=== PATIENT | female | born 2000 | race Caucasian/White ===

== ENCOUNTER 2020-05-16 17:33 | Emergency (ER) | payer SELFPAY ==
[2020-05-16 18:22] LABS: Urine Blood NEGATIVE (NEG); Urine Glucose NEGATIVE (NEG); Urine Protein NEGATIVE (NEG); Urine Specific Gravity 1.015 (1.005-1.030)
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
--- NOTE | 2020-05-16 18:44 | RAD REPORT ---
EXAM DESCRIPTION: CT - Thorax Wo Con - 05/16/2020 6:16 pm CLINICAL HISTORY: Chest pain COMPARISON: None TECHNIQUE: Computed axial tomography of the chest was obtained. Contrast was not requested. All CT scans are performed using dose optimization technique as appropriate and may include automated exposure control or mA/KV adjustment according to patient size. FINDINGS: The evaluation of mediastinum, leanne and vessels is limited secondary to lack of IV contras t administration. A gross mediastinal hematoma is not seen. A pulmonary contusion is not noted A pleural effusion is not present. A pericardial effusion is not seen IMPRESSION: No acute traumatic injury involving the chest seen
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
[2020-05-16 20:02] VITALS: TEMP 98
[2020-05-16 20:03] VITALS: O2SAT 100
[2020-05-16 20:05] VITALS: BP 132/81
== END 2020-05-16 19:49 | disposition home or self-care (01) ==
LOC: ER 17:33
DX: S20.219A Contusion of unspecified front wall of thorax, initial encounter (principal); S80.11XA Contusion of right lower leg, initial encounter; V49.50XA Passenger injured in collision with unspecified motor vehicles in traffic accident, initial encounter
CPT/HCPCS: 70450; 71250; 72125; 81003; 81025; 96374; 99284

== ENCOUNTER 2020-06-16 14:03 | Emergency (ER) | payer SELFPAY ==
--- NOTE | 2020-06-16 14:44 | ER ---
Nurse's Notes [facility] Name: Rupa Smith Age: 20 yrs Sex: Female : 2000 Arrival Date: 06/16/2020 Time: 14:12 Bed 20 Private MD: Diagnosis: Other otitis externa, left ear Presentation: 06/16 14:26 Chief complaint: Patient states: Left ear pain x approx 2 weeks, recently began ph radiating to left jaw and throat, also reports headache, denies cough, fever, or SOB. Coronavirus screen: Patient denies shortness of breath or difficulty breathing. Patient denies measured and/or subjective temperature greater than 100.4F prior to today's visit. Patient denies travel on a cruise ship or to a country the [facility] currently lists as an affected area. Patient denies contact with known and/or suspected case of COVID-19. Proceed with normal triage. Ebola Screen: No symptoms or risks identified at this time. Initial Sepsis Screen: Does the patient meet any 2 criteria? No. Patient's initial sepsis screen is negative. Does the patient have a suspected source of infection? No. Patient's initial sepsis screen is negative. Risk Assessment: Do you want to hurt yourself or someone else? Patient reports no desire to harm self or others. Onset of symptoms was June 16, 2020. 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 - Social history:: Smoking status: Patient reports the use of cigarette tobacco products, "tobacco". Screenin:34 Abuse screen: Denies threats or abuse. Denies injuries from another. Nutritional ph screening: No deficits noted. Tuberculosis screening: No symptoms or risk factors identified. Fall Risk None identified. Assessment: 14:33 General: Appears in no apparent distress. comfortable, slender, well groomed, Behavior ph is calm, cooperative, appropriate for age, Denies fever. Pain: Complains of pain in left ear Pain radiates to left jaw. Neuro: Level of Consciousness is awake, alert, obeys commands, Oriented to person, place, time, situation. Cardiovascular: Capillary refill < 3 seconds in bilateral fingers Patient's skin is warm and dry. Respiratory: Airway is patent Respiratory effort is even, unlabored, Respiratory pattern is regular, symmetrical. EENT: Reports pain in left ear and left jaw when swallowing. Derm: Skin is intact, is healthy with good turgor, Skin is pink, warm \\T\\ dry. 14:55 Reassessment: Patient appears in no apparent distress at this time. Patient and/or vc family updated on plan of care and expected duration. Pain level reassessed. Patient is alert, oriented x 3, equal unlabored respirations, skin warm/dry/pink. Vital Signs: 14:26 BP 126 / 81; Pulse 98; Resp 18; Temp 98.5; Pulse Ox 100% on R/A; Weight 45.36 kg; ph Height 5 ft. 2 in. (157.48 cm); 14:26 Body Mass Index 18.29 (45.36 kg, 157.48 cm) ph ED Course: 14:12 Patient arrived in ED. fj1 14:20 Den[facility] Mar[facility]C [facility]. kb 14:20 Ramu Mclaughlin MD is Attending Physician. kb 14:30 Triage completed. ph 14:33 Arm band placed on Patient placed in an exam room. ph 14:35 Patient has correct armband on for positive identification. Bed in low position. Call ph light in reach. Side rails up X 1. Pulse ox on. NIBP on. Door closed. Noise minimized. 14:55 Daja Ricci RN is Primary Nurse. vc 15:00 No provider procedures requiring assistance completed. Patient did not have IV access vc during this emergency room visit. Administered Medications: No medications were administered Outcome: 14:44 Discharge ordered by . kb 15:00 Discharged to home ambulatory. vc 15:00 Condition: good 15:00 Discharge instructions given to patient, Instructed on discharge instructions, follow up and referral plans. medication usage, Demonstrated understanding of instructions, follow-up care, medications, Prescriptions given X 1. 15:00 Patient left the ED. vc Signatures: Denae Marquez FNP-C FNP-Ckb Hall, Patricia, RN RN Daja Ricci RN RN Rigo, Damian fj1
--- NOTE | 2020-06-16 14:44 | EDPHYS ---
Physician Documentation [facility] Name: Rupa Smith Age: 20 yrs Sex: Female : 2000 Arrival Date: 06/16/2020 Time: 14:12 Bed 20 Private MD: ED Physician Ramu Mclaughlin HPI: 06/16 14:41 This 20 yrs old Female presents to ER via Ambulatory with complaints of Ear kb Pain. 14:41 The patient presents with pain, tenderness. The complaints affect the left ear. Onset: kb The symptoms/episode began/occurred 1.5 week(s) ago. Modifying factors: The symptoms are alleviated by nothing, the symptoms are aggravated by nothing. Associated signs and symptoms: The patient has no apparent associated signs or symptoms. Severity of symptoms: At their worst the symptoms were moderate in the emergency department the symptoms are unchanged. The patient has not experienced similar symptoms in the past. The patient has not recently seen a physician. pt reports left ear pain for a week and a half. States the pain is now radiating to jaw and throat so she came to get it checked out. . 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 - Social history:: Smoking status: Patient reports the use of cigarette tobacco products, "tobacco". ROS: 14:40 Constitutional: Negative for fever, chills, and weight loss, Cardiovascular: Negative kb for chest pain, palpitations, and edema, Respiratory: Negative for shortness of breath, cough, wheezing, and pleuritic chest pain, Abdomen/GI: Negative for abdominal pain, nausea, vomiting, diarrhea, and constipation, MS/Extremity: Negative for injury and deformity, Skin: Negative for injury, rash, and discoloration, Neuro: Negative for headache, weakness, numbness, tingling, and seizure. 14:40 ENT: Positive for ear pain. Exam: 14:40 Constitutional: This is a well developed, well nourished patient who is awake, alert, kb and in no acute distress. Head/Face: Normocephalic, atraumatic. Chest/axilla: Normal chest wall appearance and motion. Nontender with no deformity. No lesions are appreciated. Cardiovascular: Regular rate and rhythm with a normal S1 and S2. No gallops, murmurs, or rubs. Normal PMI, no JVD. No pulse deficits. Respiratory: Lungs have equal breath sounds bilaterally, clear to auscultation and percussion. No rales, rhonchi or wheezes noted. No increased work of breathing, no retractions or nasal flaring. Abdomen/GI: Soft, non-tender, with normal bowel sounds. No distension or tympany. No guarding or rebound. No evidence of tenderness throughout. Skin: Warm, dry with normal turgor. Normal color with no rashes, no lesions, and no evidence of cellulitis. MS/ Extremity: Pulses equal, no cyanosis. Neurovascular intact. Full, normal range of motion. Neuro: Awake and alert, GCS 15, oriented to person, place, time, and situation. Cranial nerves II-XII grossly intact. Motor strength 5/5 in all extremities. Sensory grossly intact. Cerebellar exam normal. Normal gait. 14:40 ENT: External ear(s): are unremarkable, Ear canal(s): purulent discharge, that is moderate, in the left canal, swelling, that is moderate, of the left canal, TM's: are normal, Nose: is normal, Mouth: is normal, Posterior pharynx: is normal. Vital Signs: 14:26 BP 126 / 81; Pulse 98; Resp 18; Temp 98.5; Pulse Ox 100% on R/A; Weight 45.36 kg; ph Height 5 ft. 2 in. (157.48 cm); 14:26 Body Mass Index 18.29 (45.36 kg, 157.48 cm) ph MDM: 14:27 Patient medically screened. kb 14:40 Data reviewed: vital signs, nurses notes. Data interpreted: Pulse oximetry: on room air kb is 100 %. Interpretation: normal. 14:41 Counseling: I had a detailed discussion with the patient and/or guardian regarding: the kb historical points, exam findings, and any diagnostic results supporting the discharge/admit diagnosis, the need for outpatient follow up, a family practitioner, to return to the emergency department if symptoms worsen or persist or if there are any questions or concerns that arise at home. Administered Medications: No medications were administered Disposition: 18:06 Co-signature as Attending Physician, Ramu Mclaughlin MD I agree with the assessment and chad plan of care. Disposition: 06/16/20 14:44 Discharged to Home. Impression: Other otitis externa, left ear. - Condition is Stable. - Discharge Instructions: Otitis Externa, [id number], Ear Drops, Adult, [id number]. - Prescriptions for Cortisporin 3.5- 10,000-1 mg/mL-unit/mL-% Otic solution - instill 4 drop by OTIC route 4 times per day for 7 days; 1 bottle. - Medication Reconciliation Form, Thank You Letter, Antibiotic Education, Prescription Opioid Use form. - Follow up: Emergency Department; When: As needed; Reason: Worsening of condition. Follow up: Private Physician; When: 2 - 3 days; Reason: Recheck today's complaints, Continuance of care, Re-evaluation by your physician. Signatures: Denae Marquez, FENCE ERECTOR-C FENCE ERECTOR-Ramu Joya MD MD cha Hall, Patricia, RN RN ph CalcDjaa valencia RN RN vc Corrections: (The following items were deleted from the chart) 15:00 14:44 06/16/2020 14:44 Discharged to Home. Impression: Other otitis externa, left ear. vc Condition is Stable. Forms are Medication Reconciliation Form, Thank You Letter, Antibiotic Education, Prescription Opioid Use. Follow up: Emergency Department; When: As needed; Reason: Worsening of condition. Follow up: Private Physician; When: 2 - 3 days; Reason: Recheck today's complaints, Continuance of care, Re-evaluation by your physician. kb
== END 2020-06-16 15:00 | disposition home or self-care (01) ==
LOC: ER 14:03
DX: H60.8X2 Other otitis externa, left ear (principal); Z72.0 Tobacco use
CPT/HCPCS: 99283

== ENCOUNTER 2022-07-31 13:29 | Emergency (ER) | payer SELFPAY ==
--- OUTSIDE RECORDS SUMMARY | 2022-07-31 13:38 | XMS REPORT | Continuity of Care Document ---
:2000 Author Organization [facility] t Address [address] [place] [address] Care Team Providers Name Role Phone PCP, PATIENT DOES NOT HAVE A Primary Care Physician Unavaila ble Saul Chapman Attending Clinician Unavailable PATRICIA SCHAEFER Attending Clinician Unavailable Patricia Schaefer MD Attending Clinician Sean Hancock MD Attending Clinician JESÚS VELARDE Attending Clinician Unavailable Jesús Velarde MD Attending Clinician Cindy Hammond DO Attending Clinician SEAN HANCOCK Attending Clinician Unavailable Doctor Unassigned, Tobias Attending Clinician Unavailable Lois Mealra Attending Clinician Oswald Tee Attending Clinician Physician, No Primary or Family Admitting Clinician Unavailrohan fierro Payers Payer Name Policy Type Policy Number Effective Date Expiration Date S vipul [facility] [id number] 2020 00:00:00 [employer] [facility] [id number] 2016 00:00:00 Problems Condition Condition Condition Status Onset Resolution Last Treating Co mments Source Name Details Category Date Date Treatment Clinician Date Hepatitis Hepatitis Disease Active Overview: Univers C antibody C antibody 8-13 Formattin ity of test test 00:00: g of this [place] positive positive 00 note Medica l might be Branch different from the original. Patient does not have Hep C, false positive Ab test with neg RNAPer UTD, "The absence of detectabl e HCV RNA essential ly confirms the absence of chronic HCV infection . False-neg ative tests for RNA are unusual when sensitive quantitat jazmyne or qualitati ve tests with a low level of detection (eg, <50 internati onal units/mL) are used.In this situation , the reactive anti-HCV antibody most likely represent s prior infection that subsequen tly cleared spontaneo usly (or following successfu l therapy) or a false-pos itive antibody test due to technical reasons. The estimated rate of spontaneo us clearance of virus after infection is 20 to 45 percent depending upon the age and immune status of the individua l at the time of infection " Hepatitis Hepatitis Disease Active Overview: Univers C virus C virus 07-11 The route ity o f carrier carrier 00:00: [facility] delivery Medical has not Branch been shown to influence the risk of vertical HCV transmiss ion (35, 50). delivery should be performed in HCV-infec so women only for obstetric indicatio ns. breastfee ding has not been associate d with an increased risk of HCV infection (56 59) and, therefore , is not contraind icated in HCV-infec so mothers (58, 59). 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-cutti 12-11 it y of ng ng 00:00: [place] 00 Medical Branch Adopted Adopted Disease Active Univers from [place]: [place] no history no history 00 Me dical known known Branch Allergies, Adverse Reactions, Alerts Allergy Allergy Status Severity Reaction(s) Onset Inactive Treating Comm ents Source Name Type Date Date Clinician No Known DA Active U 2005-11 [facility] Contrast 12-09 Clear Allergie 00:00: [place]ang s 00 [facility] No Known DA Active U 2005-11 [facility] Drug - Clear Allergie 00:00: [place] s [facility] No Known DA Active U 2005-11 [facility] Food - Clear Allergie 00:00: [place] 00 [facility] No Known DA Active U 2005-11 [facility] Other - Clear Allergie 00:00: [place] [facility] NO KNOWN Drug Active Univers ALLERGIE Class ity of S [place] Medical [facility] Social History Social Habit Start Date Stop Date Quantity Comments Source Exposure to Not sure [facility] 2022-02-28 2022-02-28 0 [facility]d [facility] 00:[facility]:00 00:00:00 Medical Branch Tobacco use and 2012-06-16 2012-06-16 Never used [facility] exposure 00:00:00 00:00:00 Medical Branch Sex Assigned At [birth year] [facility] 00:00:00 00:00:00 Medical Branch Smoking Status Start Date Stop Date Source Never smoker [facility] Medications Ordered Filled Start Stop Current Ordering Indication Dosage Frequency Signature Comments Components Source Medication Medication Date Date Medication? Clinician (SIG) Name Name phenazopyri Yes [id number] 200mg Take 1 Univers dine 200 mg 4-02 tablet by ity of tablet 00:00: mouth 3 [place] 00 (three) Medical times Branch daily. ibuprofen Yes [id number] 400mg Take 2 Univers (MOTRIN IB) 4-02 tablets by it y of 200 mg 00:00: mouth [place] tablet 00 every 8 Medical (eight) Branch hours as needed for Pain (scale 1-3) for up to 30 doses. cephALEXin 2021- No [id number] 500mg Take 1 Univers (KEFLEX) 4-02 04-13 capsule by ity of 500 mg 00:00: 04:59 mouth 4 [place] capsule 00 :00 (four) Medical times Branch daily for 10 days. ketorolac 2020-11- No 30mg 30 mg, Unive rs (TORADOL) 2-30 12-30 Intramuscu ity of injection 16:15: 15:13 [place], ONCE, [place] 30 mg 00 :00 1 dose, On Medical Eli Branch 11/27/21 at 1015, Routine
ensemble member approving Restricted medication : JESÚS VELARDE erythromyci Yes [id number] .5[in_u Place 0.5 Univers n 5 mg/gram 08-10 247414 s] Inches in i ty of (0.5 %) 00:00: right eye [place] ophthalmic 00 at Medical ointment bedtime. Branch Continue until you follow up with eye doctor. erythromyci Yes [id number] .5[in_u Place 0.5 Univers n 5 mg/gram 08-10 498510 s] Inches in i ty of (0.5 %) 00:00: right eye [place] ophthalmic 00 at Medical ointment bedtime. Branch Continue until you follow up with eye doctor. erythromyci Yes [id number] .5[in_u Place 0.5 Univers n 5 mg/gram 08-10 028634 s] Inches in i ty of (0.5 %) 00:00: right eye [place] ophthalmic 00 at Medical ointment bedtime. Branch Continue until you follow up with eye doctor. erythromyci Yes [id number] .5[in_u Place 0.5 Univers n 5 mg/gram 08-10 303072 s] Inches in i ty of (0.5 %) 00:00: right eye [place] ophthalmic 00 at Medical ointment bedtime. Branch Continue until you follow up with eye doctor. erythromyci Yes [id number] .5[in_u Place 0.5 Univers n 5 mg/gram 08-10 [id number] s] Inches in i ty of (0.5 %) 00:00: right eye [place] ophthalmic 00 at Medical ointment bedtime. Branch Continue until you follow up with eye doctor. cefTRIAXone 2019-11 2020- No 1000mg 1,000 mg, Univers (ROCEPHIN) 12-28-30 IV ity of 1,000 mg in [facility]:00: [facility] [place] NaCl 0.9% 00 :00 ONCE, 1 Medical (NS) 50 mL dose, Sun Bran ch MINI-BAG 10/27/20 at 1900, 50 mL
Reas on for Anti-Infec tive: Documented Infection< br>Documen so Infection Site: Urine
D uration of Therapy: 7 days ciprofloxac 2019-11- No [id number] 500mg Take 1 Univers in HCl 500 12-27 12-10 tablet by ity of mg tablet 00:00: 05:59 mouth 2 [place] 00 :00 (two) Medical times [facility] daily for 10 days. cefTRIAXone 2018- No 1000mg 1,000 mg, Univers (ROCEPHIN) 08-04 IV ity of 1,000 mg in 23:15: 23:27 [facility], [place] NaCl 0.9% 00 :00 ONCE, 1 Medical (NS) 50 mL dose, Fri Bran ch MINI-BAG 08/04/19 at 1815, 50 mL
Reas on for Anti-Infec tive: Documented Infection< br>Documen so Infection Site: Urine
D uration of Therapy: 7 days iohexol 2018- No 100mL 100 mL, Unive rs (OMNIPAQUE 08-04 Intravenou it y of 350 22:00: 22:00 s, ONCE, 1 [place] BULK-100 00 :00 dose, Fri Medica l mL) 08/04/19 at Branch injection 1700, 100 mL Routine ondansetron 2018- No 4mg 4 mg, Slow Univers (ZOFRAN 08-04 IV Push, ity of (PF)) 22:00: 21:05 ONCE, 1 [place] injection 4 00 :00 dose, Fri Med ical mg 08/04/19 at Branch 1700, JASMIN ketorolac 2018- No 15mg 15 mg, Unive rs (TORADOL) 08-04 Slow IV ity of injection 22:00: 21:05 Push, [place] 15 mg 00 :00 ONCE, 1 Medical dose, Fri Branch 08/04/19 at 1700, Routine
ensemble member approving Restricted medication : OSWALD JOE acetaminoph 2019- No 650mg 650 mg, U nivers en 08-04 Oral, ity of (TYLENOL) 22:00: 21:02 ONCE, 1 [place] tablet 650 00 :00 dose, Fri Medi andrew mg 08/04/19 at Branch 1700, JASMIN NaCl 0.9% 2019- No 1000mL at 999 Uni vers (NS) bolus 08-04 09-07 mL/hr, ity of infusion 21:15: 00:01 1,000 mL, Dilan as 1,000 mL 00 :00 IV Medical Infusion, Branch ONCE, 1 dose, 08/04/19 at 1615, STAT NaCl 0.9% 2019- No 1000mL at 999 Uni vers (NS) bolus 9-06 09-07 mL/hr, ity of infusion 21:15: 00:01 1,000 mL, Dilan as 1,000 mL 00 :00 IV Medical Infusion, Branch ONCE, 1 dose, 08/04/19 at 1615, STAT ondansetron 0 Yes [id number] 4mg Take 1 Univers (ZOFRAN 9-06 tablet by ity of ODT) 4 mg 00:00: mouth [place] disintegrat 00 every 8 Medic al ing tablet (eight) Branch hours as needed for Nausea and Vomiting (N/V). ibuprofen 0 Yes [id number] 600mg Take 1 U nivers 600 mg 9-06 tablet by ity of tablet 00:00: mouth [place] 00 every 6 Medical (six) Branch hours as needed for Pain (scale 1-3). ondansetron 2019-0 Yes [id number] 4mg Take 1 Univers (ZOFRAN 9-06 tablet by ity of ODT) 4 mg 00:00: mouth [place] disintegrat 00 every 8 Medic al ing tablet (eight) Branch hours as needed for Nausea and Vomiting (N/V). ibuprofen 2019-0 Yes [id number] 600mg Take 1 U nivers 600 mg 9-06 tablet by ity of tablet 00:00: mouth [place] 00 every 6 Medical (six) Branch hours as needed for Pain (scale 1-3). ondansetron 2019-0 Yes [id number] 4mg Take 1 Univers (ZOFRAN 9-06 tablet by ity of ODT) 4 mg 00:00: mouth [place] disintegrat 00 every 8 Medic al ing tablet (eight) Branch hours as needed for Nausea and Vomiting (N/V). ibuprofen 2019-0 Yes [id number] 600mg Take 1 U nivers 600 mg 9-06 tablet by ity of tablet 00:00: mouth [place] 00 every 6 Medical (six) Branch hours as needed for Pain (scale 1-3). ondansetron Yes [id number] 4mg Take 1 Univers (ZOFRAN 9-06 tablet by ity of ODT) 4 mg 00:00: mouth [place] disintegrat 00 every 8 Medic al ing tablet (eight) Branch hours as needed for Nausea and Vomiting (N/V). ibuprofen Yes [id number] 600mg Take 1 U nivers 600 mg 9-06 tablet by ity of tablet 00:00: mouth [place] 00 every 6 Medical (six) Branch hours as needed for Pain (scale 1-3). ondansetron Yes [id number] 4mg Take 1 Univers (ZOFRAN 9-06 tablet by ity of ODT) 4 mg 00:00: mouth [place] disintegrat 00 every 8 Medic al ing tablet (eight) Branch hours as needed for Nausea and Vomiting (N/V). ibuprofen Yes [id number] 600mg Take 1 U nivers 600 mg 9- tablet by ity of tablet 00:00: mouth [place] 00 every 6 Medical (six) Branch hours as needed for Pain (scale 1-3). ondansetron 2020- No [id number] 4mg Take 1 Univers (ZOFRAN -05 09- tablet by ity of ODT) 4 mg 00:00: 00:00 mouth [place] disintegrat 00 :00 every 8 Medic al ing tablet (eight) Branch hours as needed for Nausea and Vomiting (N/V). ibuprofen 2020- No [id number] 600mg Take 1 Univers 600 mg 08-04-29 tablet by ity of tablet 00:00: 00:00 mouth [place] 00 :00 every 6 Medical (six) Branch hours as needed for Pain (scale 1-3). cefpodoxime 2019- No [id number] 100mg Take 1 Univers 100 mg 08-0414 tablet by ity of tablet 00:00: 04:59 mouth 2 [place] 00 :00 (two) Medical times Branch daily for 7 days. levonorgest 2018- 2019- No 1{devic Un kristopher rel 8-16 08-16 e} ity of (MIRENA) 20:30: 19:27 [place] IUD 1 00 :00 [employer] Associate Branch ibuprofen 2019- No 600mg Univer s (IBU) 07-14 ity of tablet 600 20:30: 19:26 [place] mg 00 :00 Medical Branch ibuprofen 2019- No 600mg 600 mg, Uni vers (IBU) 07-14 Oral, ity of tablet 600 20:30: 19:26 ONCE, 1 [place] mg 00 :00 dose, [facility] 07/14/19 at Branch 1530, Routine levonorgest 2019- No 1{devic 1 Device, Univers rel 07-14 e} Intrauteri ity of (MIRENA) 20:30: 19:27 ne, ONCE, Dilan as IUD 1 00 :00 1 dose, Quality Control Associate [facility] 07/14/19 at 1530, Routine levonorgest 2019- No 1{devic Un kristopher rel 07-14 e} ity of (MIRENA) 20:30: 19:27 [place] IUD 1 00 :00 [employer] Associate Branch ibuprofen 2018- No 600mg Univer s (IBU) 07-14 ity of tablet 600 20:30: 19:26 [place] mg 00 :00 Medical Branch ibuprofen 2019- No 600mg 600 mg, Uni vers (IBU) 07-14 Oral, ity of tablet 600 20:30: 19:26 ONCE, 1 [place] mg 00 :00 dose, [facility] 07/14/19 at Branch 1530, Routine levonorgest 2019- No 1{devic 1 Device, Univers rel 07-14 e} Intrauteri ity of (MIRENA) 20:30: 19:27 ne, ONCE, [place] IUD 1 00 :00 1 dose, Quality Control Associate [facility] 07/14/19 at 1530, Routine levonorgest 2018- 2019- No 1{devic Un kristopher rel 07-14 e} ity of (MIRENA) 20:30: 19:27 [place] IUD 1 00 :00 [employer] Associate Branch ibuprofen 2018- 2019- No 600mg Univer s (IBU) 07-14 ity of tablet 600 20:30: 19:26 [place] mg 00 :00 Medical Branch ibuprofen 2019- No 600mg 600 mg, Uni vers (IBU) 07-14 Oral, ity of tablet 600 20:30: 19:26 ONCE, 1 [place] mg 00 :00 dose, Fri Medical 07/14/19 at Branch 1530, Routine levonorgest 2019- No 1{devic 1 Device, Univers rel 07-14 e} Intrauteri ity of (MIRENA) 20:30: 19:27 ne, ONCE, Dilan as IUD 1 00 :00 1 dose, Quality Control Associate Fri [facility] 07/14/19 at 1530, Routine levonorgest 2019- No 1{devic Un kristopher rel 07-14 e} ity of (MIRENA) 20:30: 19:27 [place] IUD 1 00 :00 [employer] Control Associate Branch ibuprofen 2019- No 600mg Univer s (IBU) 07-14 ity of tablet 600 20:30: 19:26 [place] mg 00 :00 Medical Branch ibuprofen 2018- No 600mg 600 mg, Uni vers (IBU) 07-14 Oral, ity of tablet 600 20:30: 19:26 ONCE, 1 [place] mg 00 :00 dose, Fri [facility] 07/14/19 at Branch 1530, Routine levonorgest 2019- No 1{devic 1 Device, Univers rel 07-14 e} Intrauteri ity of (MIRENA) 20:30: 19:27 ne, ONCE, Dilan as IUD 1 00 :00 1 dose, Quality Control Associate Fri [facility] 07/14/19 at 1530, Routine metroNIDAZO 2019- No [id number] 500mg Take 1 Univers LE (FLAGYL) 07-1424 tablet by it y of 500 mg 00:00: 04:59 mouth 2 [place] tablet 00 :00 (two) Medical times Branch daily for 7 days. metroNIDAZO 2019- No [id number] 500mg Take 1 Univers LE (FLAGYL) 07-14-24 tablet by it y of 500 mg 00:00: 04:59 mouth 2 [place] tablet 00 :00 (two) Medical times Branch daily for 7 days. metroNIDAZO 2019- No [id number] 500mg Take 1 Univers LE (FLAGYL) 07-1424 tablet by it y of 500 mg 00:00: 04:59 mouth 2 [place] tablet 00 :00 (two) Medical times [facility] daily for 7 days. metroNIDAZO 2019- No [id number] 500mg Take 1 Univers LE (FLAGYL) 8-16 24 tablet by it y of 500 mg 00:00: 04:59 mouth 2 [place] tablet 00 :00 (two) Medical [facility] daily for 7 days. No known No Univers medications ity of [facility] No known No Univers medications ity [facility] [place] [facility] No known No Univers medications ity [facility] [place] [facility] No known No Univers medications ity [facility] [place] [facility] No known No Univers medications ity [facility] [place] [facility] No [facility] No Univers medications ity [facility] [place] [facility] No known No Univers medications ity [facility] [place] [facility] No known No Univers medications [facility] Immunizations Ordered Immunization Filled Immunization Date Status Commen ts Source Name Name [facility] 2018-06-27 Completed University of 00:00:00 [place] [id number] 2018-06-27 Completed University of 00:00:00 [facility] 2018-06-27 Completed University of 00:00:00 [facility] 2018-06-27 Completed University of 00:00:00 [facility] 2018-06-27 Completed University of 00:00:00 [facility] 2018-06-27 Completed University of 00:00:00 [facility] 2018-06-27 Completed University of 00:00:00 [facility] 2018-06-27 Completed University of 00:00:00 [facility] 2018-06-27 Completed University of 00:00:00 [facility] 2018-06-27 Completed University of 00:00:00 [facility] 2018-06-27 Completed University of 00:00:00 [facility] 2018-06-27 Completed University of 00:00:00 [facility] 2018-06-27 Completed University of 00:00:00 [facility] 2018-06-27 Completed University of 00:00:00 [facility] 2018-06-27 Completed University of 00:00:00 [facility] 2018-06-27 Completed University of 00:00:00 [facility] 2018-06-27 Completed University of 00:00:00 [facility] 2018-06-27 Completed University of 00:00:00 [place] [facility] HPV9 2018-06-27 Completed University of 00:00:00 [place] [facility] HPV9 2018-06-27 Completed University of 00:00:00 [place] [facility] HPV9 2018-06-27 Completed University of 00:00:00 [place] [facility] HPV9 2018-06-27 Completed University of 00:00:00 [place] [facility] HPV9 2018-06-27 Completed University of 00:00:00 [place] [facility] HPV9 2018-02-11 Completed University of 00:00:00 [place] [facility] Meningococcal B, OMV 2018-02-11 Completed Univ ersity of 00:00:00 [place] [facility] HPV9 2018-02-11 Completed University of 00:00:00 [place] [facility] Meningococcal B, OMV 2018-02-11 Completed Univ ersity of 00:00:00 [place] [facility] HPV9 2018-02-11 Completed University of 00:00:00 [place] [facility] Meningococcal B, OMV 2018-02-11 Completed Univ ersity of 00:00:00 [place] [facility] HPV9 2018-02-11 Completed University of 00:00:00 [place] [facility] Meningococcal B, OMV 2018-02-11 Completed Univ ersity of 00:00:00 [place] [facility] HPV9 2018-02-11 Completed University of 00:00:00 [place] [facility] Meningococcal B, OMV 2018-02-11 Completed Univ ersity of 00:00:00 [place] [facility] HPV9 2018-02-11 Completed University of 00:00:00 [place] [facility] Meningococcal B, OMV 2018-02-11 Completed Univ ersity of 00:00:00 [place] [facility] HPV9 2018-02-11 Completed University of 00:00:00 [place] [facility] Meningococcal B, OMV 2018-02-11 Completed Univ ersity of 00:00:00 [place] [facility] HPV9 2018-02-11 Completed University of 00:00:00 [place] [facility] Meningococcal B, OMV 2018-02-11 Completed Univ ersity of 00:00:00 [place] [facility] HPV9 2018-02-11 Completed University of 00:00:00 [place] [facility] Meningococcal B, OMV 2018-02-11 Completed Univ ersity of 00:00:00 [place] [facility] HPV9 2018-02-11 Completed University of 00:00:00 [place] [facility] Meningococcal B, OMV 2018-02-11 Completed Univ ersity of 00:00:00 [place] [facility] HPV9 2018-02-11 Completed University of 00:00:00 [place] [facility] Meningococcal B, OMV 2018-02-11 Completed Univ ersity of 00:00:00 [place] [facility] HPV9 2018-02-11 Completed University of 00:00:00 [place] [facility] Meningococcal B, OMV 2018-02-11 Completed Univ ersity of 00:00:00 [place] [facility] HPV9 2018-02-11 Completed University of 00:00:00 [place] [facility] Meningococcal B, OMV 2018-02-11 Completed Univ ersity of 00:00:00 [place] [facility] HPV9 2018-02-11 Completed University of 00:00:00 [place] [facility] Meningococcal B, OMV 2018-02-11 Completed Univ ersity of 00:00:00 [place] [facility] HPV9 2018-02-11 Completed University of 00:00:00 [place] [facility] Meningococcal B, OMV 2018-02-11 Completed Univ ersity of 00:00:00 [place] [facility] HPV9 2018-02-11 Completed University of 00:00:00 [place] [facility] Meningococcal B, OMV 2018-02-11 Completed Univ ersity of 00:00:00 [place] [facility] HPV9 2018-02-11 Completed University of 00:00:00 [place] [facility] Meningococcal B, OMV 2018-02-11 Completed Univ ersity of 00:00:00 [place] [facility] HPV9 2018-02-11 Completed University of 00:00:00 [place] [facility] Meningococcal B, OMV 2018-02-11 Completed Univ ersity of 00:00:00 [place] [facility] HPV9 2018-02-11 Completed University of 00:00:00 [place] [facility] Meningococcal B, OMV 2018-02-11 Completed Univ ersity of 00:00:00 [place] [facility] HPV9 2018-02-11 Completed University of 00:00:00 [place] [facility] Meningococcal B, OMV 2018-02-11 Completed Univ ersity of 00:00:00 [place] [facility] HPV9 2018-02-11 Completed University of 00:00:00 [place] [facility] Meningococcal B, OMV 2018-02-11 Completed Univ ersity of 00:00:00 [place] [facility] HPV9 2018-02-11 Completed University of 00:00:00 [place] [facility] Meningococcal B, OMV 2018-02-11 Completed Univ ersity of 00:00:00 [facility] Branch HPV9 2018-02-11 Completed University of 00:00:00 [facility] Branch Meningococcal B, OMV 2018-02-11 Completed Univ ersity of 00:00:00 [facility] Meningococcal 2017-06-10 Completed University of Polysaccharide 00:00:00 [place] Medi andrew (groups A, C, Y and Branc h W-135) conjugate vaccine (MCV4P) Meningococcal B, OMV 2017-06-10 Completed Univ ersity of 00:00:00 [facility] Branch HPV9 2017-06-10 Completed University of 00:00:00 [facility] Meningococcal 2017-06-10 Completed University of Polysaccharide 00:00:00 [place] Medi andrew (groups A, C, Y and Branc h W-135) conjugate vaccine (MCV4P) Meningococcal B, OMV 2017-06-10 Completed Univ ersity of 00:00:00 [facility] Branch HPV9 2017-06-10 Completed University of 00:00:00 [facility] Meningococcal 2017-06-10 Completed University of Polysaccharide 00:00:00 [place] Medi andrew (groups A, C, Y and Branc h W-135) conjugate vaccine (MCV4P) Meningococcal B, OMV 2017-06-10 Completed Univ ersity of 00:00:00 [facility] Branch HPV9 2017-06-10 Completed University of 00:00:00 [facility] Meningococcal 2017-06-10 Completed University of Polysaccharide 00:00:00 [place] Medi andrew (groups A, C, Y and Branc h W-135) conjugate vaccine (MCV4P) Meningococcal B, OMV 2017-06-10 Completed Univ ersity of 00:00:00 [facility] Branch HPV9 2017-06-10 Completed University of 00:00:00 [facility] Meningococcal 2017-06-10 Completed University of Polysaccharide 00:00:00 [place] Medi andrew (groups A, C, Y and Branc h W-135) conjugate vaccine (MCV4P) Meningococcal B, OMV 2017-06-10 Completed Univ ersity of 00:00:00 [facility] Branch HPV9 2017-06-10 Completed University of 00:00:00 [facility] Meningococcal 2017-06-10 Completed University of Polysaccharide 00:00:00 [place] Medi andrew (groups A, C, Y and Branc h W-135) conjugate vaccine (MCV4P) Meningococcal B, OMV 2017-06-10 Completed Univ ersity of 00:00:00 [facility] HPV9 2017-06-10 Completed University of 00:00:00 [facility] Meningococcal 2017-06-10 Completed University of Polysaccharide 00:00:00 [place] Medi andrew (groups A, C, Y and Branc h W-135) conjugate vaccine (MCV4P) Meningococcal B, OMV 2017-06-10 Completed Univ ersity of 00:00:00 [facility] Branch HPV9 2017-06-10 Completed University of 00:00:00 [facility] Meningococcal 2017-06-10 Completed University of Polysaccharide 00:00:00 [place] Medi andrew (groups A, C, Y and Branc h W-135) conjugate vaccine (MCV4P) Meningococcal B, OMV 2017-06-10 Completed Univ ersity of 00:00:00 [facility] HPV9 2017-06-10 Completed University of 00:00:00 [facility] Meningococcal 2017-06-10 Completed University of Polysaccharide 00:00:00 [place] Medi andrew (groups A, C, Y and Branc h W-135) conjugate vaccine (MCV4P) Meningococcal B, OMV 2017-06-10 Completed Univ ersity of 00:00:00 [facility] HPV9 2017-06-10 Completed University of 00:00:00 [facility] Meningococcal 2017-06-10 Completed University of Polysaccharide 00:00:00 [place] Medi andrew (groups A, C, Y and Branc h W-135) conjugate vaccine (MCV4P) Meningococcal B, OMV 2017-06-10 Completed Univ ersity of 00:00:00 [facility] HPV9 2017-06-10 Completed University of 00:00:00 [facility] Meningococcal 2017-06-10 Completed University of Polysaccharide 00:00:00 [place] [facility] (groups A, C, Y and Branc h W-135) conjugate vaccine (MCV4P) Meningococcal B, OMV 2017-06-10 Completed [facility] 00:00:00 [facility] HPV9 2017-06-10 Completed [facility] 00:00:00 [facility] Meningococcal 2017-06-10 Completed [facility] Polysaccharide 00:00:00 [place] [facility] (groups A, C, Y and Branc h W-135) conjugate vaccine (MCV4P) Meningococcal B, OMV 2017-06-10 Completed [facility] 00:00:00 [facility] HPV9 2017-06-10 Completed [facility] 00:00:00 [facility] Meningococcal 2017-06-10 Completed [facility] Polysaccharide 00:00:00 [place] [facility] (groups A, C, Y and Branc h W-135) conjugate vaccine (MCV4P) Meningococcal B, OMV 2017-06-10 Completed [facility] 00:00:00 [facility] HPV9 2017-06-10 Completed [facility] 00:00:00 [facility] Meningococcal 2017-06-10 Completed [facility] Polysaccharide 00:00:00 [place] [facility] (groups A, C, Y and Branc h W-135) conjugate vaccine (MCV4P) Meningococcal B, OMV 2017-06-10 Completed [facility] 00:00:00 [facility] HPV9 2017-06-10 Completed [facility] 00:00:00 [facility] Meningococcal 2017-06-10 Completed [facility] Polysaccharide 00:00:00 [place] [facility] (groups A, C, Y and Branc h W-135) conjugate vaccine (MCV4P) Meningococcal B, OMV 2017-06-10 Completed [facility] 00:00:00 [facility] HPV9 2017-06-10 Completed [facility] 00:00:00 [facility] Meningococcal 2017-06-10 Completed [facility] Polysaccharide 00:00:00 [place] [facility] (groups A, C, Y and Branc h W-135) conjugate vaccine (MCV4P) Meningococcal B, OMV 2017-06-10 Completed [facility] 00:00:00 [facility] HPV9 2017-06-10 Completed [facility] 00:00:00 [facility] Meningococcal 2017-06-10 Completed [facility] Polysaccharide 00:00:00 [place] [facility] (groups A, C, Y and Branc h W-135) conjugate vaccine (MCV4P) Meningococcal B, OMV 2017-06-10 Completed [facility] 00:00:00 [facility] HPV9 2017-06-10 Completed [facility] 00:00:00 [facility] Meningococcal 2017-06-10 Completed [facility] Polysaccharide 00:00:00 [place] [facility] (groups A, C, Y and Branc h W-135) conjugate vaccine (MCV4P) Meningococcal B, OMV 2017-06-10 Completed [facility] 00:00:00 [facility] HPV9 2017-06-10 Completed [facility] 00:00:00 [facility] Meningococcal 2017-06-10 Completed [facility] Polysaccharide 00:00:00 [place] [facility] (groups A, C, Y and Branc h W-135) conjugate vaccine (MCV4P) Meningococcal B, OMV 2017-06-10 Completed [facility] 00:00:00 [facility] HPV9 2017-06-10 Completed [facility] 00:00:00 [facility] Meningococcal 2017-06-10 Completed [facility] Polysaccharide 00:00:00 [place] [facility] (groups A, C, Y and Branc h W-135) conjugate vaccine (MCV4P) Meningococcal B, OMV 2017-06-10 Completed [facility] 00:00:00 [facility] HPV9 2017-06-10 Completed [facility] 00:00:00 [facility] Meningococcal 2017-06-10 Completed [facility] Polysaccharide 00:00:00 [place] [facility] (groups A, C, Y and Branc h W-135) conjugate vaccine (MCV4P) Meningococcal B, OMV 2017-06-10 Completed [facility] 00:00:00 [facility] HPV9 2017-06-10 Completed [facility] 00:00:00 [facility] Meningococcal 2017-06-10 Completed [facility] Polysaccharide 00:00:00 [place] [facility] (groups A, C, Y and Branc h W-135) conjugate vaccine (MCV4P) Meningococcal B, OMV 2017-06-10 Completed [facility] 00:00:00 [facility] HPV9 2017-06-10 Completed [facility] 00:00:00 [facility] Meningococcal 2017-06-10 Completed [facility] Polysaccharide 00:00:00 [place] [facility] (groups A, C, Y and Branc h W-135) conjugate vaccine (MCV4P) Meningococcal B, OMV 2017-06-10 Completed [facility] 00:00:00 [facility] HPV9 2017-06-10 Completed [facility] 00:00:00 [facility] HEPATITIS A 2013-03-29 Completed [facility] 00:00:00 [facility] HEPATITIS A 2013-03-29 Completed [facility] of 00:00:00 [facility] HEPATITIS A 2013-03-29 Completed [facility] 00:00:00 [facility] HEPATITIS A 2013-03-29 Completed [facility] 00:00:00 [facility] HEPATITIS A 2013-03-29 Completed [facility] 00:00:00 [facility] HEPATITIS A 2013-03-29 Completed [facility] 00:00:00 [facility] HEPATITIS A 2013-03-29 Completed [facility] 00:00:00 [facility] HEPATITIS A 2013-03-29 Completed [facility] 00:00:00 [facility] HEPATITIS A 2013-03-29 Completed [facility] 00:00:00 [facility] HEPATITIS A 2013-03-29 Completed [facility] 00:00:00 [facility] HEPATITIS A 2013-03-29 Completed [facility] 00:00:00 [facility] HEPATITIS A 2013-03-29 Completed [facility] 00:00:00 [facility] HEPATITIS A 2013-03-29 Completed [facility] 00:00:00 [facility] HEPATITIS A 2013-03-29 Completed [facility] 00:00:00 [facility] HEPATITIS A 2013-03-29 Completed [facility] of 00:00:00 [facility] HEPATITIS A 2013-03-29 Completed [facility] 00:00:00 [facility] HEPATITIS A 2013-03-29 Completed [facility] 00:00:00 [facility] HEPATITIS A 2013-03-29 Completed [facility] 00:00:00 [facility] HEPATITIS A 2013-03-29 Completed [facility] 00:00:00 [facility] HEPATITIS A 2013-03-29 Completed [facility] 00:00:00 [facility] HEPATITIS A 2013-03-29 Completed [facility] 00:00:00 [facility] HEPATITIS A 2013-03-29 Completed [facility] of 00:00:00 [facility] HEPATITIS A 2013-03-29 Completed [facility] of 00:00:00 [facility] Tdap 2012-06-16 Completed [facility] 00:00:00 [facility] Meningococcal 2012-06-16 Completed [facility] Polysaccharide 00:00:00 [place] [facility] (groups A, C, Y and Branc h W-135) conjugate vaccine (MCV4P) Varicella 2012-06-16 Completed [facility] of (varivax)(chicken 00:00:00 [place] [facility]ox[facility] HEPATITIS A 2012-06-16 Completed [facility] 00:00:00 [facility] Tdap 2012-06-16 Completed [facility] of 00:00:00 [facility] Meningococcal 2012-06-16 Completed [facility] Polysaccharide 00:00:00 [place] [facility] (groups A, C, Y and Branc h W-135) conjugate vaccine (MCV4P) Varicella 2012-06-16 Completed [facility] (varivax)(chicken 00:00:00 [place] [facility] pox) [facility] HEPATITIS A 2012-06-16 Completed [facility] 00:00:00 [facility] Tdap 2012-06-16 Completed [facility] of 00:00:00 [facility] Meningococcal 2012-06-16 Completed [facility] Polysaccharide 00:00:00 [place] [facility] (groups A, C, Y and Branc h W-135) conjugate vaccine (MCV4P) Varicella 2012-06-16 Completed [facility] (varivax)(chicken 00:00:00 [place] [facility] pox) [facility] HEPATITIS A 2012-06-16 Completed [facility] 00:00:00 [facility] Tdap 2012-06-16 Completed [facility] of 00:00:00 [facility] Meningococcal 2012-06-16 Completed [facility] of Polysaccharide 00:00:00 [facility]rew (groups A, C, Y and Branc h W-135) conjugate vaccine (MCV4P) Varicella 2012-06-16 Completed [facility] (varivax)(chicken 00:00:00 [place] [facility] pox) [facility] HEPATITIS A 2012-06-16 Completed [facility] 00:00:00 [facility] Tdap 2012-06-16 Completed [facility] of 00:00:00 [facility] Meningococcal 2012-06-16 Completed [facility] of Polysaccharide 00:00:00 [facility]rew (groups A, C, Y and Branc h W-135) conjugate vaccine (MCV4P) Varicella 2012-06-16 Completed [facility] (varivax)(chicken 00:00:00 [place] [facility] pox) [facility] HEPATITIS A 2012-06-16 Completed [facility] 00:00:00 [facility] Tdap 2012-06-16 Completed [facility] 00:00:00 [facility] Meningococcal 2012-06-16 Completed [facility] Polysaccharide 00:00:00 [place] [facility] (groups A, C, Y and Branc h W-135) conjugate vaccine (MCV4P) Varicella 2012-06-16 Completed [facility] (varivax)(chicken 00:00:00 [place] [facility] pox) [facility] HEPATITIS A 2012-06-16 Completed [facility] 00:00:00 [facility] Tdap 2012-06-16 Completed [facility] 00:00:00 [facility] Meningococcal 2012-06-16 Completed [facility] Polysaccharide 00:00:00 [place] [facility] (groups A, C, Y and Branc h W-135) conjugate vaccine (MCV4P) Varicella 2012-06-16 Completed [facility] (varivax)(chicken 00:00:00 [place] [facility] pox) [facility] HEPATITIS A 2012-06-16 Completed [facility] 00:00:00 [facility] Tdap 2012-06-16 Completed [facility] 00:00:00 [facility] Meningococcal 2012-06-16 Completed [facility] Polysaccharide 00:00:00 [place] [facility] (groups A, C, Y and Branc h W-135) conjugate vaccine (MCV4P) Varicella 2012-06-16 Completed [facility] (varivax)(chicken 00:00:00 [place] [facility] pox) [facility] HEPATITIS A 2012-06-16 Completed [facility] 00:00:00 [facility] TDAP 2012-06-16 Completed [facility] 00:00:00 [facility] Meningococcal 2012-06-16 Completed [facility] Polysaccharide 00:00:00 [place] [facility] (groups A, C, Y and Branc h W-135) conjugate vaccine (MCV4P) Varicella 2012-06-16 Completed [facility] (varivax)(chicken 00:00:00 [place] [facility] pox) [facility] HEPATITIS A 2012-06-16 Completed [facility] 00:00:00 [facility] TDAP 2012-06-16 Completed [facility] 00:00:00 [facility] Meningococcal 2012-06-16 Completed [facility] of Polysaccharide 00:00:00 [facility] (groups A, C, Y and Branc h W-135) conjugate vaccine (MCV4P) Varicella 2012-06-16 Completed [facility] (varivax)(chicken 00:00:00 [place] [facility] pox) [facility] HEPATITIS A 2012-06-16 Completed [facility] 00:00:00 [facility] TDAP 2012-06-16 Completed [facility] 00:00:00 [facility] Meningococcal 2012-06-16 Completed [facility] Polysaccharide 00:00:00 [place] [facility] (groups A, C, Y and Branc h W-135) conjugate vaccine (MCV4P) Varicella 2012-06-16 Completed [facility] (varivax)(chicken 00:00:00 [place] [facility] pox) [facility] HEPATITIS A 2012-06-16 Completed [facility] 00:00:00 [facility] TDAP 2012-06-16 Completed [facility] 00:00:00 [facility] Meningococcal 2012-06-16 Completed [facility] Polysaccharide 00:00:00 [place] [facility] (groups A, C, Y and Branc h W-135) conjugate vaccine (MCV4P) Varicella 2012-06-16 Completed [facility] (varivax)(chicken 00:00:00 [place] [facility] pox) [facility] HEPATITIS A 2012-06-16 Completed [facility] 00:00:00 [facility] TDAP 2012-06-16 Completed [facility] of 00:00:00 [facility] Meningococcal 2012-06-16 Completed [facility] Polysaccharide 00:00:00 [place] [facility] (groups A, C, Y and Branc h W-135) conjugate vaccine (MCV4P) Varicella 2012-06-16 Completed [facility] (varivax)(chicken 00:00:00 [place] [facility] pox) [facility] HEPATITIS A 2012-06-16 Completed [facility] 00:00:00 [facility] TDAP 2012-06-16 Completed [facility] of 00:00:00 [facility] Meningococcal 2012-06-16 Completed [facility] Polysaccharide 00:00:00 [place] [facility] (groups A, C, Y and Branc h W-135) conjugate vaccine (MCV4P) Varicella 2012-06-16 Completed [facility] (varivax)(chicken 00:00:00 [place] [facility] pox) [facility] HEPATITIS A 2012-06-16 Completed [facility] 00:00:00 [facility] TDAP 2012-06-16 Completed [facility] of 00:00:00 [facility] Meningococcal 2012-06-16 Completed [facility] Polysaccharide 00:00:00 [place] [facility] (groups A, C, Y and Branc h W-135) conjugate vaccine (MCV4P) Varicella 2012-06-16 Completed [facility] (varivax)(chicken 00:00:00 [place] [facility] pox) [facility] HEPATITIS A 2012-06-16 Completed [facility] 00:00:00 [facility] TDAP 2012-06-16 Completed [facility] of 00:00:00 [facility] Meningococcal 2012-06-16 Completed [facility] Polysaccharide 00:00:00 [place] [facility] (groups A, C, Y and Branc h W-135) conjugate vaccine (MCV4P) Varicella 2012-06-16 Completed [facility] (varivax)(chicken 00:00:00 [place] [facility] pox) [facility] HEPATITIS A 2012-06-16 Completed [facility] 00:00:00 [facility] TDAP 2012-06-16 Completed [facility] of 00:00:00 [facility] Meningococcal 2012-06-16 Completed [facility] Polysaccharide 00:00:00 [place] [facility] (groups A, C, Y and Branc h W-135) conjugate vaccine (MCV4P) Varicella 2012-06-16 Completed [facility] (varivax)(chicken 00:00:00 [place] [facility] pox) [facility] HEPATITIS A 2012-06-16 Completed [facility] 00:00:00 [facility] TDAP 2012-06-16 Completed [facility] 00:00:00 [facility] Meningococcal 2012-06-16 Completed [facility] Polysaccharide 00:00:00 [place] [facility] (groups A, C, Y and Branc h W-135) conjugate vaccine (MCV4P) Varicella 2012-06-16 Completed [facility] (varivax)(chicken 00:00:00 [place] [facility] pox) [facility] HEPATITIS A 2012-06-16 Completed [facility] 00:00:00 [facility] TDAP 2012-06-16 Completed [facility] 00:00:00 [facility] Meningococcal 2012-06-16 Completed [facility] Polysaccharide 00:00:00 [place] [facility] (groups A, C, Y and Branc h W-135) conjugate vaccine (MCV4P) Varicella 2012-06-16 Completed [facility] (varivax)(chicken 00:00:00 [place] [facility] pox) [facility] HEPATITIS A 2012-06-16 Completed [facility] 00:00:00 [facility] TDAP 2012-06-16 Completed [facility] of 00:00:00 [facility] Meningococcal 2012-06-16 Completed [facility] Polysaccharide 00:00:00 [place] [facility] (groups A, C, Y and Branc h W-135) conjugate vaccine (MCV4P) Varicella 2012-06-16 Completed [facility] (varivax)(chicken 00:00:00 [place] [facility] pox) [facility] HEPATITIS A 2012-06-16 Completed [facility] 00:00:00 [facility] TDAP 2012-06-16 Completed [facility] 00:00:00 [facility] Meningococcal 2012-06-16 Completed [facility] Polysaccharide 00:00:00 [place] [facility] (groups A, C, Y and Branc h W-135) conjugate vaccine (MCV4P) Varicella 2012-06-16 Completed [facility] (varivax)(chicken 00:00:00 [place] [facility] pox) [facility] HEPATITIS A 2012-06-16 Completed [facility] 00:00:00 [facility] TDAP 2012-06-16 Completed [facility] of 00:00:00 [facility] Meningococcal 2012-06-16 Completed [facility] Polysaccharide 00:00:00 [place] [facility] (groups A, C, Y and Branc h W-135) conjugate vaccine (MCV4P) Varicella 2012-06-16 Completed [facility] (varivax)(chicken 00:00:00 [place] [facility] pox) [facility] HEPATITIS A 2012-06-16 Completed [facility] 00:00:00 [facility] Tdap 2012-06-16 Completed [facility] of 00:00:00 [facility] Meningococcal 2012-06-16 Completed [facility] Polysaccharide 00:00:00 [place] [facility] (groups A, C, Y and Branc h W-135) conjugate vaccine (MCV4P) Varicella 2012-06-16 Completed [facility] of (varivax)(chicken 00:00:00 [facility] edical pox) Branch HEPATITIS A 2012-06-16 Completed [facility] of 00:00:00 [facility] DTAP 2005-09-28 Completed [facility] 00:00:00 [facility] DTAP 2005-09-28 Completed [facility] 00:00:00 [facility] DTAP 2005-09-28 Completed [facility] of 00:00:00 [facility] DTAP 2005-09-28 Completed [facility] of 00:00:00 [facility] DTAP 2005-09-28 Completed [facility] 00:00:00 [facility] DTAP 2005-09-28 Completed [facility] of 00:00:00 [facility] DTAP 2005-09-28 Completed [facility] of 00:00:00 [facility] DTAP 2005-09-28 Completed [facility] 00:00:00 [facility] DTAP 2005-09-28 Completed [facility] 00:00:00 [facility] DTAP 2005-09-28 Completed [facility] of 00:00:00 [facility] DTAP 2005-09-28 Completed [facility] 00:00:00 [facility] DTAP 2005-09-28 Completed [facility] 00:00:00 [facility] DTAP 2005-09-28 Completed [facility] 00:00:00 [facility] DTAP 2005-09-28 Completed [facility] 00:00:00 [facility] DTAP 2005-09-28 Completed [facility] 00:00: [facility] DTAP 2005-09-28 Completed [facility] 00:00: [facility] DTAP 2005-09-28 Completed [facility] 00:00:00 [facility] DTAP 2005-09-28 Completed [facility] 00:00: [facility] DTAP 2005-09-28 Completed [facility] of 00:00:00 [facility] DTAP 2005-09-28 Completed [facility] 00:00:00 [facility] DTAP 2005-09-28 Completed [facility] 00:00:00 [facility] DTAP 2005-09-28 Completed [facility] 00:00:00 [facility] DTAP 2005-09-28 Completed [facility] 00:00:00 [facility] Hep B, Adol or Pedi 2005-01-29 Completed Unive rsity of Dosage 00:00:00 [facility] Hep B, Adol or Pedi 2005-01-29 Completed Unive rs[facility] of Dosage 00:00:00 [facility] Hep B, Adol or Pedi 2005-01-29 Completed Unive rsity of Dosage 00:00:00 [facility] Hep B, Adol or Pedi 2005-01-29 Completed [facility]ive rs[facility] of Dosage 00:00:00 [facility] Hep B, Adol or Pedi 2005-01-29 Completed [facility]ive rsity of Dosage 00:00:00 [facility] Hep B, Adol or Pedi 2005-01-29 Completed Unive rsity of Dosage 00:00:00 [facility] Hep B, Adol or Pedi 2005-01-29 Completed Unive rsity of Dosage 00:00:00 [facility] Hep B, Adol or Pedi 2005-01-29 Completed Unive rsity of Dosage 00:00:00 [facility] Hep B, Adol or Pedi 2005-01-29 Completed [facility]ive rsity of Dosage 00:00:00 [facility] Hep B, Adol or Pedi 2005-01-29 Completed Unive rsity of Dosage 00:00:00 [facility] Hep B, Adol or Pedi 2005-01-29 Completed Unive rsity of Dosage 00:00:00 [facility] Hep B, Adol or Pedi 2005-01-29 Completed Unive rsity of Dosage 00:00:00 [facility] Hep B, Adol or Pedi 2005-01-29 Completed Unive rsity of Dosage 00:00:00 [facility] Hep B, Adol or Pedi 2005-01-29 Completed Unive rsity of Dosage 00:00:00 [facility] Hep B, Adol or Pedi 2005-01-29 Completed Unive rsity of Dosage 00:00:00 [facility] Hep B, Adol or Pedi 2005-01-29 Completed Unive rsity of Dosage 00:00:00 [facility] Hep B, Adol or Pedi 2005-01-29 Completed [facility]ive rsity of Dosage 00:00:00 [facility] Hep B, Adol or Pedi 2005-01-29 Completed Unive rsity of Dosage 00:00:00 [facility] Hep B, Adol or Pedi 2005-01-29 Completed Unive rsity of Dosage 00:00:00 [facility] Hep B, Adol or Pedi 2005-01-29 Completed Unive rsity of Dosage 00:00:00 [facility] Hep B, Adol or Pedi 2005-01-29 Completed Unive rsity of Dosage 00:00:00 [facility] Hep B, Adol or Pedi 2005-01-29 Completed Unive rsity of Dosage 00:00:00 [facility] Hep B, Adol or Pedi 2005-01-29 Completed Unive rsity of Dosage 00:00:00 [facility] Hep B, Adol or Pedi 2004-08-26 Completed Unive rsity of Dosage 00:00:00 [facility] Hep B, Adol or Pedi 2004-08-26 Completed Unive rsity of Dosage 00:00:00 [facility] Hep B, Adol or Pedi 2004-08-26 Completed Unive rsity of Dosage 00:00:00 [facility] Hep B, Adol or Pedi 2004-08-26 Completed Unive rsity of Dosage 00:00:00 [facility] Hep B, Adol or Pedi 2004-08-26 Completed [facility] rs[facility] of Dosage 00:00:00 [facility] Hep B, Adol or Pedi 2004-08-26 Completed [facility]ive [facility] of Dosage 00:00:00 [facility] Hep B, Adol or Pedi 2004-08-26 Completed [facility]ive rs[facility] of Dosage 00:00:00 [facility] Hep B, Adol or Pedi 2004-08-26 Completed [facility]ive rsity of Dosage 00:00:00 [facility] Hep B, Adol or Pedi 2004-08-26 Completed [facility] of Dosage 00:00:00 [facility] Hep B, Adol or Pedi 2004-08-26 Completed [facility]ive [facility] of Dosage 00:00:00 [facility] Hep B, Adol or Pedi 2004-08-26 Completed [facility] of Dosage 00:00:00 [facility] Hep B, Adol or Pedi 2004-08-26 Completed [facility] of Dosage 00:00:00 [facility] Hep B, Adol or Pedi 2004-08-26 Completed [facility] of Dosage 00:00:00 [facility] Hep B, Adol or Pedi 2004-08-26 Completed [facility] of Dosage 00:00:00 [facility] Hep B, Adol or Pedi 2004-08-26 Completed Unive [facility]ity of Dosage 00:00:00 [facility] Hep B, Adol or Pedi 2004-08-26 Completed [facility] of Dosage 00:00:00 [facility] Hep B, Adol or Pedi 2004-08-26 Completed [facility] of Dosage 00:00:00 [facility] Hep B, Adol or Pedi 2004-08-26 Completed [facility] of Dosage 00:00:00 [facility] Hep B, Adol or Pedi 2004-08-26 Completed [facility] of Dosage 00:00:00 [facility] Hep B, Adol or Pedi 2004-08-26 Completed [facility] of Dosage 00:00:00 [facility] Hep B, Adol or Pedi 2004-08-26 Completed [facility] of Dosage 00:00:00 [facility] Hep B, Adol or Pedi 2004-08-26 Completed [facility] of Dosage 00:00:00 [facility] Hep B, Adol or Pedi 2004-08-26 Completed [facility] of Dosage 00:00:00 [facility] Hep B, Adol or Pedi 2004-07-08 Completed [facility] of Dosage 00:00:00 [facility] Hep B, Adol or Pedi 2004-07-08 Completed [facility] of Dosage 00:00:00 [facility] Hep B, Adol or Pedi 2004-07-08 Completed [facility] of Dosage 00:00:00 [facility] Hep B, Adol or Pedi 2004-07-08 Completed [facility] of Dosage 00:00:00 [facility] Hep B, Adol or Pedi 2004-07-08 Completed [facility] of Dosage 00:00:00 [facility] Hep B, Adol or Pedi 2004-07-08 Completed [facility] of Dosage 00:00:00 [facility] Hep B, Adol or Pedi 2004-07-08 Completed [facility] of Dosage 00:00:00 [facility] Hep B, Adol or Pedi 2004-07-08 Completed [facility] of Dosage 00:00:00 [facility] Hep B, Adol or Pedi 2004-07-08 Completed [facility] of Dosage 00:00:00 [facility] Hep B, Adol or Pedi 2004-07-08 Completed [facility] of Dosage 00:00:00 [facility] Hep B, Adol or Pedi 2004-07-08 Completed [facility] of Dosage 00:00:00 [facility] Hep B, Adol or Pedi 2004-07-08 Completed [facility] of Dosage 00:00:00 [facility] Hep B, Adol or Pedi 2004-07-08 Completed [facility] of Dosage 00:00:00 [facility] Hep B, Adol or Pedi 2004-07-08 Completed [facility] of Dosage 00:00:00 [facility] Hep B, Adol or Pedi 2004-07-08 Completed [facility] of Dosage 00:00:00 [facility] Hep B, Adol or Pedi 2004-07-08 Completed [facility] of Dosage 00:00:00 [facility] Hep B, Adol or Pedi 2004-07-08 Completed [facility] of Dosage 00:00:00 [facility] Hep B, Adol or Pedi 2004-07-08 Completed [facility] of Dosage 00:00:00 [facility] Hep B, Adol or Pedi 2004-07-08 Completed [facility] of Dosage 00:00:00 [facility] Hep B, Adol or Pedi 2004-07-08 Completed [facility] of Dosage 00:00:00 [facility] Hep B, Adol or Pedi 2004-07-08 Completed [facility] of Dosage 00:00:00 [facility] Hep B, Adol or Pedi 2004-07-08 Completed [facility] of Dosage 00:00:00 [facility] Hep B, Adol or Pedi 2004-07-08 Completed [facility] of Dosage 00:00:00 [facility] DTAP 2004-05-28 Completed [facility] 00:00:00 [facility] Polio (IPV/OPV) 2004-05-28 Completed [facility] 00:00:00 [facility] DTAP 2004-05-28 Completed [facility] 00:00:00 [facility] Polio (IPV/OPV) 2004-05-28 [facility]:00 [facility] Polio (IPV/OPV) 2004-05-28 Completed [facility] 00:00:00 [facility] DTAP 2004-05-28 Completed [facility] 00:00:00 [facility] Polio (IPV/OPV) 2004-05-28 Completed [facility] 00:00:00 [facility] Polio (IPV/OPV) 2004-05-28 Completed [facility] 00:00:00 [facility] Polio (IPV/OPV) 2004-05-28 Completed [facility] 00:00:00 [facility] DTAP 2004-05-28 Completed [facility] 00:00:00 [facility] Polio (IPV/OPV) 2004-05-28 Completed [facility] 00:00:00 [facility] DTAP 2004-05-28 Completed [facility] 00:00:00 [facility] Polio (IPV/OPV) 2004-05-28 Completed [facility] 00:00:00 [facility] DTAP 2004-05-28 Completed [facility] 00:00:00 [facility] Polio (IPV/OPV) 2004-05-28 Completed Universit [facility] of 00:00:00 [facility] DTAP 2004-05-28 Completed University of 00:00:00 [facility] Polio (IPV/OPV) 2004-05-28 Completed Universit y of 00:00:00 [facility] Polio (IPV/OPV) 2004-05-28 Completed Universit y of 00:00:00 [facility] DTAP 2004-05-28 Completed University of 00:00:00 [facility] Polio (IPV/OPV) 2004-05-28 Completed Universit y of 00:00:00 [facility] DTAP 2004-05-28 Completed University of 00:00:00 [facility] Polio (IPV/OPV) 2004-05-28 Completed Universit y of 00:00:00 [facility] DTAP 2004-05-28 Completed University of 00:00:00 [facility] Polio (IPV/OPV) 2004-05-28 Completed Universit y of 00:00:00 [facility] DTAP 2004-05-28 Completed University of 00:00:00 [facility] Polio (IPV/OPV) 2004-05-28 Completed Universit y of 00:00:00 [facility] DTAP 2004-05-28 Completed [facility] of 00:00:00 [facility] Polio (IPV/OPV) 2004-05-28 Completed [facility] 00:00:00 [facility] Polio (IPV/OPV) 2004-05-28 Completed Universit y of 00:00:00 [facility] DTAP 2004-05-28 Completed University of 00:00:00 [facility] Polio (IPV/OPV) 2004-05-28 Completed Universit y of 00:00:00 [facility] DTAP 2004-05-28 Completed University of 00:00:00 [facility] Polio (IPV/OPV) 2004-05-28 Completed Universit y of 00:00:00 [facility] DTAP 2004-05-28 Completed University of 00:00:00 [facility] Polio (IPV/OPV) 2004-05-28 Completed Universit y of 00:00:00 [facility] DTAP 2004-05-28 Completed University of 00:00:00 [facility] DTAP 2004-05-28 Completed University of 00:00:00 [facility] Polio (IPV/OPV) 2004-05-28 Completed Universit y of 00:00:00 [facility] Polio (IPV/OPV) 2004-05-28 Completed Universit y of 00:00:00 [facility] DTAP 2004-05-28 Completed University of 00:00:00 [facility] Polio (IPV/OPV) 2004-05-28 Completed Universit y of 00:00:00 [facility] DTAP 2004-01-21 Completed University of 00:00:00 [facility] HIB 4 Dose Schedule 2004-01-21 Completed Unive rsity of 00:00:00 [facility] MMR 2004-01-21 Completed University of 00:00:00 [facility] Polio (IPV/OPV) 2004-01-21 Completed Universit y of 00:00:00 [facility] DTAP 2004-01-21 Completed University of 00:00:00 [facility] HIB 4 Dose Schedule 2004-01-21 Completed Unive rsity of 00:00:00 [facility] MMR 2004-01-21 Completed University of 00:00:00 [facility] Polio (IPV/OPV) 2004-01-21 Completed Universit y of 00:00:00 [facility] DTAP 2004-01-21 Completed University of 00:00:00 [facility] HIB 4 Dose Schedule 2004-01-21 Completed Unive rsity of 00:00:00 [facility] MMR 2004-01-21 Completed University of 00:00:00 [facility] Polio (IPV/OPV) 2004-01-21 Completed Universit y of 00:00:00 [facility] DTAP 2004-01-21 Completed University of 00:00:00 [facility] HIB 4 Dose Schedule 2004-01-21 Completed Unive rsity of 00:00:00 [facility] MMR 2004-01-21 Completed University of 00:00:00 [facility] Polio (IPV/OPV) 2004-01-21 Completed Universit y of 00:00:00 [facility] DTAP 2004-01-21 Completed University of 00:00:00 [facility] HIB 4 Dose Schedule 2004-01-21 Completed Unive rsity of 00:00:00 [facility] MMR 2004-01-21 Completed University of 00:00:00 [facility] Polio (IPV/OPV) 2004-01-21 Completed Universit y of 00:00:00 [facility] DTAP 2004-01-21 Completed University of 00:00:00 [facility] HIB 4 Dose Schedule 2004-01-21 Completed Unive rsity of 00:00:00 [facility] MMR 2004-01-21 Completed University of 00:00:00 [facility] Polio (IPV/OPV) 2004-01-21 Completed Universit y of 00:00:00 [facility] DTAP 2004-01-21 Completed University of 00:00:00 [facility] HIB 4 Dose Schedule 2004-01-21 Completed Unive rsity of 00:00:00 [facility] MMR 2004-01-21 Completed University of 00:00:00 [facility] Polio (IPV/OPV) 2004-01-21 Completed Universit y of 00:00:00 [facility] DTAP 2004-01-21 Completed University of 00:00:00 [facility] HIB 4 Dose Schedule 2004-01-21 Completed Unive rsity of 00:00:00 [facility] MMR 2004-01-21 Completed University of 00:00:00 [facility] Polio (IPV/OPV) 2004-01-21 Completed Universit y of 00:00:00 [facility] DTAP 2004-01-21 Completed University of 00:00:00 [facility] DTAP 2004-01-21 Completed University of 00:00:00 [facility] HIB 4 Dose Schedule 2004-01-21 Completed Unive rsity of 00:00:00 [facility] MMR 2004-01-21 Completed University of 00:00:00 [facility] Polio (IPV/OPV) 2004-01-21 Completed Universit y of 00:00:00 [facility] HIB 4 Dose Schedule 2004-01-21 Completed Unive rsity of 00:00:00 [facility] MMR 2004-01-21 Completed University of 00:00:00 [facility] DTAP 2004-01-21 Completed University of 00:00:00 [facility] HIB 4 Dose Schedule 2004-01-21 Completed Unive rsity of 00:00:00 [facility] MMR 2004-01-21 Completed University of 00:00:00 [facility] Polio (IPV/OPV) 2004-01-21 Completed Universit y of 00:00:00 [facility] Polio (IPV/OPV) 2004-01-21 Completed Universit y of 00:00:00 [facility] DTAP 2004-01-21 Completed University of 00:00:00 [facility] HIB 4 Dose Schedule 2004-01-21 Completed Unive rsity of 00:00:00 [facility] MMR 2004-01-21 Completed University of 00:00:00 [facility] Polio (IPV/OPV) 2004-01-21 Completed Universit y of 00:00:00 [facility] DTAP 2004-01-21 Completed University of 00:00:00 [facility] HIB 4 Dose Schedule 2004-01-21 Completed Unive rsity of 00:00:00 [facility] MMR 2004-01-21 Completed University of 00:00:00 [facility] Polio (IPV/OPV) 2004-01-21 Completed Universit y of 00:00:00 [facility] DTAP 2004-01-21 Completed University of 00:00:00 [facility] HIB 4 Dose Schedule 2004-01-21 Completed Unive rsity of 00:00:00 [facility] MMR 2004-01-21 Completed University of 00:00:00 [facility] Polio (IPV/OPV) 2004-01-21 Completed Universit y of 00:00:00 [facility] DTAP 2004-01-21 Completed University of 00:00:00 [facility] HIB 4 Dose Schedule 2004-01-21 Completed Unive rsity of 00:00:00 [facility] MMR 2004-01-21 Completed University of 00:00:00 [facility] Polio (IPV/OPV) 2004-01-21 Completed Universit y of 00:00:00 [facility] DTAP 2004-01-21 Completed University of 00:00:00 [facility] HIB 4 Dose Schedule 2004-01-21 Completed Unive rsity of 00:00:00 [facility] MMR 2004-01-21 Completed University of 00:00:00 [facility] Polio (IPV/OPV) 2004-01-21 Completed Universit y of 00:00:00 [facility] DTAP 2004-01-21 Completed University of 00:00:00 [facility] HIB 4 Dose Schedule 2004-01-21 Completed Unive rsity of 00:00:00 [facility] MMR 2004-01-21 Completed University of 00:00:00 [facility] Polio (IPV/OPV) 2004-01-21 Completed Universit y of 00:00:00 [facility] DTAP 2004-01-21 Completed University of 00:00:00 [facility] HIB 4 Dose Schedule 2004-01-21 Completed Unive rsity of 00:00:00 [facility] MMR 2004-01-21 Completed University of 00:00:00 [facility] Polio (IPV/OPV) 2004-01-21 Completed Universit y of 00:00:00 [facility] DTAP 2004-01-21 Completed University of 00:00:00 [facility] HIB 4 Dose Schedule 2004-01-21 Completed Unive rsity of 00:00:00 [facility] MMR 2004-01-21 Completed University of 00:00:00 [facility] Polio (IPV/OPV) 2004-01-21 Completed Universit y of 00:00:00 [facility] DTAP 2004-01-21 Completed University of 00:00:00 [facility] HIB 4 Dose Schedule 2004-01-21 Completed Unive rsity of 00:00:00 [facility] MMR 2004-01-21 Completed University of 00:00:00 [facility] Polio (IPV/OPV) 2004-01-21 Completed Universit y of 00:00:00 [facility] DTAP 2004-01-21 Completed University of 00:00:00 [facility] HIB 4 Dose Schedule 2004-01-21 Completed Unive rsity of 00:00:00 [facility] DTAP 2004-01-21 Completed University of 00:00:00 [facility] HIB 4 Dose Schedule 2004-01-21 Completed Unive rsity of 00:00:00 [facility] MMR 2004-01-21 Completed University of 00:00:00 [facility] Polio (IPV/OPV) 2004-01-21 Completed Universit y of 00:00:00 [facility] MMR 2004-01-21 Completed University of 00:00:00 [facility] Polio (IPV/OPV) 2004-01-21 Completed Universit y of 00:00:00 [facility] DTAP 2004-01-21 Completed University of 00:00:00 [facility] HIB 4 Dose Schedule 2004-01-21 Completed Unive rsity of 00:00:00 [facility] MMR 2004-01-21 Completed University of 00:00:00 [facility] Polio (IPV/OPV) 2004-01-21 Completed Universit y of 00:00:00 [facility] DTAP 2003-11-08 Completed University of 00:00:00 [facility] Polio (IPV/OPV) 2003-11-08 Completed Universit y of 00:00:00 [facility] MMR 2003-11-08 Completed [facility] of 00:00:00 [facility] Varicella 2003-11-08 Completed University of (varivax)(chicken 00:00:00 [place] [facility] DTAP 2003-11-08 Completed [facility] of 00:00:00 [facility] Polio (IPV/OPV) 2003-11-08 Completed Universit y of 00:00:00 [facility] MMR 2003-11-08 Completed [facility] of 00:00:00 [facility] Varicella 2003-11-08 Completed [facility] of (varivax)(chicken 00:00:00 [place] [facility] DTAP 2003-11-08 Completed [facility] of 00:00:00 [facility] Polio (IPV/OPV) 2003-11-08 Completed Universit y of 00:00:00 [facility] MMR 2003-11-08 Completed [facility] of 00:00:00 [facility] Varicella 2003-11-08 Completed [facility] of (varivax)(chicken 00:00:00 [place] [facility]ox[facility] DTAP 2003-11-08 Completed [facility] of 00:00:00 [facility] Polio (IPV/OPV) 2003-11-08 Completed Universit y of 00:00:00 [facility] MMR 2003-11-08 Completed [facility] of 00:00:00 [facility] Varicella 2003-11-08 Completed [facility] of (varivax)(chicken 00:00:00 [place] [facility] pox[facility] DTAP 2003-11-08 Completed [facility] of 00:00:00 [facility] Polio (IPV/OPV) 2003-11-08 Completed Universit y of 00:00:00 [facility] MMR 2003-11-08 Completed [facility] of 00:00:00 [facility] Varicella 2003-11-08 Completed [facility] of (varivax)(chicken 00:00:00 [place] [facility] pox) [facility] DTAP 2003-11-08 Completed University of 00:00:00 [facility] Polio (IPV/OPV) 2003-11-08 Completed Universit y of 00:00:00 [facility] MMR 2003-11-08 Completed [facility] of 00:00:00 [facility] Varicella 2003-11-08 Completed [facility] of (varivax)(chicken 00:00:00 [place] [facility] pox) [facility] DTAP 2003-11-08 Completed University of 00:00:00 [facility] Polio (IPV/OPV) 2003-11-08 Completed Universit y of 00:00:00 [facility] MMR 2003-11-08 Completed [facility] of 00:00:00 [facility] Varicella 2003-11-08 Completed University of (varivax)(chicken 00:00:00 [place] [facility] pox) [facility] DTAP 2003-11-08 Completed University of 00:00:00 [facility] Polio (IPV/OPV) 2003-11-08 Completed Universit y of 00:00:00 [facility] MMR 2003-11-08 Completed [facility] of 00:00:00 [facility] Varicella 2003-11-08 Completed [facility] of (varivax)(chicken 00:00:00 [place] [facility] pox) [facility] DTAP 2003-11-08 Completed University of 00:00:00 [facility] Polio (IPV/OPV) 2003-11-08 Completed Universit y of 00:00:00 [facility] MMR 2003-11-08 Completed [facility] of 00:00:00 [facility] Varicella 2003-11-08 Completed [facility] of (varivax)(chicken 00:00:00 [place] [facility] pox) [facility] DTAP 2003-11-08 Completed University of 00:00:00 [facility] Polio (IPV/OPV) 2003-11-08 Completed Universit y of 00:00:00 [facility] MMR 2003-11-08 Completed [facility] of 00:00:00 [facility] Varicella 2003-11-08 Completed [facility] of (varivax)(chicken 00:00:00 [place] [facility] pox) [facility] DTAP 2003-11-08 Completed University of 00:00:00 [facility] Polio (IPV/OPV) 2003-11-08 Completed Universit y of 00:00:00 [facility] MMR 2003-11-08 Completed [facility] of 00:00:00 [facility] Varicella 2003-11-08 Completed [facility] of (varivax)(chicken 00:00:00 [place] [facility] pox) [facility] DTAP 2003-11-08 Completed University of 00:00:00 [facility] Polio (IPV/OPV) 2003-11-08 Completed Universit y of 00:00:00 [facility] MMR 2003-11-08 Completed University of 00:00:00 [facility] DTAP 2003-11-08 Completed University of 00:00:00 [facility] Polio (IPV/OPV) 2003-11-08 Completed Universit y of 00:00:00 [facility] MMR 2003-11-08 Completed University of 00:00:00 [facility] Varicella 2003-11-08 Completed University of (varivax)(chicken 00:00:00 [place] [facility] pox) [facility] Varicella 2003-11-08 Completed [facility] of (varivax)(chicken 00:00:00 [place] [facility] pox) [facility] DTAP 2003-11-08 Completed University of 00:00:00 [facility] Polio (IPV/OPV) 2003-11-08 Completed Universit y of 00:00:00 [facility] MMR 2003-11-08 Completed [facility] of 00:00:00 [facility] Varicella 2003-11-08 Completed [facility] of (varivax)(chicken 00:00:00 [place] [facility] pox) [facility] DTAP 2003-11-08 Completed University of 00:00:00 [facility] Polio (IPV/OPV) 2003-11-08 Completed Universit y of 00:00:00 [facility] MMR 2003-11-08 Completed [facility] of 00:00:00 [facility] Varicella 2003-11-08 Completed [facility] of (varivax)(chicken 00:00:00 [place] [facility] pox) [facility] DTAP 2003-11-08 Completed [facility] of 00:00:00 [facility] Polio (IPV/OPV) 2003-11-08 Completed Universit y of 00:00:00 [facility] MMR 2003-11-08 Completed [facility] of 00:00:00 [facility] Varicella 2003-11-08 Completed [facility] of (varivax)(chicken 00:00:00 [place] [facility] pox) [facility] DTAP 2003-11-08 Completed [facility] of 00:00:00 [facility] Polio (IPV/OPV) 2003-11-08 Completed Universit y of 00:00:00 [facility] MMR 2003-11-08 Completed [facility] of 00:00:00 [facility] Varicella 2003-11-08 Completed [facility] of (varivax)(chicken 00:00:00 [place] [facility] pox) [facility] DTAP 2003-11-08 Completed [facility] of 00:00:00 [facility] Polio (IPV/OPV) 2003-11-08 Completed Universit y of 00:00:00 [facility] MMR 2003-11-08 Completed [facility] of 00:00:00 [facility] Varicella 2003-11-08 Completed [facility] of (varivax)(chicken 00:00:00 [place] [facility] pox) [facility] DTAP 2003-11-08 Completed [facility] of 00:00:00 [facility] Polio (IPV/OPV) 2003-11-08 Completed Universit y of 00:00:00 [facility] MMR 2003-11-08 Completed [facility] of 00:00:00 [facility] Varicella 2003-11-08 Completed [facility] of (varivax)(chicken 00:00:00 [place] [facility] pox) [facility] DTAP 2003-11-08 Completed University of 00:00:00 [facility] Polio (IPV/OPV) 2003-11-08 Completed Universit y of 00:00:00 [facility] MMR 2003-11-08 Completed [facility] of 00:00:00 [facility] Varicella 2003-11-08 Completed [facility] of (varivax)(chicken 00:00:00 [place] [facility] pox) [facility] DTAP 2003-11-08 Completed [facility] of 00:00:00 [facility] Polio (IPV/OPV) 2003-11-08 Completed Universit y of 00:00:00 [facility] MMR 2003-11-08 Completed [facility] of 00:00:00 [facility] Varicella 2003-11-08 Completed [facility] of (varivax)(chicken 00:00:00 [place] [facility] pox) [facility] DTAP 2003-11-08 Completed [facility] of 00:00:00 [facility] Polio (IPV/OPV) 2003-11-08 Completed Universit y of 00:00:00 [facility] MMR 2003-11-08 Completed [facility] of 00:00:00 [facility] Varicella 2003-11-08 Completed [facility] of (varivax)(chicken 00:00:00 [place] [facility] pox) [facility] DTAP 2003-11-08 Completed [facility] of 00:00:00 [facility] Polio (IPV/OPV) 2003-11-08 Completed Universit y of 00:00:00 [facility] MMR 2003-11-08 Completed University of 00:00:00 [facility] Varicella 2003-11-08 Completed University of (varivax)(chicken 00:00:00 [facility] edical pox) Branch Vital Signs Vital Name Observation Time Observation Value Comments Source Systolic blood 2022-02-28 20:14:00 118 mm[Hg] Univer sity of pressure [facility] Diastolic blood 2022-02-28 20:14:00 70 mm[Hg] Unive rsity of [facility] Heart rate 2022-02-28 20:14:00 88 /min Universi ty [facility] Body temperature 2022-02-28 20:14:00 36.78 Theodora [facility] 2022-02-28 20:14:00 17 /min [facility] Oxygen saturation in 2022-02-28 20:14:00 99 /min [place] Arterial blood by [facility] Pulse oximetry Branch Body height 2022-02-28 18:39:00 157.5 cm Universi ty [facility] Body weight 2022-02-28 18:39:00 51.211 kg Universi ty [facility] BMI 2022-02-28 18:39:00 20.65 kg/m2 Universi ty [facility] Systolic blood 2021-11-27 14:07:00 126 mm[Hg] Univer sity of [facility] Diastolic blood 2021-11-27 14:07:00 83 mm[Hg] Unive rsity of [facility] Heart rate 2021-11-27 14:07:00 112 /min Universi ty of [facility] Body temperature 2021-11-27 14:07:00 36.78 Theodora Univ ersity of [facility] Respiratory rate 2021-11-27 14:07:00 18 /min Univ ersity [facility] Body height 2021-11-27 14:07:00 157.5 cm Universi ty of [facility] Body weight 2021-11-27 14:07:00 49.896 kg Universi ty [facility] BMI 2021-11-27 14:07:00 20.12 kg/m2 Universi ty of [place] [facility] Oxygen saturation in 2021-11-27 14:07:00 100 /min University of Arterial blood by [facility] Pulse oximetry Branch Systolic blood 2021-08-10 13:57:00 122 mm[Hg] Univer sity of pressure [place] [facility] Diastolic blood 2021-08-10 13:57:00 91 mm[Hg] Unive rsity of pressure [facility] [place] [facility] Heart rate 2021-08-10 13:57:00 78 /min Universi ty [facility] [place] [facility] Body temperature 2021-08-10 13:57:00 36.44 Theodora Univ ersity of [place] [facility] Respiratory rate 2021-08-10 13:57:00 14 /min Univ ersity of [place] [facility] Body weight 2021-08-10 13:57:00 49.896 kg Universi ty [facility] [place] [facility] BMI 2021-08-10 13:57:00 20.12 kg/m2 [facility] [place] [facility] Oxygen saturation in 2021-08-10 13:57:00 100 /min University of Arterial blood by [facility] Pulse oximetry Branch Systolic blood 2021-03-07 18:19:00 107 mm[Hg] Univer sity of pressure [place] [facility] Diastolic blood 2021-03-07 18:19:00 59 mm[Hg] Unive rsity of pressure [place] [facility] Heart rate 2021-03-07 18:19:00 80 /min [facility]i ty of [place] [facility] Body height 2021-03-07 18:19:00 157.5 cm Universi ty [facility] [place] [facility] Body weight 2021-03-07 18:19:00 46.131 kg [facility]i ty [facility] [place] [facility] BMI 2021-03-07 18:19:00 18.60 kg/m2 [facility] [place] [facility] Systolic blood 2020-10-28 00:37:23 107 mm[Hg] Univer sity of pressure [place] [facility] Diastolic blood 2020-10-28 00:37:23 51 mm[Hg] Unive rsity of pressure [place] [facility] Heart rate 2020-10-28 00:37:23 98 /min Universi ty [facility] [place] [facility] Body temperature 2020-10-28 00:37:23 36.67 Theodora Univ ers[facility] of [place] [facility] Respiratory rate 2020-10-28 00:37:23 18 /min Univ ersity of [place] [facility] Oxygen saturation in 2020-10-28 00:37:23 100 /min University of Arterial blood by [facility] Pulse oximetry Branch Body height 2020-10-27 22:58:00 157.5 cm Universi ty of [place] [facility] Body weight 2020-10-27 22:58:00 45.36 kg Universi ty of [place] [facility] BMI 2020-10-27 22:58:00 18.29 kg/m2 [facility] [place] [facility] Systolic blood 2020-06-18 19:51:00 127 mm[Hg] Univer sity of pressure [place] [facility] Diastolic blood 2020-06-18 19:51:00 74 mm[Hg] Unive rsity of pressure [place] [facility] Heart rate 2020-06-18 19:51:00 77 /min Universi ty of [place] [facility] Respiratory rate 2020-06-18 19:51:00 20 /min Univ ersity of [place] [facility] Body weight 2020-06-18 19:51:00 46.993 kg Universi ty of [place] [facility] Systolic blood 2019-08-05 00:00:25 96 mm[Hg] Univer sity of pressure [place] [facility] Diastolic blood 2019-08-05 00:00:25 43 mm[Hg] Unive rsity of pressure [place] [facility] Heart rate 2019-08-05 00:00:25 90 /min Universi ty [facility] [place] [facility] Body temperature 2019-08-05 00:00:25 36.78 Theodora Univ ers[facility] [place] [facility] Respiratory rate 2019-08-05 00:00:25 16 /min Univ ersity of [place] [facility] Oxygen saturation in 2019-08-05 00:00:25 99 /min University of Arterial blood by [facility] Pulse oximetry Branch Body weight 2019-08-04 19:28:00 48.988 kg Universi ty [facility] [place] [facility] Systolic blood 2019-07-14 18:50:00 106 mm[Hg] Univer sity of pressure [place] [facility] Diastolic blood 2019-07-14 18:50:00 72 mm[Hg] Unive rsity of pressure [place] [facility] Heart rate 2019-07-14 18:50:00 68 /min [facility]i ty [facility] [place] [facility] Body height 2019-07-14 18:50:00 157.5 cm Universi ty [facility] Body weight 2019-07-14 18:50:00 48.988 kg Universi ty [facility] BMI 2019-07-14 18:50:00 19.75 kg/m2 Universi ty [facility] Systolic blood 2019-07-11 18:08:00 116 mm[Hg] Univer sity of pressure [facility] Diastolic blood 2019-07-11 18:08:00 74 [facility]Hg[facility] 2019-07-11 18:08:00 74 /min Universi ty [facility] Body height 2019-07-11 18:08:00 157.5 cm Universi ty [facility] Body weight 2019-07-11 18:08:00 48.988 kg Universi ty [facility] BMI 2019-07-11 18:08:00 19.75 kg/m2 Universi [facility] Procedures Procedure Date / Time Performing Clinician Source Performed POCT TEST 2022-02-28 19:26:00 [facility] 2022-02-28 19:02[facility]00 [facility] 2022-02-28 19:02:00 Patricia Schaefer [facility] COVID-19 (ID NOW RAPID 2021-11-27 15:13:00 Jesús Velarde [facility] TESTING) Medical Branch ASSIGNMENT OF BENEFITS 2021-11-27 14:04:45 Doctor Unassigned, No [facility] CONSENT/REFUSAL FOR 2021-11-27 14:03:55 Doctor Unassigned, No [facility] [place] [facility]REATMENT Name Medical Branch CONSENT/REFUSAL FOR 2021-08-10 13:53:36 Doctor Unassigned, No Un iversity [facility] DIAGNOSIS AND TREATMENT Name Medical Branch ASSIGNMENT OF BENEFITS 2021-03-07 18:13:31 Doctor Unassigned, No [facility] XR CHEST 1 VW 2020-10-27 23:57:22 Lois Trujillo [facility] POCT TEST 2020-10-27 23:34:00 Lois Trujillo [facility] GALV/CLC ONLY - URINE 2020-10-27 23:33:00 [facility] [place] [facility] (IMMUNOASSAY) - [facility] ER PANEL URINALYSIS 2020-10-27 23:33:00 Lois Trujillo [facility] TROPONIN I 2020-10-27 23:04:00 Lois Trujillo [facility] HEPATIC FUNCTION PANEL 2020-10-27 23:04:00 [facility] [place] ([id number]) (ALB,T.PRO,BILI [facility] T,BU/BC,ALT,AST,ALK PHOS) BASIC METABOLIC PANEL 2020-10-27 23:04:00 [facility] (NA, K, CL, CO2, Medical Branch GLUCOSE, BUN, CREATININE, CA) ETHANOL 2020-10-27 23:04:00 Lois Trujillo [facility] CBC WITH DIFF 2020-10-27 23:04:00 Lois Trujillo [facility] CT ABDOMEN PELVIS W 2019-08-04 22:10:00 [facility] LIPASE 2019-08-04 20:59:00 Aura Enriquez [facility] COMP. METABOLIC PANEL 2019-08-04 20:59:00 Aura Enriquez [facility] ([id number]) [facility] CBC WITH DIFFERENTIAL 2019-08-04 20:59:00 Aura Enirquez [facility] URINALYSIS 2019-08-04 20:59:00 Aura Enriquez [facility] LACTIC ACID WHOLE BLOOD 2019-08-04 20:59:00 [facility] 2019-08-04 20:52:00 Aura Enriquez [facility] CONSENT/REFUSAL FOR 2019-08-04 19:13:03 Doctor Unassigned, No Un [facility] DIAGNOSIS AND TREATMENT Name [facility] POCT TEST 2019-07-14 00:00:00 Sean Hancock [facility] ASSIGNMENT OF BENEFITS 2019-07-11 17:41:02 Doctor Unassigned, No [facility] Encounters Start End Encounter Admission Attending Care Care Encounter Source Date/Time Date/Time Type Type Clinicians Facility Department ID 2021-09-29 Emergency [facility] [id number] [facility]:04[facility] 2021-09-27 Emergency [facility] [id number] Univers 08:03:12 [facility] 2022-07-06 2022-07-06 Emergency EM KAREN Chapman TERS [id number] [facility] 06:02:00 11:14:00 Saul 36 [facility] 2022-02-28 2022-02-28 Emergency X OLIVE [facility] ERT [id number] Univers 13:41:00 15:16:00 PATRICIA [facility] 2022-02-28 2022-02-28 [facility] [id number] Univers 13:41:00 15:16:00 [facility] 350.1.13.10 it y of [place] [phone] [address] ([facility]) 2022-02-26 2022-02-26 Telephone JIE Hancock 1.2.840.11 [id number] Univers 00:00:00 00:00:00 [facility] 350.1.13.10 i ty of [facility] 4.[place] [phone] [place] [id number] Branch 2021-11-27 2021-11-27 Emergency X ANNIE [facility] ERT [id number] Univers 08:10:00 09:55:00 JESÚS [facility] 2021-11-27 2021-11-27 Emergency Annie [facility] 1.2.840.114 [id number] Univers 08:10:00 09:55:00 [facility] 350.1.13.10 it [place] [phone] [address] ([facility]) 2021-08-10 2021-08-10 Emergency Manish [facility] 1.2.840.114 [id number] Univers 08:58:00 09:51:00 Cindy Swartz 350.1.13.10 ity [place] [phone] [facility] 084 Branch 2021-03-19 2021-03-19 Telephone Hancock, [facility] 1.2.840.11 [id number] Univers 00:00:00 00:00:00 Sean Duarte [facility] 350.1.13.10 i ty of [place] [phone] [place] [address]005 Branch 2021-03-07 2021-03-07 Office [facility] 1.2.840.114 [id number] Univers 13:13:43 13:41:30 Visit Sean Duarte [facility] 350.1.13.10 i [place] [id number] [address] 2021-03-07 2021-03-07 Outpatient R HANCOCKCHI [facility] [id number] Univers 13:00:00 13:00:00 [place] [id number] [facility] 2021-03-07 2021-03-07 Outpatient [facility] [id number] Univers 13:00:00 13:00:00 SEAN [facility] 2021-03-07 2021-03-07 Orders Doctor JELENA 1.2.840.114 [id number] Univers 00:00:00 00:00:00 Only Unassigned, ZANE 350.1.13.10 ity of Tobias [facility] 4.2.7.2.686 [place] [id number] [facility] 009 Branch 2020-10-27 2020-10-27 Emergency [facility] 1.2.840.114 [id number] Univers 16:57:00 18:51:00 [facility] 350.1.13.10 i ty [place] [phone] [facility] 014 Branch (CLC) 2020-06-18 2020-06-18 Office [facility] 1.2.840.114 [id number] Univers 14:39:30 14:54:30 Visit Sean Duarte HEALTH 350.1.13.10 i ty [phone] [address] 2020-06-18 2020-06-18 Outpatient R [facility] [id number] Univers 14:30:00 14:30:00 SEAN [id number] ity [facility] 2020-06-18 2020-06-18 Outpatient R [facility] [id number] Univers 14:30:00 14:30:00 [facility] 2020-06-18 2020-06-18 Patient Karissa, JGIT 1.2.840.114 [id number] Univers 00:00:00 00:00:00 Secure Msg Sean Duarte HEALTH 350.1.13.10 it[place] [id number] [address] 2020-05-07 2020-05-07 Outpatient R [facility] [id number] Univers 13:00:00 13:00:00 SEAN [id number] [facility] 2019-12-19 2019-12-19 Patient Karissa, JGIT 1.2.840.114 [id number] Univers 00:00:00 00:00:00 Secure Ms Sean Duarte HEALTH 350.1.13.10 ity [place] [id number] [address] 2019-08-04 2019-08-04 [facility] [id number] Univers 14:29:39 19:31:[address] [facility] 350.1.13.10 it y [place]2.[place] [facility] [phone] [address] ([facility]) 2019-07-14 2019-07-24 Office JG HancockIT 1.2.840.114 [id number] Univers 13:28:27 11:58:56 Visit Sean Duarte HEALTH 350.1.13.10 i ty of [place] [phone] [facility] [address] [place] 2019-07-12 2019-07-12 Patient Doctor JELENA 1.2.840.114 [id number] Univers 00:00:00 00:00:00 Secure Msg Unassigned, ZANE 350.1.13.10 ity of [place] HOSPITAL 4.2.7.2.686 [place] [phone] [facility] [address] [place] 2019-07-11 2019-07-11 Office [facility] 1.2.840.114 [id number] [facility] 12:43:28 13:56:39 Visit Sean [facility] 350.1.13.10 i ty of [place] 4[place] [phone] [place] [address] [place] 2019-07-11 2019-07-11 Orders Doctor JELENA 1.2.840.114 [id number] Univers 00:00:00 00:00:00 Only Unassigned, ZANE 350.1.13.10 ity of [place] HOSPITAL 4.2.7.2.686 [place] [phone] [facility] [address] [place] Results Test Description Test Time Test Comments Results Result Comments Source UA RFLX MICR CULT IF INDICATED 2022-07-06 11:27:00 Test Item Value Reference Range Interpretation Comme nts UA COLOR (test code = COLU) YELLOW YEL/STRAW UA APPEARANCE (test code = APPU) CLOUDY CLEAR A UA GLUCOSE DIPSTICK (test code = DGLUU) NEGATIVE NEGATIVE UA BILIRUBIN DIPSTICK (test code = BILU) NEGATIVE NEGATIVE UA KETONE DIPSTICK (test code = KETU) TRACE NEGATIVE A UA SPECIFIC GRAVITY (test code = SGU) 1.026 1.005-1.030 N UA BLOOD DIPSTICK (test code = MATIAS) 2+ NEGATIVE A UA PH DIPSTICK (test code = NICOL) 5.0 5.0-7.0 N UA PROTEIN DIPSTICK (test code = PROU) 2+ NEGATIVE A UA UROBILINIOGEN DIPSTICK (test code = URO) 2.0 mg/dL 0.2-1.0 A UA NITRITE DIPSTICK (test code = LIZABETH) NEGATIVE NEGATIVE UA LEUKOCYTE ESTERASE DIPSTICK (test code = LEUU) TRACE NEGA TIVE A UA WBC (test code = WBCU) 10-20 WBC/HPF 0-3 A UA RBC (test code = RBCU) 21-50 RBC/HPF 0-3 UA WBC NO REFLEX (test code = WBCUCL) 10-20 WBC/HPF 0-3 A UA BACTERIA (test code = BACU) TRACE /HPF NONE SEEN UA SQUAMOUS CELLS (test code = SQU) 6-10 /HPF NONE SEEN A UA MUCUS (test code = MUCU) 3+ /LPF NONE SEEN A UA YEAST (BUDDING) (test code = YEASTUBD) TRACE /HPF NONE DRUGS OF ABUSE [id number] 06:53:00 Test Item Value Reference Range Interpretation Comments UR COCAINE (test code = Negative NEGATIVE COCAU) UR CANNABINOIDS (test code Positive NEGATIVE = CANU) UR AMPHETAMINE (test code Negative NEGATIVE = AMPHU) UR BARBITURATE QUAL (test Negative NEGATUVE code = BARBQLU) UR BENZODIAZEPINE (test Negative NEGATIVE code = BENZU) UR OPIATES (test code = Negative NEGATIVE OPIU) URN TRICYCLICS (test code Negative NEGATIVE = TRICYCURN) URN METHADONE (test code = Negative NEGATIVE P erformed by METHAUCELINE) certified opera tor at [facility] URN METHAMPHETAMINE (test Negative NEGATIVE code = METHAMPURN) URINE HCG TRIAGE (ER ONLY)2022-07-06 06:47:00 Test Item Value Reference Range Interpretation Comments URINE HCG TRIAGE (ER ONLY) (test NEGATIVE Negative code = HCGTRIAGE) Urine Test Result: NEGATIVEAre internal controls (presence of a control line & clear background) OK? 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 at [facility] UA PH DIPSTIC POC (test 5 5.0-7.0 N code = PHUP) UA PROTEIN DIPSTICK POC 3+ NEGATIVE A (test code = DPROUP) UA UROBILINIOGEN QUAL 1+ 0.2-1.0 A (test code = UROQL) UA NITRITE DIPSTICK POC NEGATIVE Negative (test code = NITUP) UA LEUKOCYTE ESTERASE W TRACE NEGATIVE A REFLEX (test code = LEUUR) - XR ANKLE 3 + V [id number] 00:00:00 [facility] : 2000 Sex: F FAX:Terrence Rodriguez DO [phone] [place]: St: REG FAX: Saul Chapman [phone] Name: LIZA TOLLIVER [place] : 2000 Age/S: 22/F Unit #: [id number] Loc: [place] Phys: Bernabe Chapman MD Acct: [id number] Dis Date: Status: REG ER PHONE #: Exam Date: 07/06/2022 0729 FAX #: Reason:left ankle pain/swelling EXAMS: CPT CODE: [id number] XR ANKLE 3 + V LT 77230 PROCEDURE INFORMATION: Exam: XR Left Ankle Exam date and time: 07/06/2022 7:15 AM Age: 22 years old Clinical indication: Pain;Ankle; Left; Additional info: Left ankle pain/swelling TECHNIQUE: Imaging protocol: Radiologic exam of the Left ankle. Views: 3 or more views. AP Oblique Lateral COMPARISON: No relevant prior studies available. FINDINGS: Bones/joints: There is normal alignment without fractures or dislocations. The tibiotalar joint and talar dome are unremarkable. The subtalar joint is unremarkable. The mortise is normal. The distal tibia-fibular alignment is unremarkable. There is no ankle joint effusion. Soft tissues: There is no soft tissue swelling. There are no radiopaque foreign bodies. Notes: If there is further concern, recommend follow- up radiographs or MRI for complete assessment. IMPRESSION: No acute fracture or dislocation at 0733 Reported and signed by: Davey Lira M.D. CC: Terrence Rodriguez DO; Saul Chapman MD Technologist: RT Adolph(R)(CT) Trnscrd Date/Time/By: 07/06/2022 (732) : By: [email or web address] Orig Print D/T: S: 07/06/2022 (732) PAGE 1 Signed Report- CT C-SPINE W/O [id number] 00:00:00 [facility] : 2000 Sex: F Name: LIZA TOLLIVER [place] : 2000 Age/S: 22 / F Unit #: [id number] Loc: [place], [place]: Terrence Rodriguez DO Acct: [id number] Dis Date: Status: REG ER PHONE #: Exam Date: 07/06/2022 0653 FAX #: Reason: Head trauma EXAMS: CPT CODE: [id number] CT C-SPINE W/O CONT 25534 PROCEDURE INFORMATION: Exam: CT Cervical Spine Without Contrast Exam date and time: 07/06/2022 6:44 AM Age: 22 years old Clinical indication: Injury or trauma; Fall; Blunt trauma; Additional info: Head trauma TECHNIQUE: Imaging protocol: Computed tomography of the cervical spine without contrast. Radiation optimization: All CT scans at this facility use at least one of these dose optimization techniques: automated exp osure control; mA and/or kV adjustment per patient size (includes targeted exams where dose is matched to clinical indication); or iterative reconstruction. COMPARISON: CT HEAD/BRAIN W/O CONT 07/06/2022 6:41 AM FINDINGS: Bones/joints: No acute fracture. Normal alignment. Discs/Spinal canal/Neural foramina: Disc spaces are well maintained. No facet widening. Predental space is normal. Lungs: Lung apicesare normal. Soft tissues: No gross abnormalities identified. IMPRESSION: No acute findings. at 0658 Reported and signed by: Pasha Kebede M.D. CC: Terrence Rodriguez DO Technologist:Carisa Leggett, RT(R)(CT) CTDI: DLP: Trnscb Date/Time: 07/06/2022 (657) [email or web address] Orig Print D/T: S: 07/06/2022 (657) PAGE 1 Signed Report- CT HEAD/BRAIN W/O [id number] 00:00:00 [facility] UNRULY LIZA : 2000 Sex: F Name: LIZA TOLLIVER [place] : 2000 Age/S: 22 / F Unit #: [id number] Loc: [place], [place]: MichaelBoomranjeet Duarte DO Acct: [id number] Dis Date: Status: REG ER PHONE #: Exam Date: 07/06/2022 0653 FAX #: Reason: Head trauma EXAMS: CPT CODE: [id number] CT HEAD/BRAIN W/O CONT 73411 PROCEDURE INFORMATION: Exam: CT Head Without Contrast Exam date and time: 07/06/2022 6:41 AM Age: 22 years old Clinical indication: Injury or trauma; Fall; Blunt trauma (contusions or hematomas); Additional info: Head trauma TECHNIQUE: Imaging protocol: Computed tomography of the head without contrast. Radiation optimization: All CT scans at this facility use at least one of these dose optimization techniques: automated exposure control; mA and/or kV adjustment per patient size (includes targeted exams where dose is matched to clinical indication); or iterative reconstruction. COMPARISON: No relevant prior studies available. FINDINGS: Brain: Normal. No hemorrhage. Unremarkable white matter. No mass effect. Cerebr al ventricles: No ventriculomegaly. Paranasal sinuses: Visualized sinuses are unremarkable. No fluidlevels. Mastoid air cells: Visualized mastoid air cells are well aerated. Bones/joints: Unremarkable. No acute fracture. Soft tissues: Left occipital scalp hematoma is identified. IMPRESSION: Left occipital scalp hematoma without underlying acute intracranial abnormalities at 0700 Reported and signed by: Pasha Kebede M.D. CC: Terrence Rodriguez DO Technologist:Carisa Leggett, RT(R)(CT) CTDI: DLP: Trnscb Date/Time: 07/06/2022 (07) [email or web address] Orig Print D/T: S: 07/06/2022 (07) PAGE 1 Signed ReportTOTAL BHCG (QUANTITATIVE) 2022-02-28 19:46:11 Test Item Value Reference Range Interpretation Comments BETA HCG (test <2.39 See_Comment [Automated m essage] code = The system [email or web address] [id number]) generated this result transmit so reference range : Non- fe male and male patien ts: <5 mIU/mL. The reference range was not used to interpret this result as normal/abnormal . NELL (test code Gestational Age ? ? = NELL) ?Range (mIU/mL) 1-10 ?Weeks ?66-53230419-23 Weeks ?22549-81413261-82 Weeks ?9533-13490412-83 Weeks ?8791-223245 Biotin has been reported to cause a negative bias, interpret results relative to patient's use of biotin. [facility] [id number] 19:26:00 Test Item Value Reference Range Interpretation Comments POCT PREG (test code = 1605) NEGATIVE On board controls acceptable with C PRESENT Line (test code = 3574) Lab Interpretation (test code = Normal 93792-2) [facility] 1 [id number] 00:15:10CHEST X-RAY AP PORTABLE 10/27/2020 6:14 PM Ordering physician: LOIS TRUJILLO CLINICAL INFORMATION: ?Chest pain COMPARISON: None TECHNIQUE: ?single AP view of the chest was submitted. FINDINGS: ? The lung mathias are clear. ?No pleural effusions. ?No pneumothorax. ?Thecardiomediastinal silhouette iswithin normal limits. ?No acuteradiographic bony abnormalities. CONCLUSION: ? 1. ?No radiographic evidence to acute cardiopulmonary disease. RL: 7423 AFC: 32202 [facility], Radiant Results Inft User - 10/27/2020 6:16 PM CSTCHEST X-RAY AP GNUOBVOT66/29/2020 6:14 PMOrdering physician: LOIS TRUJILLO CLINICAL INFORMATION: Chest painCOMPARISON: NoneTECHNIQUE: single AP view of the chest was submitted.FINDINGS: The lung mathias are clear. No pleural effusions. No pneumothorax. Thecardiomediastinal silhouette is within normal limits. No acuteradiographic bony abnormalities.CONCLUSION: 1. No radiographic evidence to acute cardiopulmonary disease.: 7423AF: 36563Mkjpxsuunhbncz signed by Julio C Smith MD at 10/27/2020 6:15 PMUnHCA [facility] CenterDrug Screen ER 2020-10-28 00:02:00 Test Item Value Reference Range Interpretation Comments AMPHET (test code = Negative Negative 9402729646) Cocaine Metabolite (test Negative Negative code = 4274834455) OPIATES (test code = Negative Negative 9449466255) THC (test code = Presumptive Positive Negative A 7096008482) NELL (test code = NELL) Urine Drug Cutoff Ranges Amphetamine: ? 1,000 ng/mLCocaine: ? 150 ng/mLOpiates: ? 300 ng/mLCannabinoids: ?50 ng/mL The results are to be used only for medical (i.e., treatment) purposes. Unconfirmed screening results must not be used for non-medical purposes (e.g., employment testing, legal testing). Lab Interpretation (test Abnormal code = 99227-6) [facility] HospitalUrinalysis2020-11-29 23:45:00 Test Item Value Reference Range Interpretation Comments APPEARANCE (test code = Clear Clear 8176071978) COLOR (test code = Yellow Yellow 6709595096) PH (test code = 4.8-8.0 3690851759) SP GRAVITY (test code = 1.003-1.030 7097003709) GLU U QUAL (test code = Normal Normal 0777441703) BLOOD (test code = Negative Negative 5477765303) KETONES (test code = 5 mg/dL Negative A 3124221067) PROTEIN (test code = 30 mg/dL Negative A 2887-8) UROBILIN (test code = 4.0 mg/dL Normal A 7104931762) BILIRUBIN (test code = Negative Negative 7999677925) NITRITE (test code = Negative Negative 0881537840) LEUK DARCY (test code = 25/uL Negative A 4240302120) RBC/HPF (test code = See_Comment [Autom ated message] 9148247397) The system [email or web address] generated this result transmit so reference range : 0 - 3 HPF. The refe rence range was not u sed to interpret th is result as normal/abnormal . WBC/HPF (test code = See_Comment H [Autom ated message] 4856161845) The system [email or web address] generated this result transmit so reference range : 0 - 5 HPF. The refe rence range was not u sed to interpret th is result as normal/abnormal . BACTERIA (test code = Few Negative A 4418289034) MUCOUS (test code = Slight Negative LPF A 1969237065) SQ EPITH (test code = See_Comment H [Auto mated message] 9712818808) The system [email or web address] generated this result transmit so reference range : <=2 HPF. The refere nce range was not u sed to interpret th is result as normal/abnormal . HYAL CAST (test code = See_Comment [Aut omated message] 7199864506) The system [email or web address] generated this result transmit so reference range : <=2 LPF. The refere nce range was not u sed to interpret th is result as normal/abnormal . Lab Interpretation (test Abnormal code = 13962-4) [facility] [id number] 23:34:00 Test Item Value Reference Range Interpretation Comments On board controls acceptable with negative C Line (test code = 3574) POCT PREG LOT # (test code = 3575) [id number] POCT PREG TEST DATE (test 04/28/2021 code = 3576) Lab Interpretation (test code = Normal 56235-4) [facility] HospitalTroponin [id number] 23:31:00 Test Item Value Reference Range Interpretation Comments TROPONIN I (test 0.002 ng/mL See_Comment [Automated code = 5483762557) message] The system which generated this result transmitted reference range : <=0.034. The reference range was not used to interpret this result as normal/abnormal . NELL (test code = Equal or Less than NELL) 0.034 ng/ml---Normal ?Note: Cardiac troponin begins to rise 3-4 hours after the onset of ischemia. Repeat in 4-6 hours if the sample was drawn within 3-4 hours of the onset of the symptom and found normal. Between 0.035 and 0.120 ng/mL--- Borderline. Questionable myocardial injury or necrosis ? ?Note: Serial measurement may be necessary to confirm or exclude the diagnosis of myocardial injury or necrosis; Clinical correlation (symptoms, EKGs, imaging studies, and others) required; Repeat in 4-6 hours if clinically indicated. ? Equal or Higher than 0.121 ng/mL---Abnormal. Myocardial Injury or Necrosis Likely ? Biotin has been reported to cause a negative bias, interpret results relative to patient's use of biotin. ? Lab Interpretation Normal (test code = 19620-7) [facility] HospitalEth[facility] [id number] 23:21:00 Test Item Value Reference Range Interpretation Comments ALCOHOL (test code = <10 mg/dL 7526023342) NELL (test code = Toxic Greater than or NELL) equal to 80 mg/dL. NOTE: Whole blood values are approximately 10% to 15% lower than serum and plasma. [facility] HospitalB[facility] Metabolic Panel (NA, K, CL, CO2, GLUCOSE, BUN, CREATININE, CA)2020-10-27 23:20:00 Test Item Value Reference Range Interpretation Comments NA (test code = 139 mmol/L 135-145 9015065656) K (test code = 4.2 mmol/L 3.5-5 5345522525) CL (test code = 104 mmol/L 98-108 7384359574) CO2 TOTAL (test code = 26 mmol/L 23-31 2952726706) AGAP (test code = 2-16 4417718556) BUN (test code = 10 mg/dL 7-23 4843303640) GLUCOSE (test code = 93 mg/dL 70-110 3928052774) CREATININE (test code 0.66 mg/dL 0.5-1.04 = 6686665884) CALCIUM (test code = 9.7 mg/dL 8.6-10.6 8094306098) eGFR Calculation mL/min/1.73m2 (Non-) (test code = 0554202350) eGFR Calculation mL/min/1.73m2 () (test code = 3936884488) NELL (test code = NELL) Association of Glomerular Filtration Rate (GFR) and Staging of Kidney Disease* + -+ + ---+| GFR (mL/min/1.73 m2) ?| With Kidney Damage ?| ?Without Kidney Damage+ -------+ ------+ ---------+| ?>90 ?| ?Stage one ?| ? Normal ?+ --+ -+ ----+| ?60-89 ?| ?Stage two ?| ? Decreased GFR ? + -+ + ---+| ?30-59 ?| ?Stage three ?| ? Stage three ? + -+ + ---+| ?15-29 ?| ?Stage four ? | ? Stage four ?+ --+ -+ ----+| ?<15 (or dialysis) ? ?| ?Stage five ? | ? Stage five ?+ --+ -+ ----+ *Each stage assumes the associated GFR level has been in effect for at least three months. ?Stages 1 to 5, with or without kidney disease, indicate chronic kidney disease. Notes: Determination of stages one and two (with eGFR >59mL/min/1.73 m2) requires estimation of kidney damage for at least three months as defined by structural or functional abnormalities of the kidney, manifested by either:Pathological abnormalities or Markers of kidney damage (including abnormalities in the composition of the blood or urine or abnormalities in imaging tests). [facility] Hospital[facility] Function Panel (ALB, T.PRO, BILI T, BU/BC, ALT, AST, ALK PHOS)2020-10-27 23:20:00 Test Item Value Reference Range Interpretation Comments TOTAL BILI (test code = 3531872606) 1.0 mg/dL 0.1-1.1 BILI UNCON (test code = 8206626090) 0.7 mg/dL 0.1-1.1 BILI CONJ (test code = 9820445935) 0.0 mg/dL 0-0.3 T PROTEIN (test code = 2802129162) 7.4 g/dL 6.3-8.2 ALBUMIN (test code = 1970781794) 4.5 g/dL 3.5-5 ALK PHOS (test code = 9308526512) 75 U/L 34-122 ALTv (test code = 1742-6) 13 U/L 5-35 AST(SGOT) (test code = 5414863076) 26 U/L 13-40 Lab Interpretation (test code = Normal 53097-1) [facility] with [id number] 23:09:00 Test Item Value Reference Range Interpretation Comments WBC (test code = See_Comment [Automated 6690-2) message] The sy stem which generated this result transmitted reference range : 4.30 - 11.10 10*3/?L. The reference range was not used to interpret this result as normal/abnormal . RBC (test code = See_Comment [Automated 789-8) message] The sy stem which generated this result transmitted reference range : 3.93 - 5.25 10*6/?L. The reference range was not used to interpret this result as normal/abnormal . HGB (test code = 12.9 g/dL 11.6-15 718-7) HCT (test code = 39.5 % 35.7-45.2 4544-3) MCV (test code = 91.6 fL 80.6-95.5 787-2) MCH (test code = 29.9 pg 25.9-32.8 785-6) MCHC (test code = 32.7 g/dL 31.6-35.1 786-4) RDW-SD (test code = 40.7 fL 39-49.9 15910-0) RDW-CV (test code = 12.1 % 12-15.5 788-0) PLT (test code = See_Comment [Automated 777-3) message] The sy stem which generated this result transmitted reference range : 166 - 358 10*3/ ?L. The reference r matthew was not used to interpret this result as normal/abnormal . MPV (test code = 9.3 fL 9.5-12.9 L 30763-1) NRBC/100 WBC (test See_Comment [Automat ed code = 0570228584) message] The system which generated this result transmitted reference range : 0.0 - 10.0 /100 WBCs. The refer ence range was not u sed to interpret th is result as normal/abnormal . NRBC x10^3 (test code <0.01 See_Comment [Auto mated = 2888593168) message] The s ystem which generated this result transmitted reference range : 10*3/?L. The reference range was not used to interpret this result as normal/abnormal . GRAN MAT (NEUT) % 61.6 % (test code = 770-8) IMM GRAN % (test code 0.20 % = 4018177877) LYMPH % (test code = 30.9 % 736-9) MONO % (test code = 6.5 % 5905-5) EOS % (test code = 0.2 % 713-8) BASO % (test code = 0.6 % 706-2) GRAN MAT x10^3(ANC) 3.33 10*3/uL 1.88-7.09 (test code = 2419538332) IMM GRAN x10^3 (test <0.03 0-0.06 code = 4578815665) LYMPH x10^3 (test code 1.67 10*3/uL 1.32-3.29 = 731-0) MONO x10^3 (test code 0.35 10*3/uL 0.33-0.92 = 742-7) EOS x10^3 (test code = <0.03 0.03-0.39 L 711-2) BASO x10^3 (test code 0.03 10*3/uL 0.01-0.07 = 704-7) Lab Interpretation Abnormal (test code = 55075-9) [facility] WITH [id number] 21:35:00 Test Item Value Reference Range Interpretation Comments WBC (test code = See_Comment H [Automated 1090-2) message] The system which generated this result transmit so reference range : 4.30 - 11.10 10*3/?L. The reference range was not used to interpret this result as normal/abnormal . RBC (test code = See_Comment [Automated 824-8) message] The system which generated this result transmit so reference range : 3.93 - 5.25 10*6/?L. The reference range was not used to interpret this result as normal/abnormal . HGB (test code = 13.1 g/dL 11.6-15 718-7) HCT (test code = 39.9 % 35.7-45.2 4544-3) MCV (test code = 90.5 fL 80.6-95.5 787-2) MCH (test code = 29.7 pg 25.9-32.8 785-6) MCHC (test code = 32.8 g/dL 31.6-35.1 786-4) RDW-SD (test code = 40.8 fL 39-49.9 89388-3) RDW-CV (test code = 12.3 % 12-15.5 788-0) PLT (test code = See_Comment [Automated 777-3) message] The system which generated this result transmit so reference range : 166 - 358 10*3/ ?L. The reference range was not u sed to interpret th is result as normal/abnormal . MPV (test code = 9.4 fL 9.5-12.9 L 73173-5) NRBC/100 WBC (test See_Comment [Automat ed code = 1339813700) message] The system which generated this result transmit so reference range : 0.0 - 10.0 /100 WBCs. The reference range was not used to interpret this result as normal/abnormal . NRBC x10^3 (test code <0.01 See_Comment [Auto mated = 6143568394) message] The system which generated this result transmit so reference range : 10*3/?L. The reference range was not used to interpret this result as normal/abnormal . GRAN MAT (NEUT) % 83.3 % (test code = 770-8) IMM GRAN % (test code 0.60 % = 2493549425) LYMPH % (test code = 6.6 % 736-9) MONO % (test code = 9.4 % 5905-5) EOS % (test code = 0.0 % 713-8) BASO % (test code = 0.1 % 706-2) GRAN MAT x10^3(ANC) 17.29 10*3/uL 1.88-7.09 H (test code = 0196335466) IMM GRAN x10^3 (test 0.12 10*3/uL 0-0.06 H code = 9413280349) LYMPH x10^3 (test code 1.36 10*3/uL 1.32-3.29 = 731-0) MONO x10^3 (test code 1.95 10*3/uL 0.33-0.92 H = 742-7) EOS x10^3 (test code = <0.03 0.03-0.39 L 711-2) BASO x10^3 (test code 0.03 10*3/uL 0.01-0.07 = 704-7) Lab Interpretation Abnormal (test code = 98997-4) [facility] Test Item Value Reference Range Interpretation Comments APPEARANCE (test code = Cloudy Clear A 3522575498) COLOR (test code = Yellow Yellow 6246400547) PH (test code = 4.8-8.0 0746355658) SP GRAVITY (test code = 1.003-1.030 1920078148) GLU U QUAL (test code = Normal Normal 3556989839) BLOOD (test code = 2+ Negative A 0730983800) KETONES (test code = 20 mg/dL Negative A 9734062574) PROTEIN (test code = 30 mg/dL Negative A 2887-8) UROBILIN (test code = Normal Normal 3964265847) BILIRUBIN (test code = Negative Negative 3404319030) NITRITE (test code = Positive Negative A 5033374887) LEUK DARCY (test code = 500/uL Negative A 8682969503) RBC/HPF (test code = See_Comment H [Autom ated message] 9715383052) The system [email or web address] generated this result transmitted ref erence range: 0 - 3 HP F. The reference range was not used to int erpret this result as normal/abnormal . WBC/HPF (test code = >182 See_Comment H [Autom ated message] 0940902046) The system [email or web address] generated this result transmitted ref erence range: 0 - 5 HP F. The reference range was not used to int erpret this result as normal/abnormal . BACTERIA (test code = Few Negative A 5352450392) MUCOUS (test code = Slight Negative LPF A 0500526805) AMORPHOUS (test code = Rare Rare HPF 8142618851) SQ EPITH (test code = See_Comment H [Auto mated message] 0952509255) The system [email or web address] generated this result transmitted ref erence range: <=2 HPF. The reference range was not used to int erpret this result as normal/abnormal . WBC CLUMPS (test code = See_Comment H [Au tomated message] 9080257101) The system [email or web address] generated this result transmitted ref erence range: <=1 HPF. The reference range was not used to int erpret this result as normal/abnormal . Lab Interpretation (test Abnormal code = 38384-1) [facility]. METABOLIC PANEL (34540)2019-08-04 21:26:00 Test Item Value Reference Range Interpretation Comments NA (test code = 135 mmol/L 135-145 5936052547) K (test code = 3.4 mmol/L 3.5-5 L Slight 9895769435) hemolysis CL (test code = 97 mmol/L 98-108 L 8138506530) CO2 TOTAL (test code 23 mmol/L 23-31 = 5365598837) AGAP (test code = 2-16 7550921084) BUN (test code = 9 mg/dL 7-23 Slight 2561908633) hemolysis GLUCOSE (test code = 103 mg/dL 70-110 1789424181) CREATININE (test code 0.77 mg/dL 0.5-1.04 = 6323863115) TOTAL BILI (test code 1.2 mg/dL 0.1-1.1 H = 0798507276) CALCIUM (test code = 9.7 mg/dL 8.6-10.6 6916491395) T PROTEIN (test code 8.1 g/dL 6.3-8.2 = 7235800398) ALBUMIN (test code = 4.5 g/dL 3.5-5 4786800534) ALK PHOS (test code = 100 U/L 34-122 Slight 4407733973) hemolysis ALT(SGPT) (test code 29 U/L 9-51 Slight = 4190431532) hemolysis AST(SGOT) (test code 30 U/L 13-40 Slight = 7064606641) hemolysis eGFR Calculation mL/min/1.73m2 (Non-) (test code = 0691807879) eGFR Calculation mL/min/1.73m2 () (test code = 2326761356) NELL (test code = NELL) Association of Glomerular Filtration Rate (GFR) and Staging of Kidney Disease*+ +----- +-- ----+| GFR (mL/min/1.73 m2)?| With Kidney Damage?|?Without Kidney Damage+ +------- +---- --+|?>90?|?Stage one?|? Normal?+ +------ +--- ---+|?60-89?|?Stage two?|? Decreased GFR? + -----+ --------+ +|?3 0-59?|?Stage three?|? Stage three? + -----+ --------+ +|?1 5-29?|?Stage four? |? Stage four?+ +-------- +----- -+|?<15 (or dialysis)?|??Stage five? |? Stage five?+ +-------- +----- -+*Each stage assumes the associated GFR level has been in effect for at least three months.?Stages 1 to 5, with or without kidney disease, indicate chronic kidney disease.Notes: Determination of stages one and two (with eGFR >59mL/min/1.73 m2) requires estimation of kidney damage for at least three months as defined by structural or functional abnormalities of the kidney, manifested by either:Pathological abnormalities or Markers of kidney damage (including abnormalities in the composition of the blood or urine or abnormalities in imaging tests). Lab Interpretation Abnormal (test code = 27787-2) [facility] 21[facility]26:00 Test Item Value Reference Range Interpretation Comments LIPASE (test code = 1436157097) 24 U/L 0-220 Lab Interpretation (test code = Normal 50667-0) [facility] Whole [id number] 21:08:00 Test Item Value Reference Range Interpretation Comments LACTIC ACID (test code = 1.24 mmol/L 0.5-2.2 1040307560) Lab Interpretation (test code = Normal 34438-0) [facility] [id number] 20:52:00 Test Item Value Reference Range Interpretation Comments POCT PREG (test code = 1605) Negative On board controls acceptable with C Yes Line (test code = 3574) POCT PREG LOT # (test code = 3575) POCT PREG TEST DATE (test code = 3576) Lab Interpretation (test code = Normal 91409-3) [facility] [id number] 19:33:00 Test Item Value Reference Range Interpretation Comments POCT PREG (test code = 1605) Negative On board controls acceptable with C Yes Line (test code = 3574) POCT PREG LOT # (test code = 3575) POCT PREG TEST DATE (test code = 3576) [facility] [id number] 19:33:00 Test Item Value Reference Range Interpretation Comments POCT PREG (test code = 1605) Negative On board controls acceptable with C Yes Line (test code = 3574) POCT PREG LOT # (test code = 3575) POCT PREG TEST DATE (test code = 3576) [facility] [id number] 19:33:00 Test Item Value Reference Range Interpretation Comments POCT PREG (test code = 1605) Negative On board controls acceptable with C Yes Line (test code = 3574) POCT PREG LOT # (test code = 3575) POCT PREG TEST DATE (test code = 3576) [facility] [id number] 19:33:00 Test Item Value Reference Range Interpretation Comments POCT PREG (test code = 1605) Negative On board controls acceptable with C Yes Line (test code = 3574) POCT PREG LOT # (test code = 3575) POCT PREG TEST DATE (test code = 3576) [facility]
--- NOTE | 2022-07-31 14:49 | RAD REPORT ---
EXAM DESCRIPTION: CT - Head Brain Wo Cont - 07/31/2022 2:42 pm CLINICAL HISTORY: head injury, syncope, headache Headache, drowsiness COMPARISON: No comparisons TECHNIQUE: All CT scans are performed using dose optimization technique as appropriate and may inclu de automated exposure control or mA/KV adjustment according to patient size. FINDINGS: No intracranial hemorrhage, hydrocephalus or extra-axial fluid collection.No areas of brai n edema or evidence of midline shift. The paranasal sinuses and mastoids are clear. The calvarium is intact. IMPRESSION: No acute intracranial abnormality.
[2022-07-31 14:58] LABS: Absolute Lymphocytes (CBC) 1.8 K/uL (0.7-4.9); Hematocrit 44.5 % (36.0-45.0); Lymphocytes % 36.3 % (15.3-44.8); MCV 94.3 fL (80-100); MPV 7.1 fL (7.6-11.3); RBC Red Blood Cell Count 4.72 M/uL (3.86-4.86)
[2022-07-31 15:18] LABS: Albumin 4.3 g/dL (3.4-5.0); Bilirubin Total 0.3 mg/dL (0.2-1.0); Potassium 4.2 mmol/L (3.5-5.1); Protein, Total 8.1 g/dL (6.4-8.2)
--- NOTE | 2022-07-31 15:38 | RAD REPORT ---
EXAM DESCRIPTION: RAD - Facial Bones <3 Views - 07/31/2022 3:17 pm CLINICAL HISTORY: right jaw pain s/p fall Trauma, pain COMPARISON: No comparisons FINDINGS: The paranasal sinuses and mastoids are clear. Questionable lucency is seen in the left man dibular ramus on a single projection. Cannot exclude a fracture. CT face would be recommended for fur ther evaluation.
--- NOTE | 2022-07-31 16:17 | RAD REPORT ---
EXAM DESCRIPTION: CT - CTFB CLINICAL HISTORY: right jaw pain, r/o fx Fall, pain and swelling COMPARISON: No comparisons TECHNIQUE: Axial 2 mm thick images of the face were obtained with sagittal and coronal reconstructio n images. All CT scans are performed using dose optimization technique as appropriate and may include automated exposure control or mA/KV adjustment according to patient size. FINDINGS: No acute facial bone fracture is seen.The mandible is intact. The globes and orbital contents are grossly unremarkable.The paranasal sinuses and mastoids are essen tially clear. IMPRESSION: Negative for facial bone fracture.
[2022-07-31 18:03] LABS: Urine Blood Negative (Negative); Urine Glucose Negative (Negative); Urine Protein Negative (Negative); Urine Specific Gravity >=1.030 (1.005-1.030)
--- NOTE | 2022-07-31 18:45 | EDPHYS ---
Physician Documentation [facility] Name: Rupa Smith Age: 22 yrs Sex: Female : 2000 Arrival Date: 07/31/2022 Time: 13:31 Bed Waiting Private MD: ED Physician Jamarcus Giron HPI: 07/31 22:54 This 22 yrs old Female presents to ER via Ambulatory with complaints of Head kb Injury-Adult. 22:54 The patient has experienced syncope, lost consciousness. Onset: The symptoms/episode kb began/occurred last night. Duration: This was a single episode. Context: occurred at home, occurred while the patient was standing, Just prior to the episode the patient experienced no apparent symptoms. Associated injury: Head/face: pain. Associated signs and symptoms: Pertinent positives: headache. Current symptoms: Currently, the patient is not experiencing any symptoms, the patient feels back to baseline, no decreased level of consciousness, no confusion, no dysphasia, no headache, no paralysis, no visual changes. The patient has not experienced similar symptoms in the past. The patient has not recently seen a physician. Pt reports she had a head injury 2 weeks ago that resulted in an occipital hematoma. States she passed out last night and hit her head causing the hematoma to get bigger. . 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 - Social history:: Smoking status: Patient reports the use of cigarette tobacco products, smokes one-half pack cigarettes per day, Patient uses alcohol, occasionally. ROS: 22:51 Constitutional: Negative for fever, chills, and weight loss. kb 22:51 Neuro: Positive for headache, syncope. 22:51 All other systems are negative. Exam: 22:50 Constitutional: This is a well developed, well nourished patient who is awake, alert, kb and in no acute distress. ENT: Moist Mucous membranes Cardiovascular: Regular rate and rhythm with a normal S1 and S2. No gallops, murmurs, or rubs. No pulse deficits. Respiratory: Respirations even and unlabored. No increased work of breathing. Talking in full sentences Abdomen/GI: Soft, non-tender. No distention Skin: Warm, dry with normal turgor. Normal color. MS/ Extremity: Pulses equal, no cyanosis. Neurovascular intact. Full, normal range of motion. Neuro: Awake and alert, GCS 15, oriented to person, place, time, and situation. Moves all extremities. Normal gait. Psych: Awake, alert, with orientation to person, place and time. Behavior, mood, and affect are within normal limits. 22:50 Head/face: Noted is hematoma, that is moderate, of the left occipital area. 22:50 ECG was reviewed by the Attending Physician. Vital Signs: 14:28 BP 117 / 78; Pulse 84; Resp 18; Temp 98.1(TE); Pulse Ox 100% on R/A; Weight 46.27 kg bm7 (R); Height 5 ft. 2 in. (157.48 cm); Pain 4/10; 14:32 BP 117 / 78; Pulse 84; Resp 16; Temp 98.1(TE); Pulse Ox 100% on R/A; Weight 46.27 kg bm7 (R); Height 5 ft. 2 in. (157.48 cm); 14:32 Body Mass Index 18.66 (46.27 kg, 157.48 cm) bm7 Starla Coma Score: 14:28 Eye Response: spontaneous(4). Verbal Response: oriented(5). Motor Response: obeys bm7 commands(6). Total: 15. 22:50 Eye Response: spontaneous(4). Verbal Response: oriented(5). Motor Response: obeys kb commands(6). Total: 15. MDM: 14:30 Patient medically screened. kb 22:50 Data reviewed: vital signs, nurses notes. Data interpreted: Pulse oximetry: on room air kb is 100 %. Interpretation: normal. Counseling: I had a detailed discussion with the patient and/or guardian regarding: the historical points, exam findings, and any diagnostic results supporting the discharge/admit diagnosis, lab results, radiology results, the need for outpatient follow up, a family practitioner, to return to the emergency department if symptoms worsen or persist or if there are any questions or concerns that arise at home. 07/31 14:31 Order name: CBC with Diff; Complete Time: 15:05 kb 07/31 14:31 Order name: CMP; Complete Time: 15:19 kb 07/31 14:31 Order name: CT Head Brain wo Cont; Complete Time: 15:05 kb 07/31 14:31 Order name: Facial Bones <3 Views XRAY; Complete Time: 15:40 kb 07/31 15:40 Order name: CT Facial Bones W/O Con; Complete Time: 16:25 kb 07/31 18:04 Order name: Urine Dipstick-Ancillary; Complete Time: 18:14 EDMS 07/31 14:31 Order name: Urine Dipstick-Ancillary (obtain specimen); Complete Time: 16:53 kb 07/31 14:31 Order name: Urine Test (obtain specimen); Complete Time: 16:53 kb 07/31 14:31 Order name: EKG; Complete Time: 14:32 kb 07/31 14:31 Order name: EKG - Nurse/Tech; Complete Time: 17:06 kb 07/31 14:31 Order name: IV Start; Complete Time: 14:41 kb EC:50 Rate is 74 beats/min. Rhythm is regular. Right axis deviation noted. WV interval is kb normal at 180 msec. QRS interval is normal at 98 msec. QT interval is normal at 437 msec. Administered Medications: No medications were administered Disposition Summary: 07/31/22 18:45 Discharge Ordered Location: Home kb Condition: Stable kb Diagnosis - Syncope kb - Unspecified injury of head, initial encounter kb Followup: kb - With: Private Physician - When: 2 - 3 days - Reason: Recheck today's complaints, Continuance of care, Re-evaluation by your physician Followup: kb - With: Emergency Department - When: As needed - Reason: Worsening of condition Discharge Instructions: - Discharge Summary Sheet kb - Hematoma, [id number] kb - Head Injury, Adult, [id number]-[id number]-Mepp kb Forms: - Medication Reconciliation Form kb - Thank You Letter kb - Antibiotic Education kb - Prescription Opioid Use kb Addendum: 08/04/2022 07:37 Co-signature as Attending Physician, Jamarcus Giron MD. r n Signatures: Dispatcher [employer] EDMS Denae Marquez, SOFT WATER MECHANIC-C SOFT WATER MECHANIC-Jamarcus Sebastian MD MD rn McCarthy, Brittany RN RN bm7
--- NOTE | 2022-07-31 18:45 | ER ---
Nurse's Notes [facility] Name: Rupa Smith Age: 22 yrs Sex: Female : 2000 Arrival Date: 07/31/2022 Time: 13:31 Bed Waiting Private MD: Diagnosis: Syncope;Unspecified injury of head, initial encounter Presentation: 07/31 14:28 Chief complaint: Patient states: I fell a few weeks ago and had an occipital hematoma bm7 and last night I fell gain and hit my head and I feel like I have a bump and its getting bigger. Coronavirus screen: At this time, the client does not indicate any symptoms associated with coronavirus-19. Ebola Screen: No symptoms or risks identified at this time. Mechanism of Injury: resulted from a fall, from a standing position. Initial Sepsis Screen: Does the patient meet any 2 criteria? No. Patient's initial sepsis screen is negative. Does the patient have a suspected source of infection? No. Patient's initial sepsis screen is negative. Risk Assessment: Do you want to hurt yourself or someone else? Patient reports no desire to harm self or others. Onset of symptoms was July 30, 2022. 14:28 Method Of Arrival: Ambulatory 7 14:28 Acuity: SANCHO 3 bm7 Triage Assessment: 14:30 General: Appears in no apparent distress. uncomfortable, well groomed, well developed, bm7 Behavior is calm, cooperative, appropriate for age. Pain: Complains of pain in left parietal area and right parietal area. EENT: No deficits noted. No signs and/or symptoms were reported regarding the EENT system. Neuro: Level of Consciousness is awake, alert, obeys commands, Oriented to person, place, time, situation, Peeler Operator are equal bilaterally Moves all extremities. Gait is steady, Speech is normal, Facial symmetry appears normal, Pupils are PERRLA, Reports headache a syncopal episode weakness. Cardiovascular: Chest pain is denied. Respiratory: No deficits noted. GI: No deficits noted. No signs and/or symptoms were reported involving the gastrointestinal system. : No deficits noted. No signs and/or symptoms were reported regarding the genitourinary system. Derm: No deficits noted. No signs and/or symptoms reported regarding the dermatologic system. Musculoskeletal: No deficits noted. No signs and/or symptoms reported regarding the musculoskeletal system. 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 - Social history:: Smoking status: Patient reports the use of cigarette tobacco products, smokes one-half pack cigarettes per day, Patient uses alcohol, occasionally. Vital Signs: 14:28 BP 117 / 78; Pulse 84; Resp 18; Temp 98.1(TE); Pulse Ox 100% on R/A; Weight 46.27 kg bm7 (R); Height 5 ft. 2 in. (157.48 cm); Pain 4/10; 14:32 BP 117 / 78; Pulse 84; Resp 16; Temp 98.1(TE); Pulse Ox 100% on R/A; Weight 46.27 kg bm7 (R); Height 5 ft. 2 in. (157.48 cm); 14:32 Body Mass Index 18.66 (46.27 kg, 157.48 cm) bm7 Starla Coma Score: 14:28 Eye Response: spontaneous(4). Verbal Response: oriented(5). Motor Response: obeys bm7 commands(6). Total: 15. 22:50 Eye Response: spontaneous(4). Verbal Response: oriented(5). Motor Response: obeys kb commands(6). Total: 15. ED Course: 13:31 Patient arrived in ED. am2 13:53 Denae Marquez FNP-C is [facility]. kb 13:53 Jamarcus Giron MD is Attending Physician. kb 14:30 Triage completed. bm7 14:30 Arm band placed on right wrist. bm7 14:41 Inserted saline lock: 20 gauge in right antecubital area, using aseptic technique. zm Blood collected. 14:41 CMP Sent. zm 14:41 CBC with Diff Sent. zm 14:43 CT Head Brain wo Cont In Process Unspecified. EDMS 15:18 Facial Bones <3 Views XRAY In Process Unspecified. EDMS 16:12 CT Facial Bones W/O Con In Process Unspecified. EDMS 18:08 Urine collected: clean catch specimen, clear, EKG done. bm7 Administered Medications: No medications were administered Outcome: 18:45 Discharge ordered by . kb 19:04 Patient left the ED. bm7 Signatures: Dispatcher [employer] EDMS Denae Marquez, NANDA ROMERO-Kadie Graves Brittany, RN RN bm7 Leigh Ann Qureshi
[2022-07-31 20:30] VITALS: BP 117/78; TEMP 98.1; O2SAT 100
--- NOTE | 2022-08-01 09:20 | EKG ---
Test Date: 2022-07-31 Test Time: 18:13:53 Tobacco Sieve Operator: LIZ MEASUREMENT RESULTS: Intervals: Rate: 74 NM: 180 QRSD: 98 QT: 394 QTc: 437 [place]ell: P: NM: 180 QRS: 126 T: 112 INTERPRETIVE STATEMENTS: Normal sinus rhythm Right axis deviation Incomplete right bundle branch block ST abnormality, possible digitalis effect Abnormal ECG No previous ECG available for comparison Electronically Signed On 08-01-22 09:18:35 CDT by Mann Ely
== END 2022-07-31 19:04 | disposition home or self-care (01) ==
LOC: ER 13:29
DX: R55 Syncope and collapse (principal); S00.83XA Contusion of other part of head, initial encounter; F17.210 Nicotine dependence, cigarettes, uncomplicated
CPT/HCPCS: 36415; 70140; 70450; 70486; 76377; 80053; 81003; 85025; 93005; 99284

== ENCOUNTER 2022-09-24 11:07 | Emergency (ER) | payer BC ==
--- OUTSIDE RECORDS SUMMARY | 2022-09-24 11:20 | XMS REPORT | Continuity of Care Document ---
:2000 Author Organization [facility] t Address [address] [place] [address] Care Team Providers Name Role Phone PCP, PATIENT DOES NOT HAVE A Primary Care Physician Unavaila ble Saul Chapman Attending Clinician Unavailable PATRICIA SCHAEFER Attending Clinician Unavailable Patricia Schaefer MD Attending Clinician Sena Hancock MD Attending Clinician JESÚS VELARDE Attending Clinician Unavailable Jesús Velarde MD Attending Clinician Cindy Hammond DO Attending Clinician SEAN HANCOCK Attending Clinician Unavailable Doctor Unassigned, [place] Attending Clinician Unavailable Lois Melara Attending Clinician Oswald Tee Attending Clinician Physician, No Primary or Family Admitting Clinician Unavailrohan fierro Payers Payer Name Policy Type Policy Number Effective Date Expiration Date S v[facility]ul [facility] [id number] 2020 00:00:00 [employer] [facility] C[facility] [id number] 2016 00:00:00 Problems Condition Condition Condition Status Onset Resolution Last Treating Co mments Source Name Details Category Date Date Treatment Clinician Date Hepatitis Hepatitis Disease Active Overview: Univers C antibody C antibody 8-13 [facility] ity of test test 00:00: g of this [place] positive positive 00 note Medica l might [...] ity o f carrier carrier 00:00: of [facility] 00 delivery Medical has not Branch [...] Active [facility] [place] no history no history 00 Me dical known known Branch Allergies, Adverse Reactions, Alerts Allergy Allergy Status Severity Reaction(s) Onset Inactive Treating Comm ents Source Name Type Date Date Clinician No Known DA Active U 2005-11 [facility] Contrast 12-09 Clear Allergie 00:00: Liang s 00 [facility] No Known DA Active U 2005-11 [facility] Drug - Clear Allergie 00:00: Liang s [facility] No Known DA Active U 2005-11 [facility] Food - Clear Allergie 00:00: Liang s 00 [facility] No Known DA Active U 2005-11 [facility] Other - Clear Allergie 00:00: Liang s [facility] NO KNOWN Drug Active Univers ALLERGIE Class ity of S [place] [facility] [place] Social History Social Habit Start Date Stop Date Quantity Comments Source Exposure to Not sure [facility] 2022-02-28 2022-02-28 0 /d [facility] 00:00:00 00:00:00 Medical Branch Tobacco use and 2012-06-16 2012-06-16 Never used [facility] exposure 00:00:00 00:00:00 Medical Branch Sex Assigned At [birth year] [facility] 00:00:00 00:00:00 Medical Branch Smoking Status Start Date Stop Date Source Never smoker [facility] Medications Ordered Filled Start Stop Current Ordering Indication Dosage Frequency Signature Comments Components Source Medication Medication Date Date Medication? Clinician (SIG) Name Name phenazopyri Yes [id number] 200mg Take 1 Univers dine 200 mg 4-02 tablet by ity of tablet 00:00: mouth 3 [place] 00 (three) Medical times Branch daily. ibuprofen Yes [id number] 400mg Take 2 Univers (MOTRIN IB) 4-02 tablets by it y of 200 mg 00:00: mouth [place] tablet 00 every 8 Medical (eight) Branch hours as needed for Pain (scale 1-3) for up to 30 doses. cephALEXin 2021- No [id number] 500mg Take 1 Univers (KEFLEX) 4-02 04-13 [...] Medical Eli Branch 11/27/21 at 1015, Routine
community board member approving Restricted medication : JESÚS VELARDE erythromyci Yes [id number] .5[in_u Place 0.5 Univers n 5 mg/gram 08-10 [id number] s] Inches in i ty of (0.5 %) 00:00: right eye [place] ophthalmic 00 at Medical ointment bedtime. Branch Continue until you follow up with eye doctor. erythromyci Yes [id number] .5[in_u Place 0.5 Univers n 5 mg/gram 08-10 [id number] s] Inches in i ty of (0.5 %) 00:00: right eye [place] ophthalmic 00 at Medical ointment bedtime. Branch Continue until you follow up with eye doctor. erythromyci Yes [id number] .5[in_u Place 0.5 Univers n 5 mg/gram 08-10 [id number] s] Inches in i ty of (0.5 %) 00:00: right eye [place] ophthalmic 00 at Medical ointment bedtime. Branch Continue until you follow up with eye doctor. erythromyci Yes [id number] .5[in_u Place 0.5 Univers n 5 mg/gram 08-10 [id number] s] Inches in i ty of (0.5 %) 00:00: right eye [place] ophthalmic 00 at Medical ointment bedtime. Branch Continue until you follow up with eye doctor. erythromyci Yes [id number] .5[in_u Place 0.5 Univers n 5 mg/gram 08-10 [id number] s] Inches in i ty of (0.5 %) 00:00: right eye [place] ophthalmic 00 at Medical ointment bedtime. Branch Continue until you follow up with eye doctor. cefTRIAXone 2019-11 2020- No 1000mg 1,000 mg, Univers (ROCEPHIN) 12-28-30 IV ity of 1,000 mg in 01:00[facility] [place] NaCl 0.9% 00 :00 ONCE, 1 Medical (NS) 50 mL dose, Sun Bran ch MINI-BAG 10/27/20 at 1900, 50 mL
Reas on for Anti-Infec tive: Documented Infection< br>Documen so Infection Site: Urine
D uration of Therapy: 7 days ciprofloxac 2019-11- No [id number] 500mg Take 1 Univers in HCl 500 12-27 12-10 tablet by ity of mg tablet 00:00: 05:59 [place] (two) Medical times [place] daily for 10 days. cefTRIAXone 2018- No 1000mg 1,000 mg, Univers (ROCEPHIN) 08-04 IV ity of 1,000 mg in 23:15: 23:27 [employer], [place] NaCl 0.9% 00 :00 ONCE, 1 Medical [...] dose, Fri Branch 08/04/19 at 1700, Routine
community board member approving Restricted medication : OSWALD JOE [...] 08/04/19 at 1615, STAT ondansetron 0 Yes [id number] 4mg Take 1 Univers (ZOFRAN 9-06 tablet by ity of ODT) 4 mg 00:00: mouth [place] disintegrat 00 every 8 Medic al ing tablet (eight) Branch hours as needed for Nausea and Vomiting (N/V). ibuprofen 0 Yes [id number] 600mg Take 1 U nivers 600 mg 9-06 tablet by ity of tablet 00:00: mouth [place] 00 every 6 Medical (six) Branch hours as needed for Pain (scale 1-3). ondansetron 2019-0 Yes [id number] 4mg Take 1 Univers (ZOFRAN 9-06 tablet by ity of ODT) 4 mg 00:00: mouth [place] disintegrat 00 every 8 Medic al ing tablet (eight) Branch hours as needed for Nausea and Vomiting (N/V). ibuprofen 2019-0 Yes [id number] 600mg Take 1 U nivers 600 mg 9-06 tablet by ity of tablet 00:00: mouth [place] 00 every 6 Medical (six) Branch hours as needed for Pain (scale 1-3). ondansetron 2019-0 Yes [id number] 4mg Take 1 Univers (ZOFRAN 9-06 tablet by ity of ODT) 4 mg 00:00: mouth [place] disintegrat 00 every 8 Medic al ing tablet (eight) Branch hours as needed for Nausea and Vomiting (N/V). ibuprofen 2019-0 Yes [id number] 600mg Take 1 U nivers 600 mg 9-06 tablet by ity of tablet 00:00: mouth [place] 00 every 6 Medical (six) Branch hours as needed for Pain (scale 1-3). ondansetron Yes [id number] 4mg Take 1 Univers (ZOFRAN 9-06 tablet by ity of ODT) 4 mg 00:00: mouth [place] disintegrat 00 every 8 Medic al ing tablet (eight) Branch hours as needed for Nausea and Vomiting (N/V). ibuprofen Yes [id number] 600mg Take 1 U nivers 600 mg 9-06 tablet by ity of tablet 00:00: mouth [place] 00 every 6 Medical (six) Branch hours as needed for Pain (scale 1-3). ondansetron Yes [id number] 4mg Take 1 Univers (ZOFRAN 9-06 tablet by ity of ODT) 4 mg 00:00: mouth [place] disintegrat 00 every 8 Medic al ing tablet (eight) Branch hours as needed for Nausea and Vomiting (N/V). ibuprofen Yes [id number] 600mg Take 1 U nivers 600 mg 9- tablet by ity of tablet 00:00: mouth [place] 00 every 6 Medical (six) Branch hours as needed for Pain (scale 1-3). ondansetron 2020- No [id number] 4mg Take 1 Univers (ZOFRAN -05 09- tablet by ity of ODT) 4 mg 00:00: 00:00 mouth [place] disintegrat 00 :00 every 8 Medic al ing tablet (eight) Branch hours as needed for Nausea and Vomiting (N/V). ibuprofen 2020- No [id number] 600mg Take 1 Univers 600 mg 08-04-29 tablet by ity of tablet 00:00: 00:00 mouth [place] 00 :00 every 6 Medical (six) Branch hours as needed for Pain (scale 1-3). cefpodoxime 2019- No [id number] 100mg Take 1 Univers 100 mg 08-0414 tablet by ity of tablet 00:00: 04:59 mouth 2 [place] 00 :00 (two) Medical times Branch daily for 7 days. levonorgest 2018- 2019- No 1{devic Un kristopher rel 8-16 08-16 e} ity of (MIRENA) 20:30: 19:27 [place] IUD 1 00 :00 [employer] Branch ibuprofen 2019- No 600mg Univer s (IBU) 07-14 ity of tablet 600 20:30: 19:26 [place] mg 00 :00 Medical Branch ibuprofen 2019- No 600mg 600 mg, Uni vers (IBU) 07-14 Oral, ity of tablet 600 20:30: 19:26 ONCE, 1 Dilan as mg 00 :00 dose, [facility] 07/14/19 at Branch 1530, Routine levonorgest 2019- No 1{devic 1 Device, Univers rel 07-14 e} Intrauteri ity of (MIRENA) 20:30: 19:27 ne, ONCE, Dilan as IUD 1 00 :00 1 dose, [employer] [facility] 07/14/19 at 1530, Routine levonorgest 2019- No 1{devic Un kristopher rel 07-14 e} ity of (MIRENA) 20:30: 19:27 [place] IUD 1 00 :00 [employer] Branch ibuprofen 2018- No 600mg Univer s (IBU) 07-14 ity of tablet 600 20:30: 19:26 [place] mg 00 :00 Medical Branch ibuprofen 2019- No 600mg 600 mg, Uni vers (IBU) 07-14 Oral, ity of tablet 600 20:30: 19:26 ONCE, 1 Dilan as mg 00 :00 dose, [facility] 07/14/19 at Branch 1530, Routine levonorgest 2019- No 1{devic 1 Device, Univers rel 07-14 e} Intrauteri ity of (MIRENA) 20:30: 19:27 ne, ONCE, Dilan as IUD 1 00 :00 1 dose, [employer] [facility] 07/14/19 at 1530, Routine levonorgest 2018- 2019- No 1{devic Un kristopher rel 07-14 e} ity of (MIRENA) 20:30: 19:27 [place] IUD 1 00 :00 [employer] Branch ibuprofen 2018- 2019- No 600mg Univer [...] as IUD 1 00 :00 1 dose, [employer] [place] 07/14/19 at 1530, Routine levonorgest 2019- No 1{devic Un kristopher rel 07-14 e} ity of (MIRENA) 20:30: 19:27 [place] IUD 1 00 :00 [employer] Branch ibuprofen 2019- No 600mg Univer s (IBU) 07-14 ity of tablet 600 20:30: 19:26 [place] mg 00 :00 Medical Branch ibuprofen 2018- No 600mg 600 mg, Uni vers (IBU) 07-14 Oral, ity of tablet 600 20:30: 19:26 ONCE, 1 Dilan as mg 00 :00 dose, Fri [facility] 07/14/19 at Branch 1530, Routine levonorgest 2019- No 1{devic 1 Device, Univers rel 07-14 e} Intrauteri ity of (MIRENA) 20:30: 19:27 ne, ONCE, Dilan as IUD 1 00 :00 1 dose, [employer] [place] 07/14/19 at 1530, Routine metroNIDAZO 2019- No [id number] 500mg Take 1 Univers LE (FLAGYL) 07-1424 tablet by it y of 500 mg 00:00: 04:59 mouth 2 [place] tablet 00 :00 (two) Medical times Branch daily for 7 days. metroNIDAZO 2019- No [id number] 500mg Take 1 Univers LE (FLAGYL) 07-14-24 tablet by it y of 500 mg 00:00: 04:59 mouth 2 [place] tablet 00 :00 (two) Medical times Branch daily for 7 days. metroNIDAZO 2019- No [id number] 500mg Take 1 Univers LE (FLAGYL) 07-1424 tablet by it y of 500 mg 00:00: 04:59 mouth 2 [place] tablet 00 :00 (two) Medical times [place] daily for 7 days. metroNIDAZO 2019- No [id number] 500mg Take 1 Univers LE (FLAGYL) 8-16 24 tablet by it y of 500 mg 00:00: 04:59 mouth 2 [place] tablet 00 :00 (two) Medical Located within [facility] daily for 7 days. No known No Univers medications ity of [facility] No known No Univers medications ity [facility] No known No Univers medications ity [facility] No known No Univers medications ity [facility] No known No Univers medications ity [facility] No known No Univers medications ity [facility] No known No Univers medications ity [facility] No known No Univers medications [place] [facility] Immunizations Ordered Immunization Filled Immunization Date Status Commen ts Source Name Name [facility] 2018-06-27 Completed University of 00:00:00 [place] [address] 2018-06-27 Completed University of 00:00:00 [facility] 2018-06-27 Completed University of 00[facility]00:00 [facility] 2018-06-27 Completed University of 00:00:00 [facility] 2018-06-27 Completed University of 00:00:00 [facility] 2018-06-27 Completed University of 00:00:00 [facility] 2018-06-27 Completed University of 00:00:00 [facility] 2018-06-27 Completed University of 00:00:00 [facility] 2018-06-27 Completed University of 00:00:00 [facility] 2018-06-27 Completed University of 00:00:00 [facility] 2018-06-27 Completed University of 00:00:00 [facility] 2018-06-27 Completed University of 00:00:00 [facility] 2018-06-27 Completed University of 00:00:00 [facility] 2018-06-27 Completed University of 00:00:00 [facility] 2018-06-27 Completed University of 00:00:00 [facility] 2018-06-27 Completed University of 00:00:00 [facility] 2018-06-27 Completed University of 00:00:00 [facility] 2018-06-27 Completed University of 00:00:00 [place] [facility] HPV9 2018-06-27 Completed University of 00:00:00 [place] [facility] HPV9 2018-06-27 Completed University of 00:00:00 [place] [facility] HPV9 2018-06-27 Completed University of 00:00:00 [place] [facility] HPV9 2018-06-27 Completed University of 00:00:00 [place] [facility] HPV9 2018-06-27 Completed University of 00:00:00 [place] [facility] HPV9 2018-02-11 Completed University of 00:00:00 [place] [facility] Meningococcal B, OMV 2018-02-11 Completed Univ ersity of 00:00:00 [place] [facility] HPV9 2018-02-11 Completed University of 00:00:00 [place] [facility] Meningococcal B, OMV 2018-02-11 Completed Univ ersity of 00:00:00 [place] [facility] HPV9 2018-02-11 Completed University of 00:00:00 [place] [facility] Meningococcal B, OMV 2018-02-11 Completed Univ ersity of 00:00:00 [place] [facility] HPV9 2018-02-11 Completed University of 00:00:00 [place] [facility] Meningococcal B, OMV 2018-02-11 Completed Univ ersity of 00:00:00 [place] [facility] HPV9 2018-02-11 Completed University of 00:00:00 [place] [facility] Meningococcal B, OMV 2018-02-11 Completed Univ ersity of 00:00:00 [place] [facility] HPV9 2018-02-11 Completed University of 00:00:00 [place] [facility] Meningococcal B, OMV 2018-02-11 Completed Univ ersity of 00:00:00 [place] [facility] HPV9 2018-02-11 Completed University of 00:00:00 [place] [facility] Meningococcal B, OMV 2018-02-11 Completed Univ ersity of 00:00:00 [place] [facility] HPV9 2018-02-11 Completed University of 00:00:00 [place] [facility] Meningococcal B, OMV 2018-02-11 Completed Univ ersity of 00:00:00 [place] [facility] HPV9 2018-02-11 Completed University of 00:00:00 [place] [facility] Meningococcal B, OMV 2018-02-11 Completed [...] OMV 2018-02-11 Completed Univ ersity of 00:00:00 [facility] Branch HPV9 2018-02-11 Completed University of 00:00:00 [facility] Branch Meningococcal B, OMV 2018-02-11 Completed Univ ersity of 00:00:00 [facility] Meningococcal 2017-06-10 Completed University of Polysaccharide 00:00:00 [place] Medi andrew (groups A, C, Y and Branc h W-135) conjugate vaccine (MCV4P) Meningococcal B, OMV 2017-06-10 Completed Univ ersity of 00:00:00 [facility] Branch HPV9 2017-06-10 Completed University of 00:00:00 [facility] Meningococcal 2017-06-10 Completed University of Polysaccharide 00:00:00 [place] Medi andrew (groups A, C, Y and Branc h W-135) conjugate vaccine (MCV4P) Meningococcal B, OMV 2017-06-10 Completed Univ ersity of 00:00:00 [facility] Branch HPV9 2017-06-10 Completed University of 00:00:00 [facility] Meningococcal 2017-06-10 Completed University of Polysaccharide 00:00:00 [place] Medi andrew (groups A, C, Y and Branc h W-135) conjugate vaccine (MCV4P) Meningococcal B, OMV 2017-06-10 Completed Univ ersity of 00:00:00 [facility] Branch HPV9 2017-06-10 Completed University of 00:00:00 [facility] Meningococcal 2017-06-10 Completed University of Polysaccharide 00:00:00 [place] Medi andrew (groups A, C, Y and Branc h W-135) conjugate vaccine (MCV4P) Meningococcal B, OMV 2017-06-10 Completed Univ ersity of 00:00:00 [facility] Branch HPV9 2017-06-10 Completed University of 00:00:00 [facility] Meningococcal 2017-06-10 Completed University of Polysaccharide 00:00:00 [place] Medi andrew (groups A, C, Y and Branc h W-135) conjugate vaccine (MCV4P) Meningococcal B, OMV 2017-06-10 Completed Univ ersity of 00:00:00 [facility] Branch HPV9 2017-06-10 Completed University of 00:00:00 [facility] Meningococcal 2017-06-10 Completed University of Polysaccharide 00:00:00 [place] Medi andrew (groups A, C, Y and Branc h W-135) conjugate vaccine (MCV4P) Meningococcal B, OMV 2017-06-10 Completed Univ ersity of 00:00:00 [facility] HPV9 2017-06-10 Completed University of 00:00:00 [facility] Meningococcal 2017-06-10 Completed University of Polysaccharide 00:00:00 [place] Medi andrew (groups A, C, Y and Branc h W-135) conjugate vaccine (MCV4P) Meningococcal B, OMV 2017-06-10 Completed Univ ersity of 00:00:00 [facility] Branch HPV9 2017-06-10 Completed University of 00:00:00 [facility] Meningococcal 2017-06-10 Completed University of Polysaccharide 00:00:00 [place] Medi andrew (groups A, C, Y and Branc h W-135) conjugate vaccine (MCV4P) Meningococcal B, OMV 2017-06-10 Completed Univ ersity of 00:00:00 [facility] HPV9 2017-06-10 Completed University of 00:00:00 [facility] Meningococcal 2017-06-10 Completed University of Polysaccharide 00:00:00 [place] Medi andrew (groups A, C, Y and Branc h W-135) conjugate vaccine (MCV4P) Meningococcal B, OMV 2017-06-10 Completed Univ ersity of 00:00:00 [facility] HPV9 2017-06-10 Completed University of 00:00:00 [facility] Meningococcal 2017-06-10 Completed University of Polysaccharide 00:00:00 [place] Medi andrew (groups A, C, Y and Branc h W-135) conjugate vaccine (MCV4P) Meningococcal B, OMV 2017-06-10 Completed Univ ersity of 00:00:00 [facility] HPV9 2017-06-10 Completed University of 00:00:00 [facility] Meningococcal 2017-06-10 Completed University of Polysaccharide 00:00:00 [place] Medi andrew (groups A, C, Y and Branc h W-135) conjugate vaccine (MCV4P) Meningococcal B, OMV 2017-06-10 Completed Univ ersity of 00:00:00 [facility] HPV9 2017-06-10 Completed University of 00:00:00 [facility] Meningococcal 2017-06-10 Completed University of Polysaccharide 00:00:00 [place] Medi andrew (groups A, C, Y and Branc h W-135) conjugate vaccine (MCV4P) Meningococcal B, OMV 2017-06-10 Completed Univ ersity of 00:00:00 [facility] HPV9 2017-06-10 Completed University of 00:00:00 [facility] Meningococcal 2017-06-10 Completed University of Polysaccharide 00:00:00 [place] Medi andrew (groups A, C, Y and Branc h W-135) conjugate vaccine (MCV4P) Meningococcal B, OMV 2017-06-10 Completed Univ ersity of 00:00:00 [facility] HPV9 2017-06-10 Completed University of 00:00:00 [facility] Meningococcal 2017-06-10 Completed University of Polysaccharide 00:00:00 [place] Medi andrew (groups A, C, Y and Branc h W-135) conjugate vaccine (MCV4P) Meningococcal B, OMV 2017-06-10 Completed Univ ersity of 00:00:00 [facility] HPV9 2017-06-10 Completed University of 00:00:00 [facility] Meningococcal 2017-06-10 Completed University of Polysaccharide 00:00:00 [place] Medi andrew (groups A, C, Y and Branc h W-135) conjugate vaccine (MCV4P) Meningococcal B, OMV 2017-06-10 Completed Univ ersity of 00:00:00 [facility] HPV9 2017-06-10 Completed University of 00:00:00 [facility] Meningococcal 2017-06-10 Completed University of Polysaccharide 00:00:00 [place] Medi andrew (groups A, C, Y and Branc h W-135) conjugate vaccine (MCV4P) Meningococcal B, OMV 2017-06-10 Completed Univ ersity of 00:00:00 [facility] HPV9 2017-06-10 Completed University of 00:00:00 [facility] Meningococcal 2017-06-10 Completed University of Polysaccharide 00:00:00 [place] Medi andrew (groups A, C, Y and Branc h W-135) conjugate vaccine (MCV4P) Meningococcal B, OMV 2017-06-10 Completed Univ ersity of 00:00:00 [facility] HPV9 2017-06-10 Completed University of 00:00:00 [facility] Meningococcal 2017-06-10 Completed University of Polysaccharide 00:00:00 [place] Medi andrew (groups A, C, Y and Branc h W-135) conjugate vaccine (MCV4P) Meningococcal B, OMV 2017-06-10 Completed Univ ersity of 00:00:00 [facility] HPV9 2017-06-10 Completed University of 00:00:00 [facility] Meningococcal 2017-06-10 Completed University of Polysaccharide 00:00:00 [place] Medi andrew (groups A, C, Y and Branc h W-135) conjugate vaccine (MCV4P) Meningococcal B, OMV 2017-06-10 Completed Univ ersity of 00:00:00 [facility] Branch HPV9 2017-06-10 Completed University of 00:00:00 [facility] Meningococcal 2017-06-10 Completed University of Polysaccharide 00:00:00 [place] Medi andrew (groups A, C, Y and Branc h W-135) conjugate vaccine (MCV4P) Meningococcal B, OMV 2017-06-10 Completed Univ ersity of 00:00:00 [facility] Branch HPV9 2017-06-10 Completed University of 00:00:00 [facility] Meningococcal 2017-06-10 Completed University of Polysaccharide 00:00:00 [place] Medi andrew (groups A, C, Y and Branc h W-135) conjugate vaccine (MCV4P) Meningococcal B, OMV 2017-06-10 Completed Univ ersity of 00:00:00 [facility] HPV9 2017-06-10 Completed University of 00:00:00 [facility] Meningococcal 2017-06-10 Completed University of Polysaccharide 00:00:00 [place] Medi andrew (groups A, C, Y and Branc h W-135) conjugate vaccine (MCV4P) Meningococcal B, OMV 2017-06-10 Completed Univ ersity of 00:00:00 [facility] Branch HPV9 2017-06-10 Completed University of 00:00:00 [facility] Meningococcal 2017-06-10 Completed University of Polysaccharide 00:00:00 [place] Medi andrew (groups A, C, Y and Branc h W-135) conjugate vaccine (MCV4P) Meningococcal B, OMV 2017-06-10 Completed Univ ersity of 00:00:00 [facility] HPV9 2017-06-10 Completed University of 00:00:00 [facility] HEPATITIS A 2013-03-29 Completed University of 00:00:00 [facility] HEPATITIS A 2013-03-29 Completed University of 00:00:00 [facility] HEPATITIS A 2013-03-29 Completed University of 00:00:00 [facility] HEPATITIS A 2013-03-29 Completed University of 00:00:00 [facility] HEPATITIS A 2013-03-29 Completed University of 00:00:00 [facility] HEPATITIS A 2013-03-29 Completed University of 00:00:00 [facility] HEPATITIS A 2013-03-29 Completed University of 00:00:00 [facility] HEPATITIS A 2013-03-29 Completed University of 00:00:00 [facility] HEPATITIS A 2013-03-29 Completed University of 00:00:00 [facility] HEPATITIS A 2013-03-29 Completed University of 00:00:00 [facility] HEPATITIS A 2013-03-29 Completed University of 00:00:00 [facility] HEPATITIS A 2013-03-29 Completed University of 00:00:00 [facility] HEPATITIS A 2013-03-29 Completed [facility] 00:00:00 [facility] HEPATITIS A 2013-03-29 Completed [facility] 00:00:00 [facility] HEPATITIS A 2013-03-29 Completed [facility] 00:00:00 [facility] HEPATITIS A 2013-03-29 Completed [facility] 00:00:00 [facility] HEPATITIS A 2013-03-29 Completed [facility] 00:00:00 [facility] HEPATITIS A 2013-03-29 Completed [facility] 00:00:00 [facility] HEPATITIS A 2013-03-29 Completed [facility] 00:00:00 [facility] HEPATITIS A 2013-03-29 Completed [facility] 00:00:00 [facility] HEPATITIS A 2013-03-29 Completed [facility] 00:00:00 [facility] HEPATITIS A 2013-03-29 Completed [facility] 00:00:00 [facility] HEPATITIS A 2013-03-29 Completed [facility] 00:00:00 [facility] Tdap 2012-06-16 Completed [facility] 00:00:00 [facility] Meningococcal 2012-06-16 Completed [facility] Polysaccharide 00:00:00 [facility] (groups A, C, Y and Branc h W-135) conjugate vaccine (MCV4P) Varicella 2012-06-16 Completed [facility] (varivax)(chicken 00:00:00 [place] [facility] HEPATITIS A 2012-06-16 Completed [facility] 00:00:00 [facility] Tdap 2012-06-16 Completed [facility] 00:00:00 [facility] Meningococcal 2012-06-16 Completed [facility] Polysaccharide 00:00:00 [facility] (groups A, C, Y and Branc h W-135) conjugate vaccine (MCV4P) Varicella 2012-06-16 Completed [facility] (varivax)(chicken 00:00:00 [place] [facility] HEPATITIS A 2012-06-16 Completed [facility] 00:00:00 [facility] Tdap 2012-06-16 Completed [facility] 00:00:00 [facility] Meningococcal 2012-06-16 Completed [facility] Polysaccharide 00:00:00 [facility] (groups A, C, Y and Branc h W-135) conjugate vaccine (MCV4P) Varicella 2012-06-16 Completed [facility] (varivax)(chicken 00:00:00 [place] [facility] HEPATITIS A 2012-06-16 Completed [facility] 00:00:00 [facility] Tdap 2012-06-16 Completed [facility] 00:00:00 [facility] Meningococcal 2012-06-16 Completed [facility] Polysaccharide 00:00:00 [facility] (groups A, C, Y and Branc h W-135) conjugate vaccine (MCV4P) Varicella 2012-06-16 Completed [facility] (varivax)(chicken 00:00:00 [place] [facility] HEPATITIS A 2012-06-16 Completed [facility] 00:00:00 [facility] Tdap 2012-06-16 Completed [facility] 00:00:00 [facility] Meningococcal 2012-06-16 Completed [facility] Polysaccharide 00:00:00 [facility] (groups A, C, Y and Branc h W-135) conjugate vaccine (MCV4P) Varicella 2012-06-16 Completed [facility] (varivax)(chicken 00:00:00 [place] [facility] HEPATITIS A 2012-06-16 Completed [facility] 00:00:00 [facility] Tdap 2012-06-16 Completed [facility] 00:00:00 [facility] Meningococcal 2012-06-16 Completed [facility] Polysaccharide 00:00:00 [facility] (groups A, C, Y and Branc h W-135) conjugate vaccine (MCV4P) Varicella 2012-06-16 Completed [facility] (varivax)(chicken 00:00:00 [place] [facility] HEPATITIS A 2012-06-16 Completed [facility] 00:00:00 [facility] Tdap 2012-06-16 Completed [facility] 00:00:00 [facility] Meningococcal 2012-06-16 Completed [facility] Polysaccharide 00:00:00 [facility] (groups A, C, Y and Branc h W-135) conjugate vaccine (MCV4P) Varicella 2012-06-16 Completed [facility] (varivax)(chicken 00:00:00 [place] [facility] HEPATITIS A 2012-06-16 Completed [facility] 00:00:00 [facility] Tdap 2012-06-16 Completed [facility] 00:00:00 [facility] Meningococcal 2012-06-16 Completed [facility] Polysaccharide 00:00:00 [facility] (groups A, C, Y and Branc h W-135) conjugate vaccine (MCV4P) Varicella 2012-06-16 Completed [facility] (varivax)(chicken 00:00:00 [place] [facility] HEPATITIS A 2012-06-16 Completed [facility] 00:00:00 [facility] TDAP 2012-06-16 Completed [facility] 00:00:00 [facility] Meningococcal 2012-06-16 Completed [facility] Polysaccharide 00:00:00 [facility] (groups A, C, Y and Branc h W-135) conjugate vaccine (MCV4P) Varicella 2012-06-16 Completed [facility] (varivax)(chicken 00:00:00 [place] [facility] HEPATITIS A 2012-06-16 Completed [facility] 00:00:00 [facility] TDAP 2012-06-16 Completed [facility] 00:00:00 [facility] Meningococcal 2012-06-16 Completed [facility] Polysaccharide 00:00:00 [facility] (groups A, C, Y and Branc h W-135) conjugate vaccine (MCV4P) Varicella 2012-06-16 Completed [facility] (varivax)(chicken 00:00:00 [place] [facility] HEPATITIS A 2012-06-16 Completed [facility] 00:00:00 [facility] TDAP 2012-06-16 Completed [facility] 00:00:00 [facility] Meningococcal 2012-06-16 Completed [facility] Polysaccharide 00:00:00 [facility] (groups A, C, Y and Branc h W-135) conjugate vaccine (MCV4P) Varicella 2012-06-16 Completed [facility] (varivax)(chicken 00:00:00 [place] [facility] HEPATITIS A 2012-06-16 Completed [facility] 00:00:00 [facility] TDAP 2012-06-16 Completed [facility] 00:00:00 [facility] Meningococcal 2012-06-16 Completed [facility] Polysaccharide 00:00:00 [facility] (groups A, C, Y and Branc h W-135) conjugate vaccine (MCV4P) Varicella 2012-06-16 Completed [facility] (varivax)(chicken 00:00:00 [place] [facility] HEPATITIS A 2012-06-16 Completed [facility] 00:00:00 [facility] TDAP 2012-06-16 Completed [facility] 00:00:00 [facility] Meningococcal 2012-06-16 Completed [facility] Polysaccharide 00:00:00 [facility] (groups A, C, Y and Branc h W-135) conjugate vaccine (MCV4P) Varicella 2012-06-16 Completed [facility] (varivax)(chicken 00:00:00 [place] [facility] HEPATITIS A 2012-06-16 Completed [facility] 00:00:00 [facility] TDAP 2012-06-16 Completed [facility] 00:00:00 [facility] Meningococcal 2012-06-16 Completed [facility] Polysaccharide 00:00:00 [facility] (groups A, C, Y and Branc h W-135) conjugate vaccine (MCV4P) Varicella 2012-06-16 Completed [facility] (varivax)(chicken 00:00:00 [place] [facility] HEPATITIS A 2012-06-16 Completed [facility] 00:00:00 [facility] TDAP 2012-06-16 Completed [facility] 00:00:00 [facility] Meningococcal 2012-06-16 Completed [facility] Polysaccharide 00:00:00 [facility] (groups A, C, Y and Branc h W-135) conjugate vaccine (MCV4P) Varicella 2012-06-16 Completed [facility] (varivax)(chicken 00:00:00 [place] [facility] HEPATITIS A 2012-06-16 Completed [facility] 00:00:00 [facility] TDAP 2012-06-16 Completed [facility] 00:00:00 [facility] Meningococcal 2012-06-16 Completed [facility] Polysaccharide 00:00:00 [facility] (groups A, C, Y and Branc h W-135) conjugate vaccine (MCV4P) Varicella 2012-06-16 Completed [facility] (varivax)(chicken 00:00:00 [place] [facility] HEPATITIS A 2012-06-16 Completed [facility] 00:00:00 [facility] TDAP 2012-06-16 Completed [facility] 00:00:00 [facility] Meningococcal 2012-06-16 Completed [facility] Polysaccharide 00:00:00 [facility] (groups A, C, Y and Branc h W-135) conjugate vaccine (MCV4P) Varicella 2012-06-16 Completed [facility] (varivax)(chicken 00:00:00 [place] [facility] HEPATITIS A 2012-06-16 Completed [facility] 00:00:00 [facility] TDAP 2012-06-16 Completed [facility] 00:00:00 [facility] Meningococcal 2012-06-16 Completed [facility] Polysaccharide 00:00:00 [facility] (groups A, C, Y and Branc h W-135) conjugate vaccine (MCV4P) Varicella 2012-06-16 Completed [facility] (varivax)(chicken 00:00:00 [place] [facility] HEPATITIS A 2012-06-16 Completed [facility] 00:00:00 [facility] TDAP 2012-06-16 Completed [facility] 00:00:00 [facility] Meningococcal 2012-06-16 Completed [facility] Polysaccharide 00:00:00 [facility] (groups A, C, Y and Branc h W-135) conjugate vaccine (MCV4P) Varicella 2012-06-16 Completed [facility] (varivax)(chicken 00:00:00 [place] [facility] HEPATITIS A 2012-06-16 Completed [facility] 00:00:00 [facility] TDAP 2012-06-16 Completed [facility] 00:00:00 [facility] Meningococcal 2012-06-16 Completed [facility] Polysaccharide 00:00:00 [facility] (groups A, C, Y and Branc h W-135) conjugate vaccine (MCV4P) Varicella 2012-06-16 Completed [facility] (varivax)(chicken 00:00:00 [place] [facility] HEPATITIS A 2012-06-16 Completed [facility] 00:00:00 [facility] TDAP 2012-06-16 Completed [facility] 00:00:00 [facility] Meningococcal 2012-06-16 Completed [facility] Polysaccharide 00:00:00 [facility] (groups A, C, Y and Branc h W-135) conjugate vaccine (MCV4P) Varicella 2012-06-16 Completed [facility] (varivax)(chicken 00:00:00 [place] [facility] HEPATITIS A 2012-06-16 Completed [facility] 00:00:00 [facility] TDAP 2012-06-16 Completed [facility] 00:00:00 [facility] Meningococcal 2012-06-16 Completed [facility] Polysaccharide 00:00:00 [facility] (groups A, C, Y and Branc h W-135) conjugate vaccine (MCV4P) Varicella 2012-06-16 Completed [facility] (varivax)(chicken 00:00:00 [place] [facility] HEPATITIS A 2012-06-16 Completed [facility] 00:00:00 [facility] Tdap 2012-06-16 Completed [facility] 00:00:00 [facility] Meningococcal 2012-06-16 Completed [facility] Polysaccharide 00:00:00 [facility] (groups A, C, Y and Branc h W-135) conjugate vaccine (MCV4P) Varicella 2012-06-16 Completed [facility] (varivax)(chicken 00:00:00 [facility] edical pox) Branch HEPATITIS A 2012-06-16 Completed [facility] 00:00:00 [facility] DTAP 2005-09-28 Completed [facility] 00:00:00 [facility] DTAP 2005-09-28 Completed [facility] 00:00:00 [facility] DTAP 2005-09-28 Completed [facility] 00:00:00 [facility] DTAP 2005-09-28 Completed [facility] 00:00:00 [facility] DTAP 2005-09-28 Completed [facility] 00:00:00 [facility] DTAP 2005-09-28 Completed [facility] 00:00:00 [facility] DTAP 2005-09-28 Completed [facility] 00:00:00 [facility] DTAP 2005-09-28 Completed [facility] 00:00:00 [facility] DTAP 2005-09-28 Completed [facility] 00:00:00 [facility] DTAP 2005-09-28 Completed [facility] 00:00:00 [facility] DTAP 2005-09-28 Completed [facility] 00:00:00 [facility] DTAP 2005-09-28 Completed [facility] 00:00:00 [facility] DTAP 2005-09-28 Completed [facility] 00:00:00 [facility] DTAP 2005-09-28 Completed [facility] 00:00:00 [facility] DTAP 2005-09-28 Completed [facility] 00:00: [facility] DTAP 2005-09-28 Completed [facility] 00:00: [facility] DTAP 2005-09-28 Completed [facility] 00:00:00 [facility] DTAP 2005-09-28 Completed [facility] 00:00: [facility] DTAP 2005-09-28 Completed [facility] 00:00:00 [facility] DTAP 2005-09-28 Completed [facility] 00:00:00 [facility] DTAP 2005-09-28 Completed [facility] 00:00:00 [facility] DTAP 2005-09-28 Completed [facility] 00:00:00 [facility] DTAP 2005-09-28 Completed [facility] 00:00:00 [facility] Hep B, Adol or Pedi 2005-01-29 Completed Unive rsity of Dosage 00:00:00 [facility] Hep B, Adol or Pedi [...] 2004-07-08 Completed [facility]ive rsity of Dosage 00:00:00 [facility] Hep B, Adol or Pedi 2004-07-08 Completed Unive rsity of Dosage 00:00:00 [facility] Hep B, Adol or Pedi 2004-07-08 Completed Unive rsity of Dosage 00:00:00 [facility] Hep B, Adol or Pedi 2004-07-08 Completed Unive rsity of Dosage 00:00:00 [facility] DTAP 2004-05-28 Completed [facility] 00:00:00 [facility] Polio (IPV/OPV) 2004-05-28 Completed [facility] 00:00:00 [facility] DTAP 2004-05-28 Completed [facility] 00:00:00 [facility] Polio (IPV/OPV) 2004-05-28 [facility]00 [facility] Polio (IPV/OPV) 2004-05-28 Completed [facility] 00:00:00 [facility] DTAP 2004-05-28 Completed [facility] 00:00:00 [facility] Polio (IPV/OPV) 2004-05-28 Com[facility]00 [facility] Polio (IPV/OPV) 2004-05-28 Completed [facility] 00:00:00 [facility] Polio (IPV/OPV) 2004-05-28 Completed [facility] 00:00:00 [facility] DTAP 2004-05-28 Completed [facility] 00:00:00 [facility] Polio (IPV/OPV) 2004-05-28 Completed [facility] 00:00:00 [facility] DTAP 2004-05-28 Completed [facility] 00[facility]00:00 [facility] Polio (IPV/OPV) 2004-05-28 Com[facility] 00:[facility]:00 [facility] DTAP 2004-05-28 Completed [facility] 00:00:00 [facility] Polio (IPV/OPV) 2004-05-28 Completed [facility] 00:00:00 [facility] DTAP 2004-05-28 Completed [facility] 00:00:00 [facility] Polio (IPV/OPV) 2004-05-28 Completed [facility] 00:00:00 [facility] Polio (IPV/OPV) 2004-05-28 Completed [facility] 00:00:00 [facility] DTAP 2004-05-28 Completed [facility] 00:00:00 [facility] Polio (IPV/OPV) 2004-05-28 Completed [facility] 00:00:00 [facility] DTAP 2004-05-28 Completed [facility] 00:00:00 [facility] Polio (IPV/OPV) 2004-05-28 Completed [facility] 00:00:00 [facility] DTAP 2004-05-28 Completed [facility] 00:00:00 [facility] Polio (IPV/OPV) 2004-05-28 Completed [facility] 00:00:00 [facility] DTAP 2004-05-28 Completed [facility] 00:00:00 [facility] Polio (IPV/OPV) 2004-05-28 Completed [facility] 00:00:00 [facility] DTAP 2004-05-28 Completed [facility] 00:00:00 [facility] Polio (IPV/OPV) 2004-05-28 [facility]00 [facility] Polio (IPV/OPV) 2004-05-28 Completed [facility] 00:00:00 [facility] DTAP 2004-05-28 Completed [facility] 00:00:00 [facility] Polio (IPV/OPV) 2004-05-28 Completed [facility] 00:00:00 [facility] DTAP 2004-05-28 Completed [facility] 00:00:00 [facility] Polio (IPV/OPV) 2004-05-28 Completed [facility] 00:00:00 [facility] DTAP 2004-05-28 Completed [facility] 00:00:00 [facility] Polio (IPV/OPV) 2004-05-28 Completed [facility] 00:00:00 [facility] DTAP 2004-05-28 Completed [facility] 00:00:00 [facility] DTAP 2004-05-28 Completed [facility] 00:00:00 [facility] Polio (IPV/OPV) 2004-05-28 Completed [facility] 00:00:00 [facility] Polio (IPV/OPV) 2004-05-28 Completed [facility] 00:00:00 [facility] DTAP 2004-05-28 Completed [facility] 00:00:00 [facility] Polio (IPV/OPV) 2004-05-28 Completed [facility] 00:00:00 [facility] DTAP 2004-01-21 Completed [facility] 00:00:00 [facility] HIB 4 Dose Schedule 2004-01-21 Completed Unive rsity of 00:00:00 [facility] MMR 2004-01-21 Completed [facility] 00:00:00 [facility] Polio (IPV/OPV) 2004-01-21 Completed [facility] 00:00:00 [facility] DTAP 2004-01-21 Completed [facility] 00:00:00 [facility] HIB 4 Dose Schedule 2004-01-21 Completed Unive rsity of 00:00:00 [facility] MMR 2004-01-21 Completed [facility] 00:00:00 [facility] Polio (IPV/OPV) 2004-01-21 Completed [facility] 00:00:00 [facility] DTAP 2004-01-21 Completed [facility] 00:00:00 [facility] HIB 4 Dose Schedule 2004-01-21 Completed Unive rsity of 00:00:00 [facility] MMR 2004-01-21 Completed [facility] 00:00:00 [facility] Polio (IPV/OPV) 2004-01-21 Completed [facility] 00:00:00 [facility] DTAP 2004-01-21 Completed [facility] 00:00:00 [facility] HIB 4 Dose Schedule 2004-01-21 Completed Unive rsity of 00:00:00 [facility] MMR 2004-01-21 Completed [facility] 00:00:00 [facility] Polio (IPV/OPV) 2004-01-21 Completed [facility] 00:00:00 [facility] DTAP 2004-01-21 Completed [facility] 00:00:00 [facility] HIB 4 Dose Schedule 2004-01-21 Completed Unive rsity of 00:00:00 [facility] MMR 2004-01-21 Completed [facility] 00:00:00 [facility] Polio (IPV/OPV) 2004-01-21 Completed [facility] 00:00:00 [facility] DTAP 2004-01-21 Completed [facility] 00:00:00 [facility] HIB 4 Dose Schedule 2004-01-21 Completed Unive rsity of 00:00:00 [facility] MMR 2004-01-21 Completed [facility] 00:00:00 [facility] Polio (IPV/OPV) 2004-01-21 Completed [facility] 00:00:00 [facility] DTAP 2004-01-21 Completed [facility] 00:00:00 [facility] HIB 4 Dose Schedule 2004-01-21 Completed Unive rsity of 00:00:00 [facility] MMR 2004-01-21 Completed [facility] 00:00:00 [facility] Polio (IPV/OPV) 2004-01-21 Completed [facility] 00:00:00 [facility] DTAP 2004-01-21 Completed [facility] 00:00:00 [facility] HIB 4 Dose Schedule 2004-01-21 Completed Unive rsity of 00:00:00 [facility] MMR 2004-01-21 Completed [facility] 00:00:00 [facility] Polio (IPV/OPV) 2004-01-21 Completed [facility] 00:00:00 [facility] DTAP 2004-01-21 Completed [facility] 00:00:00 [facility] DTAP 2004-01-21 Completed [facility] 00:00:00 [facility] HIB 4 Dose Schedule 2004-01-21 Completed Unive rsity of 00:00:00 [facility] MMR 2004-01-21 Completed [facility] 00:00:00 [facility] Polio (IPV/OPV) 2004-01-21 Completed [facility] 00:00:00 [facility] HIB 4 Dose Schedule 2004-01-21 Completed Unive rsity of 00:00:00 [facility] MMR 2004-01-21 Completed [facility] 00:00:00 [facility] DTAP 2004-01-21 Completed [facility] 00:00:00 [facility] HIB 4 Dose Schedule 2004-01-21 Completed Unive rsity of 00:00:00 [facility] MMR 2004-01-21 Completed [facility] 00:00:00 [facility] Polio (IPV/OPV) 2004-01-21 Completed [facility] 00:00:00 [facility] Polio (IPV/OPV) 2004-01-21 Completed [facility] 00:00:00 [facility] DTAP 2004-01-21 Completed [facility] 00:00:00 [facility] HIB 4 Dose Schedule 2004-01-21 Completed Unive rsity of 00:00:00 [facility] MMR 2004-01-21 Completed [facility] 00:00:00 [facility] Polio (IPV/OPV) 2004-01-21 Completed [facility] 00:00:00 [facility] DTAP 2004-01-21 Completed [facility] 00:00:00 [facility] HIB 4 Dose Schedule 2004-01-21 Completed Unive rsity of 00:00:00 [facility] MMR 2004-01-21 Completed [facility] 00:00:00 [facility] Polio (IPV/OPV) 2004-01-21 Completed [facility] 00:00:00 [facility] DTAP 2004-01-21 Completed [facility] 00:00:00 [facility] HIB 4 Dose Schedule 2004-01-21 Completed [facility] rsity of 00:00:00 [facility] MMR 2004-01-21 Completed [facility] 00:00:00 [facility] Polio (IPV/OPV) 2004-01-21 Completed [facility] 00:00:00 [facility] DTAP 2004-01-21 Completed [facility] 00:00:00 [facility] HIB 4 Dose Schedule 2004-01-21 Completed Un[facility] rsity of 00:00:00 [facility] MMR 2004-01-21 Completed [facility] 00:00:00 [facility] Polio (IPV/OPV) 2004-01-21 Completed [facility] 00:00:00 [facility] DTAP 2004-01-21 Completed [facility] 00:00:00 [facility] HIB 4 Dose Schedule 2004-01-21 Completed Un[facility] rsity of 00:00:00 [facility] MMR 2004-01-21 Completed [facility] 00:00:00 [facility] Polio (IPV/OPV) 2004-01-21 Completed [facility] 00:00:00 [facility] DTAP 2004-01-21 Completed [facility] 00:00:00 [facility] HIB 4 Dose Schedule 2004-01-21 Completed Unive rsity of 00:00:00 [facility] MMR 2004-01-21 Completed [facility] 00:00:00 [facility] Polio (IPV/OPV) 2004-01-21 Completed Universit y of 00:00:00 [facility] DTAP 2004-01-21 Completed University of 00:00:00 [facility] HIB 4 Dose Schedule 2004-01-21 Completed Unive rsity of 00:00:00 [facility] MMR 2004-01-21 Completed University of 00:00:00 [facility] Polio (IPV/OPV) 2004-01-21 Completed Universit y of 00:00:00 [facility] DTAP 2004-01-21 Completed University of 00:00:00 [facility] HIB 4 Dose Schedule 2004-01-21 Completed Unive rsity of 00:00:00 [facility] MMR 2004-01-21 Completed University of 00:00:00 [facility] Polio (IPV/OPV) 2004-01-21 Completed Universit y of 00:00:00 [facility] DTAP 2004-01-21 Completed University of 00:00:00 [facility] HIB 4 Dose Schedule 2004-01-21 Completed Unive rsity of 00:00:00 [facility] MMR 2004-01-21 Completed University of 00:00:00 [facility] Polio (IPV/OPV) 2004-01-21 Completed Universit y of 00:00:00 [facility] DTAP 2004-01-21 Completed University of 00:00:00 [facility] HIB 4 Dose Schedule 2004-01-21 Completed Unive rsity of 00:00:00 [facility] DTAP 2004-01-21 Completed University of 00:00:00 [facility] HIB 4 Dose Schedule 2004-01-21 Completed Unive rsity of 00:00:00 [facility] MMR 2004-01-21 Completed University of 00:00:00 [facility] Polio (IPV/OPV) 2004-01-21 Completed Universit y of 00:00:00 [facility] MMR 2004-01-21 Completed University of 00:00:00 [facility] Polio (IPV/OPV) 2004-01-21 Completed Universit y of 00:00:00 [facility] DTAP 2004-01-21 Completed University of 00:00:00 [facility] HIB 4 Dose Schedule 2004-01-21 Completed Unive rsity of 00:00:00 [facility] MMR 2004-01-21 Completed University of 00:00:00 [facility] Polio (IPV/OPV) 2004-01-21 Completed Universit y of 00:00:00 [facility] DTAP 2003-11-08 Completed University of 00:00:00 [facility] Polio (IPV/OPV) 2003-11-08 Completed Universit y of 00:00:00 [facility] MMR 2003-11-08 Completed University of 00:00:00 [facility] Varicella 2003-11-08 Completed University of (varivax)(chicken 00:00:00 [place] [facility] [facility] DTAP 2003-11-08 Completed University of 00:00:00 [facility] Polio (IPV/OPV) 2003-11-08 Completed Universit y of 00:00:00 [facility] MMR 2003-11-08 Completed University of 00:00:00 [facility] Varicella 2003-11-08 Completed University of (varivax)(chicken 00:00:00 [place] [facility] [place] [place] [facility] DTAP 2003-11-08 Completed University of 00:00:00 [facility] Polio (IPV/OPV) 2003-11-08 Completed Universit y of 00:00:00 [facility] MMR 2003-11-08 Completed University of 00:00:00 [facility] Varicella 2003-11-08 Completed University of (varivax)(chicken 00:00:00 [place] [facility] [place]ox[place] [facility] DTAP 2003-11-08 Completed University of 00:00:00 [facility] Polio (IPV/OPV) 2003-11-08 Completed Universit y of 00:00:00 [facility] MMR 2003-11-08 Completed University of 00:00:00 [facility] Varicella 2003-11-08 Completed University of (varivax)(chicken 00:00:00 [place] [facility] [place] [place]ox[place] [facility] DTAP 2003-11-08 Completed University of 00:00:00 [facility] Polio (IPV/OPV) 2003-11-08 Completed Universit y of 00:00:00 [facility] MMR 2003-11-08 Completed University of 00:00:00 [facility] Varicella 2003-11-08 Completed University of (varivax)(chicken 00:00:00 [place] [facility] [place] [place] [facility] DTAP 2003-11-08 Completed University of 00:00:00 [facility] Polio (IPV/OPV) 2003-11-08 Completed Universit y of 00:00:00 [facility] MMR 2003-11-08 Completed University of 00:00:00 [facility] Varicella 2003-11-08 Completed University of (varivax)(chicken 00:00:00 [place] [facility] [place] [place]ox[place] [facility] DTAP 2003-11-08 Completed University of 00:00:00 [facility] Polio (IPV/OPV) 2003-11-08 Completed Universit y of 00:00:00 [facility] MMR 2003-11-08 Completed University of 00:00:00 [facility] Varicella 2003-11-08 Completed University of (varivax)(chicken 00:00:00 [place] [facility] [place] [place]ox[place] Branch DTAP 2003-11-08 Completed University of 00:00:00 [facility] Polio (IPV/OPV) 2003-11-08 Completed Universit y of 00:00:00 [facility] MMR 2003-11-08 Completed University of 00:00:00 [facility] Varicella 2003-11-08 Completed University of (varivax)(chicken 00:00:00 [place] [facility] [place] [place]ox[place] [facility] DTAP 2003-11-08 Completed University of 00:00:00 [facility] Polio (IPV/OPV) 2003-11-08 Completed Universit y of 00:00:00 [facility] MMR 2003-11-08 Completed University of 00:00:00 [facility] Varicella 2003-11-08 Completed University of (varivax)(chicken 00:00:00 [place] [facility] [place] [place]ox[place] [facility] DTAP 2003-11-08 Completed University of 00:00:00 [facility] Polio (IPV/OPV) 2003-11-08 Completed Universit y of 00:00:00 [facility] MMR 2003-11-08 Completed University of 00:00:00 [facility] Varicella 2003-11-08 Completed University of (varivax)(chicken 00:00:00 [place] [facility] [place] [place]ox[place] [facility] DTAP 2003-11-08 Completed University of 00:00:00 [facility] Polio (IPV/OPV) 2003-11-08 Completed Universit y of 00:00:00 [facility] MMR 2003-11-08 Completed University of 00:00:00 [facility] Varicella 2003-11-08 Completed University of (varivax)(chicken 00:00:00 [place] [facility] [place]ox[place] [facility] DTAP 2003-11-08 Completed University of 00:00:00 [facility] Polio (IPV/OPV) 2003-11-08 Completed Universit y of 00:00:00 [facility] MMR 2003-11-08 Completed University of 00:00:00 [facility] DTAP 2003-11-08 Completed University of 00:00:00 [facility] Polio (IPV/OPV) 2003-11-08 Completed Universit y of 00:00:00 [facility] MMR 2003-11-08 Completed University of 00:00:00 [facility] Varicella 2003-11-08 Completed University of (varivax)(chicken 00:00:00 [place] [facility] [place] [place]ox[place] [facility] Varicella 2003-11-08 Completed University of (varivax)(chicken 00:00:00 [place] [facility] [place] pox) Branch DTAP 2003-11-08 Completed University of 00:00:00 [facility] Polio (IPV/OPV) 2003-11-08 Completed Universit y of 00:00:00 [facility] MMR 2003-11-08 Completed University of 00:00:00 [facility] Varicella 2003-11-08 Completed University of (varivax)(chicken 00:00:00 [place] [facility] [place] [place] [facility] DTAP 2003-11-08 Completed University of 00:00:00 [facility] Polio (IPV/OPV) 2003-11-08 Completed Universit y of 00:00:00 [facility] MMR 2003-11-08 Completed University of 00:00:00 [facility] Varicella 2003-11-08 Completed University of (varivax)(chicken 00:00:00 [place] [facility] [place] [place]ox) Branch DTAP 2003-11-08 Completed University of 00:00:00 [facility] Polio (IPV/OPV) 2003-11-08 Completed Universit y of 00:00:00 [facility] MMR 2003-11-08 Completed University of 00:00:00 [facility] Varicella 2003-11-08 Completed University of (varivax)(chicken 00:00:00 [place] [facility] [place] pox) [facility] DTAP 2003-11-08 Completed University of 00:00:00 [facility] Polio (IPV/OPV) 2003-11-08 Completed Universit y of 00:00:00 [facility] MMR 2003-11-08 Completed University of 00:00:00 [facility] Varicella 2003-11-08 Completed University of (varivax)(chicken 00:00:00 [place] [facility] [place] pox) Branch DTAP 2003-11-08 Completed University of 00:00:00 [facility] Polio (IPV/OPV) 2003-11-08 Completed Universit y of 00:00:00 [facility] MMR 2003-11-08 Completed University of 00:00:00 [facility] Varicella 2003-11-08 Completed University of (varivax)(chicken 00:00:00 [place] [facility] [place] [place]ox) Branch DTAP 2003-11-08 Completed University of 00:00:00 [facility] Polio (IPV/OPV) 2003-11-08 Completed Universit y of 00:00:00 [facility] MMR 2003-11-08 Completed University of 00:00:00 [facility] Varicella 2003-11-08 Completed University of (varivax)(chicken 00:00:00 [place] [facility] [place]ox) Branch DTAP 2003-11-08 Completed University of 00:00:00 [facility] Polio (IPV/OPV) 2003-11-08 Completed Universit y of 00:00:00 [facility] MMR 2003-11-08 Completed University of 00:00:00 [facility] Varicella 2003-11-08 Completed University of (varivax)(chicken 00:00:00 [place] [facility] [place] pox) Branch DTAP 2003-11-08 Completed University of 00:00:00 [facility] Polio (IPV/OPV) 2003-11-08 Completed Universit y of 00:00:00 [facility] MMR 2003-11-08 Completed University of 00:00:00 [facility] Varicella 2003-11-08 Completed University of (varivax)(chicken 00:00:00 [place] [facility] [place] pox) [facility] DTAP 2003-11-08 Completed University of 00:00:00 [facility] Polio (IPV/OPV) 2003-11-08 Completed Universit y of 00:00:00 [facility] MMR 2003-11-08 Completed University of 00:00:00 [facility] Varicella 2003-11-08 Completed University of (varivax)(chicken 00:00:00 [place] [facility] [place] pox) Branch DTAP 2003-11-08 Completed University of 00:00:00 [facility] Polio (IPV/OPV) 2003-11-08 Completed Universit y of 00:00:00 [facility] MMR 2003-11-08 Completed University of 00:00:00 [facility] Varicella 2003-11-08 Completed University of (varivax)(chicken 00:00:00 [facility] edical pox) Branch Vital Signs Vital Name Observation Time Observation Value Comments Source Systolic blood 2022-02-28 20:14:00 118 mm[Hg] Univer sity of pressure [facility] Diastolic blood 2022-02-28 20:14:00 70 mm[Hg] Unive rsity of [facility] Heart rate 2022-02-28 20:14:00 88 /min Universi ty [facility] Body temperature 2022-02-28 20:14:00 36.78 Theodora [facility] Res[facility] rate 2022-02-28 20:14:00 17 /min [facility] Oxygen saturation in 2022-02-28 20:14:00 99 /min [place] of Arterial blood by [facility] Pulse oximetry Branch Body height 2022-02-28 18:39:00 157.5 cm Universi ty [facility] Body weight 2022-02-28 18:39:00 51.211 kg Universi ty [facility] BMI 2022-02-28 18:39:00 20.65 kg/m2 Universi ty [facility] Systolic blood 2021-11-27 14:07:00 126 mm[Hg] Univer sity of [facility] Diastolic blood 2021-11-27 14:07:00 83 mm[Hg] Unive rsity of [facility] Heart rate 2021-11-27 14:07:00 112 /min Universi ty of [facility] Body temperature 2021-11-27 14:07:00 36.78 Theodora Univ ersity of [facility] Respiratory rate 2021-11-27 14:07:00 18 /min Univ ersity [facility] Body height 2021-11-27 14:07:00 157.5 cm Universi ty of [facility] Body weight 2021-11-27 14:07:00 49.896 kg Universi ty [facility] BMI 2021-11-27 14:07:00 20.12 kg/m2 Universi ty [facility] [place] [facility] Oxygen saturation in 2021-11-27 14:07:00 100 /min University of Arterial blood by [facility] Pulse oximetry Branch Systolic blood 2021-08-10 13:57:00 122 mm[Hg] Univer sity of pressure [facility] Diastolic blood 2021-08-10 13:57:00 91 mm[Hg] Unive rsity of pressure [facility] Heart rate 2021-08-10 13:57:00 78 /min Universi ty [facility] [place] [facility] Body temperature 2021-08-10 13:57:00 36.44 Theodora Univ ersity [facility] [place] [facility] Respiratory rate 2021-08-10 13:57:00 14 /min Univ ersity [facility] [place] [facility] Body weight 2021-08-10 13:57:00 49.896 kg Universi ty [facility] [place] [facility] BMI 2021-08-10 13:57:00 20.12 kg/m2 Universi ty [facility] [place] [facility] Oxygen saturation in 2021-08-10 13:57:00 100 /min University of Arterial blood by [facility] Pulse oximetry Branch Systolic blood 2021-03-07 18:19:00 107 mm[Hg] Univer sity of pressure [place] [facility] Diastolic blood 2021-03-07 18:19:00 59 mm[Hg] Unive rsity of pressure [facility] Heart rate 2021-03-07 18:19:00 80 /min Universi ty [facility] [place] [facility] Body height 2021-03-07 18:19:00 157.5 cm Universi ty [facility] [place] [facility] Body weight 2021-03-07 18:19:00 46.131 kg Universi ty [facility] [place] [facility] BMI 2021-03-07 18:19:00 18.60 kg/m2 Universi ty [facility] [place] [facility] Systolic blood 2020-10-28 00:37:23 107 mm[Hg] Univer sity of pressure [place] [facility] Diastolic blood 2020-10-28 00:37:23 51 mm[Hg] Unive rsity of pressure [facility] Heart rate 2020-10-28 00:37:23 98 /min Universi ty [facility] [place] [facility] Body temperature 2020-10-28 00:37:23 36.67 Theodora Univ ersity [facility] [place] [facility] Respiratory rate 2020-10-28 00:37:23 18 /min Univ [facility] [place] [facility] Oxygen saturation in 2020-10-28 00:37:23 100 /min University of Arterial blood by [facility] Pulse oximetry Branch Body height 2020-10-27 22:58:00 157.5 cm Universi ty [facility] [place] [facility] Body weight 2020-10-27 22:58:00 45.36 kg Universi ty [facility] [place] [facility] BMI 2020-10-27 22:58:00 18.29 kg/m2 Universi ty [facility] [place] [facility] Systolic blood 2020-06-18 19:51:00 127 mm[Hg] Univer sity of pressure [place] [facility] Diastolic blood 2020-06-18 19:51:00 74 mm[Hg] Unive rsity of pressure [place] [facility] Heart rate 2020-06-18 19:51:00 77 /min Universi ty [facility] [place] [facility] Respiratory rate 2020-06-18 19:51:00 20 /min Univ ersity [facility] [place] [facility] Body weight 2020-06-18 19:51:00 46.993 kg Universi ty [facility] [place] [facility] Systolic blood 2019-08-05 00:00:25 96 mm[Hg] Univer sity of pressure [place] [facility] Diastolic blood 2019-08-05 00:00:25 43 mm[Hg] Unive rsity of pressure [place] [facility] Heart rate 2019-08-05 00:00:25 90 /min Universi ty [facility] [place] [facility] Body temperature 2019-08-05 00:00:25 36.78 Theodora Univ ersity [facility] [place] [facility] Respiratory rate 2019-08-05 00:00:25 16 /min Univ ers[facility] [place] [facility] Oxygen saturation in 2019-08-05 00:00:25 99 /min University of Arterial blood by [facility] Pulse oximetry Branch Body weight 2019-08-04 19:28:00 48.988 kg Universi ty [facility] [place] [facility] Systolic blood 2019-07-14 18:50:00 106 mm[Hg] Univer sity of pressure [place] [facility] Diastolic blood 2019-07-14 18:50:00 72 mm[Hg] Unive rsity of pressure [facility] Heart rate 2019-07-14 18:50:00 68 /min Universi ty [facility] [place] [facility] Body height 2019-07-14 18:50:00 157.5 cm Universi ty [facility] Body weight 2019-07-14 18:50:00 48.988 kg Universi ty [facility] BMI 2019-07-14 18:50:00 19.75 kg/m2 Universi ty [facility] Systolic blood 2019-07-11 18:08:00 116 mm[Hg] Univer sity of pressure [facility] Diastolic blood 2019-07-11 18:08:00 74 mm[facility]Hg] [facility] 2019-07-11 18:08:00 74 /min Universi ty [facility] Body height 2019-07-11 18:08:00 157.5 cm Universi ty [facility] Body weight 2019-07-11 18:08:00 48.988 kg Universi ty [facility] BMI 2019-07-11 18:08:00 19.75 kg/m2 Universi [facility] Procedures Procedure Date / Time Performing Clinician Source Performed POCT TEST 2022-02-28 19:26:00 [facility] BETA HCG ASSAY 2022-02-28 19:02:00 [facility] 2022-02-28 19:02:00 Patricia Schaefer [facility] COVID-19 (ID NOW RAPID 2021-11-27 15:13:00 Jesús Velarde [facility] TESTING) Medical Branch ASSIGNMENT OF BENEFITS 2021-11-27 14:04:45 Doctor Unassigned, No [facility] CONSENT/REFUSAL FOR 2021-11-27 14:03:55 Doctor Unassigned, No Un [facility] [place] DIAGNOSIS [facility] TREATMENT Name Medical Branch CONSENT/REFUSAL FOR 2021-08-10 13:53:36 Doctor Unassigned, No Un [facility] DIAGNOSIS AND TREATMENT Name Medical Branch ASSIGNMENT OF BENEFITS 2021-03-07 18:13:31 Doctor Unassigned, No [facility] XR CHEST 1 VW 2020-10-27 23:57:22 Lois Trujillo [facility] POCT TEST 2020-10-27 23:34:00 Lois Trujillo [facility] GALV/CLC ONLY - URINE 2020-10-27 23:33:00 Lo[facility] [place] DRUG (IMMUNOASSAY) - 4 Medical B ranch ER PANEL URINALYSIS 2020-10-27 23:33:00 Lois Trujillo [facility] TROPONIN I 2020-10-27 23:04:00 Lois Trujillo [facility] HEPATIC FUNCTION PANEL 2020-10-27 23:04:00 Losi [facility]jillo [facility] [place] ([id number]) (ALB,T.PRO,BILI [facility] T,BU/BC,ALT,AST,ALK PHOS) BASIC METABOLIC PANEL 2020-10-27 23:04:00 [facility] (NA, K, CL, CO2, Medical Branch GLUCOSE, BUN, CREATININE, CA) ETHANOL 2020-10-27 23:04:00 Lois Trujillo [facility] CBC WITH DIFF 2020-10-27 23:04:00 Lois Trujillo [facility] CT ABDOMEN PELVIS W 2019-08-04 22:10:00 [facility] LIPASE 2019-08-04 20:59:00 Aura Enriquez [facility] COMP. METABOLIC PANEL 2019-08-04 20:59:00 Aura Enriquez [facility] ([id number]) [facility] CBC WITH DIFFERENTIAL 2019-08-04 20:59:00 Aura Enriquez [facility] URINALYSIS 2019-08-04 20:59:00 Aura Enriquez [facility] LACTIC ACID WHOLE BLOOD 2019-08-04 20:59:00 [facility] POCT TEST 2019-08-04 20:52:00 Aura Enriquez [facility] CONSENT/REFUSAL FOR 2019-08-04 19:13:03 Doctor Unassigned, No Un [facility] DIAGNOSIS AND TREATMENT Name [facility] POCT TEST 2019-07-14 00:00:00 Sean Hancock [facility] ASSIGNMENT OF BENEFITS 2019-07-11 17:41:02 Doctor Unassigned, No [facility] Encounters Start End Encounter Admission Attending Care Care Encounter Source Date/Time Date/Time Type Type Clinicians Facility Department ID 2021-09-29 Emergency [facility] [id number] [facility] 22:[facility] 2021-09-27 Emergency [facility] [id number] Univers 08:03[facility] [place] [facility] 2022-07-06 2022-07-06 Emergency EM KAREN Chapman TERS [id number] [facility] 06:02:00 11:14:00 Saul 36 [facility] 2022-02-28 2022-02-28 Emergency X OLIVE [facility] ERT [id number] Univers 13:41:00 15:16:00 PATRICIA [facility] 2022-02-28 2022-02-28 [facility] [id number] Univers 13:41:00 15:16:00 [facility] [id number] it y [id number] [phone] [address] ([facility]) 2022-02-26 2022-02-26 Telephone JIE [place] [id number] Univers 00:00:00 00:00:00 [facility] [id number] i ty of [facility] [id number] [id number] [place] [address]5425 Branch 2021-11-27 2021-11-27 Emergency X ANNIE [facility] ERT [id number] Univers 08:10:00 09:55:00 JESÚS [facility] 2021-11-27 2021-11-27 Emergency Annie [facility] [id number] Univers 08:10:00 09:55:00 [facility] [id number] [id number] [phone] [address] ([facility]) 2021-08-10 2021-08-10 Emergency Manish [facility] [id number] Univers 08:58:00 09:51:00 Cindy Almaguer [place] [id number] [id number] [phone] [facility] 084 Branch 2021-03-19 2021-03-19 Telephone [facility] [id number] Univers 00:00:00 00:00:00 Sean MCMANUS [id number] i ty [id number] [id number] [facility] 095 Branch 2021-03-07 2021-03-07 Office [facility] [id number] Univers 13:13:43 13:41:30 Visit Sean MCMANUS [id number] i [id number] [id number] [place] [address]5425 Branch 2021-03-07 2021-03-07 [id number] Univers 13:00:00 13:00:00 SEAN sorianoy [facility] 2021-03-07 2021-03-07 Orders Doctor JELENA [id number] Univers 00:00:00 00:00:00 Only Unassigned, ZANE [id number] [facility] [id number] [place] [phone] [facility] 009 Branch 2020-10-27 2020-10-27 Emergency [facility] [id number] Univers 16:57:00 18:51:00 [facility] [id number] i ty [id number] [id number] [facility] 014 Branch (CLC) 2020-06-18 2020-06-18 Office [facility] [id number] Univers 14:39:30 14:54:30 Visit Sean MCMANUS [id number] i [id number] [phone] [address] 2020-06-18 2020-06-18 Outpatient R KARISSA [facility] [id number] Univers 14:30:00 14:30:00 SEAN itbj of [facility] 2020-06-18 2020-06-18 Patient Karissa, UNIVERSIT [id number] Univers 00:00:00 00:00:00 Secure Msg Sean Duarte [facility] [id number] ity [id number] [id number] [address] 2019-12-19 2019-12-19 Patient Karissa, UNIVERSIT [id number] Univers 00:00:00 00:00:00 Secure Msg Sean Duarte HEALTH [id number] ity [id number] [id number] [address] 2019-08-04 2019-08-04 Emergency [facility] [id number] Univers 14:29:39 19:31:00 [facility] [id number] [id number] [facility] [phone] [address] ([facility]) 2019-07-14 2019-07-24 Office [facility] [id number] Univers 13:28:27 11:58:56 Visit Sean MCMANUS [id number] i ty [id number] [phone] [address] 2019-07-12 2019-07-12 Patient Doctor JELENA [id number] Univers 00:00:00 00:00:00 Secure Msg Unassigned, ZANE [id number] [facility] [facility] [id number] [place] [id number] [address] 2019-07-11 2019-07-11 Office [place], UNIVERSIT [id number] Univers 12:43:28 13:56:39 Visit Sean MCMANUS 350.1.13.10 i ty of CLINICS 4.2.7.2.686 [place] [phone] [facility] [address] 2019-07-11 2019-07-11 Orders Doctor JELENA [id number] Univers 00:00:00 00:00:00 Only Unassigned, ZANE 350.1.13.10 ity of [facility] 4.2.7.2.686 [place] as [phone] [facility] [address] Results Test Description Test Time Test Comments [...] YEASTUBD) TRACE /HPF NONE DRUGS OF ABUSE [id number] 06:53:00 Test Item Value Reference Range Interpretation [...] code = Negative NEGATIVE P erformed by FRANNIE) certified opera tor at [facility] URN METHAMPHETAMINE (test Negative NEGATIVE code = METHAMPURN) URINE HCG TRIAGE (ER ONLY)2022-07-06 06:47:00 Test Item Value Reference Range Interpretation Comments URINE HCG TRIAGE (ER ONLY) (test NEGATIVE Negative code = HCGTRIAGE) Urine Test Result: NEGATIVEAre internal controls (presence of a control line & clear background) OK? 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 [facility] UA PH DIPSTIC POC (test 5 5.0-7.0 N code = PHUP) UA PROTEIN DIPSTICK POC 3+ NEGATIVE A (test code = DPROUP) UA UROBILINIOGEN QUAL 1+ 0.2-1.0 A (test code = UROQL) UA NITRITE DIPSTICK POC NEGATIVE Negative (test code = NITUP) UA LEUKOCYTE ESTERASE W TRACE NEGATIVE A REFLEX (test code = LEUUR) - XR ANKLE 3 + V [id number] 00:00:00 [facility] 2000 Sex: F FAX:Terrence Rodriguez DO [phone] [place]: St: REG FAX: Saul Chapman [phone] Name: LIZA TOLLIVER [place] FSED : 2000 Age/S: 22/F Unit #: [id number] Loc: [place], [place] Phys: Saul Chapman MD Acct: [id number] Dis Date: Status: REG ER PHONE #: Exam Date: 07/06/2022 0729 FAX #: Reason:left ankle pain/swelling EXAMS: CPT CODE: [id number] XR ANKLE 3 + V LT 85833 PROCEDURE INFORMATION: Exam: XR Left Ankle Exam [...] Adolph(R)(CT) Trnscrd Date/Time/By: 07/06/2022 (732) : By: [email or web address] Orig Print D/T: S: 07/06/2022 (732) PAGE 1 Signed Report- CT C-SPINE W/O [id number] 00:00:00 [facility] : 2000 Sex: F Name: LIZA TOLLIVER [place] FSED : 2000 Age/S: 22 / F Unit #: [id number] Loc: [place], [place]: Terrence Rodriguez DO Acct: [id number] Dis Date: Status: REG ER PHONE #: Exam Date: 07/06/2022 0625 FAX #: Reason: Head trauma EXAMS: CPT CODE: [id number] CT C-SPINE W/O CONT 30498 PROCEDURE INFORMATION: Exam: CT Cervical Spine Without [...] RT(R)(CT) CTDI: DLP: Trnscb Date/Time: 07/06/2022 (657) Callum.[email or web address] Orig Print D/T: S: 07/06/2022 (58) PAGE 1 Signed Report- CT HEAD/BRAIN W/O [id number] 00:00:00 [facility] : 2000 Sex: F Name: LIZA TOLLIVER [place] FSED : 2000 Age/S: 22 / F Unit #: [id number] Loc: [place], [place] Phys: Terrence Rodriguez DO Acct: [id number] Dis Date: Status: REG ER PHONE #: Exam Date: 07/06/2022 0641 FAX #: Reason: Head trauma EXAMS: CPT CODE: [id number] CT HEAD/BRAIN W/O CONT 03740 PROCEDURE INFORMATION: Exam: CT Head Without Contrast Exam date and time: 07/06/2022 6:41 AM Age: 22 years old Clinical indication: Injury or trauma; Fall; Blunt trauma (contusions or hematomas); Additional info: Headtrauma TECHNIQUE: Imaging protocol: Computed tomography of the head without contrast. Radiation optimization: All CT scans at this facility use at least one of these dose optimization techniques: automa so exposure control; mA and/or kV adjustment per patient size (includes targeted exams where dose is matched to clinical indication); or iterative reconstruction. COMPARISON: No relevant prior studiesavailable. FINDINGS: Brain: Normal. No hemorrhage. Unremarkable white matter. No mass effect. Cerebral ventricles: No ventriculomegaly. Paranasal sinuses: Visualized sinuses are unremarkable. No fluid levels. Mastoid air cells: Visualized mastoid air cells are well aerated. Bones/joints: Unremarkable.No acute fracture. Soft tissues: Left occipital scalp hematoma is identified. IMPRESSION: Left occipital scalp hematoma without underlying acute intracranial abnormalities at 0700 Reported and signed by: Pasha Kebede M.D. CC:Terrence Rodriguez DO Technologist:Carisa Leggett, RT(R)(CT) CTDI: DLP: Trnscb Date/Time: 07/06/2022 (07) Callum.WJ3 Orig Print D/T: S: 07/06/2022 (0700) PAGE 1 Signed [facility] 2022-02-28 19:46:11 Test Item Value Reference Range Interpretation Comments BETA HCG (test <2.39 See_Comment [Automated m essage] code = The system [facility] h [id number]) generated this result transmit so reference range : Non- fe male and male patien ts: <5 mIU/mL. The reference range was not used to interpret this result as normal/abnormal . NELL (test code Gestational Age ? ? = NELL) ?Range (mIU/mL) 1-10 ?Weeks ?[id number] Weeks ?89909-78907915-04 Weeks ?1300-29251729-20 Weeks ?[id number] Biotin has been reported to cause a negative bias, interpret results relative to patient's use of biotin. [facility] [id number] 19:26:00 Test Item Value Reference Range Interpretation Comments POCT PREG (test code = 1605) NEGATIVE On board controls acceptable with C PRESENT Line (test code = 3574) Lab Interpretation (test code = Normal 49735-5) [facility] 1 [id number] 00:15:10CHEST X-RAY AP PORTABLE 10/27/2020 6:14 PM Ordering physician: LOIS TRUJILLO CLINICAL INFORMATION: ?Chest pain COMPARISON: None TECHNIQUE: ?single AP view of the chest was submitted. FINDINGS: ? The lung mathias are clear. ?No pleural effusions. ?No pneumothorax. ?Thecardiomediastinal silhouette iswithin normal limits. ?No acuteradiographic bony abnormalities. CONCLUSION: ? 1. ?No radiographic evidence to acute cardiopulmonary disease. RL: 7423 AFC: 01650 [facility], Radiant Results Inft User - 10/27/2020 6:16 PM CSTCHEST X-RAY AP RBUBKGGV46/29/2020 6:14 PMOrdering physician: LOIS TRUJILLO CLINICAL INFORMATION: Chest painCOMPARISON: NoneTECHNIQUE: single AP view of the chest was submitted.FINDINGS: The lung mathias are clear. No pleural effusions. No pneumothorax. Thecardiomediastinal silhouette is within normal limits. No acuteradiographic bony abnormalities.CONCLUSION: 1. No radiographic evidence to acute cardiopulmonary disease.RL: 7423AFC: 77140Qertluwzqzddtf signed by Julio C Smith MD at 10/27/2020 6:15 PMUnCovenant [facility] CenterDrug Screen ER 2020-10-28 00:02:00 Test Item Value Reference Range Interpretation Comments AMPHET (test code = Negative Negative 4585810015) Cocaine Metabolite (test Negative Negative code = 2508280009) OPIATES (test code = Negative Negative 7375313406) THC (test code = Presumptive Positive Negative A 1057488966) NELL (test code = NELL) Urine Drug Cutoff Ranges Amphetamine: ? 1,000 ng/mLCocaine: ? 150 ng/mLOpiates: ? 300 ng/mLCannabinoids: ?50 ng/mL The results are to be used only for medical (i.e., treatment) purposes. Unconfirmed screening results must not be used for non-medical purposes (e.g., employment testing, legal testing). Lab Interpretation (test Abnormal code = 36759-4) [facility] TexasUrinalysis2020-11-29 23:45:00 Test Item Value Reference Range Interpretation Comments APPEARANCE (test code = Clear Clear 4130920451) COLOR (test code = Yellow Yellow 6964122322) PH (test code = 4.8-8.0 1690697045) SP GRAVITY (test code = 1.003-1.030 2826010822) GLU U QUAL (test code = Normal Normal 6803148495) BLOOD (test code = Negative Negative 9833180813) KETONES (test code = 5 mg/dL Negative A 6792192536) PROTEIN (test code = 30 mg/dL Negative A 2887-8) UROBILIN (test code = 4.0 mg/dL Normal A 7630753845) BILIRUBIN (test code = Negative Negative 5604631476) NITRITE (test code = Negative Negative 8319190656) LEUK DARCY (test code = 25/uL Negative A 5706169226) RBC/HPF (test code = See_Comment [Autom ated message] 6752667590) The system [employer] generated this result transmit so reference range : 0 - 3 HPF. The refe rence range was not u sed to interpret th is result as normal/abnormal . WBC/HPF (test code = See_Comment H [Autom ated message] 1548693269) The system [employer] generated this result transmit so reference range : 0 - 5 HPF. The refe rence range was not u sed to interpret th is result as normal/abnormal . BACTERIA (test code = Few Negative A 2463419210) MUCOUS (test code = Slight Negative LPF A 9603444469) SQ EPITH (test code = See_Comment H [Auto mated message] 4812409040) The system [employer] generated this result transmit so reference range : <=2 HPF. The refere nce range was not u sed to interpret th is result as normal/abnormal . HYAL CAST (test code = See_Comment [Aut omated message] 0339715364) The system [employer] generated this result transmit so reference range : <=2 LPF. The refere nce range was not u sed to interpret th is result as normal/abnormal . Lab Interpretation (test Abnormal code = 98169-4) [facility]PO[facility] [id number] 23:34:00 Test Item Value Reference Range Interpretation Comments On board controls acceptable with negative C Line (test code = 3574) POCT PREG LOT # (test code = 3575) [id number] POCT PREG TEST DATE (test 04/28/2021 code = 3576) Lab Interpretation (test code = Normal 20336-3) [facility] TexasTroponin [id number] 23:31:00 Test Item Value Reference Range Interpretation Comments TROPONIN I (test 0.002 ng/mL See_Comment [Automated code = 7963750788) message] The system which generated this result [...] ? Lab Interpretation Normal (test code = 89460-6) [facility] TexasEthanol [id number] 23:21:00 Test Item Value Reference Range Interpretation Comments ALCOHOL (test code = <10 mg/dL 6055262908) NELL (test code = Toxic Greater than or NELL) equal to 80 mg/dL. NOTE: Whole blood values are approximately 10% to 15% lower than serum and plasma. [facility] (NA, K, CL, CO2, GLUCOSE, BUN, CREATININE, CA)2020-10-27 23:20:00 Test Item Value Reference Range Interpretation Comments NA (test code = 139 mmol/L 135-145 6003775712) K (test code = 4.2 mmol/L 3.5-5 6396053529) CL (test code = 104 mmol/L 98-108 2320133489) CO2 TOTAL (test code = 26 mmol/L 23-31 2031831332) AGAP (test code = 2-16 5335108513) BUN (test code = 10 mg/dL 7-23 5597323394) GLUCOSE (test code = 93 mg/dL 70-110 4531240525) CREATININE (test code 0.66 mg/dL 0.5-1.04 = 1249975314) CALCIUM (test code = 9.7 mg/dL 8.6-10.6 4032987563) eGFR Calculation mL/min/1.73m2 (Non-) (test code = 7238561026) eGFR Calculation mL/min/1.73m2 () (test code = 9793982562) NELL (test code = NELL) Association of [...] or urine or abnormalities in imaging tests). [facility] TexasHepatic Function Panel (ALB, T.PRO, BILI T, BU/BC, ALT, AST, ALK PHOS)2020-10-27 23:20:00 Test Item Value Reference Range Interpretation Comments TOTAL BILI (test code = 9302882367) 1.0 mg/dL 0.1-1.1 BILI UNCON (test code = 0895005152) 0.7 mg/dL 0.1-1.1 BILI CONJ (test code = 7576641339) 0.0 mg/dL 0-0.3 T PROTEIN (test code = 7326737850) 7.4 g/dL 6.3-8.2 ALBUMIN (test code = 6062440719) 4.5 g/dL 3.5-5 ALK PHOS (test code = 6429059717) 75 U/L 34-122 ALTv (test code = 1742-6) 13 U/L 5-35 AST(SGOT) (test code = 3930929526) 26 U/L 13-40 Lab Interpretation (test code = Normal 37081-1) [facility] TexasCB with [id number] 23:09:00 Test Item Value Reference Range Interpretation Comments WBC (test code = See_Comment [Automated 7845-2) message] The sy stem which generated this [...] RDW-SD (test code = 40.7 fL 39-49.9 26463-7) RDW-CV (test code = 12.1 % 12-15.5 788-0) PLT (test code = See_Comment [Automated 777-3) message] The sy stem which generated this result transmitted reference range : 166 - 358 10*3/ ?L. The reference r matthew was not used to interpret this result as normal/abnormal . MPV (test code = 9.3 fL 9.5-12.9 L 64071-1) NRBC/100 WBC (test See_Comment [Automat ed code = 2543763681) message] The system which generated this result transmitted reference range : 0.0 - 10.0 /100 WBCs. The refer ence range was not u sed to interpret th is result as normal/abnormal . NRBC x10^3 (test code <0.01 See_Comment [Auto mated = 5921222068) message] The s ystem which generated this result transmitted reference range : 10*3/?L. The reference range was not used to interpret this result as normal/abnormal . GRAN MAT (NEUT) % 61.6 % (test code = 770-8) IMM GRAN % (test code 0.20 % = 5077008014) LYMPH % (test code = 30.9 % 736-9) MONO % (test code = 6.5 % 5905-5) EOS % (test code = 0.2 % 713-8) BASO % (test code = 0.6 % 706-2) GRAN MAT x10^3(ANC) 3.33 10*3/uL 1.88-7.09 (test code = 6797543023) IMM GRAN x10^3 (test <0.03 0-0.06 code = 3629758084) LYMPH x10^3 (test code 1.67 10*3/uL 1.32-3.29 = 731-0) MONO x10^3 (test code 0.35 10*3/uL 0.33-0.92 = 742-7) EOS x10^3 (test code = <0.03 0.03-0.39 L 711-2) BASO x10^3 (test code 0.03 10*3/uL 0.01-0.07 = 704-7) Lab Interpretation Abnormal (test code = 33293-9) [facility] WITH [id number] 21:35:00 Test Item Value Reference Range Interpretation Comments WBC (test code = See_Comment H [Automated 3790-2) message] The system which generated this result transmit so reference range : 4.30 - 11.10 10*3/?L. The reference range was not used to interpret this result as normal/abnormal . RBC (test code = See_Comment [Automated 869-8) message] The system which generated this result [...] RDW-SD (test code = 40.8 fL 39-49.9 31723-5) RDW-CV (test code = 12.3 % 12-15.5 788-0) PLT (test code = See_Comment [Automated 777-3) message] The system which generated this result transmit so reference range : 166 - 358 10*3/ ?L. The reference range was not u sed to interpret th is result as normal/abnormal . MPV (test code = 9.4 fL 9.5-12.9 L 73199-5) NRBC/100 WBC (test See_Comment [Automat ed code = 2268138057) message] The system which generated this result transmit so reference range : 0.0 - 10.0 /100 WBCs. The reference range was not used to interpret this result as normal/abnormal . NRBC x10^3 (test code <0.01 See_Comment [Auto mated = 0517152751) message] The system which generated this result transmit so reference range : 10*3/?L. The reference range was not used to interpret this result as normal/abnormal . GRAN MAT (NEUT) % 83.3 % (test code = 770-8) IMM GRAN % (test code 0.60 % = 4545711296) LYMPH % (test code = 6.6 % 736-9) MONO % (test code = 9.4 % 5905-5) EOS % (test code = 0.0 % 713-8) BASO % (test code = 0.1 % 706-2) GRAN MAT x10^3(ANC) 17.29 10*3/uL 1.88-7.09 H (test code = 1401464479) IMM GRAN x10^3 (test 0.12 10*3/uL 0-0.06 H code = 1755323374) LYMPH x10^3 (test code 1.36 10*3/uL 1.32-3.29 = 731-0) MONO x10^3 (test code 1.95 10*3/uL 0.33-0.92 H = 742-7) EOS x10^3 (test code = <0.03 0.03-0.39 L 711-2) BASO x10^3 (test code 0.03 10*3/uL 0.01-0.07 = 704-7) Lab Interpretation Abnormal (test code = 27475-3) [facility]2019-09-06 21:33:00 Test Item Value Reference Range Interpretation Comments APPEARANCE (test code = Cloudy Clear A 8416849843) COLOR (test code = Yellow Yellow 3534728980) PH (test code = 4.8-8.0 4457369443) SP GRAVITY (test code = 1.003-1.030 7399692607) GLU U QUAL (test code = Normal Normal 5135726408) BLOOD (test code = 2+ Negative A 1154795719) KETONES (test code = 20 mg/dL Negative A 7809068791) PROTEIN (test code = 30 mg/dL Negative A 2887-8) UROBILIN (test code = Normal Normal 5551212066) BILIRUBIN (test code = Negative Negative 8365918093) NITRITE (test code = Positive Negative A 8439477502) LEUK DARCY (test code = 500/uL Negative A 1244164648) RBC/HPF (test code = See_Comment H [Autom ated message] 7381823648) The system [employer] generated this result transmitted ref erence range: 0 - 3 HP F. The reference range was not used to int erpret this result as normal/abnormal . WBC/HPF (test code = >182 See_Comment H [Autom ated message] 8154007300) The system [employer] generated this result transmitted ref erence range: 0 - 5 HP F. The reference range was not used to int erpret this result as normal/abnormal . BACTERIA (test code = Few Negative A 4572425988) MUCOUS (test code = Slight Negative LPF A 2877025048) AMORPHOUS (test code = Rare Rare HPF 4648112802) SQ EPITH (test code = See_Comment H [Auto mated message] 7046245815) The system [employer] generated this result transmitted ref erence range: <=2 HPF. The reference range was not used to int erpret this result as normal/abnormal . WBC CLUMPS (test code = See_Comment H [Au tomated message] 9271303686) The system [employer] generated this result transmitted ref erence range: <=1 HPF. The reference range was not used to int erpret this result as normal/abnormal . Lab Interpretation (test Abnormal code = 61678-2) [facility]. METABOLIC PANEL (96858)2019-08-04 21:26:00 Test Item Value Reference Range Interpretation Comments NA (test code = 135 mmol/L 135-145 0468679058) K (test code = 3.4 mmol/L 3.5-5 L Slight 1373438973) hemolysis CL (test code = 97 mmol/L 98-108 L 6529228483) CO2 TOTAL (test code 23 mmol/L 23-31 = 6547013718) AGAP (test code = 2-16 7228929619) BUN (test code = 9 mg/dL 7-23 Slight 7674273347) hemolysis GLUCOSE (test code = 103 mg/dL 70-110 9297335802) CREATININE (test code 0.77 mg/dL 0.5-1.04 = 9076907720) TOTAL BILI (test code 1.2 mg/dL 0.1-1.1 H = 8972634373) CALCIUM (test code = 9.7 mg/dL 8.6-10.6 6991044660) T PROTEIN (test code 8.1 g/dL 6.3-8.2 = 4528621791) ALBUMIN (test code = 4.5 g/dL 3.5-5 7292987260) ALK PHOS (test code = 100 U/L 34-122 Slight 9147745160) hemolysis ALT(SGPT) (test code 29 U/L 9-51 Slight = 1298796071) hemolysis AST(SGOT) (test code 30 U/L 13-40 Slight = 1780784854) hemolysis eGFR Calculation mL/min/1.73m2 (Non-) (test code = 8929146671) eGFR Calculation mL/min/1.73m2 () (test code = 9897743532) NELL (test code = NELL) Association of [...] tests). Lab Interpretation Abnormal (test code = 25230-1) [facility]2019-[facility] 21:26:00 Test Item Value Reference Range Interpretation Comments LIPASE (test code = 5267853300) 24 U/L 0-220 Lab Interpretation (test code = Normal 12446-4) [facility] TexasLactic Acid Whole [id number] 21:08:00 Test Item Value Reference Range Interpretation Comments LACTIC ACID (test code = 1.24 mmol/L 0.5-2.2 4135018639) Lab Interpretation (test code = Normal 04953-8) [facility] [id number] 20:52:00 Test Item Value Reference Range Interpretation Comments POCT PREG (test code = 1605) Negative On board controls acceptable with C Yes Line (test code = 3574) POCT PREG LOT # (test code = 3575) POCT PREG TEST DATE (test code = 3576) Lab Interpretation (test code = Normal 23382-3) [facility] [id number] 19:33:00 Test Item Value Reference Range Interpretation Comments POCT PREG (test code = 1605) Negative On board controls acceptable with C Yes Line (test code = 3574) POCT PREG LOT # (test code = 3575) POCT PREG TEST DATE (test code = 3576) [facility] [id number] 19:33:00 Test Item Value Reference Range Interpretation Comments POCT PREG (test code = 1605) Negative On board controls acceptable with C Yes Line (test code = 3574) POCT PREG LOT # (test code = 3575) POCT PREG TEST DATE (test code = 3576) [facility] [id number] 19:33:00 Test Item Value Reference Range Interpretation Comments POCT PREG (test code = 1605) Negative On board controls acceptable with C Yes Line (test code = 3574) POCT PREG LOT # (test code = 3575) POCT PREG TEST DATE (test code = 3576) [facility] [id number] 19:33:00 Test Item Value Reference Range Interpretation Comments POCT PREG (test code = 1605) Negative On board controls acceptable with C Yes Line (test code = 3574) POCT PREG LOT # (test code = 3575) POCT PREG TEST DATE (test code = 3576) [facility]
[2022-09-24] MEDS ORDERED: NA CHLORIDE 0.9% 1,000 ML ONE (12:18)
[2022-09-24] MEDS ORDERED: KETOROLAC 30 MG/ML INJ ONE (12:18)
[2022-09-24] MEDS ORDERED: ONDANSETRON 4 MG/2 ML VIAL ONE (12:18)
[2022-09-24 13:13] LABS: Urine Blood 3+ (Negative); Urine Glucose Negative (Negative); Urine Protein 2+ (Negative); Urine Specific Gravity 1.025 (1.005-1.030)
[2022-09-24 13:28] LABS: Urine Mucus 1+ /HPF (None Seen); Urine RBC >50 /HPF (None Seen); Urine WBC Clump Occasional /HPF (None Seen)
[2022-09-24 14:47] LABS: Absolute Lymphocytes (CBC) 1.9 K/uL (0.7-4.9); Hematocrit 36.3 % (36.0-45.0); Lymphocytes % 18.6 % (15.3-44.8); MPV 6.8 fL (7.6-11.3); RBC Red Blood Cell Count 3.86 M/uL (3.86-4.86)
[2022-09-24 15:00] LABS: Albumin 3.6 g/dL (3.4-5.0); Bilirubin Total 0.8 mg/dL (0.2-1.0); Potassium 3.7 mmol/L (3.5-5.1); Protein, Total 6.6 g/dL (6.4-8.2)
[2022-09-24 15:19] LABS: Urine Specific Gravity/Preg 1.025 (1.005-1.030)
--- NOTE | 2022-09-24 15:36 | RAD REPORT ---
EXAM DESCRIPTION: CTAbdomen Pelvis W Contrast - 09/24/2022 3:19 pm CLINICAL HISTORY: Abdominal pain. abd pain COMPARISON: <Comparisons> TECHNIQUE: Biphasic CT imaging of the abdomen and pelvis was performed with 100 ml non-ionic IV cont rast. All CT scans are performed using dose optimization technique as appropriate and may include automated exposure control or mA/KV adjustment according to patient size. FINDINGS: The lung bases are clear. The liver, spleen, pancreas, adrenal glands and kidneys are within normal limits. No bowel obstruction, free air, free fluid or abscess. The appendix is normal. No evidence of signi ficant lymphadenopathy. IUD is in place. 5 cm right ovarian cyst is suspected. Small volume of fluid is present in the pelvis . No suspicious bony findings. IMPRESSION: 5 cm right ovarian cyst is suspected. Follow-up pelvic sonography would be recommended f or further evaluation.
--- NOTE | 2022-09-24 16:34 | RAD REPORT ---
EXAM DESCRIPTION: US - Transvaginal Study Probe - 09/24/2022 4:16 pm CLINICAL HISTORY: ABD PAIN Pelvic pain. COMPARISON: Pelvis dated 08/24/2022 FINDINGS: The uterus is normal in size, shape and echotexture. The uterus measures 7.1 x 3.6 x 2.9 c m. The endometrial stripe measures 2 mm, normal, with IUD in place. Both ovaries are normal in size, shape and echotexture. The right ovary measures 5.2 x 5.0 x 4.1 cm. The left ovary measures 3.4 x 2.0 x 1.8 cm.. Large right ovarian cyst is present measuring 4.6 x 4. 3 x 3.7 cm. A single septum is present No adnexal masses. Normal Doppler blood flow was demonstrated to both ovaries. No significant pelvic ascites. IMPRESSION: 4.6 cm right ovarian cyst without evidence of torsion.
--- NOTE | 2022-09-24 16:40 | EDPHYS ---
Physician Documentation [facility] Name: Rupa Smith Age: 22 yrs Sex: Female : 2000 Arrival Date: 09/24/2022 Time: 11:11 Bed 23 Private MD: ED Physician Ramu Mclaughlin HPI: 09/24 12:46 This 22 yrs old Female presents to ER via Ambulatory with complaints of Low Abd Pain. kb 12:46 The patient presents with abdominal pain. The symptoms do not radiate. The patient has kb not experienced similar symptoms in the past. The patient has not recently seen a physician. 12:46 Onset: The symptoms/episode began/occurred this morning. Associated signs and symptoms: kb Pertinent positives: nausea, Pertinent negatives: constipation, diarrhea, fever, vomiting. The symptoms are described as constant. Modifying factors: The symptoms are alleviated by nothing, the symptoms are aggravated by nothing. Severity of pain: At its worst the pain was moderate in the emergency department the pain is unchanged. Pt reports lower abd pain ("uterus") that started this morning with associated nausea. Denies v/d, fever, urinary symptoms. 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 - Social history:: Smoking status: Patient denies any tobacco usage or history of. Patient/guardian denies using alcohol. ROS: 12:45 Constitutional: Negative for fever, chills, and weight loss. kb 12:45 Abdomen/GI: Positive for abdominal pain, nausea, Negative for vomiting, diarrhea, constipation. 12:45 All other systems are negative. Exam: 12:45 Constitutional: This is a well developed, well nourished patient who is awake, alert, kb and in no acute distress. Head/Face: Normocephalic, atraumatic. ENT: Moist Mucous membranes Cardiovascular: Regular rate and rhythm with a normal S1 and S2. No gallops, murmurs, or rubs. No pulse deficits. Respiratory: Respirations even and unlabored. No increased work of breathing. Talking in full sentences Skin: Warm, dry with normal turgor. Normal color. MS/ Extremity: Pulses equal, no cyanosis. Neurovascular intact. Full, normal range of motion. Neuro: Awake and alert, GCS 15, oriented to person, place, time, and situation. Moves all extremities. Normal gait. Psych: Awake, alert, with orientation to person, place and time. Behavior, mood, and affect are within normal limits. 12:45 Abdomen/GI: Inspection: abdomen appears normal, Bowel sounds: normal, Palpation: soft, in all quadrants, moderate abdominal tenderness, in the suprapubic area and right upper quadrant. Vital Signs: 11:22 BP 135 / 99; Pulse 84; Resp 18; Temp 97.5(TE); Pulse Ox 100% on R/A; Weight 52.16 kg; ld1 Height 5 ft. 1 in. (154.94 cm); Pain 8/10; 12:01 BP 123 / 82; Pulse 74; Resp 18; Pulse Ox 99% on R/A; Pain 9/10; eh3 13:00 BP 110 / 68; Pulse 74; Resp 16; Pulse Ox 99% on R/A; eh3 14:00 BP 114 / 51; Pulse 93; Resp 16; Pulse Ox 100% on R/A; eh3 15:00 BP 121 / 75; Pulse 78; Resp 16; Pulse Ox 100% on R/A; eh3 11:22 Body Mass Index 21.73 (52.16 kg, 154.94 cm) ld1 MDM: 11:24 Patient medically screened. kb 12:45 Data reviewed: vital signs, nurses notes. Data interpreted: Pulse oximetry: on room air kb is 99 %. Interpretation: normal. 16:38 Counseling: I had a detailed discussion with the patient and/or guardian regarding: the kb historical points, exam findings, and any diagnostic results supporting the discharge/admit diagnosis, lab results, radiology results, the need for outpatient follow up, an OB/Gyne specialist, to return to the emergency department if symptoms worsen or persist or if there are any questions or concerns that arise at home. 09/24 11:25 Order name: CBC with Diff; Complete Time: 14:51 kb 09/24 11:25 Order name: CMP; Complete Time: 15:03 kb 09/24 11:25 Order name: Lipase; Complete Time: 15:03 kb 09/24 11:25 Order name: Urine Microscopic Only; Complete Time: 13:29 kb 09/24 13:14 Order name: Urine Dipstick-Ancillary; Complete Time: 13:16 EDMS 09/24 13:24 Order name: Urine --Ancillary (enter results); Complete Time: 15:21 em1 09/24 11:25 Order name: CT Abd/Pelvis - IV Contrast Only; Complete Time: 15:37 kb 09/24 11:25 Order name: IV Saline Lock; Complete Time: 12:01 kb 09/24 11:25 Order name: Labs collected and sent; Complete Time: 12:01 kb 09/24 13:31 Order name: Urine Culture EDMS 09/24 15:38 Order name: US Transvaginal Study (Probe); Complete Time: 16:35 kb 09/24 11:25 Order name: Urine Dipstick-Ancillary (obtain specimen); Complete Time: 13:23 kb 09/24 11:25 Order name: Urine Test (obtain specimen); Complete Time: 13:23 kb Administered Medications: 12:26 Drug: NS 0.9% 1000 ml Route: IV; Rate: 1 bolus; Site: right antecubital; eh3 13:30 Follow up: Response: No adverse reaction; IV Status: Completed infusion; IV Intake: eh3 1000ml 12:26 Drug: Zofran (Ondansetron) 4 mg Route: IVP; Site: right antecubital; eh3 13:30 Follow up: Response: No adverse reaction eh3 12:26 Drug: Ketorolac 15 mg Route: IVP; Site: right antecubital; eh3 13:30 Follow up: Response: Pain is decreased eh3 Disposition Summary: 09/24/22 16:39 Discharge Ordered Location: Home kb Condition: Stable kb Diagnosis - Other ovarian cysts kb Followup: kb - With: Emergency Department - When: As needed - Reason: Worsening of condition Followup: kb - With: Private Physician - When: 2 - 3 days - Reason: Recheck today's complaints, Continuance of care, Re-evaluation by your physician Discharge Instructions: - Discharge Summary Sheet kb - Ovarian Cyst, [id number] kb Forms: - Medication Reconciliation Form kb - Thank You Letter kb - Antibiotic Education kb - Prescription Opioid Use kb Prescriptions: - Diclofenac Sodium 75 mg Oral tablet,delayed release (DR/EC) - take 1 tablet by ORAL route 2 times per day As needed; 30 tablet; Refills: 0, kb Product Selection Permitted Signatures: Dispatcher [employer] Denae Strickland FNP-C FNP-Ckb Dibbern, Lauren, RN RN ld1 Lorrie Dickson RN RN eh3
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
[2022-09-24 18:36] VITALS: TEMP 97.5
[2022-09-24 18:40] VITALS: O2SAT 100
[2022-09-24 18:41] VITALS: BP 121/75
== END 2022-09-24 17:12 | disposition home or self-care (01) ==
LOC: ER 11:07 → MERGE 11:07 → ER 17:12
DX: N83.299 Other ovarian cyst, unspecified side (principal)
CPT/HCPCS: 96361; 87088; 85025; 87086; 36415; 81025; 83690; 80053; 74177; 76830; 96375; 96374; 99283; Q9967; J7030; J2405; 81003; 81015

== ENCOUNTER 2022-10-31 18:57 | Emergency (ER) | payer BC ==
--- OUTSIDE RECORDS SUMMARY | 2022-10-31 19:06 | XMS REPORT | Continuity of Care Document ---
:2000 Author Organization [facility] [place] t Address [address] [place] [address] Care Team Providers Name Role Phone PCP, PATIENT DOES NOT HAVE A Primary Care Physician Unavaila Saul Richardson Attending Clinician Unavailable PATRICIA SCHAEFER Attending Clinician Unavailable Patricia Schaefer MD Attending Clinician Sean Hancock MD Attending Clinician JESÚS VELARDE Attending Clinician Unavailable Jesús Velarde MD Attending Clinician Cindy Hammond DO Attending Clinician SEAN HANCOCK Attending Clinician Unavailable Doctor Unassigned, [place] Attending Clinician Unavailable Lois Melara Attending Clinician Oswald Tee Attending Clinician Physician, No Primary or Family Admitting Clinician Unavailrohan fierro Payers Payer Name Policy Type Policy Number Effective Date Expiration Date S vipul FERRARAS O [id number] 2020 00:00:00 [employer] [facility] CARE [id number] 2016 00:00:00 Problems Condition Condition Condition Status Onset Resolution Last Treating Co mments Source Name Details Category Date Date Treatment Clinician Date Hepatitis Hepatitis Disease Active Overview: Univers C antibody C antibody 8 Formattin ity of test test 00:00: g of this [place] positive positive 00 note Medica l might [...] ity o f carrier carrier 00:00: of [place] state state 00 delivery Medical has not Branch been [...] in 12-11 [place] 00 [place] Panic Panic Disease Active Univers attack attack 12-11 ity of 00:00: [place] [facility] 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 self-cutti 12-11 it y of ng ng 00:00: [place] 00 Medical Branch Adopted Adopted Disease Active Univers [place] no history no history 00 Me dical known known Branch Allergies, Adverse Reactions, Alerts Allergy Allergy Status Severity Reaction(s) Onset Inactive Treating Comm ents Source Name Type Date Date Clinician No Known DA Active U 2005- [facility] Contrast - Clear Allergie 00:00: Liang s 00 [facility] No Known DA Active U 2005-11 [facility] Drug - Clear Allergie 00:00: Liang s 00 [facility] No Known DA Active U 2005-11 [facility] Food - Clear Allergie 00:00: Liang s 00 [facility] No Known DA Active U 2005-11 [facility] Other - Clear Allergie 00:00: Liang s 00 [facility] NO KNOWN Drug Active Univers ALLERGIE Class ity of S [facility] Social History Social Habit Start Date Stop Date Quantity Comments Source Exposure to Not sure [facility] 2022-02-28 2022-02-28 0 /d [facility] 00:00:00 00:00:00 [facility] Tobacco use and 2012-06-16 2012-06-16 Never used [facility] exposure 00:00:00 00:00:00 [facility] Branch Sex Assigned At [birth year] [facility] 00:00:00 00:00:00 Medical Branch Smoking Status Start Date Stop Date Source Never smoker [facility] Medications Ordered Filled Start Stop Current Ordering Indication Dosage Frequency Signature Comments Components Source Medication Medication Date Date Medication? Clinician (SIG) Name Name phenazopyri Yes [id number] 200mg Take 1 Univers dine 200 mg 4-02 tablet by ity of tablet 00:00: mouth 3 [place] 00 (three) Medical times Branch daily. ibuprofen Yes [id number] 400mg Take 2 Univers (MOTRIN IB) 4-02 tablets by it y of 200 mg 00:00: mouth [place] tablet 00 every 8 Medical (eight) Branch hours as needed for Pain (scale 1-3) for up to 30 doses. cephALEXin 2021- No [id number] 500mg Take 1 Univers (KEFLEX) 4-02 04-13 [...] Medical Eli Branch 11/27/21 at 1015, Routine
team member approving Restricted medication : JESÚS VELARDE erythromyci Yes [id number] .5[in_u Place 0.5 Univers n 5 mg/gram 08-10 [id number] s] Inches in i ty of (0.5 %) 00:00: right eye [place] ophthalmic 00 at Medical ointment bedtime. Branch Continue until you follow up with eye doctor. erythromyci Yes [id number] .5[in_u Place 0.5 Univers n 5 mg/gram 9 [id number] s] Inches in i ty of (0.5 %) 00:00: right eye [place] ophthalmic 00 at Medical ointment bedtime. Branch Continue until you follow up with eye doctor. erythromyci Yes [id number] .5[in_u Place 0.5 Univers n 5 mg/gram 9 [id number] s] Inches in i ty of (0.5 %) 00:00: right eye [place] ophthalmic 00 at Medical ointment bedtime. Branch Continue until you follow up with eye doctor. erythromyci Yes [id number] .5[in_u Place 0.5 Univers n 5 mg/gram 9 [id number] s] Inches in i ty of (0.5 %) 00:00: right eye [place] ophthalmic 00 at Medical ointment bedtime. Branch Continue until you follow up with eye doctor. erythromyci Yes [id number] .5[in_u Place 0.5 Univers n 5 mg/gram 08-10 [id number] s] Inches in i ty of (0.5 %) 00:00: right eye [place] ophthalmic 00 at Medical ointment bedtime. Branch Continue until you follow up with eye doctor. cefTRIAXone 2019-11 2020- No 1000mg 1,000 mg, Univers (ROCEPHIN) 12-2830 IV ity of 1,000 mg in 01:00: 00:27 [facility], [place] NaCl 0.9% 00 :00 ONCE, 1 Medical (NS) 50 mL dose, Sun Bran ch MINI-BAG 10/27/20 at 1900, 50 mL
Reas on for Anti-Infec tive: Documented Infection< br>Documen so Infection Site: Urine
D uration of Therapy: 7 days ciprofloxac 2019-11- No [id number] 500mg Take 1 Univers in HCl 500 12-27 12-10 tablet by ity of mg tablet 00:00: 05:59 [place] 2 [place] 00 :[place] (two) Medical times [place] daily for 10 days. cefTRIAXone 2018- No 1000mg 1,000 mg, Univers (ROCEPHIN) 08-04 IV ity of 1,000 mg in 23:15: 23:27 [facility], [place] NaCl 0.9% 00 :00 ONCE, 1 Medical [...] ity of (PF)) 22:00: 21:05 ONCE, 1 [place] injection 4 00 :00 dose, Fri Med ical mg 08/04/19 at Branch 1700, JASMIN ketorolac 2018- No 15mg 15 mg, Unive rs (TORADOL) 08-04 Slow IV ity of injection 22:00: 21:05 [place], [place] 15 mg 00 :00 ONCE, 1 Medical dose, Fri Branch 08/04/19 at 1700, Routine
team member approving Restricted medication : OSWALD JOE [...] 1000mL at 999 Uni vers (NS) bolus 9 09-07 mL/hr, ity of infusion 21:15: 00:01 1,000 mL, Dilan as 1,000 mL 00 :00 IV Medical Infusion, Branch ONCE, 1 dose, 08/04/19 at 1615, STAT ondansetron 2018-0 Yes [id number] 4mg Take 1 Univers (ZOFRAN 9-06 tablet by ity of ODT) 4 mg 00:00: mouth [place] disintegrat 00 every 8 Medic al ing tablet (eight) Branch hours as needed for Nausea and Vomiting (N/V). ibuprofen 2019-0 Yes [id number] 600mg Take 1 U nivers 600 mg 9-06 tablet by ity of tablet 00:00: mouth [place] 00 every 6 Medical (six) Branch hours as needed for Pain (scale 1-3). ondansetron 2019-0 Yes [id number] 4mg Take 1 Univers (ZOFRAN 9-06 tablet by ity of ODT) 4 mg 00:00: mouth [place] disintegrat 00 every 8 Medic al ing tablet (eight) Branch hours as needed for Nausea and Vomiting (N/V). ibuprofen 2019-0 Yes [id number] 600mg Take 1 U nivers 600 mg 9-06 tablet by ity of tablet 00:00: mouth [place] 00 every 6 Medical (six) Branch hours as needed for Pain (scale 1-3). ondansetron 2019-0 Yes [id number] 4mg Take 1 Univers (ZOFRAN 9-06 tablet by ity of ODT) 4 mg 00:00: mouth [place] disintegrat 00 every 8 Medic al ing tablet (eight) Branch hours as needed for Nausea and Vomiting (N/V). ibuprofen 2019-0 Yes [id number] 600mg Take 1 U nivers 600 mg 9-06 tablet by ity of tablet 00:00: mouth [place] 00 every 6 Medical (six) Branch hours as needed for Pain (scale 1-3). ondansetron Yes [id number] 4mg Take 1 Univers (ZOFRAN 9-06 tablet by ity of ODT) 4 mg 00:00: mouth [place] disintegrat 00 every 8 Medic al ing tablet (eight) Branch hours as needed for Nausea and Vomiting (N/V). ibuprofen Yes [id number] 600mg Take 1 U nivers 600 mg 9-06 tablet by ity of tablet 00:00: mouth [place] 00 every 6 Medical (six) Branch hours as needed for Pain (scale 1-3). ondansetron Yes [id number] 4mg Take 1 Univers (ZOFRAN 9-06 tablet by ity of ODT) 4 mg 00:00: mouth [place] disintegrat 00 every 8 Medic al ing tablet (eight) Branch hours as needed for Nausea and Vomiting (N/V). ibuprofen Yes [id number] 600mg Take 1 U nivers 600 mg 9- tablet by ity of tablet 00:00: mouth [place] 00 every 6 Medical (six) Branch hours as needed for Pain (scale 1-3). ondansetron 2020- No [id number] 4mg Take 1 Univers (ZOFRAN 08-04-29 tablet by ity of ODT) 4 mg 00:00: 00:00 mouth [place] disintegrat 00 :00 every 8 Medic al ing tablet (eight) Branch hours as needed for Nausea and Vomiting (N/V). ibuprofen 2020- No [id number] 600mg Take 1 Univers 600 mg 08-04-29 tablet by ity of tablet 00:00: 00:00 mouth [place] 00 :00 every 6 Medical (six) Branch hours as needed for Pain (scale 1-3). cefpodoxime 2019- No [id number] 100mg Take 1 Univers 100 mg 08-04-14 tablet by ity of tablet 00:00: 04:59 mouth 2 [place] 00 :00 (two) Medical times Branch daily for 7 days. 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 ibuprofen 2018- No 600mg Univer s (IBU) 07-14 ity of tablet 600 20:30: 19:26 [place] mg 00 :00 Medical Branch ibuprofen 2018- No 600mg 600 mg, Uni vers (IBU) 07-14 Oral, ity of tablet 600 20:30: 19:26 ONCE, 1 Dilan as mg 00 :00 dose, [facility] 07/14/19 at Branch 1530, Routine levonorgest 2019- No 1{devic 1 Device, Univers rel 07-14 e} Intrauteri ity of (MIRENA) 20:30: 19:27 ne, ONCE, Dilan as IUD 1 00 :00 1 dose, Entry Level Programmer [facility] 07/14/19 at 1530, Routine levonorgest 2019- No 1{devic Un kristopher rel 07-14 e} ity of (MIRENA) 20:30: 19:27 [place] IUD 1 00 :00 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 ibuprofen 2018- No 600mg Univer s (IBU) 07-14 ity of tablet 600 20:30: 19:26 [place] mg 00 :00 Medical Branch ibuprofen 2018- No 600mg 600 mg, Uni vers (IBU) 07-14 Oral, ity of tablet 600 20:30: 19:26 ONCE, 1 [place] as mg 00 :00 dose, [facility] 07/14/19 at Branch 1530, Routine levonorgest 2019- No 1{devic 1 Device, Univers rel 07-14 e} Intrauteri ity of (MIRENA) 20:30: 19:27 ne, ONCE, Dilan as IUD 1 00 :00 1 dose, Entry Level Programmer [facility] 07/14/19 at 1530, Routine levonorgest 2018- 2019- No 1{devic Un kristopher rel 07-14 e} ity of (MIRENA) 20:30: 19:27 [place] IUD 1 00 :00 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 ibuprofen 2018- No 600mg Univer s (IBU) 07-14 ity of tablet 600 20:30: 19:26 [place] mg 00 :00 Medical Branch ibuprofen 2019- No 600mg 600 mg, Uni vers (IBU) 07-14 Oral, ity of tablet 600 20:30: 19:26 ONCE, 1 Dilan as mg 00 :00 dose, [facility] 07/14/19 at Branch 1530, Routine levonorgest 2019- No 1{devic 1 Device, Univers rel 07-14 e} Intrauteri ity of (MIRENA) 20:30: 19:27 ne, ONCE, Dilan as IUD 1 00 :00 1 dose, Entry Level Programmer [facility] 07/14/19 at 1530, Routine levonorgest 2019- No 1{devic Un kristopher rel 07-14 e} ity of (MIRENA) 20:30: 19:27 [place] IUD 1 00 :00 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 ibuprofen 2019- No 600mg Univer s (IBU) 07-14 ity of tablet 600 20:30: 19:26 [place] mg 00 :00 Medical Branch ibuprofen 2018- No 600mg 600 mg, Uni vers (IBU) 07-14 Oral, ity of tablet 600 20:30: 19:26 ONCE, 1 Dilan as mg 00 :00 dose, Fri [facility] 07/14/19 at Branch 1530, Routine levonorgest 2019- No 1{devic 1 Device, Univers rel 07-14 e} Intrauteri ity of (MIRENA) 20:30: 19:27 ne, ONCE, Dilan as IUD 1 00 :00 1 dose, Entry Level Programmer [facility] 07/14/19 at 1530, Routine metroNIDAZO 2019- No [id number] 500mg Take 1 Univers LE (FLAGYL) 07-14 tablet by it y of 500 mg 00:00: 04:59 mouth 2 [place] tablet 00 :00 (two) Medical times Branch daily for 7 days. metroNIDAZO 2019- No [id number] 500mg Take 1 Univers LE (FLAGYL) 07-14 tablet by it y of 500 mg 00:00: 04:59 mouth 2 [place] tablet 00 :00 (two) Medical times Branch daily for 7 days. metroNIDAZO 2019- No [id number] 500mg Take 1 Univers LE (FLAGYL) 8-16 08-24 tablet by it y of 500 mg 00:00: 04:59 mouth 2 [place] tablet 00 :00 (two) Medical times [place] daily for 7 days. metroNIDAZO 2019- No [id number] 500mg Take 1 Univers LE (FLAGYL) 8 0824 tablet by it y of 500 mg 00:00: 04:59 mouth 2 [place] tablet 00 :00 (two) Medical [facility] daily for 7 days. No known No Univers medications ity [facility] No known No Univers medications ity [facility] No known No Univers medications ity [facility] No known No Univers medications ity [facility] No known No Univers medications ity [facility] No known No Univers medications ity [facility] No known No Univers medications [facility] No known No Univers medications [facility] Immunizations Ordered Immunization Filled Immunization Date Status Commen ts Source Name Name [facility] 2018-06-27 Completed University of 00:00:00 [facility] 2018-06-27 Completed University of 00:00:00 [facility] 2018-06-27 Completed University of 00:00:00 [facility] 2018-06-27 Completed University of 00:00:00 [facility] 2018-06-27 Completed University of 00:00:00 [facility] 2018-06-27 Completed University of 00:00:00 [facility] 2018-06-27 Completed University of 00:00:00 [facility] 2018-06-27 Completed University of 00:00:00 [facility] 2018-06-27 Completed University of 00:00:00 [facility] 2018-06-27 Completed University of 00:00:00 [facility] 2018-06-27 Completed University of 00:00:00 [facility] 2018-06-27 Completed University of 00:00:00 [facility] 2018-06-27 Completed University of 00:00:00 [facility] 2018-06-27 Completed University of 00:00:00 [facility] 2018-06-27 Completed University of 00:00:00 [facility] 2018-06-27 Completed University of 00:00:00 [facility] 2018-06-27 Completed University of 00:00:00 [facility] 2018-06-27 Completed University of 00:00:00 [place] [facility] HPV9 2018-06-27 Completed University of 00:00:00 [place] [facility] HPV9 2018-06-27 Completed University of 00:00:00 [place] [facility] HPV9 2018-06-27 Completed University of 00:00:00 [place] [facility] HPV9 2018-06-27 Completed University of 00:00:00 [place] [facility] HPV9 2018-06-27 Completed University of 00:00:00 [place] [facility] HPV9 2018-02-11 Completed University of 00:00:00 [place] [facility] Meningococcal B, OMV 2018-02-11 Completed Univ ersity of 00:00:00 [place] [facility] HPV9 2018-02-11 Completed University of 00:00:00 [place] [facility] Meningococcal B, OMV 2018-02-11 Completed Univ ersity of 00:00:00 [place] [facility] HPV9 2018-02-11 Completed University of 00:00:00 [place] [facility] Meningococcal B, OMV 2018-02-11 Completed Univ ersity of 00:00:00 [place] [facility] HPV9 2018-02-11 Completed University of 00:00:00 [place] [facility] Meningococcal B, OMV 2018-02-11 Completed Univ ersity of 00:00:00 [place] [facility] HPV9 2018-02-11 Completed University of 00:00:00 [place] [facility] Meningococcal B, OMV 2018-02-11 Completed Univ ersity of 00:00:00 [place] [facility] HPV9 2018-02-11 Completed University of 00:00:00 [place] [facility] Meningococcal B, OMV 2018-02-11 Completed Univ ersity of 00:00:00 [place] [facility] HPV9 2018-02-11 Completed University of 00:00:00 [place] [facility] Meningococcal B, OMV 2018-02-11 Completed Univ ersity of 00:00:00 [place] [facility] HPV9 2018-02-11 Completed University of 00:00:00 [place] [facility] Meningococcal B, OMV 2018-02-11 Completed Univ ersity of 00:00:00 [place] [facility] HPV9 2018-02-11 Completed University of 00:00:00 [place] [facility] Meningococcal B, OMV 2018-02-11 Completed Univ ersity of 00:00:00 [place] [facility] HPV9 2018-02-11 Completed University of [...] OMV 2018-02-11 Completed Univ ersity of 00:00:00 [place] [facility] HPV9 2018-02-11 Completed University of 00:00:00 [place] [facility] Meningococcal B, OMV 2018-02-11 Completed Univ ersity of 00:00:00 [place] [facility] HPV9 2018-02-11 Completed University of 00:00:00 [place] [facility] Meningococcal B, OMV 2018-02-11 Completed Univ ersity of 00:00:00 [place] [facility] HPV9 2018-02-11 Completed University of 00:00:00 [place] [facility] Meningococcal B, OMV 2018-02-11 Completed Univ ersity of 00:00:00 [place] [facility] HPV9 2018-02-11 Completed University of 00:00:00 [facility] Branch Meningococcal B, OMV 2018-02-11 Completed Univ ersity of 00:00:00 [facility] Branch HPV9 2018-02-11 Completed University of 00:00:00 [facility] Branch Meningococcal B, OMV 2018-02-11 Completed Univ ersity of 00:00:00 [place] [facility] HPV9 2018-02-11 Completed University of 00:00:00 [place] [facility] Meningococcal B, OMV 2018-02-11 Completed Univ ersity of 00:00:00 [place] [facility] HPV9 2018-02-11 Completed University of 00:00:00 [place] [facility] Meningococcal B, OMV 2018-02-11 Completed Univ ersity of 00:00:00 [place] [facility] HPV9 2018-02-11 Completed University of 00:00:00 [place] [facility] Meningococcal B, OMV 2018-02-11 Completed Univ ersity of 00:00:00 [place] [facility] HPV9 2018-02-11 Completed University of 00:00:00 [facility] Meningococcal B, OMV 2018-02-11 Completed Univ ersity of 00:00:00 [facility] Branch HPV9 2018-02-11 Completed University of 00:00:00 [facility] Branch Meningococcal B, OMV 2018-02-11 Completed Univ ersity of 00:00:00 [facility] Meningococcal 2017-06-10 Completed University of Polysaccharide 00:00:00 [place] Medi andrew (groups A, C, Y and Branc h W-135) conjugate vaccine (MCV4P) Meningococcal B, OMV 2017-06-10 Completed Univ ersity of 00:00:00 [facility] Branch HPV9 2017-06-10 Completed University of 00:00:00 [facility] Meningococcal 2017-06-10 Completed University of Polysaccharide 00:00:00 [place] Medi andrew (groups A, C, Y and Branc h W-135) conjugate vaccine (MCV4P) Meningococcal B, OMV 2017-06-10 Completed Univ ersity of 00:00:00 [facility] HPV9 2017-06-10 Completed University of 00:00:00 [facility] Meningococcal 2017-06-10 Completed University of Polysaccharide 00:00:00 [place] Medi andrew (groups A, C, Y and Branc h W-135) conjugate vaccine (MCV4P) Meningococcal B, OMV 2017-06-10 Completed Univ ersity of 00:00:00 [facility] HPV9 2017-06-10 Completed University of 00:00:00 [facility] Meningococcal 2017-06-10 Completed University of Polysaccharide 00:00:00 [place] Medi andrew (groups A, C, Y and Branc h W-135) conjugate vaccine (MCV4P) Meningococcal B, OMV 2017-06-10 Completed Univ ersity of 00:00:00 [facility] Branch HPV9 2017-06-10 Completed University of 00:00:00 [facility] Meningococcal 2017-06-10 Completed University of Polysaccharide 00:00:00 [place] Medi andrew (groups A, C, Y and Branc h W-135) conjugate vaccine (MCV4P) Meningococcal B, OMV 2017-06-10 Completed Univ ersity of 00:00:00 [facility] Branch HPV9 2017-06-10 Completed University of 00:00:00 [facility] Meningococcal 2017-06-10 Completed University of Polysaccharide 00:00:00 [place] Medi andrew (groups A, C, Y and Branc h W-135) conjugate vaccine (MCV4P) Meningococcal B, OMV 2017-06-10 Completed Univ ersity of 00:00:00 [facility] HPV9 2017-06-10 Completed University of 00:00:00 [facility] Meningococcal 2017-06-10 Completed University of Polysaccharide 00:00:00 [place] Medi andrew (groups A, C, Y and Branc h W-135) conjugate vaccine (MCV4P) Meningococcal B, OMV 2017-06-10 Completed Univ ersity of 00:00:00 [facility] Branch HPV9 2017-06-10 Completed University of 00:00:00 [facility] Meningococcal 2017-06-10 Completed University of Polysaccharide 00:00:00 [place] Medi andrew (groups A, C, Y and Branc h W-135) conjugate vaccine (MCV4P) Meningococcal B, OMV 2017-06-10 Completed Univ ersity of 00:00:00 [facility] HPV9 2017-06-10 Completed University of 00:00:00 [facility] Meningococcal 2017-06-10 Completed University of Polysaccharide 00:00:00 [place] Medi andrew (groups A, C, Y and Branc h W-135) conjugate vaccine (MCV4P) Meningococcal B, OMV 2017-06-10 Completed Univ ersity of 00:00:00 [facility] HPV9 2017-06-10 Completed University of 00:00:00 [facility] Meningococcal 2017-06-10 Completed University of Polysaccharide 00:00:00 [place] Medi andrew (groups A, C, Y and Branc h W-135) conjugate vaccine (MCV4P) Meningococcal B, OMV 2017-06-10 Completed Univ ersity of 00:00:00 [facility] HPV9 2017-06-10 Completed University of 00:00:00 [facility] Meningococcal 2017-06-10 Completed University of Polysaccharide 00:00:00 [place] Medi andrew (groups A, C, Y and Branc h W-135) conjugate vaccine (MCV4P) Meningococcal B, OMV 2017-06-10 Completed Univ ersity of 00:00:00 [facility] HPV9 2017-06-10 Completed University of 00:00:00 [facility] Meningococcal 2017-06-10 Completed University of Polysaccharide 00:00:00 [place] Medi andrew (groups A, C, Y and Branc h W-135) conjugate vaccine (MCV4P) Meningococcal B, OMV 2017-06-10 Completed Univ ersity of 00:00:00 [facility] HPV9 2017-06-10 Completed University of 00:00:00 [facility] Meningococcal 2017-06-10 Completed University of Polysaccharide 00:00:00 [place] Medi andrew (groups A, C, Y and Branc h W-135) conjugate vaccine (MCV4P) Meningococcal B, OMV 2017-06-10 Completed Univ ersity of 00:00:00 [facility] Branch HPV9 2017-06-10 Completed University of 00:00:00 [facility] Meningococcal 2017-06-10 Completed University of Polysaccharide 00:00:00 [place] Medi andrew (groups A, C, Y and Branc h W-135) conjugate vaccine (MCV4P) Meningococcal B, OMV 2017-06-10 Completed Univ ersity of 00:00:00 [facility] HPV9 2017-06-10 Completed University of 00:00:00 [facility] Meningococcal 2017-06-10 Completed University of Polysaccharide 00:00:00 [place] Medi andrew (groups A, C, Y and Branc h W-135) conjugate vaccine (MCV4P) Meningococcal B, OMV 2017-06-10 Completed Univ ersity of 00:00:00 [facility] HPV9 2017-06-10 Completed University of 00:00:00 [facility] Meningococcal 2017-06-10 Completed University of Polysaccharide 00:00:00 [place] Medi andrew (groups A, C, Y and Branc h W-135) conjugate vaccine (MCV4P) Meningococcal B, OMV 2017-06-10 Completed Univ ersity of 00:00:00 [facility] HPV9 2017-06-10 Completed University of 00:00:00 [facility] Meningococcal 2017-06-10 Completed University of Polysaccharide 00:00:00 [place] Medi andrew (groups A, C, Y and Branc h W-135) conjugate vaccine (MCV4P) Meningococcal B, OMV 2017-06-10 Completed Univ ersity of 00:00:00 [facility] HPV9 2017-06-10 Completed University of 00:00:00 [facility] Meningococcal 2017-06-10 Completed University of Polysaccharide 00:00:00 [place] Medi andrew (groups A, C, Y and Branc h W-135) conjugate vaccine (MCV4P) Meningococcal B, OMV 2017-06-10 Completed Univ ersity of 00:00:00 [facility] HPV9 2017-06-10 Completed University of 00:00:00 [facility] Branch Meningococcal 2017-06-10 Completed University of Polysaccharide 00:00:00 [place] Medi andrew (groups A, C, Y and Branc h W-135) conjugate vaccine (MCV4P) Meningococcal B, OMV 2017-06-10 Completed Univ ersity of 00:00:00 [facility] Branch HPV9 2017-06-10 Completed University of 00:00:00 [facility] Meningococcal 2017-06-10 Completed University of Polysaccharide 00:00:00 [place] Medi andrew (groups A, C, Y and Branc h W-135) conjugate vaccine (MCV4P) Meningococcal B, OMV 2017-06-10 Completed Univ ersity of 00:00:00 [facility] HPV9 2017-06-10 Completed University of 00:00:00 [facility] Meningococcal 2017-06-10 Completed University of Polysaccharide 00:00:00 [place] Medi andrew (groups A, C, Y and Branc h W-135) conjugate vaccine (MCV4P) Meningococcal B, OMV 2017-06-10 Completed [facility] 00:00:00 [facility] HPV9 2017-06-10 Completed [facility] 00:00:00 [facility] Meningococcal 2017-06-10 Completed [facility] Polysaccharide 00:00:00 [facility] (groups A, C, Y and Branc h W-135) conjugate vaccine (MCV4P) Meningococcal B, OMV 2017-06-10 Completed [facility] 00:00:00 [facility] HPV9 2017-06-10 Completed [facility] 00:00:00 [facility] Meningococcal 2017-06-10 Completed [facility] Polysaccharide 00:00:00 [facility] (groups A, C, Y and Branc h W-135) conjugate vaccine (MCV4P) Meningococcal B, OMV 2017-06-10 Completed [facility] 00:00:00 [facility] HPV9 2017-06-10 Completed [facility] 00:00:00 [facility] HEPATITIS A 2013-03-29 Completed [facility] of 00:00:00 [facility] HEPATITIS A 2013-03-29 Completed [facility] 00:00:00 [facility] HEPATITIS A 2013-03-29 Completed [facility] 00:00:00 [facility] HEPATITIS A 2013-03-29 Completed [facility] 00:00:00 [facility] HEPATITIS A 2013-03-29 Completed [facility] 00:00:00 [facility] HEPATITIS A 2013-03-29 Completed [facility] 00:00:00 [facility] HEPATITIS A 2013-03-29 Completed [facility] of 00:00:00 [facility] HEPATITIS A 2013-03-29 Completed [facility] 00:00:00 [facility] HEPATITIS A 2013-03-29 Completed [facility] 00:00:00 [facility] HEPATITIS A 2013-03-29 Completed [facility] 00:00:00 [facility] HEPATITIS A 2013-03-29 Completed [facility] 00:00:00 [facility] HEPATITIS A 2013-03-29 Completed [facility] 00:00:00 [facility] HEPATITIS A 2013-03-29 Completed [facility] 00:00:00 [facility] HEPATITIS A 2013-03-29 Completed [facility] 00:00:00 [facility] HEPATITIS A 2013-03-29 Completed [facility] 00:00:00 [facility] HEPATITIS A 2013-03-29 Completed [facility] 00:00:00 [facility] HEPATITIS A 2013-03-29 Completed [facility] 00:00:00 [facility] HEPATITIS A 2013-03-29 Completed [facility] 00:00:00 [facility] HEPATITIS A 2013-03-29 Completed [facility] 00:00:00 [facility] HEPATITIS A 2013-03-29 Completed [facility] 00:00:00 [facility] HEPATITIS A 2013-03-29 Completed [facility] 00:00:00 [facility] HEPATITIS A 2013-03-29 Completed [facility] 00:00:00 [facility] HEPATITIS A 2013-03-29 Completed [facility] of 00:00:00 [facility] Tdap 2012-06-16 Completed [facility] 00:00:00 [facility] Meningococcal 2012-06-16 Completed [facility] Polysaccharide 00:00:00 [facility] (groups A, C, Y and Branc h W-135) conjugate vaccine (MCV4P) Varicella 2012-06-16 Completed [facility] (varivax)(chicken 00:00:00 [facility] HEPATITIS A 2012-06-16 Completed [facility] 00:00:00 [facility] Tdap 2012-06-16 Completed [facility] 00:00:00 [facility] Meningococcal 2012-06-16 Completed [facility] Polysaccharide 00:00:00 [facility] (groups A, C, Y and Branc h W-135) conjugate vaccine (MCV4P) Varicella 2012-06-16 Completed [facility] (varivax)(chicken 00:00:00 [facility] pox) [facility] HEPATITIS A 2012-06-16 Completed [facility] 00:00:00 [facility] Tdap 2012-06-16 Completed [facility] 00:00:00 [facility] Meningococcal 2012-06-16 Completed [facility] Polysaccharide 00:00:00 [facility] (groups A, C, Y and Branc h W-135) conjugate vaccine (MCV4P) Varicella 2012-06-16 Completed [facility] (varivax)(chicken 00:00:00 [facility] pox) [facility] HEPATITIS A 2012-06-16 Completed [facility] 00:00:00 [facility] Tdap 2012-06-16 Completed [facility] of 00:00:00 [facility] Meningococcal 2012-06-16 Completed [facility] Polysaccharide 00:00:00 [facility] (groups A, C, Y and Branc h W-135) conjugate vaccine (MCV4P) Varicella 2012-06-16 Completed [facility] (varivax)(chicken 00:00:00 [facility] pox) [facility] HEPATITIS A 2012-06-16 Completed [facility] of 00:00:00 [facility] Tdap 2012-06-16 Completed [facility] of 00:00:00 [facility] Meningococcal 2012-06-16 Completed [facility] Polysaccharide 00:00:00 [facility] (groups A, C, Y and Branc h W-135) conjugate vaccine (MCV4P) Varicella 2012-06-16 Completed [facility] (varivax)(chicken 00:00:00 [facility] pox) [facility] HEPATITIS A 2012-06-16 Completed [facility] 00:00:00 [facility] Tdap 2012-06-16 Completed [facility] 00:00:00 [facility] Meningococcal 2012-06-16 Completed [facility] Polysaccharide 00:00:00 [facility] (groups A, C, Y and Branc h W-135) conjugate vaccine (MCV4P) Varicella 2012-06-16 Completed [facility] (varivax)(chicken 00:00:00 [facility] pox) [facility] HEPATITIS A 2012-06-16 Completed [facility] of 00:00:00 [facility] Tdap 2012-06-16 Completed [facility] 00:00:00 [facility] Meningococcal 2012-06-16 Completed [facility] Polysaccharide 00:00:00 [facility] (groups A, C, Y and Branc h W-135) conjugate vaccine (MCV4P) Varicella 2012-06-16 Completed [facility] (varivax)(chicken 00:00:00 [facility] pox) [facility] HEPATITIS A 2012-06-16 Completed [facility] of 00:00:00 [facility] Tdap 2012-06-16 Completed [facility] 00:00:00 [facility] Meningococcal 2012-06-16 Completed [facility] Polysaccharide 00:00:00 [facility] (groups A, C, Y and Branc h W-135) conjugate vaccine (MCV4P) Varicella 2012-06-16 Completed [facility] (varivax)(chicken 00:00:00 [facility] pox) [facility] HEPATITIS A 2012-06-16 Completed [facility] 00:00:00 [facility] TDAP 2012-06-16 Completed [facility] 00:00:00 [facility] Meningococcal 2012-06-16 Completed [facility] Polysaccharide 00:00:00 [facility] (groups A, C, Y and Branc h W-135) conjugate vaccine (MCV4P) Varicella 2012-06-16 Completed [facility] (varivax)(chicken 00:00:00 [facility] pox) [facility] HEPATITIS A 2012-06-16 Completed [facility] of 00:00:00 [facility] TDAP 2012-06-16 Completed [facility] 00:00:00 [facility] Meningococcal 2012-06-16 Completed [facility] Polysaccharide 00:00:00 [facility] (groups A, C, Y and Branc h W-135) conjugate vaccine (MCV4P) Varicella 2012-06-16 Completed [facility] (varivax)(chicken 00:00:00 [facility] pox) [facility] HEPATITIS A 2012-06-16 Completed [facility] 00:00:00 [facility] TDAP 2012-06-16 Completed [facility] of 00:00:00 [facility] Meningococcal 2012-06-16 Completed [facility] Polysaccharide 00:00:00 [facility] (groups A, C, Y and Branc h W-135) conjugate vaccine (MCV4P) Varicella 2012-06-16 Completed [facility] (varivax)(chicken 00:00:00 [facility] pox) [facility] HEPATITIS A 2012-06-16 Completed [facility] of 00:00:00 [facility] TDAP 2012-06-16 Completed [facility] 00:00:00 [facility] Meningococcal 2012-06-16 Completed [facility] Polysaccharide 00:00:00 [facility] (groups A, C, Y and Branc h W-135) conjugate vaccine (MCV4P) Varicella 2012-06-16 Completed [facility] (varivax)(chicken 00:00:00 [facility] pox) [facility] HEPATITIS A 2012-06-16 Completed [facility] of 00:00:00 [facility] TDAP 2012-06-16 Completed [facility] 00:00:00 [facility] Meningococcal 2012-06-16 Completed [facility] Polysaccharide 00:00:00 [facility] (groups A, C, Y and Branc h W-135) conjugate vaccine (MCV4P) Varicella 2012-06-16 Completed [facility] (varivax)(chicken 00:00:00 [facility] pox) [facility] HEPATITIS A 2012-06-16 Completed [facility] of 00:00:00 [facility] TDAP 2012-06-16 Completed [facility] 00:00:00 [facility] Meningococcal 2012-06-16 Completed [facility] Polysaccharide 00:00:00 [facility] (groups A, C, Y and Branc h W-135) conjugate vaccine (MCV4P) Varicella 2012-06-16 Completed [facility] (varivax)(chicken 00:00:00 [facility] pox) [facility] HEPATITIS A 2012-06-16 Completed [facility] 00:00:00 [facility] TDAP 2012-06-16 Completed [facility] 00:00:00 [facility] Meningococcal 2012-06-16 Completed [facility] Polysaccharide 00:00:00 [facility] (groups A, C, Y and Branc h W-135) conjugate vaccine (MCV4P) Varicella 2012-06-16 Completed [facility] (varivax)(chicken 00:00:00 [facility] pox) [facility] HEPATITIS A 2012-06-16 Completed [facility] 00:00:00 [facility] TDAP 2012-06-16 Completed [facility] 00:00:00 [facility] Meningococcal 2012-06-16 Completed [facility] Polysaccharide 00:00:00 [facility] (groups A, C, Y and Branc h W-135) conjugate vaccine (MCV4P) Varicella 2012-06-16 Completed [facility] (varivax)(chicken 00:00:00 [facility] pox) [facility] HEPATITIS A 2012-06-16 Completed [facility] 00:00:00 [facility] TDAP 2012-06-16 Completed [facility] 00:00:00 [facility] Meningococcal 2012-06-16 Completed [facility] Polysaccharide 00:00:00 [facility] (groups A, C, Y and Branc h W-135) conjugate vaccine (MCV4P) Varicella 2012-06-16 Completed [facility] (varivax)(chicken 00:00:00 [facility] pox) [facility] HEPATITIS A 2012-06-16 Completed [facility] 00:00:00 [facility] TDAP 2012-06-16 Completed [facility] 00:00:00 [facility] Meningococcal 2012-06-16 Completed [facility] Polysaccharide 00:00:00 [facility] (groups A, C, Y and Branc h W-135) conjugate vaccine (MCV4P) Varicella 2012-06-16 Completed [facility] (varivax)(chicken 00:00:00 [facility] pox) [facility] HEPATITIS A 2012-06-16 Completed [facility] 00:00:00 [facility] TDAP 2012-06-16 Completed [facility] 00:00:00 [facility] Meningococcal 2012-06-16 Completed [facility] Polysaccharide 00:00:00 [facility] (groups A, C, Y and Branc h W-135) conjugate vaccine (MCV4P) Varicella 2012-06-16 Completed [facility] (varivax)(chicken 00:00:00 [facility] pox) [facility] HEPATITIS A 2012-06-16 Completed [facility] 00:00:00 [facility] TDAP 2012-06-16 Completed [facility] 00:00:00 [facility] Meningococcal 2012-06-16 Completed [facility] Polysaccharide 00:00:00 [facility] (groups A, C, Y and Branc h W-135) conjugate vaccine (MCV4P) Varicella 2012-06-16 Completed [facility] (varivax)(chicken 00:00:00 [facility] pox) [facility] HEPATITIS A 2012-06-16 Completed [facility] 00:00:00 [facility] TDAP 2012-06-16 Completed [facility] 00:00:00 [facility] Meningococcal 2012-06-16 Completed [facility] Polysaccharide 00:00:00 [facility] (groups A, C, Y and Branc h W-135) conjugate vaccine (MCV4P) Varicella 2012-06-16 Completed [facility] (varivax)(chicken 00:00:00 [facility] pox) [facility] HEPATITIS A 2012-06-16 Completed [facility] 00:00:00 [facility] TDAP 2012-06-16 Completed [facility] 00:00:00 [facility] Meningococcal 2012-06-16 Completed [facility] Polysaccharide 00:00:00 [facility] (groups A, C, Y and Branc h W-135) conjugate vaccine (MCV4P) Varicella 2012-06-16 Completed [facility] (varivax)(chicken 00:00:00 [facility] pox) [facility] HEPATITIS A 2012-06-16 Completed [facility] 00:00:00 [facility] Tdap 2012-06-16 Completed [facility] of 00:00:00 [facility] Meningococcal 2012-06-16 Completed [facility] of Polysaccharide 00:00:00 [facility] andrew (groups A, C, Y and Branc h W-135) conjugate vaccine (MCV4P) Varicella 2012-06-16 Completed [facility] (varivax)(chicken 00:00:00 [facility]ox[facility] HEPATITIS A 2012-06-16 Completed [facility] of 00:00:00 [facility] DTAP 2005-09-28 Completed [facility] of 00:00:00 [facility] DTAP 2005-09-28 Completed [facility] 00:00:00 [facility] DTAP 2005-09-28 Completed [facility] of 00:00:00 [facility] DTAP 2005-09-28 Completed [facility] of 00:00:00 [facility] DTAP 2005-09-28 Completed [facility] 00:00:00 [facility] DTAP 2005-09-28 Completed [facility] of 00:00:00 [facility] DTAP 2005-09-28 Completed [facility] 00:00:00 [facility] DTAP 2005-09-28 Completed [facility] 00:00:00 [facility] DTAP 2005-09-28 Completed [facility] of 00:00:00 [facility] DTAP 2005-09-28 Completed [facility] of 00:00:00 [facility] DTAP 2005-09-28 Completed [facility] of 00:00:00 [facility] DTAP 2005-09-28 Completed [facility] of 00:00:00 [facility] DTAP 2005-09-28 Completed [facility] 00:00:00 [facility] DTAP 2005-09-28 Completed [facility] 00:00:00 [facility] DTAP 2005-09-28 Completed [facility] 00:00:00 [facility] DTAP 2005-09-28 Completed [facility] 00:00:00 [facility] DTAP 2005-09-28 Completed [facility] 00:00:00 [facility] DTAP 2005-09-28 Completed [facility] 00:00:00 [facility] DTAP 2005-09-28 Completed [facility] 00:00:00 [facility] DTAP 2005-09-28 Completed [facility] 00:00:00 [facility] DTAP 2005-09-28 Completed [facility] 00:00:00 [facility] DTAP 2005-09-28 Completed [facility] 00:00:00 [facility] DTAP 2005-09-28 Completed [facility] 00:00:00 [facility] Hep B, Adol or Pedi [...] 2004-07-08 Completed Unive rsity of Dosage 00:00:00 [facility] Hep B, Adol or Pedi 2004-07-08 Completed Unive rsity of Dosage 00:00:00 [facility] Hep B, Adol or Pedi 2004-07-08 Completed Unive rsity of Dosage 00:00:00 [facility] Hep B, Adol or Pedi 2004-07-08 Completed [facility]ive rsity of Dosage 00:00:00 [facility] DTAP 2004-05-28 Completed [facility] of 00:00:00 [facility] Polio (IPV/OPV) 2004-05-28 Completed [facility] 00:00:00 [facility] DTAP 2004-05-28 Completed [facility] 00:00:00 [facility] Polio (IPV/OPV) 2004-05-28 [facility]00 [facility] Polio (IPV/OPV) 2004-05-28 Completed [facility] y [facility] 00:00:00 [facility] DTAP 2004-05-28 Completed [facility] 00:00:00 [facility] Polio (IPV/OPV) 2004-05-28 Completed [facility] y of 00:00:00 [facility] DTAP 2004-05-28 Completed [facility] of 00:00:00 [facility] Polio (IPV/OPV) 2004-05-28 Completed [facility] y of 00:00:00 [facility] DTAP 2004-05-28 Completed [facility] 00:00:00 [facility] Polio (IPV/OPV) 2004-05-28 Completed [facility] y of 00:00:00 [facility] DTAP 2004-05-28 Completed [facility] 00:00:00 [facility] Polio (IPV/OPV) 2004-05-28 Completed [facility] of 00:00:00 [facility] DTAP 2004-05-28 Completed [facility] 00:00:00 [facility] Polio (IPV/OPV) 2004-05-28 Completed [facility] y of 00:00:00 [facility] DTAP 2004-05-28 Completed [facility] 00:00:00 [facility] DTAP 2004-05-28 Completed [facility] 00:00:00 [facility] Polio (IPV/OPV) 2004-05-28 Completed [facility] y [facility] 00:00:00 [facility] DTAP 2004-05-28 Completed [facility] 00:00:00 [facility] Polio (IPV/OPV) 2004-05-28 Completed [facility] y of 00:00:00 [facility] Polio (IPV/OPV) 2004-05-28 Completed [facility] of 00:00:00 [facility] DTAP 2004-05-28 Completed [facility] 00:00:00 [facility] Polio (IPV/OPV) 2004-05-28 Completed [facility] of 00:00:00 [facility] DTAP 2004-05-28 Completed [facility] 00:00:00 [facility] Polio (IPV/OPV) 2004-05-28 [facility] 00:[facility]:00 [facility] Polio (IPV/OPV) 2004-05-28 Completed [facility] 00:00:00 [facility] DTAP 2004-05-28 Completed [facility] 00:00:00 [facility] Polio (IPV/OPV) 2004-05-28 Completed [facility] 00:00:00 [facility] Polio (IPV/OPV) 2004-05-28 Completed [facility] 00:00:00 [facility] Polio (IPV/OPV) 2004-05-28 Completed [facility] 00:00:00 [facility] DTAP 2004-05-28 Completed [facility] of 00:00:00 [facility] Polio (IPV/OPV) 2004-05-28 Completed [facility] 00:00:00 [facility] DTAP 2004-05-28 Completed [facility] 00:00:00 [facility] Polio (IPV/OPV) 2004-05-28 Com[facility] 00:00:00 [facility] Polio (IPV/OPV) 2004-05-28 Completed [facility] of 00:00:00 [facility] DTAP 2004-05-28 Completed [facility] 00:00:00 [facility] DTAP 2004-05-28 Completed [facility] 00:00:00 [facility] Polio (IPV/OPV) 2004-05-28 Completed [facility] 00:00:00 [facility] Polio (IPV/OPV) 2004-05-28 Completed [facility] 00:00:00 [facility] DTAP 2004-05-28 Completed [facility] of 00:00:00 [facility] Polio (IPV/OPV) 2004-05-28 Completed [facility] 00:00:00 [facility] DTAP 2004-01-21 Completed [facility] 00:00:00 [facility] HIB 4 Dose Schedule 2004-01-21 Completed [facility] rsity of 00:00:00 [facility] MMR 2004-01-21 Completed [facility] 00:00:00 [facility] Polio (IPV/OPV) 2004-01-21 Completed [facility] 00:00:00 [facility] DTAP 2004-01-21 Completed [facility] 00:00:00 [facility] HIB 4 Dose Schedule 2004-01-21 Completed [facility]ive rsity of 00:00:00 [facility] MMR 2004-01-21 Completed [facility] 00:00:00 [facility] Polio (IPV/OPV) 2004-01-21 Completed [facility] 00:00:00 [facility] DTAP 2004-01-21 Completed [facility] 00:00:00 [facility] HIB 4 Dose Schedule 2004-01-21 Completed [facility]ive rsity of 00:00:00 [facility] MMR 2004-01-21 Completed [facility] 00:00:00 [facility] Polio (IPV/OPV) 2004-01-21 Completed [facility] 00:00:00 [facility] DTAP 2004-01-21 Completed [facility] 00:00:00 [facility] HIB 4 Dose Schedule 2004-01-21 Completed [facility]ive rsity of 00:00:00 [facility] MMR 2004-01-21 Completed [facility] 00:00:00 [facility] Polio (IPV/OPV) 2004-01-21 Completed [facility] 00:00:00 [facility] DTAP 2004-01-21 Completed [facility] 00:00:00 [facility] HIB 4 Dose Schedule 2004-01-21 Completed [facility] rsity of 00:00:00 [facility] MMR 2004-01-21 Completed [facility] 00:00:00 [facility] Polio (IPV/OPV) 2004-01-21 Completed [facility] 00:00:00 [facility] DTAP 2004-01-21 Completed [facility] 00:00:00 [facility] HIB 4 Dose Schedule 2004-01-21 Completed [facility] rsity of 00:00:00 [facility] MMR 2004-01-21 Completed [facility] 00:00:00 [facility] Polio (IPV/OPV) 2004-01-21 Completed [facility] 00:00:00 [facility] DTAP 2004-01-21 Completed [facility] 00:00:00 [facility] HIB 4 Dose Schedule 2004-01-21 Completed [facility] rsity of 00:00:00 [facility] MMR 2004-01-21 Completed [facility] 00:00:00 [facility] Polio (IPV/OPV) 2004-01-21 Completed [facility] 00:00:00 [facility] DTAP 2004-01-21 Completed [facility] 00:00:00 [facility] HIB 4 Dose Schedule 2004-01-21 Completed [facility] rsity of 00:00:00 [facility] MMR 2004-01-21 Completed [facility] 00:00:00 [facility] Polio (IPV/OPV) 2004-01-21 Completed [facility] 00:00:00 [facility] DTAP 2004-01-21 Completed [facility] 00:00:00 [facility] DTAP 2004-01-21 Completed [facility] 00:00:00 [facility] HIB 4 Dose Schedule 2004-01-21 Completed [facility] rsity of 00:00:00 [facility] MMR 2004-01-21 Completed [facility] 00:00:00 [facility] Polio (IPV/OPV) 2004-01-21 Completed [facility] 00:00:00 [facility] HIB 4 Dose Schedule 2004-01-21 Completed [facility] rsity of 00:00:00 [facility] MMR 2004-01-21 Completed [facility] 00:00:00 [facility] DTAP 2004-01-21 Completed [facility] 00:00:00 [facility] HIB 4 Dose Schedule 2004-01-21 Completed [facility] rsity of 00:00:00 [facility] MMR 2004-01-21 Completed [facility] 00:00:00 [facility] Polio (IPV/OPV) 2004-01-21 Completed [facility] 00:00:00 [facility] Polio (IPV/OPV) 2004-01-21 Completed [facility] 00:00:00 [facility] DTAP 2004-01-21 Completed [facility] 00:00:00 [facility] HIB 4 Dose Schedule 2004-01-21 Completed [facility] rsity of 00:00:00 [facility] MMR 2004-01-21 Completed [facility] 00:00:00 [facility] Polio (IPV/OPV) 2004-01-21 Completed [facility] 00:00:00 [facility] DTAP 2004-01-21 Completed [facility] 00:00:00 [facility] HIB 4 Dose Schedule 2004-01-21 Completed [facility] rsity of 00:00:00 [facility] MMR 2004-01-21 Completed [facility] 00:00:00 [facility] Polio (IPV/OPV) 2004-01-21 Completed [facility] 00:00:00 [facility] DTAP 2004-01-21 Completed [facility] 00:00:00 [facility] HIB 4 Dose Schedule 2004-01-21 Completed [facility] rsity of 00:00:00 [facility] MMR 2004-01-21 Completed [facility] 00:00:00 [facility] Polio (IPV/OPV) 2004-01-21 Completed [facility] 00:00:00 [facility] DTAP 2004-01-21 Completed [facility] 00:00:00 [facility] HIB 4 Dose Schedule 2004-01-21 Completed [facility] rsity of 00:00:00 [facility] MMR 2004-01-21 Completed [facility] 00:00:00 [facility] Polio (IPV/OPV) 2004-01-21 Completed [facility] 00:00:00 [facility] DTAP 2004-01-21 Completed [facility] 00:00:00 [facility] HIB 4 Dose Schedule 2004-01-21 Completed [facility] rsity of 00:00:00 [facility] MMR 2004-01-21 Completed [facility] 00:00:00 [facility] Polio (IPV/OPV) 2004-01-21 Completed [facility] 00:00:00 [facility] DTAP 2004-01-21 Completed [facility] 00:00:00 [facility] HIB 4 Dose Schedule 2004-01-21 Completed [facility] rsity of 00:00:00 [facility] MMR 2004-01-21 Completed [facility] 00:00:00 [facility] Polio (IPV/OPV) 2004-01-21 Completed [facility] 00:00:00 [facility] DTAP 2004-01-21 Completed [facility] 00:00:00 [facility] HIB 4 Dose Schedule 2004-01-21 Completed [facility] rsity of 00:00:00 [facility] MMR 2004-01-21 Completed [facility] 00:00:00 [facility] Polio (IPV/OPV) 2004-01-21 Completed [facility] 00:00:00 [facility] DTAP 2004-01-21 Completed [facility] 00:00:00 [facility] HIB 4 Dose Schedule 2004-01-21 Completed [facility] rsity of 00:00:00 [facility] MMR 2004-01-21 Completed [facility] 00:00:00 [facility] Polio (IPV/OPV) 2004-01-21 Completed [facility] 00:00:00 [facility] DTAP 2004-01-21 Completed [facility] 00:00:00 [facility] HIB 4 Dose Schedule 2004-01-21 Completed [facility] rsity of 00:00:00 [facility] MMR 2004-01-21 Completed [facility] 00:00:00 [facility] Polio (IPV/OPV) 2004-01-21 Completed [facility] 00:00:00 [facility] DTAP 2004-01-21 Completed [facility] 00:00:00 [facility] HIB 4 Dose Schedule 2004-01-21 Completed [facility] rsity of 00:00:00 [facility] DTAP 2004-01-21 Completed [facility] 00:00:00 [facility] HIB 4 Dose Schedule 2004-01-21 Completed [facility] rsity of 00:00:00 [facility] MMR 2004-01-21 Completed [facility] 00:00:00 [facility] Polio (IPV/OPV) 2004-01-21 Completed [facility] 00:00:00 [facility] MMR 2004-01-21 Completed [facility] 00:00:00 [facility] Polio (IPV/OPV) 2004-01-21 Completed [facility] 00:00:00 [facility] DTAP 2004-01-21 Completed [facility] 00:00:00 [facility] HIB 4 Dose Schedule 2004-01-21 Completed [facility] rs[facility] of 00:00:00 [facility] MMR 2004-01-21 Completed [facility] 00:00:00 [facility] Polio (IPV/OPV) 2004-01-21 Completed [facility] 00:00:00 [facility] DTAP 2003-11-08 Completed [facility] 00:00:00 [facility] Polio (IPV/OPV) 2003-11-08 Completed [facility] 00:00:00 [facility] MMR 2003-11-08 Completed [facility] 00:00:00 [facility] Varicella 2003-11-08 Completed [facility] (varivax)(chicken 00:00:00 [facility] DTAP 2003-11-08 Completed [facility] 00:00:00 [facility] Polio (IPV/OPV) 2003-11-08 Completed Univers[facility] y of 00:00:00 [facility] MMR 2003-11-08 Completed University of 00:00:00 [facility] Varicella 2003-11-08 Completed University of (varivax)(chicken 00:00:00 [place] [facility] pox) [facility] DTAP 2003-11-08 Completed University of 00:00:00 [facility] Polio (IPV/OPV) 2003-11-08 Completed Universit y of 00:00:00 [facility] MMR 2003-11-08 Completed University of 00:00:00 [facility] Varicella 2003-11-08 Completed University of (varivax)(chicken 00:00:00 [place] [facility] pox) [facility] DTAP 2003-11-08 Completed University of 00:00:00 [facility] Polio (IPV/OPV) 2003-11-08 Completed Universit y of 00:00:00 [facility] MMR 2003-11-08 Completed University of 00:00:00 [facility] Varicella 2003-11-08 Completed University of (varivax)(chicken 00:00:00 [place] [facility] pox) [facility] DTAP 2003-11-08 Completed University of 00:00:00 [facility] Polio (IPV/OPV) 2003-11-08 Completed Universit y of 00:00:00 [facility] MMR 2003-11-08 Completed University of 00:00:00 [facility] Varicella 2003-11-08 Completed University of (varivax)(chicken 00:00:00 [place] [facility] pox) [facility] DTAP 2003-11-08 Completed University of 00:00:00 [facility] Polio (IPV/OPV) 2003-11-08 Completed Universit y of 00:00:00 [facility] MMR 2003-11-08 Completed University of 00:00:00 [facility] Varicella 2003-11-08 Completed University of (varivax)(chicken 00:00:00 [place] [facility] [place]ox[place] [facility] DTAP 2003-11-08 Completed University of 00:00:00 [facility] Polio (IPV/OPV) 2003-11-08 Completed Universit y of 00:00:00 [facility] MMR 2003-11-08 Completed University of 00:00:00 [facility] Varicella 2003-11-08 Completed University of (varivax)(chicken 00:00:00 [facility] edical pox) Branch DTAP 2003-11-08 Completed University of 00:00:00 [facility] Polio (IPV/OPV) 2003-11-08 Completed Universit y of 00:00:00 [facility] MMR 2003-11-08 Completed University of 00:00:00 [facility] Varicella 2003-11-08 Completed University of (varivax)(chicken 00:00:00 [place] [facility] pox[place] [facility] DTAP 2003-11-08 Completed University of 00:00:00 [facility] Polio (IPV/OPV) 2003-11-08 Completed Universit y of 00:00:00 [facility] MMR 2003-11-08 Completed University of 00:00:00 [facility] Varicella 2003-11-08 Completed University of (varivax)(chicken 00:00:00 [place] [facility] pox[facility] DTAP 2003-11-08 Completed University of 00:00:00 [facility] Polio (IPV/OPV) 2003-11-08 Completed Universit y of 00:00:00 [facility] MMR 2003-11-08 Completed University of 00:00:00 [facility] Varicella 2003-11-08 Completed University of (varivax)(chicken 00:00:00 [place] [facility] pox) [facility] DTAP 2003-11-08 Completed University of 00:00:00 [facility] Polio (IPV/OPV) 2003-11-08 Completed Universit y of 00:00:00 [facility] MMR 2003-11-08 Completed University of 00:00:00 [facility] Varicella 2003-11-08 Completed University of (varivax)(chicken 00:00:00 [place] [facility] pox) [facility] DTAP 2003-11-08 Completed University of 00:00:00 [facility] Polio (IPV/OPV) 2003-11-08 Completed Universit y of 00:00:00 [facility] MMR 2003-11-08 Completed University of 00:00:00 [facility] DTAP 2003-11-08 Completed University of 00:00:00 [facility] Polio (IPV/OPV) 2003-11-08 Completed Universit y of 00:00:00 [facility] MMR 2003-11-08 Completed University of 00:00:00 [facility] Varicella 2003-11-08 Completed University of (varivax)(chicken 00:00:00 [place] [facility] Varicella 2003-11-08 Completed University of (varivax)(chicken 00:00:00 [place] [facility] pox) [facility] DTAP 2003-11-08 Completed University of 00:00:00 [facility] Polio (IPV/OPV) 2003-11-08 Completed Universit y of 00:00:00 [facility] MMR 2003-11-08 Completed University of 00:00:00 [facility] Varicella 2003-11-08 Completed University of (varivax)(chicken 00:00:00 [place] [facility] pox) [facility] DTAP 2003-11-08 Completed University of 00:00:00 [facility] Polio (IPV/OPV) 2003-11-08 Completed Universit y of 00:00:00 [facility] MMR 2003-11-08 Completed University of 00:00:00 [facility] Varicella 2003-11-08 Completed University of (varivax)(chicken 00:00:00 [place] [facility] pox) [facility] DTAP 2003-11-08 Completed University of 00:00:00 [facility] Polio (IPV/OPV) 2003-11-08 Completed Universit y of 00:00:00 [facility] MMR 2003-11-08 Completed University of 00:00:00 [facility] Varicella 2003-11-08 Completed University of (varivax)(chicken 00:00:00 [place] [facility] pox) Branch DTAP 2003-11-08 Completed University of 00:00:00 [facility] Polio (IPV/OPV) 2003-11-08 Completed Universit y of 00:00:00 [facility] MMR 2003-11-08 Completed University of 00:00:00 [facility] Varicella 2003-11-08 Completed University of (varivax)(chicken 00:00:00 [place] [facility] pox) [facility] DTAP 2003-11-08 Completed University of 00:00:00 [facility] Polio (IPV/OPV) 2003-11-08 Completed Universit y of 00:00:00 [facility] MMR 2003-11-08 Completed University of 00:00:00 [facility] Varicella 2003-11-08 Completed University of (varivax)(chicken 00:00:00 [place] [facility] pox) [facility] DTAP 2003-11-08 Completed University of 00:00:00 [facility] Polio (IPV/OPV) 2003-11-08 Completed Universit y of 00:00:00 [facility] MMR 2003-11-08 Completed [facility] of 00:00:00 [facility] Varicella 2003-11-08 Completed University of (varivax)(chicken 00:00:00 [place] [facility] pox) [facility] DTAP 2003-11-08 Completed University of 00:00:00 [facility] Polio (IPV/OPV) 2003-11-08 Completed Universit y of 00:00:00 [facility] MMR 2003-11-08 Completed University of 00:00:00 [facility] Varicella 2003-11-08 Completed University of (varivax)(chicken 00:00:00 [place] [facility] pox) Branch DTAP 2003-11-08 Completed University of 00:00:00 [facility] Polio (IPV/OPV) 2003-11-08 Completed Universit y of 00:00:00 [facility] MMR 2003-11-08 Completed University of 00:00:00 [facility] Varicella 2003-11-08 Completed University of (varivax)(chicken 00:00:00 [place] [facility] pox) [facility] DTAP 2003-11-08 Completed University of 00:00:00 [facility] Polio (IPV/OPV) 2003-11-08 Completed Universit y of 00:00:00 [facility] MMR 2003-11-08 Completed University of 00:00:00 [facility] Varicella 2003-11-08 Completed University of (varivax)(chicken 00:00:00 [facility] [place] [facility] edical pox) Branch DTAP 2003-11-08 Completed University of 00:00:00 [facility] Polio (IPV/OPV) 2003-11-08 Completed Universit y of 00:00:00 [facility] MMR 2003-11-08 Completed University of 00:00:00 [facility] Varicella 2003-11-08 Completed University of (varivax)(chicken 00:00:00 [facility] edical pox) Branch Vital Signs Vital Name Observation Time Observation Value Comments Source Systolic blood 2022-02-28 20:14:00 118 mm[Hg] [facility] Diastolic blood 2022-02-28 20:14:00 70 mm[Hg] [facility]ive [facility] Heart rate 2022-02-28 20:14:00 88 /min Universi ty [facility] Body temperature 2022-02-28 20:14:00 36.78 Theodora [facility] Respiratory rate 2022-02-28 20:14:00 17 /min [facility] Oxygen saturation in 2022-02-28 20:14:00 99 /min [facility] Arterial blood by [facility] Pulse oximetry Branch Body height 2022-02-28 18:39:00 157.5 cm Universi ty [facility] Body weight 2022-02-28 18:39:00 [facility]211 [facility] BMI 2022-02-28 18:39:00 20.65 kg/m2 Universi ty [facility] Systolic blood 2021-11-27 14:07:00 126 mm[Hg] [facility] Diastolic blood 2021-11-27 14:07:00 83 mm[Hg] [facility] Heart rate 2021-11-27 14:07:00 112 /min Universi ty [facility] Body temperature 2021-11-27 14:07:00 36.78 [facility]ora [facility] Respiratory rate 2021-11-27 14:07:00 18 /min [facility] Body height 2021-11-27 14:07:00 157.5 cm Universi ty [facility] Body weight 2021-11-27 14:07:00 49.896 kg [facility] [place] [facility] BMI 2021-11-27 14:07:00 20.12 kg/m2 [facility] [place] [facility] Oxygen saturation in 2021-11-27 14:07:00 100 /min University of Arterial blood by [facility] Pulse oximetry Branch Systolic blood 2021-08-10 13:57:00 122 mm[Hg] [facility]iver [facility]ity [facility] [place] [facility] Diastolic blood 2021-08-10 13:57:00 91 mm[Hg] [facility] [place] [facility] Heart rate 2021-08-10 13:57:00 78 /min [facility] [place] [facility] Body temperature 2021-08-10 13:57:00 36.44 Theodora [facility] [place] [facility] Respiratory rate 2021-08-10 13:57:00 14 /min Univ [facility] [place] [facility] Body weight 2021-08-10 13:57:00 49.896 kg [facility] [place] [facility] BMI 2021-08-10 13:57:00 20.12 kg/m2 [facility] [place] [facility] Oxygen saturation in 2021-08-10 13:57:00 100 /min University of Arterial blood by [facility] Pulse oximetry Branch Systolic blood 2021-03-07 18:19:00 107 mm[Hg] [facility] [place] [facility] Diastolic blood 2021-03-07 18:19:00 59 mm[Hg] [facility]ive [facility] [place] [facility] Heart rate 2021-03-07 18:19:00 80 /min [facility] [place] [facility] Body height 2021-03-07 18:19:00 157.5 cm [facility] [place] [facility] Body weight 2021-03-07 18:19:00 46.131 kg [facility] [place] [facility] BMI 2021-03-07 18:19:00 18.60 kg/m2 [facility] [place] [facility] Systolic blood 2020-10-28 00:37:23 107 mm[Hg] [facility] [place] [facility] Diastolic blood 2020-10-28 00:37:23 51 mm[Hg] [facility]ive [facility] [place] [facility] Heart rate 2020-10-28 00:37:23 98 /min [facility] [place] [facility] Body temperature 2020-10-28 00:37:23 36.67 Theodora [facility] [place] [facility] Respiratory rate 2020-10-28 00:37:23 18 /min Univ [facility] [place] [facility] Oxygen saturation in 2020-10-28 00:37:23 100 /min University of Arterial blood by [facility] Pulse oximetry Branch Body height 2020-10-27 22:58:00 157.5 cm [facility] [place] [facility] Body weight 2020-10-27 22:58:00 45.36 kg [facility] [place] [facility] BMI 2020-10-27 22:58:00 18.29 kg/m2 [facility] [place] [facility] Systolic blood 2020-06-18 19:51:00 127 mm[Hg] [facility] [place] [facility] Diastolic blood 2020-06-18 19:51:00 74 mm[Hg] [facility] [place] [facility] Heart rate 2020-06-18 19:51:00 77 /min [facility] [place] [facility] Respiratory rate 2020-06-18 19:51:00 20 /min Univ [facility] [place] [facility] Body weight 2020-06-18 19:51:00 46.993 kg [facility] [place] [facility] Systolic blood 2019-08-05 00:00:25 96 mm[Hg] [facility] [place] [facility] Diastolic blood 2019-08-05 00:00:25 43 mm[Hg] [facility] [place] [facility] Heart rate 2019-08-05 00:00:25 90 /min [facility] [place] [facility] Body temperature 2019-08-05 00:00:25 36.78 Theodora [facility] [place] [facility] Respiratory rate 2019-08-05 00:00:25 16 /min Univ [facility] [place] [facility] Oxygen saturation in 2019-08-05 00:00:25 99 /min University of Arterial blood by [facility] Pulse oximetry Branch Body weight 2019-08-04 19:28:00 48.988 kg [facility] [place] [facility] Systolic blood 2019-07-14 18:50:00 106 mm[Hg] [facility] [place] [facility] Diastolic blood 2019-07-14 18:50:00 72 mm[Hg] [facility]ive [facility] [place] [facility] Heart rate 2019-07-14 18:50:00 68 /min [facility] [place] [facility] Body height 2019-07-14 18:50:00 157.5 cm [facility] [place] [facility] Body weight 2019-07-14 18:50:00 48.988 kg [facility] [place] [facility] BMI 2019-07-14 18:50:00 19.75 kg/m2 Univers[facility] ty [facility] Systolic blood 2019-07-11 18:08:00 116 mm[Hg] Univer sity of pressure [facility] Diastolic blood 2019-07-11 18:08:00 74 mm[Hg] [facility] Heart rate 2019-07-11 18:08:00 74 /min Universi ty [facility] Body height 2019-07-11 18:08:00 157.5 cm [facility] [place] [facility] Body weight 2019-07-11 18:08:00 48.988 kg Universi ty [facility] [place] BMI 2019-07-11 18:08:00 19.75 kg/m2 Universi ty [facility] Procedures Procedure Date / Time Performing Clinician Source Performed POCT TEST 2022-02-28 19:26:00 [facility] TOTAL BETA HCG ASSAY 2022-02-28 19:02:00 [facility] 2022-02-28 19:02:00 Patricia Schaefer [facility] COVID-19 (ID NOW RAPID 2021-11-27 15:13:00 Jesús Velarde [facility] TESTING) Medical Branch ASSIGNMENT OF BENEFITS 2021-11-27 14:04:45 Doctor Unassigned, No [facility] CONSENT/REFUSAL FOR 2021-11-27 14:03:55 Doctor Unassigned, No [facility] [place] [facility] Name Medical Branch CONSENT/REFUSAL FOR 2021-08-10 13:53:36 Doctor Unassigned, No Un i[facility]ity [facility] DIAGNOSIS AND TREATMENT Name Medical Branch ASSIGNMENT OF BENEFITS 2021-03-07 18:13:31 Doctor Unassigned, No [facility] XR CHEST 1 VW 2020-10-27 23:57:22 Lois Trujillo [facility] POCT TEST 2020-10-27 23:34:00 Lois Trujillo [facility] GALV/CLC ONLY - URINE 2020-10-27 23:33:00 Lois Trujillo [facility] DRUG (IMMUNOASSAY) - 4 Medical B ranch ER PANEL URINALYSIS 2020-10-27 23:33:00 Lois Trujillo [facility] TROPONIN I 2020-10-27 23:04:00 Lois Trujillo [facility] HEPATIC FUNCTION PANEL 2020-10-27 23:04:00 [id number] (ALB,T.PRO,BILI [facility] T,BU/BC,ALT,AST,ALK PHOS) BASIC METABOLIC PANEL 2020-10-27 23:04:00 Lois Trujillo [facility] (NA, K, CL, CO2, Medical Branch GLUCOSE, BUN, CREATININE, CA) ETHANOL 2020-10-27 23:04:00 Lois Trujillo [facility] CBC WITH DIFF 2020-10-27 23:04:00 Lois Trujillo [facility] CT ABDOMEN PELVIS W 2019-08-04 22:10:00 [facility] LIPASE 2019-08-04 20:59:00 Aura Enriquez [facility] COMP. METABOLIC PANEL 2019-08-04 20:59:00 Aura Enriquez [facility] ([id number]) [facility] CBC WITH DIFFERENTIAL 2019-08-04 20:59:00 Aura Enriquez [facility] URINALYSIS 2019-08-04 20:59:00 Aura Enriquez [facility] LACTIC ACID WHOLE BLOOD 2019-08-04 20:59:00 [facility] POCT TEST 2019-08-04 20:52:00 Aura [facility]riquez [facility] CONSENT/REFUSAL FOR 2019-08-04 19:13:03 Doctor Unassigned, No Un [facility] DIAGNOSIS AND TREATMENT Name [facility] POCT TEST 2019-07-14 00:00:00 Sean Hancock [facility] ASSIGNMENT OF BENEFITS 2019-07-11 17:41:02 Doctor Unassigned, No [facility] Name [facility] Encounters Start End Encounter Admission Attending Care Care Encounter Source Date/Time Date/Time Type Type Clinicians Facility Department ID 2021-09-29 Emergency [facility] [id number] [facility] 2021-09-27 Emergency [facility] [id number] Univers 08:03[facility] 2022-07-06 2022-07-06 Emergency EM SEAMUS ChapmanCL TERS [id number] [facility] 06:02:00 11:14:00 Saul 36 [facility] 2022-02-28 2022-02-28 Emergency X OLIVE [facility] ERT [id number] Univers 13:41:00 15:16:00 PATRICIA [facility] 2022-02-28 2022-02-28 Emergency [facility] [id number] Univers 13:41:00 15:16:00 [facility] [id number] it y of [place] [id number] [address] ([facility]) 2022-02-26 2022-02-26 Telephone JIE Hancock [id number] Univers 00:00:00 00:00:00 [facility] [id number] i ty of [facility] 4.2.7.2.[place] [phone] [place] [address] Branch 2021-11-27 2021-11-27 Emergency X ANNIE [facility] ERT [id number] Univers 08:10:00 09:55:00 JESÚS [facility] 2021-11-27 2021-11-27 Emergency [facility] [id number] Univers 08:10:00 09:55:00 [facility] [id number] [place] [phone] [address] ([facility]) 2021-08-10 2021-08-10 Emergency [facility] 1.2.840.114 [id number] Univers 08:58:00 09:51:00 Cindy Swartz 350.1.13.10 [place]y [place] [phone] [facility] 084 Branch 2021-03-19 2021-03-19 Telephone [facility] [id number] Univers 00:00:00 00:00:00 Sean MCMANUS [id number] i ty of [place] 4[place]2.[place] [id number] [place] [address]235 Branch 2021-03-07 2021-03-07 Office [facility] [id number] Univers 13:13:43 13:41:30 Visit Sean MCMANUS 350.1.13.10 i ty [place] [id number] [address] 2021-03-07 2021-03-07 Outpatient R [facility] [id number] Univers 13:00:00 13:00:00 SEAN bobj [facility] 2021-03-07 2021-03-07 Orders Doctor JELENA 1.2.840.114 [id number] Univers 00:00:00 00:00:00 Only Unassigned, ZANE 350.1.13.10 ity of [place] [facility] 4.2.7.2.686 [place] [id number] [facility] 009 Branch 2020-10-27 2020-10-27 Emergency [facility] 1.2.840.114 [id number] Univers 16:57:00 18:51:00 [facility] 350.1.13.10 [place] [id number] [facility] 014 Branch (CLC) 2020-06-18 2020-06-18 Office [facility] 1.2.840.114 [id number] Univers 14:39:30 14:54:30 Visit Sean MCMANUS 350.1.13.10 i ty [place] [id number] [address] 2020-06-18 2020-06-18 Outpatient R KARISSA [facility] [id number] Univers 14:30:00 14:30:00 SEAN ity of [facility] 2020-06-18 2020-06-18 Patient Karissa, UNIVERSIT 1.2.840.114 [id number] Univers 00:00:00 00:00:00 Secure Msg Sean Duarte HEALTH [id number] ity [place] [id number] [address] 2019-12-19 2019-12-19 Patient Karissa, JGIT 1.2.840.114 [id number] Univers 00:00:00 00:00:00 Secure Msg Sean Duarte HEALTH [id number] ity [place] [id number] [address] 2019-08-04 2019-08-04 Emergency [facility] [id number] Univers 14:29:39 19:31:00 [facility] 350.1.13.10 it y of [facility] 4.2.7.2.[place] [facility] [phone] [address] ([facility]) 2019-07-14 2019-07-24 Office Hancock, JGIT 1.2.840.114 [id number] Univers 13:28:27 11:58:56 Visit Sean MCMANUS 350.1.13.10 i ty [place] 4[place] [id number] [address] 2019-07-12 2019-07-12 Patient Doctor JELENA 1.2.840.114 [id number] Univers 00:00:00 00:00:00 Secure Msg Unassigned, ZANE 350.1.13.10 ity of [place] [facility] 4.2.7.2.686 [place] [id number] [address] 2019-07-11 2019-07-11 Office Hancock, UNIVERSIT 1.2.840.114 [id number] Univers 12:43:28 13:56:39 Visit Sean MCMANUS 350.1.13.10 i ty of CLINICS 4.2.7.2.686 [place] [id number] [facility] 095 Branch 2019-07-11 2019-07-11 Orders Doctor JELENA 1.2.840.114 [id number] Univers 00:00:00 00:00:00 Only Unassigned, ZANE 350.1.13.10 ity of [place] [facility] 4.2.7.2.686 [place] [id number] [facility] 009 Branch Results Test Description Test Time [...] YEASTUBD) TRACE /HPF NONE DRUGS OF ABUSE [id number] 06:53:00 Test Item Value Reference Range Interpretation [...] erformed by FRANNIE) certified opera tor at [facility] URN METHAMPHETAMINE (test Negative NEGATIVE code = METHAMPURN) URINE HCG TRIAGE (ER ONLY)2022-07-06 06:47:00 Test Item Value Reference Range Interpretation Comments URINE HCG TRIAGE (ER ONLY) (test NEGATIVE Negative code = HCGTRIAGE) Urine Test Result: NEGATIVEAre internal controls (presence of a control line & clear background) OK? YesLot # of HCG Test Kit: [id number] Date of Kit: 09/28/23Test Performed by: NEGATIVETest Perfomed on: 07/06/22COMMENTS: NEGATIVEComment: NEGATIVEUA DIPSTICK [id number] 06:39:00 Test Item Value Reference Range Interpretation Comments UA GLUCOSE DIPSTIC POC NEGATIVE NEGATIVE (test code = GLUUP) UA BILIRUBIN DIPSTICK NEGATIVE NEGATIVE (test code = BILU) UA KETONE DIPSTICK POC 1+ NEGATIVE A (test code = KETUP) UA SPECIFIC GRAVITY (test 1.025 1.005-1.030 N code = SGU) UA BLOOD DIPSTIC POC 2+ NEGATIVE A Perform ed by (test code = BLUP) certified automatic corn grinder operator at [facility] UA PH DIPSTIC POC (test 5 5.0-7.0 N code = PHUP) UA PROTEIN DIPSTICK POC 3+ NEGATIVE A (test code = DPROUP) UA UROBILINIOGEN QUAL 1+ 0.2-1.0 A (test code = UROQL) UA NITRITE DIPSTICK POC NEGATIVE Negative (test code = NITUP) UA LEUKOCYTE ESTERASE W TRACE NEGATIVE A REFLEX (test code = LEUUR) - XR ANKLE 3 + V [id number] 00:00:00 [facility] LI[facility]IVER : 2000 Sex: F FAX:Terrence Rodriguez DO [phone] Star: St: REG FAX: Saul Chapman [phone] Name: LIZA TOLLIVER [place] FSED : 2000 Age/S: 22/F Unit #: [id number] Loc: [place] Phys: Saul Chapman Robyn Acct: [id number] Dis Date: Status: REG ER PHONE #: Exam Date: 07/06/2022 0729 FAX #: Reason: left ankle pain/swelling EXAMS: CPT CODE: [id number] XR ANKLE 3 + V LT [id number] PROCEDURE INFORMATION: Exam: XR Left Ankle Exam date and time: 07/06/2022 7:15 AM Age: 22 years old Clinical indication: Pain; Ankle; Left; Additional info: Left ankle pain/swelling TECHNIQUE: [...] There is no ankle joint effusion. Soft tissues:There is no soft tissue swelling. There are no radiopaque foreign bodies. Notes: If there is furtherconcern, recommend follow-up radiographs or MRI for complete assessment. IMPRESSION: No acute fracture or dislocation at 0733 Reported and signed by: Davey Lira M.D. CC: Terrence Rodriguez DO; Saul Chapman MD Technologist: Jaqui Mayer RT(R)(CT) Trnscrd Date/Time/By: 07/06/2022 (732) : By: [email or web address] Orig Print D/T: S: 07/06/2022 (732) PAGE 1 Signed Report- CT C-SPINE W/O [id number] 00:00:00 [facility]IVER : 2000 Sex: F Name: LIZA TOLLIVER [place] FSED : 2000 Age/S: 22 / F Unit #: [id number] Loc: [place], [place]: Terrence Rodriguez DO Acct: [id number] Dis Date: Status: REG ER PHONE #: Exam Date: FAX #: Reason: Head trauma EXAMS: CPT CODE: [id number] CT C-SPINE W/O CONT 18095 PROCEDURE INFORMATION: Exam: CT Cervical Spine Without [...] (657) [email or web address] Orig Print D/T: S: 07/06/2022 (0658) PAGE 1 Signed Report- CT HEAD/BRAIN W/O [id number] 00:00:00 [facility] LI[facility] TOLLIVER : 2000 Sex: F Name: LIZA TOLLIVER [place] FSED : 2000 Age/S: 22 / F Unit #: [id number] Loc: [place] Phys: Terrence Rodriguez DO Acct: [id number] Dis Date: Status: REG ER PHONE #: Exam Date: 07/06/2022 0665 FAX #: Reason: Head trauma EXAMS: CPT CODE: [id number] CT HEAD/BRAIN W/O CONT [id number] PROCEDURE INFORMATION: Exam: CT Head Without Contrast [...] per patient size (includes targeted exams where doseis matched to clinical indication); or iterative reconstruction. COMPARISON: No relevant prior studies available. FINDINGS: Brain: Normal. No hemorrhage. Unremarkable white matter. No mass effect. Cereb ral ventricles: No ventriculomegaly. Paranasal sinuses: Visualized sinuses [...] Leggett, RT(R)(CT) CTDI: DLP: Trnscb Date/Time: 07/06/2022 (0700) [email or web address] Orig Print D/T: S: 07/06/2022 (0700) PAGE 1 [facility] [place] [facility] 2022-02-28 19:46:11 Test Item Value Reference Range Interpretation Comments BETA HCG (test <2.39 See_Comment [Automated m essage] code = The system [facility] h [id number]) generated this result transmit so reference range : Non- fe male and male patien ts: <5 mIU/mL. The reference range was not used to interpret this result as normal/abnormal . NELL (test code Gestational Age ? ? = NELL) ?Range (mIU/mL) 1-10 ?Weeks ?00-34054373-70 Weeks ?71461-41578384-96 Weeks ?1693-09733893-73 Weeks ?1531-952639 Biotin has been reported to cause a negative bias, interpret results relative to patient's use of biotin. [facility] [id number] 19:26:00 Test Item Value Reference Range Interpretation Comments POCT PREG (test code = 1605) NEGATIVE On board controls acceptable with C PRESENT Line (test code = 3574) Lab Interpretation (test code = Normal 26376-3) General acute hospital 1 [id number] 00:15:10CHEST X-RAY AP PORTABLE 10/27/2020 6:14 PM Ordering physician: LOIS TRUJILLO CLINICAL INFORMATION: ?Chest pain COMPARISON: None TECHNIQUE: ?single AP view of the chest was submitted. FINDINGS: ? The lung mathias are clear. ?No pleural effusions. ?No pneumothorax. ?Thecardiomediastinal silhouette iswithin normal limits. ?No acuteradiographic bony abnormalities. CONCLUSION: ? 1. ?No radiographic evidence to acute cardiopulmonary disease. RL: 7423 AFC: [id number] [facility], Radiant Results Inft User - 10/27/2020 6:16 PM CSTCHEST X-RAY AP [id number]/29/2020 6:14 PMOrdering physician: LOIS TRUJILLO CLINICAL INFORMATION: Chest painCOMPARISON: NoneTECHNIQUE: single AP view of the chest was submitted.FINDINGS: The lung mathias are clear. No pleural effusions. No pneumothorax. Thecardiomediastinal silhouette is within normal limits. No acuteradiographic bony abnormalities.CONCLUSION: 1. No radiographic evidence to acute cardiopulmonary disease.RL: 7423AFC: [id number] signed by Julio C Smith MD at 10/27/2020 6:15 PMUn[facility] HospitalDrug Screen ER 2020-10-28 00:02:00 Test Item Value Reference Range Interpretation Comments AMPHET (test code = Negative Negative 8869908622) Cocaine Metabolite (test Negative Negative code = 7461509057) OPIATES (test code = Negative Negative 5261189478) THC (test code = Presumptive Positive Negative A 5808081045) NELL (test code = NELL) Urine Drug Cutoff Ranges Amphetamine: ? 1,000 ng/mLCocaine: ? 150 ng/mLOpiates: ? 300 ng/mLCannabinoids: ?50 ng/mL The results are to be used only for medical (i.e., treatment) purposes. Unconfirmed screening results must not be used for non-medical purposes (e.g., employment testing, legal testing). Lab Interpretation (test Abnormal code = 87488-6) [facility] ClinicUrinalysis2020-11-29 23:45:00 Test Item Value Reference Range Interpretation Comments APPEARANCE (test code = Clear Clear 6271700708) COLOR (test code = Yellow Yellow 3098979586) PH (test code = 4.8-8.0 8024175721) SP GRAVITY (test code = 1.003-1.030 3708884320) GLU U QUAL (test code = Normal Normal 5778529253) BLOOD (test code = Negative Negative 5140407163) KETONES (test code = 5 mg/dL Negative A 8420411121) PROTEIN (test code = 30 mg/dL Negative A 2887-8) UROBILIN (test code = 4.0 mg/dL Normal A 3002631642) BILIRUBIN (test code = Negative Negative 0261548797) NITRITE (test code = Negative Negative 4958247043) LEUK DARCY (test code = 25/uL Negative A 7217756265) RBC/HPF (test code = See_Comment [Autom ated message] 2523353447) The system [employer] generated this result transmit so reference range : 0 - 3 HPF. The refe rence range was not u sed to interpret th is result as normal/abnormal . WBC/HPF (test code = See_Comment H [Autom ated message] 3770337045) The system [employer] generated this result transmit so reference range : 0 - 5 HPF. The refe rence range was not u sed to interpret th is result as normal/abnormal . BACTERIA (test code = Few Negative A 1158678133) MUCOUS (test code = Slight Negative LPF A 1939233500) SQ EPITH (test code = See_Comment H [Auto mated message] 6086906423) The system [employer] generated this result transmit so reference range : <=2 HPF. The refere nce range was not u sed to interpret th is result as normal/abnormal . HYAL CAST (test code = See_Comment [Aut omated message] 0570020960) The system [employer] generated this result transmit so reference range : <=2 LPF. The refere nce range was not u sed to interpret th is result as normal/abnormal . Lab Interpretation (test Abnormal code = 73865-0) [facility] ClinicPO[facility] [id number] 23:34:00 Test Item Value Reference Range Interpretation Comments On board controls acceptable with negative C Line (test code = 3574) POCT PREG LOT # (test code = 3575) [id number] POCT PREG TEST DATE (test 04/28/2021 code = 3576) Lab Interpretation (test code = Normal 31487-1) [facility] ClinicTroponin [id number] 23:31:00 Test Item Value Reference Range Interpretation Comments TROPONIN I (test 0.002 ng/mL See_Comment [Automated code = 1022759754) message] The system which generated this result [...] ? Lab Interpretation Normal (test code = 42088-2) [facility] ClinicEthanol [id number] 23:21:00 Test Item Value Reference Range Interpretation Comments ALCOHOL (test code = <10 mg/dL 6761220093) NELL (test code = Toxic Greater than or NELL) equal to 80 mg/dL. NOTE: Whole blood values are approximately 10% to 15% lower than serum and plasma. [facility]Bab[facility] (NA, K, CL, CO2, GLUCOSE, BUN, CREATININE, CA)2020-10-27 23:20:00 Test Item Value Reference Range Interpretation Comments NA (test code = 139 mmol/L 135-145 8264359307) K (test code = 4.2 mmol/L 3.5-5 5319992096) CL (test code = 104 mmol/L 98-108 6365244875) CO2 TOTAL (test code = 26 mmol/L 23-31 2375596914) AGAP (test code = 2-16 9449416893) BUN (test code = 10 mg/dL 7-23 9849176855) GLUCOSE (test code = 93 mg/dL 70-110 1597396150) CREATININE (test code 0.66 mg/dL 0.5-1.04 = 0697772884) CALCIUM (test code = 9.7 mg/dL 8.6-10.6 2246733217) eGFR Calculation mL/min/1.73m2 (Non-) (test code = 6983425143) eGFR Calculation mL/min/1.73m2 () (test code = 7068384277) NELL (test code = NELL) Association of [...] or urine or abnormalities in imaging tests). [facility] ClinicHepatic Function Panel (ALB, T.PRO, BILI T, BU/BC, ALT, AST, ALK PHOS)2020-10-27 23:20:00 Test Item Value Reference Range Interpretation Comments TOTAL BILI (test code = 7114900129) 1.0 mg/dL 0.1-1.1 BILI UNCON (test code = 1763864308) 0.7 mg/dL 0.1-1.1 BILI CONJ (test code = 6758303393) 0.0 mg/dL 0-0.3 T PROTEIN (test code = 0101313380) 7.4 g/dL 6.3-8.2 ALBUMIN (test code = 3941712076) 4.5 g/dL 3.5-5 ALK PHOS (test code = 5417970454) 75 U/L 34-122 ALTv (test code = 1742-6) 13 U/L 5-35 AST(SGOT) (test code = 5928048213) 26 U/L 13-40 Lab Interpretation (test code = Normal 40180-6) [facility] with [id number] 23:09:00 Test Item Value Reference Range Interpretation Comments WBC (test code = See_Comment [Automated 5247-2) message] The sy stem which generated this [...] RDW-SD (test code = 40.7 fL 39-49.9 51108-7) RDW-CV (test code = 12.1 % 12-15.5 788-0) PLT (test code = See_Comment [Automated 777-3) message] The sy stem which generated this result transmitted reference range : 166 - 358 10*3/ ?L. The reference r matthew was not used to interpret this result as normal/abnormal . MPV (test code = 9.3 fL 9.5-12.9 L 80581-1) NRBC/100 WBC (test See_Comment [Automat ed code = 2855862693) message] The system which generated this result transmitted reference range : 0.0 - 10.0 /100 WBCs. The refer ence range was not u sed to interpret th is result as normal/abnormal . NRBC x10^3 (test code <0.01 See_Comment [Auto mated = 2921556276) message] The s ystem which generated this result transmitted reference range : 10*3/?L. The reference range was not used to interpret this result as normal/abnormal . GRAN MAT (NEUT) % 61.6 % (test code = 770-8) IMM GRAN % (test code 0.20 % = 1858170473) LYMPH % (test code = 30.9 % 736-9) MONO % (test code = 6.5 % 5905-5) EOS % (test code = 0.2 % 713-8) BASO % (test code = 0.6 % 706-2) GRAN MAT x10^3(ANC) 3.33 10*3/uL 1.88-7.09 (test code = 9779296584) IMM GRAN x10^3 (test <0.03 0-0.06 code = 3685491673) LYMPH x10^3 (test code 1.67 10*3/uL 1.32-3.29 = 731-0) MONO x10^3 (test code 0.35 10*3/uL 0.33-0.92 = 742-7) EOS x10^3 (test code = <0.03 0.03-0.39 L 711-2) BASO x10^3 (test code 0.03 10*3/uL 0.01-0.07 = 704-7) Lab Interpretation Abnormal (test code = 98145-6) [facility] WITH [id number] 21:35:00 Test Item Value Reference Range Interpretation Comments WBC (test code = See_Comment H [Automated 8490-2) message] The system which generated this result transmit so reference range : 4.30 - 11.10 10*3/?L. The reference range was not used to interpret this result as normal/abnormal . RBC (test code = See_Comment [Automated 9-8) message] The system which generated this result [...] RDW-SD (test code = 40.8 fL 39-49.9 14446-1) RDW-CV (test code = 12.3 % 12-15.5 788-0) PLT (test code = See_Comment [Automated 797-3) message] The system which generated this result transmit so reference range : 166 - 358 10*3/ ?L. The reference range was not u sed to interpret th is result as normal/abnormal . MPV (test code = 9.4 fL 9.5-12.9 L 79854-6) NRBC/100 WBC (test See_Comment [Automat ed code = 9588572093) message] The system which generated this result transmit so reference range : 0.0 - 10.0 /100 WBCs. The reference range was not used to interpret this result as normal/abnormal . NRBC x10^3 (test code <0.01 See_Comment [Auto mated = 2468146475) message] The system which generated this result transmit so reference range : 10*3/?L. The reference range was not used to interpret this result as normal/abnormal . GRAN MAT (NEUT) % 83.3 % (test code = 770-8) IMM GRAN % (test code 0.60 % = 2860081004) LYMPH % (test code = 6.6 % 736-9) MONO % (test code = 9.4 % 5905-5) EOS % (test code = 0.0 % 713-8) BASO % (test code = 0.1 % 706-2) GRAN MAT x10^3(ANC) 17.29 10*3/uL 1.88-7.09 H (test code = 5920715796) IMM GRAN x10^3 (test 0.12 10*3/uL 0-0.06 H code = 6254614817) LYMPH x10^3 (test code 1.36 10*3/uL 1.32-3.29 = 731-0) MONO x10^3 (test code 1.95 10*3/uL 0.33-0.92 H = 742-7) EOS x10^3 (test code = <0.03 0.03-0.39 L 711-2) BASO x10^3 (test code 0.03 10*3/uL 0.01-0.07 = 704-7) Lab Interpretation Abnormal (test code = 45927-5) [facility] ClinicURINALYSIS2019-09-06 21:33:00 Test Item Value Reference Range Interpretation Comments APPEARANCE (test code = Cloudy Clear A 5757342009) COLOR (test code = Yellow Yellow 7942435878) PH (test code = 4.8-8.0 0787322302) SP GRAVITY (test code = 1.003-1.030 9770887138) GLU U QUAL (test code = Normal Normal 9356981051) BLOOD (test code = 2+ Negative A 5354606100) KETONES (test code = 20 mg/dL Negative A 0342844238) PROTEIN (test code = 30 mg/dL Negative A 2887-8) UROBILIN (test code = Normal Normal 0978523485) BILIRUBIN (test code = Negative Negative 9745476671) NITRITE (test code = Positive Negative A 6778976715) LEUK DARCY (test code = 500/uL Negative A 8592584023) RBC/HPF (test code = See_Comment H [Autom ated message] 2556674245) The system [employer] generated this result transmitted ref erence range: 0 - 3 HP F. The reference range was not used to int erpret this result as normal/abnormal . WBC/HPF (test code = >182 See_Comment H [Autom ated message] 8237041385) The system [employer] generated this result transmitted ref erence range: 0 - 5 HP F. The reference range was not used to int erpret this result as normal/abnormal . BACTERIA (test code = Few Negative A 6241673913) MUCOUS (test code = Slight Negative LPF A 0921095108) AMORPHOUS (test code = Rare Rare HPF 6867091344) SQ EPITH (test code = See_Comment H [Auto mated message] 9324406839) The system [employer] generated this result transmitted ref erence range: <=2 HPF. The reference range was not used to int erpret this result as normal/abnormal . WBC CLUMPS (test code = See_Comment H [Au tomated message] 0188590372) The system [employer] generated this result transmitted ref erence range: <=1 HPF. The reference range was not used to int erpret this result as normal/abnormal . Lab Interpretation (test Abnormal code = 38165-0) [facility]. METABOLIC PANEL (36291)2019-08-04 21:26:00 Test Item Value Reference Range Interpretation Comments NA (test code = 135 mmol/L 135-145 5945605388) K (test code = 3.4 mmol/L 3.5-5 L Slight 7849532081) hemolysis CL (test code = 97 mmol/L 98-108 L 9093666019) CO2 TOTAL (test code 23 mmol/L 23-31 = 1159688380) AGAP (test code = 2-16 7297562310) BUN (test code = 9 mg/dL 7-23 Slight 3251235167) hemolysis GLUCOSE (test code = 103 mg/dL 70-110 1999348197) CREATININE (test code 0.77 mg/dL 0.5-1.04 = 5279720940) TOTAL BILI (test code 1.2 mg/dL 0.1-1.1 H = 7682915566) CALCIUM (test code = 9.7 mg/dL 8.6-10.6 6814995315) T PROTEIN (test code 8.1 g/dL 6.3-8.2 = 6580397717) ALBUMIN (test code = 4.5 g/dL 3.5-5 7686489649) ALK PHOS (test code = 100 U/L 34-122 Slight 3190655960) hemolysis ALT(SGPT) (test code 29 U/L 9-51 Slight = 5851991144) hemolysis AST(SGOT) (test code 30 U/L 13-40 Slight = 7320463828) hemolysis eGFR Calculation mL/min/1.73m2 (Non-) (test code = 1975722327) eGFR Calculation mL/min/1.73m2 () (test code = 6550144684) NELL (test code = NELL) Association of [...] tests). Lab Interpretation Abnormal (test code = 35551-8) [facility] ClinicLIP[facility]2019-[facility] 21:26:00 Test Item Value Reference Range Interpretation Comments LIPASE (test code = 1999011496) 24 U/L 0-220 Lab Interpretation (test code = Normal 78355-1) [facility] ClinicLactic Acid Whole [id number] 21:08:00 Test Item Value Reference Range Interpretation Comments LACTIC ACID (test code = 1.24 mmol/L 0.5-2.2 5005410728) Lab Interpretation (test code = Normal 52155-3) [facility] [id number] 20:52:00 Test Item Value Reference Range Interpretation Comments POCT PREG (test code = 1605) Negative On board controls acceptable with C Yes Line (test code = 3574) POCT PREG LOT # (test code = 3575) POCT PREG TEST DATE (test code = 3576) Lab Interpretation (test code = Normal 13373-0) [facility] [id number] 19:33:00 Test Item Value Reference Range Interpretation Comments POCT PREG (test code = 1605) Negative On board controls acceptable with C Yes Line (test code = 3574) POCT PREG LOT # (test code = 3575) POCT PREG TEST DATE (test code = 3576) [facility] [id number] 19:33:00 Test Item Value Reference Range Interpretation Comments POCT PREG (test code = 1605) Negative On board controls acceptable with C Yes Line (test code = 3574) POCT PREG LOT # (test code = 3575) POCT PREG TEST DATE (test code = 3576) [facility] [id number] 19:33:00 Test Item Value Reference Range Interpretation Comments POCT PREG (test code = 1605) Negative On board controls acceptable with C Yes Line (test code = 3574) POCT PREG LOT # (test code = 3575) POCT PREG TEST DATE (test code = 3576) [facility]PO[facility] [id number] 19:33:00 Test Item Value Reference Range Interpretation Comments POCT PREG (test code = 1605) Negative On board controls acceptable with C Yes Line (test code = 3574) POCT PREG LOT # (test code = 3575) POCT PREG TEST DATE (test code = 3576) [facility]
--- NOTE | 2022-10-31 19:43 | ER ---
Nurse's Notes [facility] Name: Rupa Smith Age: 22 yrs Sex: Female : 2000 Arrival Date: 10/31/2022 Time: 18:59 Bed IW1 Private MD: Diagnosis: Syncope;Fall on same level, unspecified Presentation: 10/31 19:08 Chief complaint: Patient states: she was walking her dogs and felt dizzy, next thing kb3 she remembers is waking up on the ground. C/O left rib pain and posterior head pain. Coronavirus screen: Vaccine status: Patient reports being unvaccinated. Ebola Screen: Patient negative for fever greater than or equal to 101.5 degrees Fahrenheit, and additional compatible Ebola Virus Disease symptoms Patient denies exposure to infectious person. Patient denies travel to an Ebola-affected area in the 21 days before illness onset. Initial Sepsis Screen: Does the patient meet any 2 criteria? No. Patient's initial sepsis screen is negative. Does the patient have a suspected source of infection? No. Patient's initial sepsis screen is negative. Risk Assessment: Do you want to hurt yourself or someone else? Patient reports no desire to harm self or others. Onset of symptoms was October 31, 2022 at 18:30. 19:08 Method Of Arrival: Wheelchair kb3 19:08 Acuity: SANCHO 3 kb3 Triage Assessment: 19:12 General: Appears distressed, uncomfortable, Behavior is anxious, crying. Pain: kb3 Complains of pain in back of head and left mid back Pain does not radiate. Pain currently is 8 out of 10 on a pain scale. Quality of pain is described as aching. Neuro: No deficits noted. 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 - Social history:: Smoking status: Patient reports the use of cigarette tobacco products, cigars. Assessment: 19:25 General: Pt refusing treatment. Reports that she does not want to be here.. kb3 19:34 General: called in [facility] no answer. tw5 19:42 General: Patient left. tw5 Vital Signs: 19:08 BP 117 / 73; Pulse 101; Resp 20; Temp 99.1; Pulse Ox 98% ; Pain 8/10; kb3 [place] Coma Score: 19:12 Eye Response: spontaneous(4). Verbal Response: oriented(5). Motor Response: obeys kb3 commands(6). Total: 15. ED Course: 18:59 Patient arrived in ED. ja2 19:03 Evan George DO is Attending Physician. ms3 19:12 Triage completed. kb3 19:12 Arm band placed on left wrist. kb3 19:31 Mikael Fairbanks, CELINE is Primary Nurse. as6 19:47 Primary Nurse role handed off by Mikael Fairbanks, CELINE tw5 19:47 Skip Huynh MD is Referral Physician. ms3 19:47 Jacob Lea DO is Referral Physician. ms3 19:49 Skip Huynh MD is Referral Physician. ms3 19:49 Jacob Lea DO is Referral Physician. ms3 Administered Medications: No medications were administered Outcome: 19:42 Patient left the ED. tw5 19:49 Discharge ordered by . ms3 19:51 Patient left the ED. kb3 Signatures: Evan George DO DO ms3 Zenobia Florence ja2 Delma Marie tw5 Mikael Fairbanks RN RN as6 Kiera Sigala RN RN kb3
--- NOTE | 2022-10-31 19:50 | EDPHYS ---
Physician Documentation [facility] Name: Rupa Smith Age: 22 yrs Sex: Female : 2000 Arrival Date: 10/31/2022 Time: 18:59 Bed IW1 Private MD: ED Physician Evan George HPI: 10/31 19:50 This 22 yrs old Female presents to ER via Wheelchair with complaints of Probable ms3 Seizure, Head Injury With LOC-Adult. 19:50 The patient has experienced syncope, collapsed, lost consciousness. Onset: The ms3 symptoms/episode began/occurred acutely, just prior to arrival. Duration: This was a single episode, brief. Context: the episode(s) was witnessed, boyfriend. Associated injury: Head/face: pain. Associated signs and symptoms: Pertinent negatives: abdominal pain, blurred vision, chest pain. Current symptoms: headache. 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 - Social history:: Smoking status: Patient reports the use of cigarette tobacco products, cigars. ROS: 19:50 Constitutional: Negative for fever, and chills. Neck: Negative for injury, pain, and ms3 swelling, Cardiovascular: Negative for chest pain, and palpitations. Respiratory: Negative for shortness of breath, cough, wheezing, and pleuritic chest pain, Abdomen/GI: Negative for abdominal pain, nausea, vomiting, diarrhea, and constipation, MS/Extremity: Negative for injury and deformity. 19:50 Neuro: Positive for headache. 19:50 All other systems are negative. Exam: 19:50 Constitutional: This is a well developed, well nourished patient who is awake, alert, ms3 and in no acute distress. Head/Face: Normocephalic, atraumatic. Neck: Trachea midline, no cervical lymphadenopathy. Supple, full range of motion without nuchal rigidity, or vertebral point tenderness. No Meningismus. Chest/axilla: Normal chest wall appearance and motion. Nontender with no deformity. Cardiovascular: Regular rate and rhythm with a normal S1 and S2. No gallops, murmurs, or rubs. Normal PMI, no JVD. No pulse deficits. Respiratory: Lungs have equal breath sounds bilaterally, clear to auscultation and percussion. No rales, rhonchi or wheezes noted. No increased work of breathing, no retractions or nasal flaring. Abdomen/GI: Soft, non-tender, with normal bowel sounds. No distension or tympany. No guarding or rebound. No evidence of tenderness throughout. Back: No spinal tenderness. No costovertebral tenderness. Full range of motion. MS/ Extremity: Pulses equal, no cyanosis. Neurovascular intact. Full, normal range of motion. Neuro: Awake and alert, GCS 15, oriented to person, place, time, and situation. Cranial nerves II-XII grossly intact. Motor strength 5/5 in all extremities. Sensory grossly intact. Cerebellar exam normal. Normal gait. Vital Signs: 19:08 BP 117 / 73; Pulse 101; Resp 20; Temp 99.1; Pulse Ox 98% ; Pain 8/10; kb3 Starla Coma Score: 19:12 Eye Response: spontaneous(4). Verbal Response: oriented(5). Motor Response: obeys kb3 commands(6). Total: 15. MDM: 19:15 Patient medically screened. ms3 19:50 Data reviewed: vital signs, nurses notes. ED course: Patient declined work-up and left de3 the emergency department. Unable to give patient discharge instructions or follow-up. Discharge paperwork printed in the event patient wishes to return. Patient is welcome to return for continuation of her care.. 10/31 19:16 Order name: EKG; Complete Time: 19:17 ms3 10/31 19:16 Order name: Cardiac monitoring de3 10/31 19:16 Order name: EKG - Nurse/Tech de3 10/31 19:16 Order name: IV Saline Lock ms3 10/31 19:16 Order name: Labs collected and sent ms3 10/31 19:16 Order name: NPO ms3 10/31 19:16 Order name: O2 Per Protocol de3 10/31 19:16 Order name: O2 Sat Monitoring de3 10/31 19:16 Order name: Urine Dipstick-Ancillary (obtain specimen) ms3 Administered Medications: No medications were administered Disposition Summary: 10/31/22 19:49 Discharge Ordered Location: Home ms3 Condition: Stable ms3 Diagnosis - Syncope ms3 - Fall on same level, unspecified(10/31/22 19:49) ms3 Followup: ms3 - With: Skip Huynh MD - When: 2 - 3 days - Reason: Recheck today's complaints Followup: ms3 - With: Jacob Lea DO - When: 2 - 3 days - Reason: Recheck today's complaints Discharge Instructions: - Discharge Summary Sheet ms3 - Syncope ms3 Forms: - Medication Reconciliation Form ms3 - Thank You Letter ms3 - Antibiotic Education ms3 - Prescription Opioid Use ms3 Signatures: Dispatcher [employer] EDMS Evan George DO DO ms3 FrankCarolaDelma tw5 Kiera Sigala, RN RN kb3 Corrections: (The following items were deleted from the chart) 19:49 19:42 before being seen by provider 5 ms3 19:49 19:42 unknown 5 ms3 19:49 19:48 Syncope ms3 ms3 19:49 19:48 Fall on same level, unspecified ms3 ms3
[2022-10-31 20:05] VITALS: BP 117/73; TEMP 99.1; O2SAT 98
== END 2022-10-31 19:51 | disposition home or self-care (01) ==
LOC: ER 18:57
DX: R55 Syncope and collapse (principal); W18.30XA Fall on same level, unspecified, initial encounter; Z72.0 Tobacco use
CPT/HCPCS: 99281

== ENCOUNTER 2022-12-01 09:33 | Emergency (ER) | payer BC ==
--- OUTSIDE RECORDS SUMMARY | 2022-12-01 09:42 | XMS REPORT | Continuity of Care Document ---
:2000 Author Organization [facility] t Address [address] [place] [address] Care Team Providers Name Role Phone Pcp, Patient Does Not Have A Primary Care Physician +[phone] Prisca Carreno MD Attending Clinician Saul Chapman Attending Clinician Unavailable PATRICIA SCHAEFER Attending Clinician Unavailable Patricia Schaefer MD Attending Clinician Sean Hancock MD Attending Clinician JESÚS VELARDE Attending Clinician Unavailable Jesús Velarde MD Attending Clinician Cindy Hammond DO Attending Clinician SEAN HANCOCK Attending Clinician Unavailable Doctor Unassigned, [place] Attending Clinician Unavailable Lois Melara Attending Clinician Oswald Tee Attending Clinician Physician, No Primary or Family Admitting Clinician Unavaila ble Payers Payer Name Policy Type Policy Number Effective Date Expiration Date S vipul [facility] [id number] 2020 00:00:00 [employer] [id number] 2016 00:00:00 Problems Condition Condition Condition Status Onset Resolution Last Treating Co mments Source Name Details Category Date Date Treatment Clinician Date Hepatitis Hepatitis Disease Active Overview: Univers C antibody C antibody 8- Formattin ity of test test 00:00: g of this [place] positive positive 00 note Medica l might [...] ity o f carrier carrier 00:00: of [facility] state 00 delivery Medical has not Branch [...] Depression Disease Active U nivers in in -13 ity of pediatric [place] 00[place] patient 00 Medical Branch Panic Panic Disease Active Univers attack attack -13 ity of 00:00: [place] 00 Medical Branch 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 self-cutti 12-11 it y of ng ng 00:00: [place] 00 Medical Branch Adopted Adopted Disease Active Univers from from 7-22 [place]y of [place] 00:[place]: [place] no history no history 00 Me dical known known Branch Allergies, Adverse Reactions, Alerts Allergy Allergy Status Severity Reaction(s) Onset Inactive Treating Comm ents Source Name Type Date Date Clinician No Known DA Active U 2005-11 [facility] Contrast - Clear Allergie 00:00: [place] 00 [facility] No Known DA Active U 2005-11 [facility] Drug 12-09 Clear Allergie 00:00: [place] 00 [facility] No Known DA Active U 2005-11 [facility] Food 12-09 Clear Allergie 00:00: [place] 00 [facility] No Known DA Active U 2005-11 [facility] Other 12-09 Clear Allergie 00:00: [place] 00 [facility] NO KNOWN Drug Active Univers ALLERGIE Class ity of S [facility] Social History Social Habit Start Date Stop Date Quantity Comments Source Exposure to Not sure [facility] SARS-CoV-2 [facility] (event) [place] Alcohol intake 2022-02-28 2022-02-28 0 /d University 00:00:00 00:00:00 [facility] Tobacco use and 2012-06-16 2012-06-16 Smokeless tobacco Un iversity of exposure 00:00:00 00:00:00 non-user [facility] Sex Assigned At [birth year] Universit y of 00:00:00 00:00:00 [facility] Smoking Status Start Date Stop Date Source Never smoked tobacco [facility] Medications Ordered Filled Start Stop Current Ordering Indication Dosage Frequency Signature Comments Components Source Medication Medication Date Date Medication? Clinician (SIG) Name Name phenazopyri Yes [id number] 200mg Take 1 Univers dine 200 mg 4-02 tablet by ity of tablet 00:00: mouth 3 00 (three) Medical times Branch daily. ibuprofen Yes [id number] 400mg Take 2 Univers (MOTRIN IB) 4-02 tablets by it y of 200 mg 00:00: mouth [place] tablet 00 every 8 Medical (eight) Branch hours as needed for Pain (scale 1-3) for up to 30 doses. phenazopyri Yes [id number] 200mg Take 1 Univers dine 200 mg 4-02 tablet by ity of tablet 00:00: mouth 3 00 (three) Medical times Branch daily. ibuprofen Yes [id number] 400mg Take 2 Univers (MOTRIN IB) 4-02 tablets by it y of 200 mg 00:00: mouth [place] tablet 00 every 8 Medical (eight) Branch hours as needed for Pain (scale 1-3) for up to 30 doses. phenazopyri Yes [id number] 200mg Take 1 Univers dine 200 mg 4-02 tablet by ity of tablet 00:00: mouth 3 [place] 00 (three) Medical times Branch daily. ibuprofen Yes [id number] 400mg Take 2 Univers (MOTRIN IB) 4-02 tablets by it y of 200 mg 00:00: mouth [place] tablet 00 every 8 Medical (eight) Branch hours as needed for Pain (scale 1-3) for up to 30 doses. cephALEXin 2021- No [id number] 500mg Take 1 Univers (KEFLEX) 4-02 -13 capsule by ity of 500 mg 00:00: 04:59 mouth 4 [place] capsule 00 :00 (four) Medical times Branch daily for 10 days. ketorolac 2020-11 No 30mg 30 mg, Unive rs (TORADOL) 230 12-30 Intramuscu ity of injection 16:15: 15:13 [place], ONCE, [place] 30 mg 00 :00 1 dose, On Medical Eli Branch 11/27/21 at 1015, Routine
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 Branch Continue until you follow up with eye doctor. erythromyci Yes [id number] .5[in_u Place 0.5 Univers n 5 mg/gram 912 [id number] s] Inches in i ty of (0.5 %) 00:00: right eye [place] ophthalmic 00 at Medical ointment bedtime. Branch Continue until you follow up with eye doctor. erythromyci Yes [id number] .5[in_u Place 0.5 Univers n 5 mg/gram 912 [id number] s] Inches in i ty of (0.5 %) 00:00: right eye [place] ophthalmic 00 at Medical ointment bedtime. Branch Continue until you follow up with eye doctor. erythromyci Yes [id number] .5[in_u Place 0.5 Univers n 5 mg/gram 9-12 [id number] s] Inches in i ty of (0.5 %) 00:00: right eye [place] ophthalmic 00 at Medical ointment bedtime. Branch Continue until you follow up with eye doctor. erythromyci Yes [id number] .5[in_u Place 0.5 Univers n 5 mg/gram 9-12 [id number] s] Inches in i ty of (0.5 %) 00:00: right eye [place] ophthalmic 00 at Medical ointment bedtime. Branch Continue until you follow up with eye doctor. erythromyci Yes [id number] .5[in_u Place 0.5 Univers n 5 mg/gram 9-12 [id number] s] Inches in i ty of (0.5 %) 00:00: right eye [place] ophthalmic 00 at Medical ointment bedtime. Branch Continue until you follow up with eye doctor. erythromyci Yes [id number] .5[in_u Place 0.5 Univers n 5 mg/gram 9-12 [id number] s] Inches in i ty of (0.5 %) 00:00: right eye [place] ophthalmic 00 at Medical ointment bedtime. Branch Continue until you follow up with eye doctor. cefTRIAXone 2019-11- No 1000mg 1,000 mg, Univers (ROCEPHIN) 12-28 11-30 IV ity of 1,000 mg in 01:00: 00:27 [place], [place] NaCl 0.9% 00 :00 ONCE, 1 Medical (NS) 50 mL dose, [facility] MINI-BAG 10/27/20 at 1900, 50 mL
Reas on for Anti-Infec tive: Documented Infection< br>Documen so Infection Site: Urine
D uration of Therapy: 7 days ciprofloxac 2019-11 2020- No [id number] 500mg Take 1 Univers in HCl 500 12-27 12-10 tablet by ity of mg tablet 00:00: 05:59 mouth 2 [place] 00 :00 (two) Medical times Branch daily for 10 days. cefTRIAXone 2019-0 2019- No 1000mg 1,000 mg, Univers (ROCEPHIN) 08-04 IV ity of 1,000 mg in 23:15: 23:27 [place], [place] NaCl 0.9% 00 :00 ONCE, 1 Medical (NS) 50 mL dose, Fri Bran ch MINI-BAG 08/04/19 at 1815, 50 mL
Reas on for Anti-Infec tive: Documented Infection< br>Documen so Infection Site: Urine
D uration of Therapy: 7 days iohexol 2019- No 100mL 100 mL, Unive rs (OMNIPAQUE [...] dose, Fri Branch 08/04/19 at 1700, Routine
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 Restricted medication : OSWALD JOE acetaminoph 2018- No 650mg 650 mg, [place] san[place] en 08-04 Oral, ity of (TYLENOL) 22:00: 21:02 ONCE, 1 [place] tablet 650 00 :00 dose, Fri Medi andrew mg 08/04/19 at Branch 1700, JASMIN NaCl 0.9% 2018- No 1000mL at 999 Uni vers (NS) bolus 08-0407 mL/hr, ity of infusion 21:15: 00:01 1,000 mL, [place] as 1,000 mL 00 :00 IV Medical Infusion, Branch ONCE, 1 dose, 08/04/19 at 1615, STAT NaCl 0.9% 2019-0 2019- No 1000mL at 999 Uni vers (NS) bolus 08-04 09-07 mL/hr, ity of infusion 21:15: 00:01 1,000 mL, [place]an as 1,000 mL 00 :00 IV Medical Infusion, Branch ONCE, 1 dose, 08/04/19 at 1615, STAT ondansetron 2019-0 Yes [id number] 4mg Take 1 Univers (ZOFRAN 9-06 tablet by ity of ODT) 4 mg 00:00: mouth [place] disintegrat 00 every 8 Medic al ing tablet (eight) Branch hours as needed for Nausea and Vomiting (N/V). ibuprofen 2019-0 Yes [id number] 600mg Take 1 U nivers 600 mg 9-06 tablet by ity of tablet 00:00: mouth [place] 00 every 6 Medical (six) Branch hours as needed for Pain (scale 1-3). ondansetron 2019-0 Yes [id number] 4mg Take 1 Univers (ZOFRAN 9-06 tablet by ity of ODT) 4 mg 00:00: mouth [place] disintegrat 00 every 8 Medic al ing tablet (eight) Branch hours as needed for Nausea and Vomiting (N/V). ibuprofen 2019-0 Yes [id number] 600mg Take 1 U nivers 600 mg 9-06 tablet by ity of tablet 00:00: mouth [place] 00 every 6 Medical (six) Branch hours as needed for Pain (scale 1-3). ondansetron 2019-0 Yes [id number] 4mg Take 1 Univers (ZOFRAN 9-06 tablet by ity of ODT) 4 mg 00:00: mouth [place] disintegrat 00 every 8 Medic al ing tablet (eight) Branch hours as needed for Nausea and Vomiting (N/V). ibuprofen 2019-0 Yes [id number] 600mg Take 1 U nivers 600 mg 9-06 tablet by ity of tablet 00:00: mouth [place] 00 every 6 Medical (six) Branch hours as needed for Pain (scale 1-3). ondansetron 2019-0 Yes [id number] 4mg Take 1 Univers (ZOFRAN 9-06 tablet by ity of ODT) 4 mg 00:00: mouth [place] disintegrat 00 every 8 Medic al ing tablet (eight) Branch hours as needed for Nausea and Vomiting (N/V). ibuprofen 2019-0 Yes [id number] 600mg Take 1 U nivers 600 mg 9-06 tablet by ity of tablet 00:00: mouth [place] 00 every 6 Medical (six) Branch hours as needed for Pain (scale 1-3). ondansetron Yes [id number] 4mg Take 1 Univers (ZOFRAN 08-04 tablet by ity of ODT) 4 mg 00:00: mouth [place] disintegrat 00 every 8 Medic al ing tablet (eight) Branch hours as needed for Nausea and Vomiting (N/V). ibuprofen Yes [id number] 600mg Take 1 U nivers 600 mg - tablet by ity of tablet 00:00: mouth [place] 00 every 6 Medical (six) Branch hours as needed for Pain (scale 1-3). ondansetron 2019- No [id number] 4mg Take 1 Univers (ZOFRAN 08-04 tablet by ity of ODT) 4 mg 00:00: 00:00 mouth [place] disintegrat 00 :00 every 8 Medic al ing tablet (eight) Branch hours as needed for Nausea and Vomiting (N/V). ibuprofen 2019- No [id number] 600mg Take 1 Univers 600 mg 08-04 tablet by ity of tablet 00:00: 00:00 mouth [place] 00 :00 every 6 Medical (six) Branch hours as needed for Pain (scale 1-3). cefpodoxime 2018- No [id number] 100mg Take 1 Univers 100 mg 08-04 tablet by ity of tablet 00:00: 04:59 mouth 2 [place] 00 :00 (two) Medical times Branch daily for 7 days. levonorgest 2019- No 1{devic Un kristopher rel 07-14 e} ity of (MIRENA) 20:30: 19:27 [place] IUD 1 00 :00 Prenatal Nurse Branch ibuprofen 2019- No 600mg Univer s (IBU) 07-14 ity of tablet 600 20:30: 19:26 [place] mg 00 :00 Medical Branch ibuprofen 2018- No 600mg 600 mg, Uni vers (IBU) 07-14 Oral, ity of tablet 600 20:30: 19:26 ONCE, 1 [place] mg 00 :00 dose, Fri Medical 07/14/19 at Branch 1530, Routine levonorgest 2019- No 1{devic 1 Device, Univers rel 07-1416 e} Intrauteri ity of (MIRENA) 20:30: 19:27 ne, ONCE, Dil[place] IUD 1 00 :00 1 dose, Prenatal Nurse [facility] ([place], [place]) 07/14/19 at 1530, Routine levonorgest 2018- 2019- No 1{devic Un kristopher rel 07-1416 e} ity of (MIRENA) 20:30: 19:27 [place] IUD 1 00 :00 Prenatal Nurse Branch ibuprofen 2019- No 600mg Univer s (IBU) 07-14 ity of tablet 600 20:30: 19:26 [place] mg 00 :00 Medical Branch ibuprofen 2018- No 600mg 600 mg, Uni vers (IBU) 07-14 Oral, ity of tablet 600 20:30: 19:26 ONCE, 1 [place] mg 00 :00 dose, [facility] 07/14/19 at Branch 1530, Routine levonorgest 2019- No 1{devic 1 Device, Univers rel 07-14 e} Intrauteri ity of (MIRENA) 20:30: 19:27 ne, ONCE, [place] IUD 1 00 :00 1 dose, Prenatal Nurse [facility] ([place], [place]) 07/14/19 at 1530, Routine levonorgest 2019- No 1{devic Un kristopher rel 07-14 e} ity of (MIRENA) 20:30: 19:27 [place] IUD 1 00 :00 Prenatal Nurse Branch ibuprofen 2018- No 600mg Univer s (IBU) 07-14 ity of tablet 600 20:30: 19:26 [place] mg 00 :00 Medical Branch ibuprofen 2018- 2019- No 600mg 600 mg, Uni vers (IBU) 07-14 Oral, ity of tablet 600 20:30: 19:26 ONCE, 1 [place] mg 00 :00 dose, [facility] 07/14/19 at Branch 1530, Routine levonorgest 2018- 2019- No 1{devic 1 Device, Univers rel 07-1416 e} Intrauteri ity of (MIRENA) 20:30: 19:27 ne, ONCE, [place] IUD 1 00 :00 1 dose, Prenatal Nurse Fri Branch 07/14/19 at 1530, Routine levonorgest 2019- No 1{devic Un kristopher rel 07-14 e} ity of (MIRENA) 20:30: 19:27 [place] IUD 1 00 :00 Prenatal Nurse Branch ibuprofen 2018- No 600mg Univer s [...] as IUD 1 00 :00 1 dose, Prenatal Nurse Fri Branch 07/14/19 at 1530, Routine metroNIDAZO 2019- No [id number] 500mg Take 1 Univers LE (FLAGYL) 07-1424 tablet by it y of 500 mg 00:00: 04:59 mouth 2 [place] tablet 00 :00 (two) Medical times [place] daily for 7 days. metroNIDAZO 2019- No [id number] 500mg Take 1 Univers LE (FLAGYL) 07-1424 tablet by it y of 500 mg 00:00: 04:59 mouth 2 [place] tablet 00 :00 (two) Medical times [place] daily for 7 days. metroNIDAZO 2019- No [id number] 500mg Take 1 Univers LE (FLAGYL) 07-14-24 tablet by it y of 500 mg 00:00: 04:59 mouth 2 [place] tablet 00 :00 (two) Medical times [place] daily for 7 days. metroNIDAZO 2019- No [id number] 500mg Take 1 Univers LE (FLAGYL) 07-14 08-24 tablet by it y of 500 mg 00:00: 04:59 mouth 2 [place] tablet 00 :00 (two) Medical times [place] daily for 7 days. No known No Univers medications ity of [facility] No known No Univers medications ity of [facility] Branch No known No Univers medications ity of [facility] No known No Univers medications ity of [facility] No known No Univers medications ity of [facility] Branch No known No Univers medications ity of [facility] Branch No known No Univers medications ity of [facility] No known No Univers medications ity of [facility] Immunizations Ordered Immunization Filled Immunization Date Status Commen ts Source Name Name [facility] 2018-06-27 Completed University of 00:00:00 [facility] Branch HPV9 2018-06-27 Completed University of 00:00:00 [facility] Branch HPV9 2018-06-27 Completed University of 00:00:00 [facility] Branch HPV9 2018-06-27 Completed University of 00:00:00 [facility] Branch HPV9 2018-06-27 Completed University of 00:00:00 [facility] Branch HPV9 2018-06-27 Completed University of 00:00:00 [facility] Branch HPV9 2018-06-27 Completed University of 00:00:00 [facility] Branch HPV9 2018-06-27 Completed University of 00:00:00 [facility] Branch HPV9 2018-06-27 Completed University of 00:00:00 [facility] Branch HPV9 2018-06-27 Completed University of 00:00:00 [facility] Branch HPV9 2018-06-27 Completed University of 00:00:00 [facility] Branch HPV9 2018-06-27 Completed University of 00:00:00 [facility] Branch HPV9 2018-06-27 Completed University of 00:00:00 [facility] Branch HPV9 2018-06-27 Completed University of 00:00:00 [facility] Branch HPV9 2018-06-27 Completed University of 00:00:00 [facility] Branch HPV9 2018-06-27 Completed University of 00:00:00 [facility] Branch HPV9 2018-06-27 Completed University of 00:00:00 [facility] Branch HPV9 2018-06-27 Completed University of 00:00:00 [facility] Branch HPV9 2018-06-27 Completed University of 00:00:00 [facility] Branch HPV9 2018-06-27 Completed University of 00:00:00 [facility] Branch HPV9 2018-06-27 Completed University of 00:00:00 [facility] Branch HPV9 2018-06-27 Completed University of 00:00:00 [facility] Branch HPV9 2018-06-27 Completed University of 00:00:00 [place] [facility] HPV9 2018-06-27 Completed University of 00:00:00 [place] [facility] HPV9 2018-06-27 Completed University of 00:00:00 [place] [facility] HPV9 2018-02-11 Completed University of 00:00:00 [place] [facility] Meningococcal B, OMV 2018-02-11 Completed Univ ersity of 00:00:00 [place] [facility] HPV9 2018-02-11 Completed University of 00:00:00 [place] [facility] Meningococcal B, OMV 2018-02-11 Completed Univ ersity of 00:00:00 [place] [facility] HPV9 2018-02-11 Completed University of 00:00:00 [place] [facility] Meningococcal B, OMV 2018-02-11 Completed Univ ersity of 00:00:00 [place] [facility] HPV9 2018-02-11 Completed University of 00:00:00 [place] [facility] Meningococcal B, OMV 2018-02-11 Completed Univ ersity of 00:00:00 [place] [facility] HPV9 2018-02-11 Completed University of 00:00:00 [place] [facility] Meningococcal B, OMV 2018-02-11 Completed Univ ersity of 00:00:00 [place] [facility] HPV9 2018-02-11 Completed University of 00:00:00 [place] [facility] Meningococcal B, OMV 2018-02-11 Completed Univ ersity of 00:00:00 [place] [facility] HPV9 2018-02-11 Completed University of 00:00:00 [place] [facility] Meningococcal B, OMV 2018-02-11 Completed Univ ersity of 00:00:00 [place] [facility] HPV9 2018-02-11 Completed University of 00:00:00 [place] [facility] Meningococcal B, OMV 2018-02-11 Completed Univ ersity of 00:00:00 [place] [facility] HPV9 2018-02-11 Completed University of 00:00:00 [place] [facility] Meningococcal B, OMV 2018-02-11 Completed Univ ersity of 00:00:00 [place] [facility] HPV9 2018-02-11 Completed University of 00:00:00 [place] [facility] Meningococcal B, OMV 2018-02-11 Completed Univ ersity of 00:00:00 [place] [facility] HPV9 2018-02-11 Completed University of [...] Branch HPV9 2018-02-11 Completed University of 00:00:00 [place] [facility] Meningococcal B, OMV 2018-02-11 Completed Univ ersity of 00:00:00 [place] [facility] HPV9 2018-02-11 Completed University of 00:00:00 [place] [facility] Meningococcal B, OMV 2018-02-11 Completed Univ ersity of 00:00:00 [place] [facility] HPV9 2018-02-11 Completed University of 00:00:00 [place] [facility] Meningococcal B, OMV 2018-02-11 Completed Univ ersity of 00:00:00 [place] [facility] HPV9 2018-02-11 Completed University of 00:00:00 [place] [facility] Meningococcal B, OMV 2018-02-11 Completed Univ ersity of 00:00:00 [facility] Branch HPV9 2018-02-11 Completed University of 00:00:00 [place] [facility] Meningococcal B, OMV 2018-02-11 Completed Univ ersity of 00:00:00 [place] [facility] HPV9 2018-02-11 Completed University of 00:00:00 [place] [facility] Meningococcal B, OMV 2018-02-11 Completed Univ ersity of 00:00:00 [place] [facility] HPV9 2018-02-11 Completed University of 00:00:00 [place] [facility] Meningococcal B, OMV 2018-02-11 Completed Univ ersity of 00:00:00 [place] [facility] HPV9 2018-02-11 Completed University of 00:00:00 [place] [facility] Meningococcal B, OMV 2018-02-11 Completed Univ ersity of 00:00:00 [place] [facility] HPV9 2018-02-11 Completed University of 00:00:00 [facility] Branch Meningococcal B, OMV 2018-02-11 Completed Univ ersity of 00:00:00 [facility] Branch HPV9 2018-02-11 Completed University of 00:00:00 [facility] Branch Meningococcal B, OMV 2018-02-11 Completed Univ ersity of 00:00:00 [facility] Meningococcal 2017-06-10 Completed University of Polysaccharide 00:00:00 [place] Medi andrew (groups A, C, Y and Branc h W-135) conjugate vaccine (MCV4P) Meningococcal B, OMV 2017-06-10 Completed Univ ersity of 00:00:00 [facility] Branch HPV9 2017-06-10 Completed University of 00:00:00 [facility] Branch Meningococcal 2017-06-10 Completed University of Polysaccharide 00:00:00 [place] Medi andrew (groups A, C, Y and Branc h W-135) conjugate vaccine (MCV4P) Meningococcal B, OMV 2017-06-10 Completed Univ ersity of 00:00:00 [facility] Branch HPV9 2017-06-10 Completed University of 00:00:00 [facility] Branch Meningococcal 2017-06-10 Completed University of Polysaccharide 00:00:00 [place] Medi andrew (groups A, C, Y and Branc h W-135) conjugate vaccine (MCV4P) Meningococcal B, OMV 2017-06-10 Completed Univ ersity of 00:00:00 [facility] HPV9 2017-06-10 Completed University of 00:00:00 [facility] Branch Meningococcal 2017-06-10 Completed University of Polysaccharide 00:00:00 [place] Medi andrew (groups A, C, Y and Branc h W-135) conjugate vaccine (MCV4P) Meningococcal B, OMV 2017-06-10 Completed Univ ersity of 00:00:00 [facility] Branch HPV9 2017-06-10 Completed University of 00:00:00 [facility] Branch Meningococcal 2017-06-10 Completed University of Polysaccharide 00:00:00 [place] Medi andrew (groups A, C, Y and Branc h W-135) conjugate vaccine (MCV4P) Meningococcal B, OMV 2017-06-10 Completed Univ ersity of 00:00:00 [facility] Branch HPV9 2017-06-10 Completed University of 00:00:00 [facility] Branch Meningococcal 2017-06-10 Completed University of Polysaccharide 00:00:00 [place] Medi andrew (groups A, C, Y and Branc h W-135) conjugate vaccine (MCV4P) Meningococcal B, OMV 2017-06-10 Completed Univ ersity of 00:00:00 [facility] Branch HPV9 2017-06-10 Completed University of 00:00:00 [facility] Meningococcal 2017-06-10 Completed University of Polysaccharide 00:00:00 [place] Medi andrew (groups A, C, Y and Branc h W-135) conjugate vaccine (MCV4P) Meningococcal B, OMV 2017-06-10 Completed Univ ersity of 00:00:00 [facility] Branch HPV9 2017-06-10 Completed University of 00:00:00 [facility] Meningococcal 2017-06-10 Completed University of Polysaccharide 00:00:00 [place] Medi andrew (groups A, C, Y and Branc h W-135) conjugate vaccine (MCV4P) Meningococcal B, OMV 2017-06-10 Completed Univ ersity of 00:00:00 [facility] HPV9 2017-06-10 Completed University of 00:00:00 [facility] Meningococcal 2017-06-10 Completed University of Polysaccharide 00:00:00 [place] Medi andrew (groups A, C, Y and Branc h W-135) conjugate vaccine (MCV4P) Meningococcal B, OMV 2017-06-10 Completed Univ ersity of 00:00:00 [facility] HPV9 2017-06-10 Completed University of 00:00:00 [facility] Meningococcal 2017-06-10 Completed University of Polysaccharide 00:00:00 [place] Medi andrew (groups A, C, Y and Branc h W-135) conjugate vaccine (MCV4P) Meningococcal B, OMV 2017-06-10 Completed Univ ersity of 00:00:00 [facility] HPV9 2017-06-10 Completed University of 00:00:00 [facility] Meningococcal 2017-06-10 Completed University of Polysaccharide 00:00:00 [place] Medi andrew (groups A, C, Y and Branc h W-135) conjugate vaccine (MCV4P) Meningococcal B, OMV 2017-06-10 Completed Univ ersity of 00:00:00 [facility] HPV9 2017-06-10 Completed [facility] 00:00:00 [facility] Meningococcal 2017-06-10 Completed [facility] Polysaccharide 00:00:00 [place] [facility] (groups A, C, Y and Branc h W-135) conjugate vaccine (MCV4P) Meningococcal B, OMV 2017-06-10 Completed [facility] ers[facility] of 00:00:00 [facility] HPV9 2017-06-10 Completed [facility] 00:00:00 [facility] Meningococcal 2017-06-10 Completed [facility] Polysaccharide 00:00:00 [place] [facility] (groups A, C, Y and Branc h W-135) conjugate vaccine (MCV4P) Meningococcal B, OMV 2017-06-10 Completed [facility] 00:00:00 [facility] HPV9 2017-06-10 Completed [facility] 00:00:00 [facility] Meningococcal 2017-06-10 Completed [facility] Polysaccharide 00:00:00 [place] [facility] (groups A, C, Y and Branc h W-135) conjugate vaccine (MCV4P) Meningococcal B, OMV 2017-06-10 Completed [facility] ers[facility] of 00:00:00 [facility] HPV9 2017-06-10 Completed [facility] 00:00:00 [facility] Meningococcal 2017-06-10 Completed [facility] Polysaccharide 00:00:00 [place] [facility] (groups A, C, Y and Branc h W-135) conjugate vaccine (MCV4P) Meningococcal B, OMV 2017-06-10 Completed [facility] ers[facility] of 00:00:00 [facility] HPV9 2017-06-10 Completed [facility] 00:00:00 [facility] Meningococcal 2017-06-10 Completed [facility] Polysaccharide 00:00:00 [place] [facility] (groups A, C, Y and Branc h W-135) conjugate vaccine (MCV4P) Meningococcal B, OMV 2017-06-10 Completed [facility] ersity of 00:00:00 [facility] HPV9 2017-06-10 Completed [facility] 00:00:00 [facility] Meningococcal 2017-06-10 Completed [facility] Polysaccharide 00:00:00 [place] [facility] (groups A, C, Y and Branc h W-135) conjugate vaccine (MCV4P) Meningococcal B, OMV 2017-06-10 Completed [facility] ers[facility] of 00:00:00 [facility] HPV9 2017-06-10 Completed [facility] 00:00:00 [facility] Meningococcal 2017-06-10 Completed [facility] Polysaccharide 00:00:00 [place] [facility] (groups A, C, Y and Branc h W-135) conjugate vaccine (MCV4P) Meningococcal B, OMV 2017-06-10 Completed [facility] ers[facility] of 00:00:00 [facility] HPV9 2017-06-10 Completed [facility] 00:00:00 [facility] Meningococcal 2017-06-10 Completed [facility] Polysaccharide 00:00:00 [place] [facility] (groups A, C, Y and Branc h W-135) conjugate vaccine (MCV4P) Meningococcal B, OMV 2017-06-10 Completed [facility] 00:00:00 [facility] HPV9 2017-06-10 Completed [facility] 00:00:00 [facility] Meningococcal 2017-06-10 Completed [facility] Polysaccharide 00:00:00 [place] [facility] (groups A, C, Y and Branc h W-135) conjugate vaccine (MCV4P) Meningococcal B, OMV 2017-06-10 Completed [facility] ers[facility] of 00:00:00 [facility] HPV9 2017-06-10 Completed [facility] 00:00:00 [facility] Meningococcal 2017-06-10 Completed [facility] Polysaccharide 00:00:00 [place] [facility] (groups A, C, Y and Branc h W-135) conjugate vaccine (MCV4P) Meningococcal B, OMV 2017-06-10 Completed [facility] ersity of 00:00:00 [facility] HPV9 2017-06-10 Completed [facility] 00:00:00 [facility] Meningococcal 2017-06-10 Completed [facility] Polysaccharide 00:00:00 [place] [facility] (groups A, C, Y and Branc h W-135) conjugate vaccine (MCV4P) Meningococcal B, OMV 2017-06-10 Completed [facility] ersity of 00:00:00 [facility] HPV9 2017-06-10 Completed [facility] 00:00:00 [facility] Meningococcal 2017-06-10 Completed [facility] Polysaccharide 00:00:00 [place] [facility] (groups A, C, Y and Branc h W-135) conjugate vaccine (MCV4P) Meningococcal B, OMV 2017-06-10 Completed [facility] ersity of 00:00:00 [facility] HPV9 2017-06-10 Completed [facility] 00:00:00 [facility] Meningococcal 2017-06-10 Completed [facility] Polysaccharide 00:00:00 [place] [facility] (groups A, C, Y and Branc h W-135) conjugate vaccine (MCV4P) Meningococcal B, OMV 2017-06-10 Completed [facility] 00:00:00 [facility] HPV9 2017-06-10 Completed [facility] 00:00:00 [facility] Meningococcal 2017-06-10 Completed [facility] of Polysaccharide 00:00:00 [facility]rew (groups A, C, Y and Branc h W-135) conjugate vaccine (MCV4P) Meningococcal B, OMV 2017-06-10 Completed Univ ersity of 00:00:00 [facility] HPV9 2017-06-10 Completed [facility] of 00:00:00 [facility] HEPATITIS A 2013-03-29 Completed [facility] of 00:00:00 [facility] HEPATITIS A 2013-03-29 Completed [facility] 00:00:00 [facility] HEPATITIS A 2013-03-29 Completed [facility] 00:00:00 [facility] HEPATITIS A 2013-03-29 Completed [facility] 00:00:00 [facility] HEPATITIS A 2013-03-29 Completed [facility] 00:00:00 [facility] HEPATITIS A 2013-03-29 Completed [facility] 00:00:00 [facility] HEPATITIS A 2013-03-29 Completed [facility] 00:00:00 [facility] HEPATITIS A 2013-03-29 Completed [facility] 00:00:00 [facility] HEPATITIS A 2013-03-29 Completed [facility] 00:00:00 [facility] HEPATITIS A 2013-03-29 Completed [facility] 00:00:00 [facility] HEPATITIS A 2013-03-29 Completed [facility] 00:00:00 [facility] HEPATITIS A 2013-03-29 Completed [facility] 00:00:00 [facility] HEPATITIS A 2013-03-29 Completed [facility] 00:00:00 [facility] HEPATITIS A 2013-03-29 Completed [facility] 00:00:00 [facility] HEPATITIS A 2013-03-29 Completed [facility] 00:00:00 [facility] HEPATITIS A 2013-03-29 Completed [facility] 00:00:00 [facility] HEPATITIS A 2013-03-29 Completed [facility] 00:00:00 [facility] HEPATITIS A 2013-03-29 Completed [facility] 00:00:00 [facility] HEPATITIS A 2013-03-29 Completed [facility] 00:00:00 [facility] HEPATITIS A 2013-03-29 Completed [facility] 00:00:00 [facility] HEPATITIS A 2013-03-29 Completed [facility] 00:00:00 [facility] HEPATITIS A 2013-03-29 Completed [facility] 00:00:00 [facility] HEPATITIS A 2013-03-29 Completed [facility] 00:00:00 [facility] HEPATITIS A 2013-03-29 Completed [facility] 00:00:00 [facility] HEPATITIS A 2013-03-29 Completed [facility] 00:00:00 [facility] Tdap 2012-06-16 Completed [facility] 00:00:00 [facility] Meningococcal 2012-06-16 Completed [facility] Polysaccharide 00:00:00 [place] [facility] (groups A, C, Y and Branc h W-135) conjugate vaccine (MCV4P) Varicella 2012-06-16 Completed [facility] (varivax)(chicken 00:00:00 [place] [facility]ox) [facility] HEPATITIS A 2012-06-16 Completed [facility] 00:00:00 [facility] Tdap 2012-06-16 Completed [facility] 00:00:00 [facility] Meningococcal 2012-06-16 Completed [facility] Polysaccharide 00:00:00 [place] [facility] (groups A, C, Y and Branc h W-135) conjugate vaccine (MCV4P) Varicella 2012-06-16 Completed [facility] (varivax)(chicken 00:00:00 [place] [facility] pox) [facility] HEPATITIS A 2012-06-16 Completed [facility] 00:00:00 [facility] Tdap 2012-06-16 Completed [facility] 00:00:00 [facility] Meningococcal 2012-06-16 Completed [facility] Polysaccharide 00:00:00 [place] [facility] (groups A, C, Y and Branc h W-135) conjugate vaccine (MCV4P) Varicella 2012-06-16 Completed [facility] (varivax)(chicken 00:00:00 [place] [facility] pox) [facility] HEPATITIS A 2012-06-16 Completed [facility] 00:00:00 [facility] Tdap 2012-06-16 Completed [facility] 00:00:00 [facility] Meningococcal 2012-06-16 Completed [facility] Polysaccharide 00:00:00 [place] [facility] (groups A, C, Y and Branc h W-135) conjugate vaccine (MCV4P) Varicella 2012-06-16 Completed [facility] (varivax)(chicken 00:00:00 [place] [facility] pox) [facility] HEPATITIS A 2012-06-16 Completed [facility] 00:00:00 [facility] Tdap 2012-06-16 Completed [facility] 00:00:00 [facility] Meningococcal 2012-06-16 Completed [facility] Polysaccharide 00:00:00 [place] [facility] (groups A, C, Y and Branc h W-135) conjugate vaccine (MCV4P) Varicella 2012-06-16 Completed [facility] (varivax)(chicken 00:00:00 [place] [facility] pox) [facility] HEPATITIS A 2012-06-16 Completed [facility] 00:00:00 [facility] Tdap 2012-06-16 Completed [facility] 00:00:00 [facility] Meningococcal 2012-06-16 Completed [facility] Polysaccharide 00:00:00 [place] [facility] (groups A, C, Y and Branc h W-135) conjugate vaccine (MCV4P) Varicella 2012-06-16 Completed [facility] (varivax)(chicken 00:00:00 [place] [facility] pox) [facility] HEPATITIS A 2012-06-16 Completed [facility] 00:00:00 [facility] Tdap 2012-06-16 Completed [facility] 00:00:00 [facility] Meningococcal 2012-06-16 Completed [facility] Polysaccharide 00:00:00 [place] [facility] (groups A, C, Y and Branc h W-135) conjugate vaccine (MCV4P) Varicella 2012-06-16 Completed [facility] (varivax)(chicken 00:00:00 [place] [facility] pox) [facility] HEPATITIS A 2012-06-16 Completed [facility] 00:00:00 [facility] Tdap 2012-06-16 Completed [facility] 00:00:00 [facility] Meningococcal 2012-06-16 Completed [facility] Polysaccharide 00:00:00 [place] [facility] (groups A, C, Y and Branc h W-135) conjugate vaccine (MCV4P) Varicella 2012-06-16 Completed [facility] (varivax)(chicken 00:00:00 [place] [facility] pox) [facility] HEPATITIS A 2012-06-16 Completed [facility] 00:00:00 [facility] TDAP 2012-06-16 Completed [facility] 00:00:00 [facility] Meningococcal 2012-06-16 Completed [facility] Polysaccharide 00:00:00 [place] [facility] (groups A, C, Y and Branc h W-135) conjugate vaccine (MCV4P) Varicella 2012-06-16 Completed [facility] (varivax)(chicken 00:00:00 [place] [facility] pox) [facility] HEPATITIS A 2012-06-16 Completed [facility] 00:00:00 [facility] TDAP 2012-06-16 Completed [facility] 00:00:00 [facility] Meningococcal 2012-06-16 Completed [facility] Polysaccharide 00:00:00 [place] [facility] (groups A, C, Y and Branc h W-135) conjugate vaccine (MCV4P) Varicella 2012-06-16 Completed [facility] (varivax)(chicken 00:00:00 [place] [facility] pox) [facility] HEPATITIS A 2012-06-16 Completed [facility] 00:00:00 [facility] TDAP 2012-06-16 Completed [facility] 00:00:00 [facility] Meningococcal 2012-06-16 Completed [facility] Polysaccharide 00:00:00 [place] [facility] (groups A, C, Y and Branc h W-135) conjugate vaccine (MCV4P) Varicella 2012-06-16 Completed [facility] (varivax)(chicken 00:00:00 [place] [facility] pox) [facility] HEPATITIS A 2012-06-16 Completed [facility] 00:00:00 [facility] TDAP 2012-06-16 Completed [facility] 00:00:00 [facility] Meningococcal 2012-06-16 Completed [facility] Polysaccharide 00:00:00 [place] [facility] (groups A, C, Y and Branc h W-135) conjugate vaccine (MCV4P) Varicella 2012-06-16 Completed [facility] (varivax)(chicken 00:00:00 [place] [facility] pox) [facility] HEPATITIS A 2012-06-16 Completed [facility] 00:00:00 [facility] TDAP 2012-06-16 Completed [facility] 00:00:00 [facility] Meningococcal 2012-06-16 Completed [facility] Polysaccharide 00:00:00 [place] [facility] (groups A, C, Y and Branc h W-135) conjugate vaccine (MCV4P) Varicella 2012-06-16 Completed [facility] (varivax)(chicken 00:00:00 [place] [facility] pox) [facility] HEPATITIS A 2012-06-16 Completed [facility] 00:00:00 [facility] TDAP 2012-06-16 Completed [facility] 00:00:00 [facility] Meningococcal 2012-06-16 Completed [facility] Polysaccharide 00:00:00 [place] [facility] (groups A, C, Y and Branc h W-135) conjugate vaccine (MCV4P) Varicella 2012-06-16 Completed [facility] (varivax)(chicken 00:00:00 [place] [facility] pox) [facility] HEPATITIS A 2012-06-16 Completed [facility] 00:00:00 [facility] TDAP 2012-06-16 Completed [facility] 00:00:00 [facility] Meningococcal 2012-06-16 Completed [facility] Polysaccharide 00:00:00 [place] [facility] (groups A, C, Y and Branc h W-135) conjugate vaccine (MCV4P) Varicella 2012-06-16 Completed [facility] (varivax)(chicken 00:00:00 [place] [facility] pox) [facility] HEPATITIS A 2012-06-16 Completed [facility] 00:00:00 [facility] TDAP 2012-06-16 Completed [facility] 00:00:00 [facility] Meningococcal 2012-06-16 Completed [facility] Polysaccharide 00:00:00 [place] [facility] (groups A, C, Y and Branc h W-135) conjugate vaccine (MCV4P) Varicella 2012-06-16 Completed [facility] (varivax)(chicken 00:00:00 [place] [facility] pox) [facility] HEPATITIS A 2012-06-16 Completed [facility] 00:00:00 [facility] TDAP 2012-06-16 Completed [facility] 00:00:00 [facility] Meningococcal 2012-06-16 Completed [facility] Polysaccharide 00:00:00 [place] [facility] (groups A, C, Y and Branc h W-135) conjugate vaccine (MCV4P) Varicella 2012-06-16 Completed [facility] (varivax)(chicken 00:00:00 [place] [facility] pox) [facility] HEPATITIS A 2012-06-16 Completed [facility] 00:00:00 [facility] TDAP 2012-06-16 Completed [facility] 00:00:00 [facility] Meningococcal 2012-06-16 Completed [facility] Polysaccharide 00:00:00 [place] [facility] (groups A, C, Y and Branc h W-135) conjugate vaccine (MCV4P) Varicella 2012-06-16 Completed [facility] (varivax)(chicken 00:00:00 [place] [facility] pox) [facility] HEPATITIS A 2012-06-16 Completed [facility] 00:00:00 [facility] TDAP 2012-06-16 Completed [facility] 00:00:00 [facility] Meningococcal 2012-06-16 Completed [facility] Polysaccharide 00:00:00 [place] [facility] (groups A, C, Y and Branc h W-135) conjugate vaccine (MCV4P) Varicella 2012-06-16 Completed [facility] (varivax)(chicken 00:00:00 [place] [facility] pox) [facility] HEPATITIS A 2012-06-16 Completed [facility] 00:00:00 [facility] TDAP 2012-06-16 Completed [facility] 00:00:00 [facility] Meningococcal 2012-06-16 Completed [facility] Polysaccharide 00:00:00 [place] [facility] (groups A, C, Y and Branc h W-135) conjugate vaccine (MCV4P) Varicella 2012-06-16 Completed [facility] (varivax)(chicken 00:00:00 [place] [facility] pox) [facility] HEPATITIS A 2012-06-16 Completed [facility] 00:00:00 [facility] TDAP 2012-06-16 Completed [facility] 00:00:00 [facility] Meningococcal 2012-06-16 Completed [facility] Polysaccharide 00:00:00 [place] [facility] (groups A, C, Y and Branc h W-135) conjugate vaccine (MCV4P) Varicella 2012-06-16 Completed [facility] (varivax)(chicken 00:00:00 [place] [facility] pox) [facility] HEPATITIS A 2012-06-16 Completed [facility] 00:00:00 [facility] TDAP 2012-06-16 Completed [facility] 00:00:00 [facility] Meningococcal 2012-06-16 Completed [facility] Polysaccharide 00:00:00 [place] [facility] (groups A, C, Y and Branc h W-135) conjugate vaccine (MCV4P) Varicella 2012-06-16 Completed [facility] (varivax)(chicken 00:00:00 [place] [facility] pox) [facility] HEPATITIS A 2012-06-16 Completed [facility] 00:00:00 [facility] TDAP 2012-06-16 Completed [facility] 00:00:00 [facility] Meningococcal 2012-06-16 Completed [facility] Polysaccharide 00:00:00 [place] [facility] (groups A, C, Y and Branc h W-135) conjugate vaccine (MCV4P) Varicella 2012-06-16 Completed [facility] (varivax)(chicken 00:00:00 [place] [facility] pox) [facility] HEPATITIS A 2012-06-16 Completed [facility] 00:00:00 [facility] TDAP 2012-06-16 Completed [facility] 00:00:00 [facility] Meningococcal 2012-06-16 Completed [facility] Polysaccharide 00:00:00 [place] [facility] (groups A, C, Y and Branc h W-135) conjugate vaccine (MCV4P) Varicella 2012-06-16 Completed [facility] (varivax)(chicken 00:00:00 [place] [facility] Tdap 2012-06-16 Completed [facility] 00:00:00 [facility] HEPATITIS A 2012-06-16 Completed [facility] 00:00:00 [facility] Meningococcal 2012-06-16 Completed [facility] Polysaccharide 00:00:00 [place] [facility] (groups A, C, Y and Branc h W-135) conjugate vaccine (MCV4P) Varicella 2012-06-16 Completed [facility] (varivax)(chicken 00:00:00 [place] [facility]) [facility] HEPATITIS A 2012-06-16 Completed [facility] 00:00:00 [facility] DTAP 2005-09-28 Completed [facility] 00:00:00 [facility] DTAP 2005-09-28 Completed [facility] 00:00:00 [facility] DTAP 2005-09-28 Completed [facility] 00:00:00 [facility] DTAP 2005-09-28 Completed [facility] 00:00:00 [facility] DTAP 2005-09-28 Completed [facility] 00:00:00 [facility] DTAP 2005-09-28 Completed [facility] 00:00:00 [facility] DTAP 2005-09-28 Completed [facility] 00:00:00 [facility] DTAP 2005-09-28 Completed [facility] 00:00:00 [facility] DTAP 2005-09-28 Completed [facility] 00:00:00 [facility] DTAP 2005-09-28 Completed [facility] 00:00:00 [facility] DTAP 2005-09-28 Completed [facility] 00:00:00 [facility] DTAP 2005-09-28 Completed [facility] 00:00:00 [facility] DTAP 2005-09-28 Completed [facility] 00:00:00 [facility] DTAP 2005-09-28 Completed [facility] 00:00:00 [facility] DTAP 2005-09-28 Completed [facility] 00:00:00 [facility] DTAP 2005-09-28 Completed [facility] 00:00:00 [facility] DTAP 2005-09-28 Completed [facility] 00:00:00 [facility] DTAP 2005-09-28 Completed [facility] 00:00: [facility] DTAP 2005-09-28 Completed [facility] 00:00: [facility] DTAP 2005-09-28 Completed [facility] 00:00: [facility] DTAP 2005-09-28 Completed [facility] 00:00: [facility] DTAP 2005-09-28 Completed [facility] 00:00:00 [facility] DTAP 2005-09-28 Completed [facility] 00:00:00 [facility] DTAP 2005-09-28 Completed [facility] 00:00: [facility] DTAP 2005-09-28 Completed [facility] 00:00:00 [facility] Hep B, Adol [...] 2004-07-08 Completed Unive rsity of Dosage 00:00:00 [facility] Hep B, Adol or Pedi 2004-07-08 Completed [facility]ive rsity of Dosage 00:00:00 [facility] Hep B, Adol or Pedi 2004-07-08 Completed Unive rsity of Dosage 00:00:00 [facility] Hep B, Adol or Pedi 2004-07-08 Completed Unive rsity of Dosage 00:00:00 [facility] Hep B, Adol or Pedi 2004-07-08 Completed Unive rsity of Dosage 00:00:00 [facility] Hep B, Adol or Pedi 2004-07-08 Completed Unive rsity of Dosage 00:00:00 [facility] DTAP 2004-05-28 Completed [facility] 00:00:00 [facility] Polio (IPV/OPV) 2004-05-28 Completed Universit y of 00:00:00 [facility] DTAP 2004-05-28 Completed [facility] 00:00:00 [facility] Polio (IPV/OPV) 2004-05-28 Completed Universit y of 00:00:00 [facility] DTAP 2004-05-28 Completed [facility] 00:00:00 [facility] Polio (IPV/OPV) 2004-05-28 Completed Universit y of 00:00:00 [facility] DTAP 2004-05-28 Completed [facility] of 00:00:00 [facility] Polio (IPV/OPV) 2004-05-28 Completed Universit y of 00:00:00 [facility] DTAP 2004-05-28 Completed [facility] 00:00:00 [facility] Polio (IPV/OPV) 2004-05-28 Completed Universit y of 00:00:00 [facility] DTAP 2004-05-28 Completed [facility] 00:00:00 [facility] Polio (IPV/OPV) 2004-05-28 Completed Universit y of 00:00:00 [facility] DTAP 2004-05-28 Completed [facility] 00:00:00 [facility] Polio (IPV/OPV) 2004-05-28 Completed Universit y of 00:00:00 [facility] DTAP 2004-05-28 Completed [facility] 00:00:00 [facility] Polio (IPV/OPV) 2004-05-28 Completed Universit y of 00:00:00 [facility] DTAP 2004-05-28 Completed [facility] of 00:00:00 [facility] DTAP 2004-05-28 Completed [facility] 00:00:00 [facility] Polio (IPV/OPV) 2004-05-28 Completed [facility] 00:00:00 [facility] Polio (IPV/OPV) 2004-05-28 Completed Universit y [facility] 00:00:00 [facility] Polio (IPV/OPV) 2004-05-28 Completed Universit y of 00:00:00 [facility] DTAP 2004-05-28 Completed [facility] 00:00:00 [facility] Polio (IPV/OPV) 2004-05-28 Completed [facility] 00:00:00 [facility] Polio (IPV/OPV) 2004-05-28 Completed Universit y [facility] 00:00:00 [facility] DTAP 2004-05-28 Completed [facility] 00:00:00 [facility] [facility] Polio (IPV/OPV) 2004-05-28 Completed [facility] 00:00:00 [facility] Polio (IPV/OPV) 2004-05-28 Completed [facility] 00:00:00 [facility] Polio (IPV/OPV) 2004-05-28 Completed [facility] 00:00:00 [facility] DTAP 2004-05-28 Completed University of 00:00:00 [facility] Polio (IPV/OPV) 2004-05-28 Completed [facility] 00:00:00 [facility] DTAP 2004-05-28 Completed [facility] 00:00:00 [facility] Polio (IPV/OPV) 2004-05-28 Completed [facility] 00:00:00 [facility] Polio (IPV/OPV) 2004-05-28 Completed [facility] 00:00:00 [facility] DTAP 2004-05-28 Completed [facility] of 00:00:00 [facility] Polio (IPV/OPV) 2004-05-28 Completed [facility] 00:00:00 [facility] DTAP 2004-05-28 Completed [facility] of 00:00:00 [facility] DTAP 2004-05-28 Completed [facility] of 00:00:00 [facility] Polio (IPV/OPV) 2004-05-28 Completed [facility] 00:00:00 [facility] Polio (IPV/OPV) 2004-05-28 Completed [facility] 00:00:00 [facility] DTAP 2004-05-28 Completed [facility] of 00:00:00 [facility] Polio (IPV/OPV) 2004-05-28 Completed [facility] 00:00:00 [facility] DTAP 2004-05-28 Completed [facility] 00:00:00 [facility] Polio (IPV/OPV) 2004-05-28 Completed [facility] 00:00:00 [facility] DTAP 2004-01-21 Completed [facility] of 00:00:00 [facility] HIB 4 Dose Schedule 2004-01-21 Completed Unive rsity of 00:00:00 [facility] MMR 2004-01-21 Completed [facility] of 00:00:00 [facility] Polio (IPV/OPV) 2004-01-21 Completed [facility] 00:00:00 [facility] DTAP 2004-01-21 Completed [facility] of 00:00:00 [facility] HIB 4 Dose Schedule 2004-01-21 Completed Unive rsity of 00:00:00 [facility] MMR 2004-01-21 Completed [facility] 00:00:00 [facility] Polio (IPV/OPV) 2004-01-21 Completed [facility] 00:00:00 [facility] DTAP 2004-01-21 Completed [facility] of 00:00:00 [facility] HIB 4 Dose Schedule 2004-01-21 Completed Unive rsity of 00:00:00 [facility] MMR 2004-01-21 Completed [facility] 00:00:00 [facility] Polio (IPV/OPV) 2004-01-21 Completed [facility] 00:00:00 [facility] DTAP 2004-01-21 Completed [facility] of 00:00:00 [facility] HIB 4 Dose Schedule 2004-01-21 Completed Unive rsity of 00:00:00 [facility] MMR 2004-01-21 Completed [facility] of 00:00:00 [facility] Polio (IPV/OPV) 2004-01-21 Completed [facility] 00:00:00 [facility] DTAP 2004-01-21 Completed [facility] of 00:00:00 [facility] HIB 4 Dose Schedule 2004-01-21 Completed Unive rsity of 00:00:00 [facility] MMR 2004-01-21 Completed [facility] of 00:00:00 [facility] Polio (IPV/OPV) 2004-01-21 Completed [facility] 00:00:00 [facility] DTAP 2004-01-21 Completed [facility] 00:00:00 [facility] HIB 4 Dose Schedule 2004-01-21 Completed Unive rsity of 00:00:00 [facility] MMR 2004-01-21 Completed [facility] of 00:00:00 [facility] Polio (IPV/OPV) 2004-01-21 Completed [facility] 00:00:00 [facility] DTAP 2004-01-21 Completed [facility] of 00:00:00 [facility] HIB 4 Dose Schedule 2004-01-21 Completed Unive rsity of 00:00:00 [facility] MMR 2004-01-21 Completed [facility] of 00:00:00 [facility] Polio (IPV/OPV) 2004-01-21 Completed [facility] 00:00:00 [facility] DTAP 2004-01-21 Completed [facility] of 00:00:00 [facility] HIB 4 Dose Schedule 2004-01-21 Completed Unive rsity of 00:00:00 [facility] MMR 2004-01-21 Completed [facility] of 00:00:00 [facility] Polio (IPV/OPV) 2004-01-21 Completed [facility] 00:00:00 [facility] DTAP 2004-01-21 Completed [facility] of 00:00:00 [facility] DTAP 2004-01-21 Completed [facility] of 00:00:00 [facility] HIB 4 Dose Schedule 2004-01-21 Completed Unive rsity of 00:00:00 [facility] MMR 2004-01-21 Completed [facility] of 00:00:00 [facility] Polio (IPV/OPV) 2004-01-21 Completed [facility] 00:00:00 [facility] HIB 4 Dose Schedule 2004-01-21 Completed Unive rsity of 00:00:00 [facility] MMR 2004-01-21 Completed [facility] of 00:00:00 [facility] DTAP 2004-01-21 Completed [facility] of 00:00:00 [facility] HIB 4 Dose Schedule 2004-01-21 Completed [facility]ive rsity of 00:00:00 [facility] MMR 2004-01-21 Completed [facility] of 00:00:00 [facility] Polio (IPV/OPV) 2004-01-21 Completed [facility] 00:00:00 [facility] Polio (IPV/OPV) 2004-01-21 Completed [facility] 00:00:00 [facility] DTAP 2004-01-21 Completed [facility] of 00:00:00 [facility] HIB 4 Dose Schedule 2004-01-21 Completed Unive rsity of 00:00:00 [facility] MMR 2004-01-21 Completed [facility] of 00:00:00 [facility] Polio (IPV/OPV) 2004-01-21 Completed [facility] 00:00:00 [facility] DTAP 2004-01-21 Completed [facility] of 00:00:00 [facility] HIB 4 Dose Schedule 2004-01-21 Completed Unive rsity of 00:00:00 [facility] MMR 2004-01-21 Completed [facility] of 00:00:00 [facility] Polio (IPV/OPV) 2004-01-21 Completed [facility] 00:00:00 [facility] DTAP 2004-01-21 Completed [facility] of 00:00:00 [facility] HIB 4 Dose Schedule 2004-01-21 Completed Unive rsity of 00:00:00 [facility] MMR 2004-01-21 Completed [facility] of 00:00:00 [facility] Polio (IPV/OPV) 2004-01-21 Completed [facility] 00:00:00 [facility] DTAP 2004-01-21 Completed [facility] of 00:00:00 [facility] HIB 4 Dose Schedule 2004-01-21 Completed Unive rsity of 00:00:00 [facility] MMR 2004-01-21 Completed [facility] of 00:00:00 [facility] Polio (IPV/OPV) 2004-01-21 Completed [facility] 00:00:00 [facility] DTAP 2004-01-21 Completed [facility] of 00:00:00 [facility] HIB 4 Dose Schedule 2004-01-21 Completed Unive rsity of 00:00:00 [facility] MMR 2004-01-21 Completed [facility] of 00:00:00 [facility] Polio (IPV/OPV) 2004-01-21 Completed [facility] 00:00:00 [facility] DTAP 2004-01-21 Completed [facility] of 00:00:00 [facility] HIB 4 Dose Schedule 2004-01-21 Completed Unive rsity of 00:00:00 [facility] MMR 2004-01-21 Completed [facility] of 00:00:00 [facility] Polio (IPV/OPV) 2004-01-21 Completed [facility] 00:00:00 [facility] DTAP 2004-01-21 Completed [facility] of 00:00:00 [facility] HIB 4 Dose Schedule 2004-01-21 Completed Unive rsity of 00:00:00 [facility] MMR 2004-01-21 Completed [facility] of 00:00:00 [facility] Polio (IPV/OPV) 2004-01-21 Completed [facility] 00:00:00 [facility] DTAP 2004-01-21 Completed [facility] of 00:00:00 [facility] HIB 4 Dose Schedule 2004-01-21 Completed Unive rsity of 00:00:00 [facility] MMR 2004-01-21 Completed [facility] of 00:00:00 [facility] Polio (IPV/OPV) 2004-01-21 Completed [facility] 00:00:00 [facility] DTAP 2004-01-21 Completed [facility] of 00:00:00 [facility] HIB 4 Dose Schedule 2004-01-21 Completed Unive rsity of 00:00:00 [facility] MMR 2004-01-21 Completed [facility] of 00:00:00 [facility] Polio (IPV/OPV) 2004-01-21 Completed [facility] 00:00:00 [facility] DTAP 2004-01-21 Completed [facility] of 00:00:00 [facility] HIB 4 Dose Schedule 2004-01-21 Completed Unive rsity of 00:00:00 [facility] DTAP 2004-01-21 Completed [facility] of 00:00:00 [facility] HIB 4 Dose Schedule 2004-01-21 Completed Unive rsity of 00:00:00 [facility] MMR 2004-01-21 Completed [facility] of 00:00:00 [facility] Polio (IPV/OPV) 2004-01-21 Completed [facility] 00:00:00 [facility] MMR 2004-01-21 Completed [facility] of 00:00:00 [facility] Polio (IPV/OPV) 2004-01-21 Completed [facility] 00:00:00 [facility] DTAP 2004-01-21 Completed [facility] of 00:00:00 [facility] HIB 4 Dose Schedule 2004-01-21 Completed Unive rsity of 00:00:00 [facility] MMR 2004-01-21 Completed [facility] of 00:00:00 [facility] Polio (IPV/OPV) 2004-01-21 Completed [facility] 00:00:00 [facility] DTAP 2004-01-21 Completed [facility] of 00:00:00 [facility] HIB 4 Dose Schedule 2004-01-21 Completed Unive rsity of 00:00:00 [facility] MMR 2004-01-21 Completed [facility] of 00:00:00 [facility] Polio (IPV/OPV) 2004-01-21 Completed [facility] 00:00:00 [facility] Varicella 2003-11-08 Completed University of (varivax)(chicken 00:00:00 [place] [facility]ox[facility] DTAP 2003-11-08 Completed [facility] of 00:00:00 [facility] Polio (IPV/OPV) 2003-11-08 Completed [facility] 00:00:00 [facility] MMR 2003-11-08 Completed [facility] of 00:00:00 [facility] Varicella 2003-11-08 Completed [facility] of (varivax)(chicken 00:00:00 [place] [facility] pox[facility] DTAP 2003-11-08 Completed [facility] 00:00:00 [facility] Polio (IPV/OPV) 2003-11-08 Completed [facility] 00:00:00 [facility] MMR 2003-11-08 Completed [facility] 00:00:00 [facility] Varicella 2003-11-08 Completed [facility] of (varivax)(chicken 00:00:00 [place] [facility] pox) [facility] DTAP 2003-11-08 Completed [facility] of 00:00:00 [facility] Polio (IPV/OPV) 2003-11-08 Completed [facility] 00:00:00 [facility] MMR 2003-11-08 Completed [facility] 00:00:00 [facility] Varicella 2003-11-08 Completed [facility] of (varivax)(chicken 00:00:00 [place] [facility] pox) [facility] DTAP 2003-11-08 Completed [facility] of 00:00:00 [facility] Polio (IPV/OPV) 2003-11-08 Completed [facility] 00:00:00 [facility] MMR 2003-11-08 Completed [facility] of 00:00:00 [facility] Varicella 2003-11-08 Completed [facility] of (varivax)(chicken 00:00:00 [place] [facility] pox) [facility] DTAP 2003-11-08 Completed [facility] of 00:00:00 [facility] Polio (IPV/OPV) 2003-11-08 Completed [facility] 00:00:00 [facility] MMR 2003-11-08 Completed [facility] of 00:00:00 [facility] Varicella 2003-11-08 Completed [facility] of (varivax)(chicken 00:00:00 [place] [facility] pox) [facility] DTAP 2003-11-08 Completed [facility] of 00:00:00 [facility] Polio (IPV/OPV) 2003-11-08 Completed [facility] 00:00:00 [facility] MMR 2003-11-08 Completed [facility] of 00:00:00 [facility] Varicella 2003-11-08 Completed [facility] of (varivax)(chicken 00:00:00 [place] [facility] pox) [facility] DTAP 2003-11-08 Completed [facility] of 00:00:00 [facility] Polio (IPV/OPV) 2003-11-08 Completed [facility] 00:00:00 [facility] MMR 2003-11-08 Completed [facility] of 00:00:00 [facility] Varicella 2003-11-08 Completed [facility] of (varivax)(chicken 00:00:00 [place] [facility] pox) [facility] DTAP 2003-11-08 Completed [facility] of 00:00:00 [facility] Polio (IPV/OPV) 2003-11-08 Completed [facility] 00:00:00 [facility] MMR 2003-11-08 Completed [facility] of 00:00:00 [facility] Varicella 2003-11-08 Completed [facility] of (varivax)(chicken 00:00:00 [place] [facility] pox) [facility] DTAP 2003-11-08 Completed [facility] of 00:00:00 [facility] Polio (IPV/OPV) 2003-11-08 Completed [facility] 00:00:00 [facility] MMR 2003-11-08 Completed [facility] 00:00:00 [facility] Varicella 2003-11-08 Completed [facility] of (varivax)(chicken 00:00:00 [place] [facility] pox) [facility] DTAP 2003-11-08 Completed [facility] of 00:00:00 [facility] Polio (IPV/OPV) 2003-11-08 Completed [facility] 00:00:00 [facility] MMR 2003-11-08 Completed [facility] of 00:00:00 [facility] Varicella 2003-11-08 Completed [facility] of (varivax)(chicken 00:00:00 [place] [facility] pox) [facility] DTAP 2003-11-08 Completed [facility] of 00:00:00 [facility] Polio (IPV/OPV) 2003-11-08 Completed [facility] of 00:00:00 [facility] MMR 2003-11-08 Completed [facility] of 00:00:00 [facility] Varicella 2003-11-08 Completed [facility] of (varivax)(chicken 00:00:00 [place] [facility] pox) [facility] DTAP 2003-11-08 Completed [facility] of 00:00:00 [facility] Polio (IPV/OPV) 2003-11-08 Completed [facility] of 00:00:00 [facility] MMR 2003-11-08 Completed [facility] of 00:00:00 [facility] Varicella 2003-11-08 Completed [facility] of (varivax)(chicken 00:00:00 [place] [facility] pox) [facility] DTAP 2003-11-08 Completed [facility] of 00:00:00 [facility] Polio (IPV/OPV) 2003-11-08 Completed [facility] of 00:00:00 [facility] MMR 2003-11-08 Completed [facility] of 00:00:00 [facility] Varicella 2003-11-08 Completed [facility] of (varivax)(chicken 00:00:00 [place] [facility] pox) [facility] DTAP 2003-11-08 Completed [facility] of 00:00:00 [facility] Polio (IPV/OPV) 2003-11-08 Completed [facility] 00:00:00 [facility] MMR 2003-11-08 Completed [facility] 00:00:00 [facility] DTAP 2003-11-08 Completed [facility] of 00:00:00 [facility] Polio (IPV/OPV) 2003-11-08 Completed [facility] 00:00:00 [facility] MMR 2003-11-08 Completed [facility] 00:00:00 [facility] Varicella 2003-11-08 Completed [facility] of (varivax)(chicken 00:00:00 [place] [facility] pox) [facility] Varicella 2003-11-08 Completed [facility] (varivax)(chicken 00:00:00 [place] [facility] pox) [facility] DTAP 2003-11-08 Completed [facility] of 00:00:00 [facility] Polio (IPV/OPV) 2003-11-08 Completed [facility] 00:00:00 [facility] MMR 2003-11-08 Completed [facility] 00:00:00 [facility] Varicella 2003-11-08 Completed [facility] of (varivax)(chicken 00:00:00 [facility] edical pox) Branch DTAP 2003-11-08 Completed [facility] of 00:00:00 [facility] Polio (IPV/OPV) 2003-11-08 Completed [facility] 00:00:00 [facility] MMR 2003-11-08 Completed [facility] of 00:00:00 [facility] Varicella 2003-11-08 Completed [facility] of (varivax)(chicken 00:00:00 [place] [facility] pox) [facility] DTAP 2003-11-08 Completed [facility] of 00:00:00 [facility] Polio (IPV/OPV) 2003-11-08 Completed [facility] of 00:00:00 [facility] MMR 2003-11-08 Completed [facility] of 00:00:00 [facility] Varicella 2003-11-08 Completed [facility] of (varivax)(chicken 00:00:00 [place] [facility] pox) [facility] DTAP 2003-11-08 Completed [facility] of 00:00:00 [facility] Polio (IPV/OPV) 2003-11-08 Completed [facility] 00:00:00 [facility] MMR 2003-11-08 Completed [facility] of 00:00:00 [facility] Varicella 2003-11-08 Completed [facility] of (varivax)(chicken 00:00:00 [place] [facility] pox) [facility] DTAP 2003-11-08 Completed [facility] of 00:00:00 [facility] Polio (IPV/OPV) 2003-11-08 Completed [facility] 00:00:00 [facility] MMR 2003-11-08 Completed [facility] of 00:00:00 [facility] Varicella 2003-11-08 Completed [facility] of (varivax)(chicken 00:00:00 [place] [facility] pox) [facility] DTAP 2003-11-08 Completed [facility] of 00:00:00 [facility] Polio (IPV/OPV) 2003-11-08 Completed [facility] 00:00:00 [facility] MMR 2003-11-08 Completed [facility] of 00:00:00 [facility] Varicella 2003-11-08 Completed [facility] of (varivax)(chicken 00:00:00 [place] [facility] pox) [facility] DTAP 2003-11-08 Completed [facility] of 00:00:00 [facility] Polio (IPV/OPV) 2003-11-08 Completed [facility] 00:00:00 [facility] MMR 2003-11-08 Completed [facility] of 00:00:00 [facility] Varicella 2003-11-08 Completed [facility] of (varivax)(chicken 00:00:00 [place] [facility] pox) [facility] DTAP 2003-11-08 Completed [facility] of 00:00:00 [facility] Polio (IPV/OPV) 2003-11-08 Completed [facility] of 00:00:00 [facility] MMR 2003-11-08 Completed [facility] of 00:00:00 [facility] Varicella 2003-11-08 Completed [facility] of (varivax)(chicken 00:00:00 [place] [facility] pox) [facility] DTAP 2003-11-08 Completed [facility] of 00:00:00 [facility] Polio (IPV/OPV) 2003-11-08 Completed [facility] 00:00:00 [facility] MMR 2003-11-08 Completed [facility] of 00:00:00 [facility] Vital Signs Vital Name Observation Time Observation Value Comments Source Systolic blood 2022-02-28 20:14:00 118 mm[Hg] Univer sity of pressure [facility] Diastolic blood 2022-02-28 20:14:00 70 mm[Hg] Unive rsity of pressure [facility] Heart rate 2022-02-28 20:14:00 88 /min [facility] Body temperature 2022-02-28 20:14:[address] [facility] 2022-02-28 20:14:00 17 /min [facility] Oxygen saturation in 2022-02-28 20:14:00 99 /min [facility] Arterial blood by [facility] [place] [facility]xim[facility] Body height 2022-02-28 18:39:00 157.5 cm [facility] [place] [facility] Body weight 2022-02-28 18:39:00 51.211 kg [facility] [place] [facility] BMI 2022-02-28 18:39:00 20.65 kg/m2 [facility] [place] [facility] Systolic blood 2021-11-27 14:07:00 126 mm[Hg] Univer [facility]ity of pressure [facility] Diastolic blood 2021-11-27 14:07:00 83 mm[Hg] Unive rsity of pressure [facility] Heart rate 2021-11-27 14:07:00 112 /min [facility] Body temperature 2021-11-27 14:07:00 36.78 Theodora [facility] Respiratory rate 2021-11-27 14:07:00 18 /min [facility] Body height 2021-11-27 14:07:00 157.5 cm [facility] Body weight 2021-11-27 14:07:00 49.896 kg [facility] [place] [facility] BMI 2021-11-27 14:07:00 20.12 kg/m2 [facility] Oxygen saturation in 2021-11-27 14:07:00 100 /min [facility] Arterial blood by [facility] Systolic blood 2021-08-10 13:57:00 122 mm[Hg] Univer [facility]ity of pressure [facility] Diastolic blood 2021-08-10 13:57:00 91 mm[Hg] Unive rsity of pressure [facility] Heart rate 2021-08-10 13:57:00 78 /min [facility] Body temperature 2021-08-10 13:57:00 36.44 Theodora [facility] Respiratory rate 2021-08-10 13:57:00 14 /min [facility] Body weight 2021-08-10 13:57:00 49.896 kg [facility] BMI 2021-08-10 13:57:00 20.12 kg/m2 [facility] Oxygen saturation in 2021-08-10 13:57:00 100 /min [facility] Arterial blood by [facility] [place] [facility] Systolic blood 2021-03-07 18:19:00 107 mm[Hg] Univer [facility]ity of pressure [facility] Diastolic blood 2021-03-07 18:19:00 59 mm[Hg] Unive rsity of pressure [facility] Heart rate 2021-03-07 18:19:00 80 /min [facility] Body height 2021-03-07 18:19:00 157.5 cm [facility] Body weight 2021-03-07 18:19:00 46.131 kg [facility] BMI 2021-03-07 18:19:00 18.60 kg/m2 [facility] Systolic blood 2020-10-28 00:37:23 107 mm[Hg] [facility]iver [facility] of pressure [facility] Diastolic blood 2020-10-28 00:37:23 51 mm[Hg] [facility] [place] Medical Branch Heart rate 2020-10-28 00:37:23 98 /min [facility] Body temperature 2020-10-28 00:37:23 36.67 Theodora [facility] [place] [facility] Respiratory rate 2020-10-28 00:37:23 18 /min [facility] [place] [facility] Oxygen saturation in 2020-10-28 00:37:23 100 /min [facility] Arterial blood by [facility] Pulse oximetry Branch Body height 2020-10-27 22:58:00 157.5 cm [facility] Body weight 2020-10-27 22:58:00 45.36 kg [facility] BMI 2020-10-27 22:58:00 18.29 kg/m2 [facility] Systolic blood 2020-06-18 19:51:00 127 mm[Hg] [facility] [place] [facility] Diastolic blood 2020-06-18 19:51:00 74 mm[Hg] [facility] Heart rate 2020-06-18 19:51:00 77 /min [facility] Respiratory rate 2020-06-18 19:51:00 20 /min [facility] [place] [facility] Body weight 2020-06-18 19:51:00 46.993 kg [facility] Systolic blood 2019-08-05 00:00:25 96 mm[Hg] [facility] [place] [facility] Diastolic blood 2019-08-05 00:00:25 43 mm[Hg] [facility] [place] Heart rate 2019-08-05 00:00:25 90 /min [facility] Body temperature 2019-08-05 00:00:25 36.78 Theodora [facility] Respiratory rate 2019-08-05 00:00:25 16 /min [facility] of [facility] Oxygen saturation in 2019-08-05 00:00:25 99 /min [facility] Arterial blood by [facility] Pulse oximetry Branch Body weight 2019-08-04 19:28:00 48.988 kg [facility] Systolic blood 2019-07-14 18:50:00 106 mm[Hg] Univer sity of pressure [facility] Diastolic blood 2019-07-14 18:50:00 72 mm[Hg] Unive rsity of pressure [facility] Heart rate 2019-07-14 18:50:00 68 /min [facility] Body height 2019-07-14 18:50:00 157.5 cm [facility] Body weight 2019-07-14 18:50:00 48.988 kg [facility] BMI 2019-07-14 18:50:00 19.75 kg/m2 [facility] Systolic blood 2019-07-11 18:08:00 116 mm[Hg] Univer sity of pressure [facility] Branch Diastolic blood 2019-07-11 18:08:00 74 mm[Hg] Unive rsity of pressure [facility] Heart rate 2019-07-11 18:08:00 74 /min [facility] Body height 2019-07-11 18:08:00 157.5 cm [facility] Body weight 2019-07-11 18:08:00 48.988 kg [facility] BMI 2019-07-11 18:08:00 19.75 kg/m2 [facility] Procedures Procedure Date / Time Performing Clinician Source Performed POCT TEST 2022-02-28 19:26:00 Dellis, Patricia Gary [facility] TOTAL BETA HCG ASSAY 2022-02-28 19:02:00 [facility] 2022-02-28 19:02:00 Patricia Schaefer [facility] COVID-19 (ID NOW RAPID 2021-11-27 15:13:00 Jesús Velarde [facility] TESTING) Medical Branch ASSIGNMENT OF BENEFITS 2021-11-27 14:04:45 Doctor Unassigned, No [facility] CONSENT/REFUSAL FOR 2021-11-27 14:03:55 Doctor Unassigned, No [facility] CONSENT/REFUSAL FOR 2021-08-10 13:53:36 Doctor Unassigned, No [facility] Name [facility] ASSIGNMENT OF BENEFITS 2021-03-07 18:13:31 Doctor Unassigned, No [facility] XR CHEST 1 VW 2020-10-27 23:57:22 Lois Trujillo [facility] POCT TEST 2020-10-27 23:34:00 Lois Trujillo [facility] GALV/CLC ONLY - URINE 2020-10-27 23:33:00 Lois Trujillo [facility] DRUG (IMMUNOASSAY) - 4 Medical B ranch ER PANEL URINALYSIS 2020-10-27 23:33:00 Lios Trujillo [facility] TROPONIN I 2020-10-27 23:04:00 Lois Trujillo [facility] HEPATIC FUNCTION PANEL 2020-10-27 23:04:00 Lois [facility] ([id number]) (ALB,T.PRO,BILI Medical Branch T,BU/BC,ALT,AST,ALK PHOS) BASIC METABOLIC PANEL 2020-10-27 23:04:00 Lois Trujillo [facility] (NA, K, CL, CO2, Medical Branch GLUCOSE, BUN, CREATININE, CA) ETHANOL 2020-10-27 23:04:00 Lois Trujillo [facility] CBC WITH DIFF 2020-10-27 23:04:00 Lois Trujillo [facility] CT ABDOMEN PELVIS W 2019-08-04 22:10:00 Oswald [facility] [place] [facility] LIPASE 2019-08-04 20:59:00 Aura Enriquez [facility] y [facility] COMP. METABOLIC PANEL 2019-08-04 20:59:00 Aura Enriquez [facility] ([id number]) [facility] CBC WITH DIFFERENTIAL 2019-08-04 20:59:00 Aura Enriquez Uni [facility] URINALYSIS 2019-08-04 20:59:00 Aura Enriquez [facility] y of [facility] LACTIC ACID WHOLE BLOOD 2019-08-04 20:59:00 Aura [facility]riquez [facility] POCT TEST 2019-08-04 20:52:00 Aura Enriquez [facility] CONSENT/REFUSAL FOR 2019-08-04 19:13:03 Doctor Unassigned, No [facility] POCT TEST 2019-07-14 00:00:00 Sean Hancock [facility] ASSIGNMENT OF BENEFITS 2019-07-11 17:41:02 Doctor Unassigned, No [facility] Encounters Start End Encounter Admission Attending Care Care Encounter Source Date/Time Date/Time Type Type Clinicians Facility Department ID 2021-09-29 Emergency [facility] [id number] Univers 22:04:14 ity [facility] 2021-09-27 Emergency [facility] [id number] Univers [facility]:03[facility] 2022-11-06 2022-11-06 Telephone Prisca Carreno [facility] 1.2.840.114 [id number] Univers 00:00:00 00:00:00 HEALTH 350.1.13.10 it y of SPECIALTY 4.2.7.2.686 [place] [phone] [place] [address] Branch 2022-07-06 2022-07-06 Emergency EM JazzyKAREN louie TERS [id number] [facility] 06:02:00 11:14:[address] [place] [address] 2022-02-28 2022-02-28 Emergency X DELLIS, [facility] ERT [id number] Univers 13:41:00 15:16:00 PATRICIA [facility] 2022-02-28 2022-02-28 Emergency [facility] [id number] Univers 13:41:00 15:16:00 [facility] 350.1.13.10 it y of [place] PREM 4.2.7.2.686 [facility] [phone] [address] ([facility]) 2022-02-26 2022-02-26 Telephone [place], UNIVERSIT 1.2.840.11 [id number] Univers 00:00:00 00:00:00 Temporal Power 350.1.13.10 i ty of CLINICS 4.2.7.2.686 [facility] [phone] [address] 2021-11-27 2021-11-27 Emergency [facility] [id number] Univers 08:10:00 09:55:00 JESÚS [facility] 2021-11-27 2021-11-27 Emergency [facility] 1.2.840.114 [id number] Univers 08:10:00 09:55:00 [facility] 350.1.13.10 it y of LEDC 4.2.7.2.[address] [place] [phone] ([facility]) 2021-08-10 2021-08-10 Emergency [facility] 1.2.840.114 [id number] Univers 08:58:00 09:51:00 Cindy Swartz 350.1.13.10 ity of [place] 4.2.7.[address] [place] [phone] 2021-03-19 2021-03-19 Telephone [place], UNIVERS[facility] 1.2.840.11 [id number] Univers 00:00:00 00:00:00 Temporal Power 350.1.13.10 i ty of CLINICS 4.2.7.2.686 [facility] [id number] [address] 2021-03-07 2021-03-07 Office [place], UNIVERSIT 1.2.840.114 [id number] Univers 13:13:43 13:41:30 Visit Sean MCMANUS 350.1.13.10 i ty [place] [phone] [address] 2021-03-07 2021-03-07 Outpatient R [facility] [id number] Univers 13:00:00 13:00:00 SEAN joe [facility] 2021-03-07 2021-03-07 Orders Doctor JELENA 1.2.840.114 [id number] Univers 00:00:00 00:00:00 Only Unassigned, ZANE 350.1.13.10 ity of [place] [facility] 4.2.7.2.686 Dilan [place] [phone] [place] [address] Branch 2020-10-27 2020-10-27 Emergency [facility] 1.2.840.114 [id number] Univers 16:57:00 18:51:00 [facility] 350.1.13.10 i ty [place] [phone] [facility] 014 Branch ([facility]) 2020-06-18 2020-06-18 Office [place], UNIVERSIT 1.2.840.114 [id number] Univers 14:39:30 14:54:30 Visit Sean MCMANUS 350.1.13.10 i ty [place] [id number] 2020-06-18 2020-06-18 [id number] Univers 14:30:00 14:30:00 SEAN joe [facility] 2020-06-18 2020-06-18 Patient [place], UNIVERSIT 1.2.840.114 [id number] Univers 00:00:00 00:00:00 Secure Msg Sean Duarte HEALTH 350.1.13.10 ity [place] [phone] [address] 2019-12-19 2019-12-19 Patient [place], UNIVERS[facility] 1.2.840.114 [id number] Univers 00:00:00 00:00:00 Secure Msg Sean MCMANUS 350.1.13.10 ity of CL[place]ICS [place] [phone] [place] [id number] [place] 2019-08-04 2019-08-04 Emergency [place], [facility] 1.2.847.431 [id number] Univers 14:29:39 19:31:00 [facility] 350.1.13.10 it y [place] [facility] [phone] [address] ([facility]) 2019-07-14 2019-07-24 Office [facility] 1.2.840.114 [id number] Univers 13:28:27 11:58:56 Visit Sean MCMANUS 350.1.13.10 i ty of [place] [phone] 2019-07-12 2019-07-12 Patient Doctor JELENA 1.2.840.114 [id number] Univers 00:00:00 00:00:00 Secure Msg Unassigned, ZANE 350.1.13.10 ity of [place] [facility] 4.2.7.2.686 [place] [phone] [address] 2019-07-11 2019-07-11 Office [facility] 1.2.840.114 [id number] Univers 12:43:28 13:56:39 Visit Sean Duarte [facility] 350.1.13.10 i ty of [place] [phone] [address] 2019-07-11 2019-07-11 Orders Doctor JELENA 1.2.840.114 [id number] Univers 00:00:00 00:00:00 Only Unassigned, ZANE 350.1.13.10 ity of [place] [facility] 4.2.7.2.686 [place] [phone] [address] Results Test Description Test Time Test Comments [...] YEASTUBD) TRACE /HPF NONE DRUGS OF ABUSE [id number] 06:53:00 Test Item Value Reference Range Interpretation [...] code = Negative NEGATIVE P erformed by MET[place]) certified opera tor at [facility] URN METHAMPHETAMINE (test Negative NEGATIVE code = METHAMPURN) URINE HCG TRIAGE (ER ONLY)2022-07-06 06:47:00 Test Item Value Reference Range Interpretation Comments URINE HCG TRIAGE (ER ONLY) (test NEGATIVE Negative code = HCGTRIAGE) Urine Test Result: NEGATIVEAre internal controls (presence of a control line & clear background) OK? 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 [facility] UA PH DIPSTIC POC (test 5 5.0-7.0 N code = PHUP) UA PROTEIN DIPSTICK POC 3+ NEGATIVE A (test code = DPROUP) UA UROBILINIOGEN QUAL 1+ 0.2-1.0 A (test code = UROQL) UA NITRITE DIPSTICK POC NEGATIVE Negative (test code = NITUP) UA LEUKOCYTE ESTERASE W TRACE NEGATIVE A REFLEX (test code = LEUUR) - XR ANKLE 3 + V [id number] 00:00:00 [facility] : 2000 Sex: F FAX:Terrence Rodriguez DO [phone] [place]: St: REG FAX: Saul Chapman [phone] Name: LIZA SMITH [place] [facility] : 2000 Age/S: 22/F Unit #: [id number] Loc: [place] Phys: Saul Chapman Acct: [id number] Dis Date: Status: REG ER PHONE #: Exam Date: 07/06/2022728 FAX #: Reason: left ankle pain/swelling EXAMS: CPT CODE: [id number] XR ANKLE 3 + V LT 20551 PROCEDURE INFORMATION: Exam: XR Left Ankle Exam [...] MD Technologist: RT Adolph(R)(CT) Trnscrd Date/Time/By: 07/06/2022 (0733) : By: [email or web address] Orig Print D/T:S: 07/06/2022 (0733) PAGE 1 Signed Report- CT C-SPINE W/O [id number] 00:00:00 [facility] : 2000 Sex: F Name: LIZA SMITH [place] [facility] : 2000 Age/S: 22 / F Unit #: [id number] Loc: [place] Phys: Terrence Rodriguez DO Acct: [id number] Dis Date: Status: REG ER PHONE #: Exam Date: FAX #: Reason: Head trauma EXAMS: CPT CODE: [id number] CT C-SPINE W/O CONT 13212 PROCEDURE INFORMATION: Exam: CT Cervical Spine Without [...] PAGE 1 Signed Report- CT HEAD/BRAIN W/O [id number] 00:00:00[facility] : 2000 Sex: F Name: LIZA SMITH [facility] : 2000 Age/S: 22 / F Unit #: [id number] Loc: [place] MePhys: Terrence Rodriguez DO Acct: [id number] Dis Date: Status: REG ER PHONE #: Exam Date: FAX #: Reason: Head trauma EXAMS: CPT CODE: [id number] CT HEAD/BRAIN W/O CONT 75782 PROCEDURE INFORMATION: Exam: CT Head Without Contrast [...] Leggett, RT(R)(CT) CTDI: DLP: Trnscb Date/Time: 07/06/2022 (699) [email or web address] Orig Print D/T: S: 07/06/2022 (07) PAGE 1 Signed ReportTOTAL [facility] (QUANTITATIVE)2022-02-28 19:46:11 Test Item Value Reference Range Interpretation Comments BETA HCG (test <2.39 See_Comment [Automated m essage] code = The system [employer] 3902856930) generated this result transmit so reference range : Non- fe male and male patien ts: <5 mIU/mL. The reference range was not used to interpret this result as normal/abnormal . NELL (test code Gestational Age ? ? = NELL) ?Range (mIU/mL) 1-10 ?Weeks ?77-27517492-77 Weeks ?92439-42495179-71 Weeks ?7046-06362750-42 Weeks ?1531-702266 Biotin has been reported to cause a negative bias, interpret results relative to patient's use of biotin. [facility] [id number] 19:26:00 Test Item Value Reference Range Interpretation Comments POCT PREG (test code = 1605) NEGATIVE On board controls acceptable with C PRESENT Line (test code = 3574) Lab Interpretation (test code = Normal 79089-0) [facility] 1 [id number] 00:15:10CHEST X-RAY AP PORTABLE 10/27/2020 6:14 PM Ordering physician: LOIS TRUJILLO CLINICAL INFORMATION: ?Chest pain COMPARISON: None TECHNIQUE: ?single AP view of the chest was submitted. FINDINGS: ? The lung mathias are clear. ?No pleural effusions. ?No pneumothorax. ?Thecardiomediastinal silhouette iswithin normal limits. ?No acuteradiographic bony abnormalities. CONCLUSION: ? 1. ?No radiographic evidence to acute cardiopulmonary disease. RL: 7423 AFC: 75337 [facility], Radiant Results Inft User - 10/27/2020 6:16 PM CSTCHEST X-RAY AP CFTBKBHI59/29/2020 6:14 PMOrdering physician: LOIS TRUJILLO CLINICAL INFORMATION: Chest painCOMPARISON: NoneTECHNIQUE: single AP view of the chest was submitted.FINDINGS: The lung mathias are clear. No pleural effusions. No pneumothorax. Thecardiomediastinal silhouette is within normal limits. No acuteradiographic bony abnormalities.CONCLUSION: 1. No radiographic evidence to acute cardiopulmonary disease.RL: 7423AFC: 32057Hjsrridhkbmpfe signed by Julio C Smith MD at 10/27/2020 6:15 PMUnB[facility] StationDrug Screen ER 2020-10-28 00:02:00 Test Item Value Reference Range Interpretation Comments AMPHET (test code = Negative Negative 2063948450) Cocaine Metabolite (test Negative Negative code = 0075340006) OPIATES (test code = Negative Negative 9346580764) THC (test code = Presumptive Positive Negative A 9876333866) NELL (test code = NELL) Urine Drug Cutoff Ranges Amphetamine: ? 1,000 ng/mLCocaine: ? 150 ng/mLOpiates: ? 300 ng/mLCannabinoids: ?50 ng/mL The results are to be used only for medical (i.e., treatment) purposes. Unconfirmed screening results must not be used for non-medical purposes (e.g., employment testing, legal testing). Lab Interpretation (test Abnormal code = 43448-8) [facility] HospitalUrinalysis2020-11-29 23:45:00 Test Item Value Reference Range Interpretation Comments APPEARANCE (test code = Clear Clear 1833163547) COLOR (test code = Yellow Yellow 8574480819) PH (test code = 4.8-8.0 3324971132) SP GRAVITY (test code = 1.003-1.030 0363537382) GLU U QUAL (test code = Normal Normal 6387459790) BLOOD (test code = Negative Negative 2320992568) KETONES (test code = 5 mg/dL Negative A 7412268789) PROTEIN (test code = 30 mg/dL Negative A 2887-8) UROBILIN (test code = 4.0 mg/dL Normal A 0605456307) BILIRUBIN (test code = Negative Negative 7422169152) NITRITE (test code = Negative Negative 0020551920) LEUK DARCY (test code = 25/uL Negative A 7652885327) RBC/HPF (test code = See_Comment [Autom ated message] 2512243030) The system [employer] generated this result transmit so reference range : 0 - 3 HPF. The refe rence range was not u sed to interpret th is result as normal/abnormal . WBC/HPF (test code = See_Comment H [Autom ated message] 0087578880) The system [employer] generated this result transmit so reference range : 0 - 5 HPF. The refe rence range was not u sed to interpret th is result as normal/abnormal . BACTERIA (test code = Few Negative A 1037772846) MUCOUS (test code = Slight Negative LPF A 5755844921) SQ EPITH (test code = See_Comment H [Auto mated message] 6998918645) The system [employer] generated this result transmit so reference range : <=2 HPF. The refere nce range was not u sed to interpret th is result as normal/abnormal . HYAL CAST (test code = See_Comment [Aut omated message] 2680336647) The system [employer] generated this result transmit so reference range : <=2 LPF. The refere nce range was not u sed to interpret th is result as normal/abnormal . Lab Interpretation (test Abnormal code = 94373-3) [facility]PO[facility] [id number] 23:34:00 Test Item Value Reference Range Interpretation Comments On board controls acceptable with negative C Line (test code = 3574) POCT PREG LOT # (test code = 3575) [id number] POCT PREG TEST DATE (test 04/28/2021 code = 3576) Lab Interpretation (test code = Normal 46785-3) [facility] HospitalTroponin [id number] 23:31:00 Test Item Value Reference Range Interpretation Comments TROPONIN I (test 0.002 ng/mL See_Comment [Automated code = 1766393495) message] The system which generated this result [...] ? Lab Interpretation Normal (test code = 71272-5) [facility] HospitalEthanol [id number] 23:21:00 Test Item Value Reference Range Interpretation Comments ALCOHOL (test code = <10 mg/dL 8630993093) NELL (test code = Toxic Greater than or NELL) equal to 80 mg/dL. NOTE: Whole blood values are approximately 10% to 15% lower than serum and plasma. [facility] Metabolic Panel (NA, K, CL, CO2, GLUCOSE, BUN, CREATININE, CA)2020-10-27 23:20:00 Test Item Value Reference Range Interpretation Comments NA (test code = 139 mmol/L 135-145 9963066221) K (test code = 4.2 mmol/L 3.5-5 7332828040) CL (test code = 104 mmol/L 98-108 6146729099) CO2 TOTAL (test code = 26 mmol/L 23-31 4515292315) AGAP (test code = 2-16 7328474261) BUN (test code = 10 mg/dL 7-23 2155125605) GLUCOSE (test code = 93 mg/dL 70-110 4533227535) CREATININE (test code 0.66 mg/dL 0.5-1.04 = 7693857116) CALCIUM (test code = 9.7 mg/dL 8.6-10.6 6752080855) eGFR Calculation mL/min/1.73m2 (Non-) (test code = 9016979418) eGFR Calculation mL/min/1.73m2 () (test code = 8733124810) NELL (test code = NELL) Association of [...] or urine or abnormalities in imaging tests). [facility] HospitalHepatic Function Panel (ALB, T.PRO, BILI T, BU/BC, ALT, AST, ALK PHOS)2020-10-27 23:20:00 Test Item Value Reference Range Interpretation Comments TOTAL BILI (test code = 7856858975) 1.0 mg/dL 0.1-1.1 BILI UNCON (test code = 5609380028) 0.7 mg/dL 0.1-1.1 BILI CONJ (test code = 5292137920) 0.0 mg/dL 0-0.3 T PROTEIN (test code = 6988456905) 7.4 g/dL 6.3-8.2 ALBUMIN (test code = 4692465128) 4.5 g/dL 3.5-5 ALK PHOS (test code = 3935964306) 75 U/L 34-122 ALTv (test code = 1742-6) 13 U/L 5-35 AST(SGOT) (test code = 8199861131) 26 U/L 13-40 Lab Interpretation (test code = Normal 69571-1) [facility] with [id number] 23:09:00 Test Item Value Reference Range Interpretation Comments WBC (test code = See_Comment [Automated 4344-2) message] The sy stem which generated this result transmitted reference range : 4.30 - 11.10 10*3/?L. The reference range was not used to interpret this result as normal/abnormal . RBC (test code = See_Comment [Automated 997-8) message] The sy stem which generated this [...] RDW-SD (test code = 40.7 fL 39-49.9 22172-4) RDW-CV (test code = 12.1 % 12-15.5 788-0) PLT (test code = See_Comment [Automated 777-3) message] The sy stem which generated this result transmitted reference range : 166 - 358 10*3/ ?L. The reference r matthew was not used to interpret this result as normal/abnormal . MPV (test code = 9.3 fL 9.5-12.9 L 59400-4) NRBC/100 WBC (test See_Comment [Automat ed code = 0179723457) message] The system which generated this result transmitted reference range : 0.0 - 10.0 /100 WBCs. The refer ence range was not u sed to interpret th is result as normal/abnormal . NRBC x10^3 (test code <0.01 See_Comment [Auto mated = 9039747339) message] The s ystem which generated this result transmitted reference range : 10*3/?L. The reference range was not used to interpret this result as normal/abnormal . GRAN MAT (NEUT) % 61.6 % (test code = 770-8) IMM GRAN % (test code 0.20 % = 4668402246) LYMPH % (test code = 30.9 % 736-9) MONO % (test code = 6.5 % 5905-5) EOS % (test code = 0.2 % 713-8) BASO % (test code = 0.6 % 706-2) GRAN MAT x10^3(ANC) 3.33 10*3/uL 1.88-7.09 (test code = 2897024195) IMM GRAN x10^3 (test <0.03 0-0.06 code = 0923833271) LYMPH x10^3 (test code 1.67 10*3/uL 1.32-3.29 = 731-0) MONO x10^3 (test code 0.35 10*3/uL 0.33-0.92 = 742-7) EOS x10^3 (test code = <0.03 0.03-0.39 L 711-2) BASO x10^3 (test code 0.03 10*3/uL 0.01-0.07 = 704-7) Lab Interpretation Abnormal (test code = 15606-9) [facility] WITH [id number] 21:35:00 Test Item Value Reference Range Interpretation Comments WBC (test code = See_Comment H [Automated 0690-2) message] The system which generated this result transmit so reference range : 4.30 - 11.10 10*3/?L. The reference range was not used to interpret this result as normal/abnormal . RBC (test code = See_Comment [Automated 789-8) message] The system which generated this result [...] RDW-SD (test code = 40.8 fL 39-49.9 68057-9) RDW-CV (test code = 12.3 % 12-15.5 788-0) PLT (test code = See_Comment [Automated 777-3) message] The system which generated this result transmit so reference range : 166 - 358 10*3/ ?L. The reference range was not u sed to interpret th is result as normal/abnormal . MPV (test code = 9.4 fL 9.5-12.9 L 99760-5) NRBC/100 WBC (test See_Comment [Automat ed code = 3234182619) message] The system which generated this result transmit so reference range : 0.0 - 10.0 /100 WBCs. The reference range was not used to interpret this result as normal/abnormal . NRBC x10^3 (test code <0.01 See_Comment [Auto mated = 6647805533) message] The system which generated this result transmit so reference range : 10*3/?L. The reference range was not used to interpret this result as normal/abnormal . GRAN MAT (NEUT) % 83.3 % (test code = 770-8) IMM GRAN % (test code 0.60 % = 1933354694) LYMPH % (test code = 6.6 % 736-9) MONO % (test code = 9.4 % 5905-5) EOS % (test code = 0.0 % 713-8) BASO % (test code = 0.1 % 706-2) GRAN MAT x10^3(ANC) 17.29 10*3/uL 1.88-7.09 H (test code = 4845175390) IMM GRAN x10^3 (test 0.12 10*3/uL 0-0.06 H code = 6681490845) LYMPH x10^3 (test code 1.36 10*3/uL 1.32-3.29 = 731-0) MONO x10^3 (test code 1.95 10*3/uL 0.33-0.92 H = 742-7) EOS x10^3 (test code = <0.03 0.03-0.39 L 711-2) BASO x10^3 (test code 0.03 10*3/uL 0.01-0.07 = 704-7) Lab Interpretation Abnormal (test code = 06849-5) [facility] Test Item Value Reference Range Interpretation Comments APPEARANCE (test code = Cloudy Clear A 5837632842) COLOR (test code = Yellow Yellow 6879799646) PH (test code = 4.8-8.0 3707565033) SP GRAVITY (test code = 1.003-1.030 9858481699) GLU U QUAL (test code = Normal Normal 7395462631) BLOOD (test code = 2+ Negative A 1517834379) KETONES (test code = 20 mg/dL Negative A 7965050578) PROTEIN (test code = 30 mg/dL Negative A 2887-8) UROBILIN (test code = Normal Normal 4334323180) BILIRUBIN (test code = Negative Negative 6510551716) NITRITE (test code = Positive Negative A 1168038028) LEUK DARCY (test code = 500/uL Negative A 8032983242) RBC/HPF (test code = See_Comment H [Autom ated message] 6101926729) The system [employer] generated this result transmitted ref erence range: 0 - 3 HP F. The reference range was not used to int erpret this result as normal/abnormal . WBC/HPF (test code = >182 See_Comment H [Autom ated message] 7674542884) The system [employer] generated this result transmitted ref erence range: 0 - 5 HP F. The reference range was not used to int erpret this result as normal/abnormal . BACTERIA (test code = Few Negative A 5971088866) MUCOUS (test code = Slight Negative LPF A 0566400646) AMORPHOUS (test code = Rare Rare HPF 6952379263) SQ EPITH (test code = See_Comment H [Auto mated message] 3884227904) The system [employer] generated this result transmitted ref erence range: <=2 HPF. The reference range was not used to int erpret this result as normal/abnormal . WBC CLUMPS (test code = See_Comment H [Au tomated message] 8100884979) The system [employer] generated this result transmitted ref erence range: <=1 HPF. The reference range was not used to int erpret this result as normal/abnormal . Lab Interpretation (test Abnormal code = 15255-3) [facility]. METABOLIC PANEL (65953)2019-08-04 21:26:00 Test Item Value Reference Range Interpretation Comments NA (test code = 135 mmol/L 135-145 8646492612) K (test code = 3.4 mmol/L 3.5-5 L Slight 2316421196) hemolysis CL (test code = 97 mmol/L 98-108 L 5680284141) CO2 TOTAL (test code 23 mmol/L 23-31 = 0498772582) AGAP (test code = 2-16 0504617223) BUN (test code = 9 mg/dL 7-23 Slight 0106290996) hemolysis GLUCOSE (test code = 103 mg/dL 70-110 7736080059) CREATININE (test code 0.77 mg/dL 0.5-1.04 = 0890726132) TOTAL BILI (test code 1.2 mg/dL 0.1-1.1 H = 5236829609) CALCIUM (test code = 9.7 mg/dL 8.6-10.6 9708950573) T PROTEIN (test code 8.1 g/dL 6.3-8.2 = 1795434289) ALBUMIN (test code = 4.5 g/dL 3.5-5 8821691531) ALK PHOS (test code = 100 U/L 34-122 Slight 9321233665) hemolysis ALT(SGPT) (test code 29 U/L 9-51 Slight = 8403472127) hemolysis AST(SGOT) (test code 30 U/L 13-40 Slight = 6400053311) hemolysis eGFR Calculation mL/min/1.73m2 (Non-) (test code = 2622029494) eGFR Calculation mL/min/1.73m2 () (test code = 7923644531) NELL (test code = NELL) Association of [...] tests). Lab Interpretation Abnormal (test code = 69032-9) [facility] Test Item Value Reference Range Interpretation Comments LIPASE (test code = 1110195192) 24 U/L 0-220 Lab Interpretation (test code = Normal 66949-4) [facility] [id number] 21:08:00 Test Item Value Reference Range Interpretation Comments LACTIC ACID (test code = 1.24 mmol/L 0.5-2.2 7194163806) Lab Interpretation (test code = Normal 44940-8) [facility] [id number] 20:52:00 Test Item Value Reference Range Interpretation Comments POCT PREG (test code = 1605) Negative On board controls acceptable with C Yes Line (test code = 3574) POCT PREG LOT # (test code = 3575) POCT PREG TEST DATE (test code = 3576) Lab Interpretation (test code = Normal 36669-0) [facility] [id number] 19:33:00 Test Item Value Reference Range Interpretation Comments POCT PREG (test code = 1605) Negative On board controls acceptable with C Yes Line (test code = 3574) POCT PREG LOT # (test code = 3575) POCT PREG TEST DATE (test code = 3576) [facility] [id number] 19:33:00 Test Item Value Reference Range Interpretation Comments POCT PREG (test code = 1605) Negative On board controls acceptable with C Yes Line (test code = 3574) POCT PREG LOT # (test code = 3575) POCT PREG TEST DATE (test code = 3576) [facility] [id number] 19:33:00 Test Item Value Reference Range Interpretation Comments POCT PREG (test code = 1605) Negative On board controls acceptable with C Yes Line (test code = 3574) POCT PREG LOT # (test code = 3575) POCT PREG TEST DATE (test code = 3576) [facility] [id number] 19:33:00 Test Item Value Reference Range Interpretation Comments POCT PREG (test code = 1605) Negative On board controls acceptable with C Yes Line (test code = 3574) POCT PREG LOT # (test code = 3575) POCT PREG TEST DATE (test code = 3576) [facility]
[2022-12-01] MEDS ORDERED: ALBUTEROL 2.5 MG/3 ML NEB SOL ONE (09:56)
[2022-12-01] MEDS ORDERED: predniSONE 20 MG TAB ONE (09:56)
[2022-12-01] MEDS ORDERED: IPRATROPIUM BROM 0.5MG/2.5ML ONE (09:57)
[2022-12-01 10:54] LABS: SARS-COV-2 RT PCR NEGATIVE (NEGATIVE)
[2022-12-01] MEDS ORDERED: ONDANSETRON 4 MG (ODT) TAB ONE (10:56)
--- NOTE | 2022-12-01 11:35 | RAD REPORT ---
EXAM DESCRIPTION: Marycarmen Read (2 Views)12/01/2022 11:25 am CLINICAL HISTORY: Cough COMPARISON: None FINDINGS: The lungs appear clear of acute infiltrate. The heart is normal size IMPRESSION: No acute abnormalities displayed
--- NOTE | 2022-12-01 11:52 | ER ---
Nurse's Notes [facility] Name: Rupa Smith Age: 22 yrs Sex: Female : 2000 Arrival Date: 12/01/2022 Time: 09:34 Bed 9 Private MD: Diagnosis: Acute bronchitis, unspecified Presentation: 12/01 09:49 Chief complaint: Patient states: Cough, congestion,SOB, fever, chills, body aches x 4 jl7 days. Coronavirus screen: Vaccine status: Patient reports being unvaccinated. Client presents with at least one sign or symptom that may indicate coronavirus-19. Ebola Screen: No symptoms or risks identified at this time. Initial Sepsis Screen: Does the patient meet any 2 criteria? No. Patient's initial sepsis screen is negative. Does the patient have a suspected source of infection? No. Patient's initial sepsis screen is negative. Risk Assessment: Do you want to hurt yourself or someone else? Patient reports no desire to harm self or others. Onset of symptoms was November 28, 2022. 09:49 Method Of Arrival: Ambulatory jl7 09:49 Acuity: SANCHO 3 jl7 Triage Assessment: 09:51 General: Appears in no apparent distress. uncomfortable, Behavior is calm, cooperative, jl7 appropriate for age. Pain: Denies pain. Respiratory: Reports shortness of breath cough that is Onset: The symptoms/episode began/occurred gradually, the patient has mild shortness of breath. 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 - Social history:: Smoking status: Patient denies any tobacco usage or history of. Screenin:50 [facility] ED Fall Risk Assessment (Adult) History of falling in the last 3 months, vg1 including since admission No falls in past 3 months (0 pts) Confusion or Disorientation No (0 pts) Intoxicated or Sedated No (0 pts) Impaired Gait No (0 pts) Mobility Assist Device Used No (0 pt) Altered Elimination No (0 pt) Score/Fall Risk Level 0 - 2 = Low Risk Oriented to surroundings, Maintained a safe environment, Educated pt \T\ family on fall prevention, incl call for assistance when getting out of bed, Assessed \T\ reinforced patient's understanding of fall precautions. Abuse screen: Denies threats or abuse. Nutritional screening: No deficits noted. Tuberculosis screening: No symptoms or risk factors identified. Assessment: 10:50 Reassessment: pt c/o of nausea and lower ABD pain; provider notified. vg1 10:50 Respiratory: Breath sounds with wheezes bilaterally. vg1 12:29 Reassessment: Patient appears in no apparent distress at this time. Patient is alert, vg1 oriented x 3, equal unlabored respirations, skin warm/dry/pink. Patient denies pain at this time. Patient states feeling better. 12:31 Cardiovascular: Patient's skin is warm and dry. Respiratory: Reports cough that is vg1 Airway is patent Respiratory effort is even, unlabored. Vital Signs: 09:49 BP 121 / 84; Pulse 83; Resp 15; Temp 98.4; Pulse Ox 100% ; Weight 48.53 kg; Height 5 jl7 ft. 2 in. (157.48 cm); Pain 5/10; 12:00 Pulse 76; Resp 18; Pulse Ox 98% ; vg1 09:49 Body Mass Index 19.57 (48.53 kg, 157.48 cm) jl7 ED Course: 09:34 Patient arrived in ED. am2 09:43 Denae Marquez FNP-C is [facility]. kb 09:43 Itz Robles MD is Attending Physician. kb 09:51 Triage completed. jl7 09:51 Arm band placed on right wrist. jl7 10:24 Radiology exam delayed due to patient receiving breathing treatment at this time. 2 10:50 Patient has correct armband on for positive identification. Bed in low position. Call vg1 light in reach. 10:50 No provider procedures requiring assistance completed. Patient did not have IV access vg1 during this emergency room visit. 11:26 Chest Pa And Lat (2 Views) XRAY In Process Unspecified. EDMS Administered Medications: 09:58 Drug: DuoNeb (albuterol 2.5 mg, ipratropium 0.5 mg) (3:1) (2.5 mg - 0.5 mg) 3 ml Route: kb Nebulizer; 12:29 Follow up: Response: No adverse reaction; Marked relief of symptoms vg1 09:58 Drug: predniSONE 40 mg Route: PO; kb 12:29 Follow up: Response: No adverse reaction vg1 10:55 Drug: Ondansetron 4 mg Route: PO; vg1 12:29 Follow up: Response: No adverse reaction; Marked relief of symptoms vg1 Medication: 12:30 VIS not applicable for this client. vg1 Outcome: 11:51 Discharge ordered by . jabari 12:30 Discharged to home ambulatory. vg1 12:30 Condition: good 12:30 Discharge instructions given to patient, Instructed on discharge instructions, follow up and referral plans. medication usage, Demonstrated understanding of instructions, follow-up care, medications, Prescriptions given X 2. 12:33 Patient left the ED. vg1 Signatures: Dispatcher [employer] EDMS Denae Marquez, NANDA ROMERO-Derik Osullivan RN RN jl7 Kadie Bobby Victoria, RN RN vg1 Hillary Brandt md2
--- NOTE | 2022-12-01 11:52 | EDPHYS ---
Physician Documentation [facility] Name: Rupa Smith Age: 22 yrs Sex: Female : 2000 Arrival Date: 12/01/2022 Time: 09:34 Bed 9 Private MD: ED Physician Itz Robles HPI: 12/01 12:10 This 22 yrs old Female presents to ER via Ambulatory with complaints of Flu Symptoms, kb Breathing Difficulty. 12:10 The patient or guardian reports cough, that is intermittent, described as moderate, kb difficulty breathing, flu symptoms, low-grade fever, myalgias. Onset: The symptoms/episode began/occurred 4 day(s) ago. Severity of symptoms: At their worst the symptoms were moderate, in the emergency department the symptoms are unchanged. Modifying factors: The symptoms are alleviated by nothing, the symptoms are aggravated by nothing. Associated signs and symptoms: Pertinent positives: fever, rhinorrhea, Pertinent negatives: chest pain, diarrhea, ear ache, nausea, sore throat, vomiting. The patient has not experienced similar symptoms in the past. The patient has not recently seen a physician. Pt reports cough, congestion, fever, chills, bodyaches, sinus pain/headache for 4 days. Today reports shortness of breath. 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 - Social history:: Smoking status: Patient denies any tobacco usage or history of. ROS: 12:09 Abdomen/GI: Negative for abdominal pain, nausea, vomiting, diarrhea, and constipation. kb 12:09 Constitutional: Positive for body aches, chills, fatigue, fever, malaise. 12:09 ENT: Positive for rhinorrhea, sinus congestion, sinus pain. 12:09 Respiratory: Positive for cough, shortness of breath. 12:09 Neuro: Positive for headache. 12:09 All other systems are negative. Exam: 12:09 Constitutional: This is a well developed, well nourished patient who is awake, alert, kb and in no acute distress. Head/Face: Normocephalic, atraumatic. ENT: Moist Mucous membranes Chest/axilla: Normal chest wall appearance and motion. Cardiovascular: Regular rate and rhythm with a normal S1 and S2. No gallops, murmurs, or rubs. No pulse deficits. Abdomen/GI: Soft, non-tender. No distention Skin: Warm, dry with normal turgor. Normal color. MS/ Extremity: Pulses equal, no cyanosis. Neurovascular intact. Full, normal range of motion. Neuro: Awake and alert, GCS 15, oriented to person, place, time, and situation. Moves all extremities. Normal gait. Psych: Awake, alert, with orientation to person, place and time. Behavior, mood, and affect are within normal limits. 12:09 Respiratory: the patient does not display signs of respiratory distress, Respirations: normal, Breath sounds: wheezing: inspiratory that is moderate, is heard in the right upper lobe and right posterior upper lobe. Vital Signs: 09:49 BP 121 / 84; Pulse 83; Resp 15; Temp 98.4; Pulse Ox 100% ; Weight 48.53 kg; Height 5 jl7 ft. 2 in. (157.48 cm); Pain 5/10; 12:00 Pulse 76; Resp 18; Pulse Ox 98% ; vg1 09:49 Body Mass Index 19.57 (48.53 kg, 157.48 cm) jl7 MDM: 09:44 Patient medically screened. kb 10:22 Differential diagnosis: viral Infection, bacterial infection, URI, bronchitis, kb pneumonia. Data reviewed: vital signs, nurses notes. Data interpreted: Pulse oximetry: on room air is 100 %. Interpretation: normal. 11:43 Counseling: I had a detailed discussion with the patient and/or guardian regarding: the kb historical points, exam findings, and any diagnostic results supporting the discharge/admit diagnosis, lab results, radiology results, the need for outpatient follow up, a family practitioner, to return to the emergency department if symptoms worsen or persist or if there are any questions or concerns that arise at home. Response to treatment: the patient's symptoms have markedly improved after treatment. ED course: Independent interpretation of the following tests in the emergency department: chest x-ray shows no acute illness; I considered the following discharge prescriptions or medication management in the emergency department: antibiotics considered and discussed, but not given due to likely viral etiology of infection; History obtained from: patient; Care significantly affected by the following social determinants of health: unable to get prescriptions due to financial reasons. Pt states "I don't have any money right now so I will have to wait to get the prescriptions." . 12/01 09:53 Order name: COVID-19/FLU A+B; Complete Time: 10:55 kb 12/01 11:38 Interpretation: Within normal limits: INFLUENZA B NEGATIVE; SARSCOV2 RT PCR NEGATIVE; kb INFLUENZA A NEGATIVE. 12/01 09:53 Order name: Chest Pa And Lat (2 Views) XRAY; Complete Time: 11:37 kb 12/01 11:38 Interpretation: No acute disease. kb Administered Medications: 09:58 Drug: DuoNeb (albuterol 2.5 mg, ipratropium 0.5 mg) (3:1) (2.5 mg - 0.5 mg) 3 ml Route: kb Nebulizer; 12:29 Follow up: Response: No adverse reaction; Marked relief of symptoms vg1 09:58 Drug: predniSONE 40 mg Route: PO; kb 12:29 Follow up: Response: No adverse reaction vg1 10:55 Drug: Ondansetron 4 mg Route: PO; vg1 12:29 Follow up: Response: No adverse reaction; Marked relief of symptoms vg1 Disposition: 15:17 Co-signature as Attending Physician, Itz Robles MD I agree with the assessment and rt plan of care. Disposition Summary: 12/01/22 11:51 Discharge Ordered Location: Home kb Condition: Stable kb Diagnosis - Acute bronchitis, unspecified kb Followup: kb - With: Emergency Department - When: As needed - Reason: Worsening of condition Followup: kb - With: Private Physician - When: 2 - 3 days - Reason: Recheck today's complaints, Continuance of care, Re-evaluation by your physician Discharge Instructions: - Discharge Summary Sheet kb - Acute Bronchitis, Adult, [id number] kb Forms: - Medication Reconciliation Form kb - Thank You Letter kb - Antibiotic Education kb - Prescription Opioid Use kb Prescriptions: - albuterol sulfate 90 mcg/actuation Inhalation HFA aerosol inhaler - inhale 2 puff by INHALATION route every 4-6 hours As needed; 1 Inhaler; kb Refills: 0, Product Selection Permitted - Prednisone 20 mg Oral Tablet - take 1 tablet by ORAL route once daily for 5 days; 5 tablet; Refills: 0, kb Product Selection Permitted Signatures: Dispatcher [employer] Denae Strickland, JOSE MIGUELC NICK-Derik Osullivan, RN RN jl7 Nunu Paris RN RN vg1 Itz Robles MD MD rt
[2022-12-01 12:56] VITALS: BP 121/84; TEMP 98.4
[2022-12-01 12:57] VITALS: O2SAT 98
== END 2022-12-01 12:33 | disposition home or self-care (01) ==
LOC: ER 09:33
DX: J20.9 Acute bronchitis, unspecified (principal); Z20.822 Contact with and (suspected) exposure to COVID-19
CPT/HCPCS: 0240U; 71046; J7512; J7613; J7644; Q0162; 94640; 99284

== ENCOUNTER 2022-12-04 17:54 | Emergency (ER) | payer BC ==
--- OUTSIDE RECORDS SUMMARY | 2022-12-04 18:02 | XMS REPORT | Continuity of Care Document ---
:2000 Author Organization [facility] t Address [address] [place] [address] Care Team Providers Name Role Phone Pcp, Patient Does Not Have A Primary Care Physician +[id number] Prisca Carreno MD Attending Clinician Saul Chapman Attending Clinician Unavailable PATRICIA SCHAEFER Attending Clinician Unavailable Patricia Schaefer MD Attending Clinician Sean Hancock MD Attending Clinician JESÚS VELARDE Attending Clinician Unavailable Jesús eVlarde MD Attending Clinician Cindy Hammond DO Attending Clinician SEAN HANCOCK Attending Clinician Unavailable Doctor Unassigned, Shorter Attending Clinician Unavailable Lois Melara Attending Clinician Oswald Tee Attending Clinician Physician, No Primary or Family Admitting Clinician Unavaila ble Payers Payer Name Policy Type Policy Number Effective Date Expiration Date S vipul [facility] [id number] 2020 00:00:00 [employer] [facility] CARE [id number] 2016 00:00:00 Problems Condition Condition Condition Status Onset Resolution Last Treating Co mments Source Name Details Category Date Date Treatment Clinician Date Hepatitis Hepatitis Disease Active Overview: Univers C antibody C antibody 8- Formattin ity of test test 00:00: g of this [place] positive positive 00 note Medica l might [...] ity o f carrier carrier 00:00: of [facility] state 00 delivery Medical has not Branch [...] Active Univers [place] 7-[place] no history no history 00 Me dical known known Branch Allergies, Adverse Reactions, Alerts Allergy Allergy Status Severity Reaction(s) Onset Inactive Treating Comm ents Source Name Type Date Date Clinician No Known DA Active U 2005-11 [facility] - Clear Allergie 00:00: Liang s 00 [facility] No Known DA Active U 2005-11 [facility] Drug 12-09 Clear Allergie 00:00: Liang s 00 [facility] No Known DA Active U 2005-11 [facility] Food 12-09 Clear Allergie 00:00: Liang s 00 [facility] No Known DA Active U 2005-11 [facility] Other 12-09 Clear Allergie 00:00: Liang s 00 [facility] NO KNOWN Drug Active Univers ALLERGIE Class ity of S [facility] Social History Social Habit Start Date Stop Date Quantity Comments Source Exposure to Not sure [facility] SARS-CoV-2 [facility] (event) [place] Alcohol intake 2022-02-28 2022-02-28 0 /d University 00:00:00 00:00:00 [facility] Tobacco use and 2012-06-16 2012-06-16 Smokeless tobacco Un iversity of exposure 00:00:00 00:00:00 non-user [facility] Sex Assigned At [birth year] Universit y of 00:00:00 00:00:00 [facility] Smoking Status Start Date Stop Date Source Never smoked tobacco [facility] Medications Ordered Filled Start Stop Current Ordering Indication Dosage Frequency Signature Comments Components Source Medication Medication Date Date Medication? Clinician (SIG) Name Name phenazopyri Yes [id number] 200mg Take 1 Univers dine 200 mg 4-02 tablet by ity of tablet 00:00: mouth 3 00 (three) Medical times Branch daily. ibuprofen Yes [id number] 400mg Take 2 Univers (MOTRIN IB) 4-02 tablets by it y of 200 mg 00:00: mouth [place] tablet 00 every 8 Medical (eight) Branch hours as needed for Pain (scale 1-3) for up to 30 doses. phenazopyri Yes [id number] 200mg Take 1 Univers dine 200 mg 4-02 tablet by ity of tablet 00:00: mouth 3 00 (three) Medical times Branch daily. ibuprofen Yes [id number] 400mg Take 2 Univers (MOTRIN IB) 4-02 tablets by it y of 200 mg 00:00: mouth [place] tablet 00 every 8 Medical (eight) Branch hours as needed for Pain (scale 1-3) for up to 30 doses. phenazopyri Yes [id number] 200mg Take 1 Univers dine 200 mg 4-02 tablet by ity of tablet 00:00: mouth 3 [place] 00 (three) Medical times Branch daily. ibuprofen Yes [id number] 400mg Take 2 Univers (MOTRIN IB) 4-02 tablets by it y of 200 mg 00:00: mouth [place] tablet 00 every 8 Medical (eight) Branch hours as needed for Pain (scale 1-3) for up to 30 doses. cephALEXin 2021- No [id number] 500mg Take 1 Univers (KEFLEX) 4-02 -13 [...] Medical Eli Branch 11/27/21 at 1015, Routine
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 Branch Continue until you follow up with eye doctor. erythromyci Yes [id number] .5[in_u Place 0.5 Univers n 5 mg/gram 912 [id number] s] Inches in i ty of (0.5 %) 00:00: right eye [place] ophthalmic 00 at Medical ointment bedtime. Branch Continue until you follow up with eye doctor. erythromyci Yes [id number] .5[in_u Place 0.5 Univers n 5 mg/gram 912 [id number] s] Inches in i ty of (0.5 %) 00:00: right eye [place] ophthalmic 00 at Medical ointment bedtime. Branch Continue until you follow up with eye doctor. erythromyci Yes [id number] .5[in_u Place 0.5 Univers n 5 mg/gram 9-12 [id number] s] Inches in i ty of (0.5 %) 00:00: right eye [place] ophthalmic 00 at Medical ointment bedtime. Branch Continue until you follow up with eye doctor. erythromyci Yes [id number] .5[in_u Place 0.5 Univers n 5 mg/gram 9-12 [id number] s] Inches in i ty of (0.5 %) 00:00: right eye [place] ophthalmic 00 at Medical ointment bedtime. Branch Continue until you follow up with eye doctor. erythromyci Yes [id number] .5[in_u Place 0.5 Univers n 5 mg/gram 9-12 [id number] s] Inches in i ty of (0.5 %) 00:00: right eye [place] ophthalmic 00 at Medical ointment bedtime. Branch Continue until you follow up with eye doctor. erythromyci Yes [id number] .5[in_u Place 0.5 Univers n 5 mg/gram 9-12 [id number] s] Inches in i ty of (0.5 %) 00:00: right eye [place] ophthalmic 00 at Medical ointment bedtime. Branch Continue until you follow up with eye doctor. cefTRIAXone 2019-11- No 1000mg 1,000 mg, Univers (ROCEPHIN) 12-28 11-30 IV ity of 1,000 mg in 01:00: 00:27 [place], [place] NaCl 0.9% 00 :00 ONCE, 1 Medical (NS) 50 mL dose, [facility] MINI-BAG 10/27/20 at 1900, 50 mL
Reas on for Anti-Infec tive: Documented Infection< br>Documen so Infection Site: Urine
D uration of Therapy: 7 days ciprofloxac 2019-11 2020- No [id number] 500mg Take 1 Univers in HCl 500 12-27 12-10 tablet by ity of mg tablet 00:00: 05:59 [place] 2 [place] (two) Medical times Branch daily for 10 days. cefTRIAXone 2019-0 2019- No 1000mg 1,000 mg, Univers (ROCEPHIN) 08-04 IV ity of 1,000 mg in 23:15: 23:27 [place], [place] NaCl 0.9% 00 :00 ONCE, 1 Medical [...] dose, Fri Branch 08/04/19 at 1700, Routine
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 ibuprofen 2019-0 Yes [id number] 600mg Take 1 U nivers 600 mg 9-06 tablet by ity of tablet 00:00: mouth [place] 00 every 6 Medical (six) Branch hours as needed for Pain (scale 1-3). ondansetron 2019-0 Yes [id number] 4mg Take 1 Univers (ZOFRAN 9-06 tablet by ity of ODT) 4 mg 00:00: mouth [place] disintegrat 00 every 8 Medic al ing tablet (eight) Branch hours as needed for Nausea and Vomiting (N/V). ibuprofen 2019-0 Yes [id number] 600mg Take 1 U nivers 600 mg 9-06 tablet by ity of tablet 00:00: mouth [place] 00 every 6 Medical (six) Branch hours as needed for Pain (scale 1-3). ondansetron 2019-0 Yes [id number] 4mg Take 1 Univers (ZOFRAN 9-06 tablet by ity of ODT) 4 mg 00:00: mouth [place] disintegrat 00 every 8 Medic al ing tablet (eight) Branch hours as needed for Nausea and Vomiting (N/V). ibuprofen 2019-0 Yes [id number] 600mg Take 1 U nivers 600 mg 9-06 tablet by ity of tablet 00:00: mouth [place] 00 every 6 Medical (six) Branch hours as needed for Pain (scale 1-3). ondansetron 2019-0 Yes [id number] 4mg Take 1 Univers (ZOFRAN 9-06 tablet by ity of ODT) 4 mg 00:00: mouth [place] disintegrat 00 every 8 Medic al ing tablet (eight) Branch hours as needed for Nausea and Vomiting (N/V). ibuprofen 2019-0 Yes [id number] 600mg Take 1 U nivers 600 mg 9-06 tablet by ity of tablet 00:00: mouth [place] 00 every 6 Medical (six) Branch hours as needed for Pain (scale 1-3). ondansetron Yes [id number] 4mg Take 1 Univers (ZOFRAN 08-04 tablet by ity of ODT) 4 mg 00:00: mouth [place] disintegrat 00 every 8 Medic al ing tablet (eight) Branch hours as needed for Nausea and Vomiting (N/V). ibuprofen Yes [id number] 600mg Take 1 U nivers 600 mg - tablet by ity of tablet 00:00: mouth [place] 00 every 6 Medical (six) Branch hours as needed for Pain (scale 1-3). ondansetron 2019- No [id number] 4mg Take 1 Univers (ZOFRAN 08-04 tablet by ity of ODT) 4 mg 00:00: 00:00 mouth [place] disintegrat 00 :00 every 8 Medic al ing tablet (eight) Branch hours as needed for Nausea and Vomiting (N/V). ibuprofen 2019- No [id number] 600mg Take 1 Univers 600 mg 08-04 tablet by ity of tablet 00:00: 00:00 mouth [place] 00 :00 every 6 Medical (six) Branch hours as needed for Pain (scale 1-3). cefpodoxime 2018- No [id number] 100mg Take 1 Univers 100 mg 08-04 tablet by ity of tablet 00:00: 04:59 mouth 2 [place] 00 :00 (two) Medical times Branch daily for 7 days. levonorgest 2019- No 1{devic Un kristopher rel 07-14 e} ity of (MIRENA) 20:30: 19:27 [place] IUD 1 00 :00 [place] Branch ibuprofen 2019- No 600mg Univer s [...] as IUD 1 00 :00 1 dose, [facility]utter [facility] 07/14/19 at 1530, Routine levonorgest 2018- 2019- No 1{devic Un kristopher rel 07-1416 e} ity of (MIRENA) 20:30: 19:27 [place] IUD 1 00 :00 [place] Branch ibuprofen 2019- No 600mg Univer s (IBU) 07-14 ity of tablet 600 20:30: 19:26 [place] mg 00 :00 Medical Branch ibuprofen 2018- No 600mg 600 mg, Uni vers (IBU) 07-14 Oral, ity of tablet 600 20:30: 19:26 ONCE, 1 [place]an as mg 00 :00 dose, [facility] 07/14/19 at Branch 1530, Routine levonorgest 2019- No 1{devic 1 Device, Univers rel 07-14 e} Intrauteri ity of (MIRENA) 20:30: 19:27 ne, ONCE, Dilan as IUD 1 00 :00 1 dose, [place] [facility] 07/14/19 at 1530, Routine levonorgest 2019- No 1{devic Un kristopher rel 07-14 e} ity of (MIRENA) 20:30: 19:27 [place] IUD 1 00 :00 [place] Branch ibuprofen 2018- No 600mg Univer s (IBU) 07-14 ity of tablet 600 20:30: 19:26 [place] mg 00 :00 Medical Branch ibuprofen 2018- 2019- No 600mg 600 mg, Uni vers (IBU) 07-14 Oral, ity of tablet 600 20:30: 19:26 ONCE, 1 [place]an as mg 00 :00 dose, [facility] 07/14/19 at Branch 1530, Routine levonorgest 2018- 2019- No 1{devic 1 Device, Univers rel 07-1416 e} Intrauteri ity of (MIRENA) 20:30: 19:27 ne, ONCE, Dilan as IUD 1 00 :00 1 dose, [place] Fri Branch 07/14/19 at 1530, Routine levonorgest 2019- No 1{devic Un kristopher rel 07-14 e} ity of (MIRENA) 20:30: 19:27 [place] IUD 1 00 :00 [place] Branch ibuprofen 2018- No 600mg Univer s [...] as IUD 1 00 :00 1 dose, [place] Fri Branch 07/14/19 at 1530, Routine metroNIDAZO 2019- No [id number] 500mg Take 1 Univers LE (FLAGYL) 07-1424 tablet by it y of 500 mg 00:00: 04:59 mouth 2 [place] tablet 00 :00 (two) Medical times [place] daily for 7 days. metroNIDAZO 2019- No [id number] 500mg Take 1 Univers LE (FLAGYL) 07-1424 tablet by it y of 500 mg 00:00: 04:59 mouth 2 [place] tablet 00 :00 (two) Medical times [place] daily for 7 days. metroNIDAZO 2019- No [id number] 500mg Take 1 Univers LE (FLAGYL) 07-14-24 tablet by it y of 500 mg 00:00: 04:59 mouth 2 [place] tablet 00 :00 (two) Medical times [place] daily for 7 days. metroNIDAZO 2019- No [id number] 500mg Take 1 Univers LE (FLAGYL) 07-14 08-24 tablet by it y of 500 mg 00:00: 04:59 mouth 2 [place] tablet 00 :00 (two) Medical times [place] daily for 7 days. No known No Univers medications ity of [facility] No known No Univers medications ity of [facility] Branch No known No Univers medications ity of [facility] No known No Univers medications ity of [facility] No known No Univers medications ity of [facility] Branch No known No Univers medications ity of [facility] Branch No known No Univers medications ity of [facility] No known No Univers medications ity of [facility] Immunizations Ordered Immunization Filled Immunization Date Status Commen ts Source Name Name [facility] 2018-06-27 Completed University of 00:00:00 [facility] Branch HPV9 2018-06-27 Completed University of 00:00:00 [facility] Branch HPV9 2018-06-27 Completed University of 00:00:00 [facility] Branch HPV9 2018-06-27 Completed University of 00:00:00 [facility] Branch HPV9 2018-06-27 Completed University of 00:00:00 [facility] Branch HPV9 2018-06-27 Completed University of 00:00:00 [facility] Branch HPV9 2018-06-27 Completed University of 00:00:00 [facility] Branch HPV9 2018-06-27 Completed University of 00:00:00 [facility] Branch HPV9 2018-06-27 Completed University of 00:00:00 [facility] Branch HPV9 2018-06-27 Completed University of 00:00:00 [facility] Branch HPV9 2018-06-27 Completed University of 00:00:00 [facility] Branch HPV9 2018-06-27 Completed University of 00:00:00 [facility] Branch HPV9 2018-06-27 Completed University of 00:00:00 [facility] Branch HPV9 2018-06-27 Completed University of 00:00:00 [facility] Branch HPV9 2018-06-27 Completed University of 00:00:00 [facility] Branch HPV9 2018-06-27 Completed University of 00:00:00 [facility] Branch HPV9 2018-06-27 Completed University of 00:00:00 [facility] Branch HPV9 2018-06-27 Completed University of 00:00:00 [facility] Branch HPV9 2018-06-27 Completed University of 00:00:00 [facility] Branch HPV9 2018-06-27 Completed University of 00:00:00 [facility] Branch HPV9 2018-06-27 Completed University of 00:00:00 [facility] Branch HPV9 2018-06-27 Completed University of 00:00:00 [facility] Branch HPV9 2018-06-27 Completed University of 00:00:00 [place] [facility] HPV9 2018-06-27 Completed University of 00:00:00 [place] [facility] HPV9 2018-06-27 Completed University of 00:00:00 [place] [facility] HPV9 2018-02-11 Completed University of 00:00:00 [place] [facility] Meningococcal B, OMV 2018-02-11 Completed Univ ersity of 00:00:00 [place] [facility] HPV9 2018-02-11 Completed University of 00:00:00 [place] [facility] Meningococcal B, OMV 2018-02-11 Completed Univ ersity of 00:00:00 [place] [facility] HPV9 2018-02-11 Completed University of 00:00:00 [place] [facility] Meningococcal B, OMV 2018-02-11 Completed Univ ersity of 00:00:00 [place] [facility] HPV9 2018-02-11 Completed University of 00:00:00 [place] [facility] Meningococcal B, OMV 2018-02-11 Completed Univ ersity of 00:00:00 [place] [facility] HPV9 2018-02-11 Completed University of 00:00:00 [place] [facility] Meningococcal B, OMV 2018-02-11 Completed Univ ersity of 00:00:00 [place] [facility] HPV9 2018-02-11 Completed University of 00:00:00 [place] [facility] Meningococcal B, OMV 2018-02-11 Completed Univ ersity of 00:00:00 [place] [facility] HPV9 2018-02-11 Completed University of 00:00:00 [place] [facility] Meningococcal B, OMV 2018-02-11 Completed Univ ersity of 00:00:00 [place] [facility] HPV9 2018-02-11 Completed University of 00:00:00 [place] [facility] Meningococcal B, OMV 2018-02-11 Completed Univ ersity of 00:00:00 [place] [facility] HPV9 2018-02-11 Completed University of 00:00:00 [place] [facility] Meningococcal B, OMV 2018-02-11 Completed Univ ersity of 00:00:00 [place] [facility] HPV9 2018-02-11 Completed University of 00:00:00 [place] [facility] Meningococcal B, OMV 2018-02-11 Completed Univ ersity of 00:00:00 [place] [facility] HPV9 2018-02-11 Completed University of [...] Branch HPV9 2018-02-11 Completed University of 00:00:00 [place] [facility] Meningococcal B, OMV 2018-02-11 Completed Univ ersity of 00:00:00 [place] [facility] HPV9 2018-02-11 Completed University of 00:00:00 [place] [facility] Meningococcal B, OMV 2018-02-11 Completed Univ ersity of 00:00:00 [place] [facility] HPV9 2018-02-11 Completed University of 00:00:00 [place] [facility] Meningococcal B, OMV 2018-02-11 Completed Univ ersity of 00:00:00 [place] [facility] HPV9 2018-02-11 Completed University of 00:00:00 [place] [facility] Meningococcal B, OMV 2018-02-11 Completed Univ ersity of 00:00:00 [facility] Branch HPV9 2018-02-11 Completed University of 00:00:00 [place] [facility] Meningococcal B, OMV 2018-02-11 Completed Univ ersity of 00:00:00 [place] [facility] HPV9 2018-02-11 Completed University of 00:00:00 [place] [facility] Meningococcal B, OMV 2018-02-11 Completed Univ ersity of 00:00:00 [place] [facility] HPV9 2018-02-11 Completed University of 00:00:00 [place] [facility] Meningococcal B, OMV 2018-02-11 Completed Univ ersity of 00:00:00 [place] [facility] HPV9 2018-02-11 Completed University of 00:00:00 [place] [facility] Meningococcal B, OMV 2018-02-11 Completed Univ ersity of 00:00:00 [place] [facility] HPV9 2018-02-11 Completed University of 00:00:00 [facility] Branch Meningococcal B, OMV 2018-02-11 Completed Univ ersity of 00:00:00 [facility] Branch HPV9 2018-02-11 Completed University of 00:00:00 [facility] Branch Meningococcal B, OMV 2018-02-11 Completed Univ ersity of 00:00:00 [facility] Meningococcal 2017-06-10 Completed University of Polysaccharide 00:00:00 [place] Medi andrew (groups A, C, Y and Branc h W-135) conjugate vaccine (MCV4P) Meningococcal B, OMV 2017-06-10 Completed Univ ersity of 00:00:00 [facility] Branch HPV9 2017-06-10 Completed University of 00:00:00 [facility] Branch Meningococcal 2017-06-10 Completed University of Polysaccharide 00:00:00 [place] Medi andrew (groups A, C, Y and Branc h W-135) conjugate vaccine (MCV4P) Meningococcal B, OMV 2017-06-10 Completed Univ ersity of 00:00:00 [facility] Branch HPV9 2017-06-10 Completed University of 00:00:00 [facility] Branch Meningococcal 2017-06-10 Completed University of Polysaccharide 00:00:00 [place] Medi andrew (groups A, C, Y and Branc h W-135) conjugate vaccine (MCV4P) Meningococcal B, OMV 2017-06-10 Completed Univ ersity of 00:00:00 [facility] HPV9 2017-06-10 Completed University of 00:00:00 [facility] Branch Meningococcal 2017-06-10 Completed University of Polysaccharide 00:00:00 [place] Medi andrew (groups A, C, Y and Branc h W-135) conjugate vaccine (MCV4P) Meningococcal B, OMV 2017-06-10 Completed Univ ersity of 00:00:00 [facility] Branch HPV9 2017-06-10 Completed University of 00:00:00 [facility] Branch Meningococcal 2017-06-10 Completed University of Polysaccharide 00:00:00 [place] Medi andrew (groups A, C, Y and Branc h W-135) conjugate vaccine (MCV4P) Meningococcal B, OMV 2017-06-10 Completed Univ ersity of 00:00:00 [facility] Branch HPV9 2017-06-10 Completed University of 00:00:00 [facility] Branch Meningococcal 2017-06-10 Completed University of Polysaccharide 00:00:00 [place] Medi andrew (groups A, C, Y and Branc h W-135) conjugate vaccine (MCV4P) Meningococcal B, OMV 2017-06-10 Completed Univ ersity of 00:00:00 [facility] Branch HPV9 2017-06-10 Completed University of 00:00:00 [facility] Meningococcal 2017-06-10 Completed University of Polysaccharide 00:00:00 [place] Medi andrew (groups A, C, Y and Branc h W-135) conjugate vaccine (MCV4P) Meningococcal B, OMV 2017-06-10 Completed Univ ersity of 00:00:00 [facility] Branch HPV9 2017-06-10 Completed University of 00:00:00 [facility] Meningococcal 2017-06-10 Completed University of Polysaccharide 00:00:00 [place] Medi andrew (groups A, C, Y and Branc h W-135) conjugate vaccine (MCV4P) Meningococcal B, OMV 2017-06-10 Completed Univ ersity of 00:00:00 [facility] HPV9 2017-06-10 Completed University of 00:00:00 [facility] Meningococcal 2017-06-10 Completed University of Polysaccharide 00:00:00 [place] Medi andrew (groups A, C, Y and Branc h W-135) conjugate vaccine (MCV4P) Meningococcal B, OMV 2017-06-10 Completed Univ ersity of 00:00:00 [facility] HPV9 2017-06-10 Completed University of 00:00:00 [facility] Meningococcal 2017-06-10 Completed University of Polysaccharide 00:00:00 [place] Medi andrew (groups A, C, Y and Branc h W-135) conjugate vaccine (MCV4P) Meningococcal B, OMV 2017-06-10 Completed Univ ersity of 00:00:00 [facility] HPV9 2017-06-10 Completed University of 00:00:00 [facility] Meningococcal 2017-06-10 Completed University of Polysaccharide 00:00:00 [place] Medi nadrew (groups A, C, Y and Branc h W-135) conjugate vaccine (MCV4P) Meningococcal B, OMV 2017-06-10 Completed Univ ersity of 00:00:00 [facility] HPV9 2017-06-10 Completed University of 00:00:00 [facility] Meningococcal 2017-06-10 Completed University of Polysaccharide 00:00:00 [place] Medi andrew (groups A, C, Y and Branc h W-135) conjugate vaccine (MCV4P) Meningococcal B, OMV 2017-06-10 Completed Univ ersity of 00:00:00 [facility] HPV9 2017-06-10 Completed University of 00:00:00 [facility] Meningococcal 2017-06-10 Completed University of Polysaccharide 00:00:00 [place] Medi andrew (groups A, C, Y and Branc h W-135) conjugate vaccine (MCV4P) Meningococcal B, OMV 2017-06-10 Completed Univ ersity of 00:00:00 [facility] Branch HPV9 2017-06-10 Completed University of 00:00:00 [facility] Meningococcal 2017-06-10 Completed University of Polysaccharide 00:00:00 [place] Medi andrew (groups A, C, Y and Branc h W-135) conjugate vaccine (MCV4P) Meningococcal B, OMV 2017-06-10 Completed Univ ersity of 00:00:00 [facility] HPV9 2017-06-10 Completed University of 00:00:00 [facility] Meningococcal 2017-06-10 Completed University of Polysaccharide 00:00:00 [place] Medi andrew (groups A, C, Y and Branc h W-135) conjugate vaccine (MCV4P) Meningococcal B, OMV 2017-06-10 Completed Univ ersity of 00:00:00 [facility] HPV9 2017-06-10 Completed University of 00:00:00 [facility] Meningococcal 2017-06-10 Completed University of Polysaccharide 00:00:00 [place] Medi andrew (groups A, C, Y and Branc h W-135) conjugate vaccine (MCV4P) Meningococcal B, OMV 2017-06-10 Completed Univ ersity of 00:00:00 [facility] HPV9 2017-06-10 Completed University of 00:00:00 [facility] Meningococcal 2017-06-10 Completed University of Polysaccharide 00:00:00 [place] Medi andrew (groups A, C, Y and Branc h W-135) conjugate vaccine (MCV4P) Meningococcal B, OMV 2017-06-10 Completed Univ ersity of 00:00:00 [facility] HPV9 2017-06-10 Completed University of 00:00:00 [facility] Meningococcal 2017-06-10 Completed University of Polysaccharide 00:00:00 [place] Medi andrew (groups A, C, Y and Branc h W-135) conjugate vaccine (MCV4P) Meningococcal B, OMV 2017-06-10 Completed Univ ersity of 00:00:00 [facility] HPV9 2017-06-10 Completed University of 00:00:00 [facility] Meningococcal 2017-06-10 Completed University of Polysaccharide 00:00:00 [place] Medi andrew (groups A, C, Y and Branc h W-135) conjugate vaccine (MCV4P) Meningococcal B, OMV 2017-06-10 Completed [facility] 00:00:00 [facility] HPV9 2017-06-10 Completed [facility] 00:00:00 [facility] Meningococcal 2017-06-10 Completed [facility] Polysaccharide 00:00:00 [place] [facility] (groups A, C, Y and Branc h W-135) conjugate vaccine (MCV4P) Meningococcal B, OMV 2017-06-10 Completed [facility] 00:00:00 [facility] HPV9 2017-06-10 Completed [facility] 00:00:00 [facility] Meningococcal 2017-06-10 Completed [facility] Polysaccharide 00:00:00 [place] [facility] (groups A, C, Y and Branc h W-135) conjugate vaccine (MCV4P) Meningococcal B, OMV 2017-06-10 Completed [facility] 00:00:00 [facility] HPV9 2017-06-10 Completed [facility] 00:00:00 [facility] Meningococcal 2017-06-10 Completed [facility] Polysaccharide 00:00:00 [place] [facility] (groups A, C, Y and Branc h W-135) conjugate vaccine (MCV4P) Meningococcal B, OMV 2017-06-10 Completed [facility] 00:00:00 [facility] HPV9 2017-06-10 Completed [facility] 00:00:00 [facility] Meningococcal 2017-06-10 Completed [facility] Polysaccharide 00:00:00 [place] [facility] (groups A, C, Y and Branc h W-135) conjugate vaccine (MCV4P) Meningococcal B, OMV 2017-06-10 Completed [facility] 00:00:00 [facility] HPV9 2017-06-10 Completed [facility] 00:00:00 [facility] Meningococcal 2017-06-10 Completed [facility] Polysaccharide 00:00:00 [place] [facility] (groups A, C, Y and Branc h W-135) conjugate vaccine (MCV4P) Meningococcal B, OMV 2017-06-10 Completed [facility] 00:00:00 [facility] HPV9 2017-06-10 Completed [facility] 00:00:00 [facility] Meningococcal 2017-06-10 Completed [facility] of Polysaccharide 00:00:00 [facility] andrew (groups A, C, Y and Branc h W-135) conjugate vaccine (MCV4P) Meningococcal B, OMV 2017-06-10 Completed [facility] 00:00:00 [facility] HPV9 2017-06-10 Completed [facility] 00:00:00 [facility] HEPATITIS A 2013-03-29 Completed [facility] 00:00:00 [facility] HEPATITIS A 2013-03-29 Completed [facility] 00:00:00 [facility] HEPATITIS A 2013-03-29 Completed [facility] 00:00:00 [facility] HEPATITIS A 2013-03-29 Completed [facility] 00:00:00 [facility] HEPATITIS A 2013-03-29 Completed [facility] 00:00:00 [facility] HEPATITIS A 2013-03-29 Completed [facility] 00:00:00 [facility] HEPATITIS A 2013-03-29 Completed [facility] 00:00:00 [facility] HEPATITIS A 2013-03-29 Completed [facility] 00:00:00 [facility] HEPATITIS A 2013-03-29 Completed [facility] 00:00:00 [facility] HEPATITIS A 2013-03-29 Completed [facility] 00:00:00 [facility] HEPATITIS A 2013-03-29 Completed [facility] 00:00:00 [facility] HEPATITIS A 2013-03-29 Completed [facility] 00:00:00 [facility] HEPATITIS A 2013-03-29 Completed [facility] 00:00:00 [facility] HEPATITIS A 2013-03-29 Completed [facility] 00:00:00 [facility] HEPATITIS A 2013-03-29 Completed [facility] 00:00:00 [facility] HEPATITIS A 2013-03-29 Completed [facility] 00:00:00 [facility] HEPATITIS A 2013-03-29 Completed [facility] 00:00:00 [facility] HEPATITIS A 2013-03-29 Completed [facility] 00:00:00 [facility] HEPATITIS A 2013-03-29 Completed [facility] 00:00:00 [facility] HEPATITIS A 2013-03-29 Completed [facility] 00:00:00 [facility] HEPATITIS A 2013-03-29 Completed [facility] 00:00:00 [facility] HEPATITIS A 2013-03-29 Completed [facility] 00:00:00 [facility] HEPATITIS A 2013-03-29 Completed [facility] 00:00:00 [facility] HEPATITIS A 2013-03-29 Completed [facility] 00:00:00 [facility] HEPATITIS A 2013-03-29 Completed [facility] 00:00:00 [facility] Tdap 2012-06-16 Completed [facility] 00:00:00 [facility] Meningococcal 2012-06-16 Completed [facility] Polysaccharide 00:00:00 [place] [facility] (groups A, C, Y and Branc h W-135) conjugate vaccine (MCV4P) Varicella 2012-06-16 Completed University of (varivax)(chicken 00:00:00 [place] [facility] HEPATITIS A 2012-06-16 Completed [facility] 00:00:00 [facility] Tdap 2012-06-16 Completed [facility] of 00:00:00 [facility] Meningococcal 2012-06-16 Completed [facility] Polysaccharide 00:00:00 [place] [facility] (groups A, C, Y and Branc h W-135) conjugate vaccine (MCV4P) Varicella 2012-06-16 Completed [facility] (varivax)(chicken 00:00:00 [place] [facility]) [facility] HEPATITIS A 2012-06-16 Completed [facility] 00:00:00 [facility] Tdap 2012-06-16 Completed [facility] 00:00:00 [facility] Meningococcal 2012-06-16 Completed [facility] Polysaccharide 00:00:00 [place] [facility] (groups A, C, Y and Branc h W-135) conjugate vaccine (MCV4P) Varicella 2012-06-16 Completed [facility] (varivax)(chicken 00:00:00 [place] [facility] HEPATITIS A 2012-06-16 Completed [facility] 00:00:00 [facility] Tdap 2012-06-16 Completed [facility] 00:00:00 [facility] Meningococcal 2012-06-16 Completed [facility] Polysaccharide 00:00:00 [place] [facility] (groups A, C, Y and Branc h W-135) conjugate vaccine (MCV4P) Varicella 2012-06-16 Completed [facility] (varivax)(chicken 00:00:00 [place] [facility] HEPATITIS A 2012-06-16 Completed [facility] 00:00:00 [facility] Tdap 2012-06-16 Completed [facility] 00:00:00 [facility] Meningococcal 2012-06-16 Completed [facility] Polysaccharide 00:00:00 [place] [facility] (groups A, C, Y and Branc h W-135) conjugate vaccine (MCV4P) Varicella 2012-06-16 Completed [facility] (varivax)(chicken 00:00:00 [place] [facility] HEPATITIS A 2012-06-16 Completed [facility] 00:00:00 [facility] Tdap 2012-06-16 Completed [facility] 00:00:00 [facility] Meningococcal 2012-06-16 Completed [facility] Polysaccharide 00:00:00 [place] [facility] (groups A, C, Y and Branc h W-135) conjugate vaccine (MCV4P) Varicella 2012-06-16 Completed [facility] (varivax)(chicken 00:00:00 [place] [facility]ox) [facility] HEPATITIS A 2012-06-16 Completed [facility] 00:00:00 [facility] Tdap 2012-06-16 Completed [facility] 00:00:00 [facility] Meningococcal 2012-06-16 Completed [facility] Polysaccharide 00:00:00 [place] [facility] (groups A, C, Y and Branc h W-135) conjugate vaccine (MCV4P) Varicella 2012-06-16 Completed [facility] (varivax)(chicken 00:00:00 [place] [facility]ox) [facility] HEPATITIS A 2012-06-16 Completed [facility] 00:00:00 [facility] Tdap 2012-06-16 Completed [facility] 00:00:00 [facility] Meningococcal 2012-06-16 Completed [facility] Polysaccharide 00:00:00 [place] [facility] (groups A, C, Y and Branc h W-135) conjugate vaccine (MCV4P) Varicella 2012-06-16 Completed [facility] (varivax)(chicken 00:00:00 [place] [facility]ox) [facility] HEPATITIS A 2012-06-16 Completed [facility] 00:00:00 [facility] TDAP 2012-06-16 Completed [facility] 00:00:00 [facility] Meningococcal 2012-06-16 Completed [facility] Polysaccharide 00:00:00 [place] [facility] (groups A, C, Y and Branc h W-135) conjugate vaccine (MCV4P) Varicella 2012-06-16 Completed [facility] (varivax)(chicken 00:00:00 [place] [facility] HEPATITIS A 2012-06-16 Completed [facility] 00:00:00 [facility] TDAP 2012-06-16 Completed [facility] 00:00:00 [facility] Meningococcal 2012-06-16 Completed [facility] Polysaccharide 00:00:00 [place] [facility] (groups A, C, Y and Branc h W-135) conjugate vaccine (MCV4P) Varicella 2012-06-16 Completed [facility] (varivax)(chicken 00:00:00 [place] [facility]ox[facility] HEPATITIS A 2012-06-16 Completed [facility] 00:00:00 [facility] TDAP 2012-06-16 Completed [facility] 00:00:00 [facility] Meningococcal 2012-06-16 Completed [facility] Polysaccharide 00:00:00 [place] [facility] (groups A, C, Y and Branc h W-135) conjugate vaccine (MCV4P) Varicella 2012-06-16 Completed [facility] (varivax)(chicken 00:00:00 [place] [facility] HEPATITIS A 2012-06-16 Completed [facility] 00:00:00 [facility] TDAP 2012-06-16 Completed [facility] 00:00:00 [facility] Meningococcal 2012-06-16 Completed [facility] Polysaccharide 00:00:00 [place] [facility] (groups A, C, Y and Branc h W-135) conjugate vaccine (MCV4P) Varicella 2012-06-16 Completed [facility] (varivax)(chicken 00:00:00 [place] [facility] HEPATITIS A 2012-06-16 Completed [facility] 00:00:00 [facility] TDAP 2012-06-16 Completed [facility] 00:00:00 [facility] Meningococcal 2012-06-16 Completed [facility] Polysaccharide 00:00:00 [place] [facility] (groups A, C, Y and Branc h W-135) conjugate vaccine (MCV4P) Varicella 2012-06-16 Completed [facility] (varivax)(chicken 00:00:00 [place] [facility] HEPATITIS A 2012-06-16 Completed [facility] 00:00:00 [facility] TDAP 2012-06-16 Completed [facility] 00:00:00 [facility] Meningococcal 2012-06-16 Completed [facility] Polysaccharide 00:00:00 [place] [facility] (groups A, C, Y and Branc h W-135) conjugate vaccine (MCV4P) Varicella 2012-06-16 Completed [facility] (varivax)(chicken 00:00:00 [place] [facility]) [facility] HEPATITIS A 2012-06-16 Completed [facility] 00:00:00 [facility] TDAP 2012-06-16 Completed [facility] 00:00:00 [facility] Meningococcal 2012-06-16 Completed [facility] Polysaccharide 00:00:00 [place] [facility] (groups A, C, Y and Branc h W-135) conjugate vaccine (MCV4P) Varicella 2012-06-16 Completed [facility] (varivax)(chicken 00:00:00 [place] [facility] HEPATITIS A 2012-06-16 Completed [facility] 00:00:00 [facility] TDAP 2012-06-16 Completed [facility] 00:00:00 [facility] Meningococcal 2012-06-16 Completed [facility] Polysaccharide 00:00:00 [place] [facility] (groups A, C, Y and Branc h W-135) conjugate vaccine (MCV4P) Varicella 2012-06-16 Completed [facility] (varivax)(chicken 00:00:00 [place] [facility]ox) [facility] HEPATITIS A 2012-06-16 Completed [facility] 00:00:00 [facility] TDAP 2012-06-16 Completed [facility] 00:00:00 [facility] Meningococcal 2012-06-16 Completed [facility] Polysaccharide 00:00:00 [place] [facility] (groups A, C, Y and Branc h W-135) conjugate vaccine (MCV4P) Varicella 2012-06-16 Completed [facility] (varivax)(chicken 00:00:00 [place] [facility] HEPATITIS A 2012-06-16 Completed [facility] 00:00:00 [facility] TDAP 2012-06-16 Completed [facility] 00:00:00 [facility] Meningococcal 2012-06-16 Completed [facility] Polysaccharide 00:00:00 [place] [facility] (groups A, C, Y and Branc h W-135) conjugate vaccine (MCV4P) Varicella 2012-06-16 Completed [facility] (varivax)(chicken 00:00:00 [place] [facility] p[facility] HEPATITIS A 2012-06-16 Completed [facility] 00:00:00 [facility] TDAP 2012-06-16 Completed [facility] 00:00:00 [facility] Meningococcal 2012-06-16 Completed [facility] Polysaccharide 00:00:00 [place] [facility] (groups A, C, Y and Branc h W-135) conjugate vaccine (MCV4P) Varicella 2012-06-16 Completed [facility] (varivax)(chicken 00:00:00 [place] [facility] pox[facility] HEPATITIS A 2012-06-16 Completed [facility] 00:00:00 [facility] TDAP 2012-06-16 Completed [facility] 00:00:00 [facility] Meningococcal 2012-06-16 Completed [facility] Polysaccharide 00:00:00 [place] [facility] (groups A, C, Y and Branc h W-135) conjugate vaccine (MCV4P) Varicella 2012-06-16 Completed [facility] (varivax)(chicken 00:00:00 [place] [facility] pox) [facility] HEPATITIS A 2012-06-16 Completed [facility] 00:00:00 [facility] TDAP 2012-06-16 Completed [facility] 00:00:00 [facility] Meningococcal 2012-06-16 Completed [facility] Polysaccharide 00:00:00 [place] [facility] (groups A, C, Y and Branc h W-135) conjugate vaccine (MCV4P) Varicella 2012-06-16 Completed [facility] (varivax)(chicken 00:00:00 [place] [facility] pox) [facility] HEPATITIS A 2012-06-16 Completed [facility] 00:00:00 [facility] TDAP 2012-06-16 Completed [facility] 00:00:00 [facility] Meningococcal 2012-06-16 Completed [facility] Polysaccharide 00:00:00 [place] [facility] (groups A, C, Y and Branc h W-135) conjugate vaccine (MCV4P) Varicella 2012-06-16 Completed [facility] (varivax)(chicken 00:00:00 [place] [facility] pox) [facility] HEPATITIS A 2012-06-16 Completed [facility] 00:00:00 [facility] TDAP 2012-06-16 Completed [facility] 00:00:00 [facility] Meningococcal 2012-06-16 Completed [facility] Polysaccharide 00:00:00 [place] [facility] (groups A, C, Y and Branc h W-135) conjugate vaccine (MCV4P) Varicella 2012-06-16 Completed [facility] (varivax)(chicken 00:00:00 [place] [facility] pox) [facility] HEPATITIS A 2012-06-16 Completed [facility] 00:00:00 [facility] TDAP 2012-06-16 Completed [facility] 00:00:00 [facility] Meningococcal 2012-06-16 Completed [facility] Polysaccharide 00:00:00 [place] [facility] (groups A, C, Y and Branc h W-135) conjugate vaccine (MCV4P) Varicella 2012-06-16 Completed [facility] (varivax)(chicken 00:00:00 [place] [facility] Tdap 2012-06-16 Completed [facility] 00:00:00 [facility] HEPATITIS A 2012-06-16 Completed [facility] 00:00:00 [facility] Meningococcal 2012-06-16 Completed [facility] Polysaccharide 00:00:00 [place] [facility] (groups A, C, Y and Branc h W-135) conjugate vaccine (MCV4P) Varicella 2012-06-16 Completed [facility] (varivax)(chicken 00:00:00 [place] [facility] p[facility] HEPATITIS A 2012-06-16 Completed [facility] 00:00:00 [facility] DTAP 2005-09-28 Completed [facility] 00:00:00 [facility] DTAP 2005-09-28 Completed [facility] 00:00:00 [facility] DTAP 2005-09-28 Completed [facility] 00:00:00 [facility] DTAP 2005-09-28 Completed [facility] 00:00:00 [facility] DTAP 2005-09-28 Completed [facility] 00:00:00 [facility] DTAP 2005-09-28 Completed [facility] 00:00:00 [facility] DTAP 2005-09-28 Completed [facility] 00:00:00 [facility] DTAP 2005-09-28 Completed [facility] 00:00:00 [facility] DTAP 2005-09-28 Completed [facility] 00:00:00 [facility] DTAP 2005-09-28 Completed [facility] 00:00:00 [facility] DTAP 2005-09-28 Completed [facility] 00:00:00 [facility] DTAP 2005-09-28 Completed [facility] 00:00:00 [facility] DTAP 2005-09-28 Completed [facility] 00:00:00 [facility] DTAP 2005-09-28 Completed [facility] of 00:00:00 [facility] DTAP 2005-09-28 Completed [facility] 00:00:00 [facility] DTAP 2005-09-28 Completed [facility] 00:00:00 [facility] DTAP 2005-09-28 Completed [facility] 00:00:00 [facility] DTAP 2005-09-28 Completed [facility] 00:00: [facility] DTAP 2005-09-28 Completed [facility] 00:00: [facility] DTAP 2005-09-28 Completed [facility] 00:00: [facility] DTAP 2005-09-28 Completed [facility] 00:00: [facility] DTAP 2005-09-28 Completed [facility] 00:00:00 [facility] DTAP 2005-09-28 Completed [facility] 00:00:00 [facility] DTAP 2005-09-28 Completed [facility] 00:00: [facility] DTAP 2005-09-28 Completed [facility] [...] 2004-07-08 Completed Unive rsity of Dosage 00:00:00 [facility] Hep B, Adol or Pedi 2004-07-08 Completed [facility] Dosage 00:00:00 [facility] Hep B, Adol or Pedi 2004-07-08 Completed [facility]ive rsity of Dosage 00:00:00 [facility] Hep B, Adol or Pedi 2004-07-08 Completed [facility]ive rsity of Dosage 00:00:00 [facility] Hep B, Adol or Pedi 2004-07-08 Completed [facility]ive rsity of Dosage 00:00:00 [facility] Hep B, Adol or Pedi 2004-07-08 Completed Unive rsity of Dosage 00:00:00 [facility] DTAP 2004-05-28 Completed [facility] 00:00:00 [facility] Polio (IPV/OPV) 2004-05-28 Completed Univers[facility] 00:00:00 [facility] DTAP 2004-05-28 Completed [facility] 00:00:00 [facility] Polio (IPV/OPV) 2004-05-28 Completed Univers[facility] 00:00:00 [facility] DTAP 2004-05-28 Completed [facility] 00:00:00 [facility] Polio (IPV/OPV) 2004-05-28 Completed Univers[facility] 00:00:00 [facility] DTAP 2004-05-28 Completed [facility] 00:00:00 [facility] Polio (IPV/OPV) 2004-05-28 Completed [facility] 00:00:00 [facility] DTAP 2004-05-28 Completed [facility] 00:00:00 [facility] Polio (IPV/OPV) 2004-05-28 Completed [facility] 00:00:00 [facility] DTAP 2004-05-28 Completed [facility] 00:00:00 [facility] Polio (IPV/OPV) 2004-05-28 Completed [facility] 00:00:00 [facility] DTAP 2004-05-28 Completed [facility] 00:00:00 [facility] Polio (IPV/OPV) 2004-05-28 Completed [facility] 00:00:00 [facility] DTAP 2004-05-28 Completed [facility] 00:00:00 [facility] Polio (IPV/OPV) 2004-05-28 Completed [facility] 00:00:00 [facility] DTAP 2004-05-28 Completed [facility] 00:00:00 [facility] DTAP 2004-05-28 Completed [facility] 00:00:00 [facility] Polio (IPV/OPV) 2004-05-28 [facility]00 [facility] Polio (IPV/OPV) 2004-05-28 Completed [facility] 00:00:00 [facility] Polio (IPV/OPV) 2004-05-28 Completed [facility] 00:00:00 [facility] DTAP 2004-05-28 Completed [facility] 00:00:00 [facility] Polio (IPV/OPV) 2004-05-28 [facility] 00:00:00 [facility] Polio (IPV/OPV) 2004-05-28 Completed [facility] 00:00:00 [facility] DTAP 2004-05-28 Completed [facility] 00:00:00 [facility] Polio (IPV/OPV) 2004-05-28 [facility] 00:00:00 [facility] Polio (IPV/OPV) 2004-05-28 [facility] 00:00:00 [facility] Polio (IPV/OPV) 2004-05-28 Completed [facility] 00:00:00 [facility] DTAP 2004-05-28 Completed [facility] 00:00:00 [facility] Polio (IPV/OPV) 2004-05-28 Completed [facility] 00:00:00 [facility] DTAP 2004-05-28 Completed [facility] 00:00:00 [facility] Polio (IPV/OPV) 2004-05-28 [facility] 00:00:00 [facility] Polio (IPV/OPV) 2004-05-28 Completed [facility] 00:00:00 [facility] DTAP 2004-05-28 Completed [facility] 00:00:00 [facility] Polio (IPV/OPV) 2004-05-28 Completed [facility] 00:00:00 [facility] DTAP 2004-05-28 Completed [facility] 00:00:00 [facility] DTAP 2004-05-28 Completed [facility] 00:00:00 [facility] Polio (IPV/OPV) 2004-05-28 Completed [facility] 00:00:00 [facility] Polio (IPV/OPV) 2004-05-28 Completed [facility] 00:00:00 [facility] DTAP 2004-05-28 Completed [facility] 00:00:00 [facility] Polio (IPV/OPV) 2004-05-28 Completed [facility] 00:00:00 [facility] DTAP 2004-05-28 Completed [facility] 00:00:00 [facility] Polio (IPV/OPV) 2004-05-28 Completed [facility] 00:00:00 [facility] DTAP 2004-01-21 Completed [facility] 00:00:00 [facility] HIB 4 Dose Schedule 2004-01-21 Completed [facility] rsity [facility] 00:00:00 [facility] MMR 2004-01-21 Completed [facility] 00:00:00 [facility] Polio (IPV/OPV) 2004-01-21 Completed [facility] 00:00:00 [facility] DTAP 2004-01-21 Completed [facility] 00:00:00 [facility] HIB 4 Dose Schedule 2004-01-21 Completed [facility] rs[facility] of 00:00:00 [facility] MMR 2004-01-21 Completed [facility] 00:00:00 [facility] Polio (IPV/OPV) 2004-01-21 Completed [facility] 00:00:00 [facility] DTAP 2004-01-21 Completed [facility] 00:00:00 [facility] HIB 4 Dose Schedule 2004-01-21 Completed [facility] of 00:00:00 [facility] MMR 2004-01-21 Completed [facility] 00:00:00 [facility] Polio (IPV/OPV) 2004-01-21 Completed [facility] 00:00:00 [facility] DTAP 2004-01-21 Completed [facility] 00:00:00 [facility] HIB 4 Dose Schedule 2004-01-21 Completed [facility] of 00:00:00 [facility] MMR 2004-01-21 Completed [facility] 00:00:00 [facility] Polio (IPV/OPV) 2004-01-21 Completed [facility] 00:00:00 [facility] DTAP 2004-01-21 Completed [facility] 00:00:00 [facility] HIB 4 Dose Schedule 2004-01-21 Completed [facility] of 00:00:00 [facility] MMR 2004-01-21 Completed [facility] 00:00:00 [facility] Polio (IPV/OPV) 2004-01-21 Completed [facility] 00:00:00 [facility] DTAP 2004-01-21 Completed [facility] 00:00:00 [facility] HIB 4 Dose Schedule 2004-01-21 Completed [facility] rs[facility] of 00:00:00 [facility] MMR 2004-01-21 Completed [facility] 00:00:00 [facility] Polio (IPV/OPV) 2004-01-21 Completed [facility] 00:00:00 [facility] DTAP 2004-01-21 Completed [facility] 00:00:00 [facility] HIB 4 Dose Schedule 2004-01-21 Completed [facility] rs[facility] of 00:00:00 [facility] MMR 2004-01-21 Completed [facility] 00:00:00 [facility] Polio (IPV/OPV) 2004-01-21 Completed [facility] 00:00:00 [facility] DTAP 2004-01-21 Completed [facility] 00:00:00 [facility] HIB 4 Dose Schedule 2004-01-21 Completed [facility] rsity of 00:00:00 [facility] MMR 2004-01-21 Completed [facility] 00:00:00 [facility] Polio (IPV/OPV) 2004-01-21 Completed [facility] 00:00:00 [facility] DTAP 2004-01-21 Completed [facility] 00:00:00 [facility] DTAP 2004-01-21 Completed [facility] 00:00:00 [facility] HIB 4 Dose Schedule 2004-01-21 Completed Unive rsity of 00:00:00 [facility] MMR 2004-01-21 Completed [facility] 00:00:00 [facility] Polio (IPV/OPV) 2004-01-21 Completed Universit y of 00:00:00 [facility] HIB 4 Dose Schedule 2004-01-21 Completed Unive rsity of 00:00:00 [facility] MMR 2004-01-21 Completed [facility] 00:00:00 [facility] DTAP 2004-01-21 Completed [facility] 00:00:00 [facility] HIB 4 Dose Schedule 2004-01-21 Completed Unive rsity of 00:00:00 [facility] MMR 2004-01-21 Completed [facility] 00:00:00 [facility] Polio (IPV/OPV) 2004-01-21 Completed Universit y of 00:00:00 [facility] Polio (IPV/OPV) 2004-01-21 Completed [facility]it y of 00:00:00 [facility] DTAP 2004-01-21 Completed [facility] 00:00:00 [facility] HIB 4 Dose Schedule 2004-01-21 Completed Unive rsity of 00:00:00 [facility] MMR 2004-01-21 Completed [facility] 00:00:00 [facility] Polio (IPV/OPV) 2004-01-21 Completed Universit y of 00:00:00 [facility] DTAP 2004-01-21 Completed [facility] 00:00:00 [facility] HIB 4 Dose Schedule 2004-01-21 Completed Unive rsity of 00:00:00 [facility] MMR 2004-01-21 Completed [facility] of 00:00:00 [facility] Polio (IPV/OPV) 2004-01-21 Completed Universit y of 00:00:00 [facility] DTAP 2004-01-21 Completed [facility] 00:00:00 [facility] HIB 4 Dose Schedule 2004-01-21 Completed Unive rsity of 00:00:00 [facility] MMR 2004-01-21 Completed [facility] of 00:00:00 [facility] Polio (IPV/OPV) 2004-01-21 Completed [facility]it y [facility] 00:00:00 [facility] DTAP 2004-01-21 Completed [facility] 00:00:00 [facility] HIB 4 Dose Schedule 2004-01-21 Completed Unive rsity of 00:00:00 [facility] MMR 2004-01-21 Completed [facility] 00:00:00 [facility] Polio (IPV/OPV) 2004-01-21 Completed Universit y [facility] 00:00:00 [facility] DTAP 2004-01-21 Completed [facility] of 00:00:00 [facility] HIB 4 Dose Schedule 2004-01-21 Completed Unive rsity of 00:00:00 [facility] MMR 2004-01-21 Completed [facility] 00:00:00 [facility] Polio (IPV/OPV) 2004-01-21 Completed Universit y of 00:00:00 [facility] DTAP 2004-01-21 Completed [facility] of 00:00:00 [facility] HIB 4 Dose Schedule 2004-01-21 Completed Unive rsity of 00:00:00 [facility] MMR 2004-01-21 Completed [facility] of 00:00:00 [facility] Polio (IPV/OPV) 2004-01-21 Completed Universit y of 00:00:00 [facility] DTAP 2004-01-21 Completed [facility] of 00:00:00 [facility] HIB 4 Dose Schedule 2004-01-21 Completed Unive rsity of 00:00:00 [facility] MMR 2004-01-21 Completed [facility] of 00:00:00 [facility] Polio (IPV/OPV) 2004-01-21 Completed Universit y of 00:00:00 [facility] DTAP 2004-01-21 Completed [facility] 00:00:00 [facility] HIB 4 Dose Schedule 2004-01-21 Completed Unive rsity of 00:00:00 [facility] MMR 2004-01-21 Completed [facility] of 00:00:00 [facility] Polio (IPV/OPV) 2004-01-21 Completed Universit y of 00:00:00 [facility] DTAP 2004-01-21 Completed [facility] 00:00:00 [facility] HIB 4 Dose Schedule 2004-01-21 Completed Unive rsity of 00:00:00 [facility] MMR 2004-01-21 Completed [facility] of 00:00:00 [facility] Polio (IPV/OPV) 2004-01-21 Completed Universit y of 00:00:00 [facility] DTAP 2004-01-21 Completed [facility] 00:00:00 [facility] HIB 4 Dose Schedule 2004-01-21 Completed Unive rsity of 00:00:00 [facility] DTAP 2004-01-21 Completed [facility] of 00:00:00 [facility] HIB 4 Dose Schedule 2004-01-21 Completed Unive rsity of 00:00:00 [facility] MMR 2004-01-21 Completed [facility] of 00:00:00 [facility] Polio (IPV/OPV) 2004-01-21 Completed Universit y of 00:00:00 [facility] MMR 2004-01-21 Completed [facility] 00:00:00 [facility] Polio (IPV/OPV) 2004-01-21 Completed Universit y of 00:00:00 [facility] DTAP 2004-01-21 Completed [facility] of 00:00:00 [facility] HIB 4 Dose Schedule 2004-01-21 Completed Unive rsity of 00:00:00 [facility] MMR 2004-01-21 Completed [facility] of 00:00:00 [facility] Polio (IPV/OPV) 2004-01-21 Completed Universit y of 00:00:00 [facility] DTAP 2004-01-21 Completed [facility] of 00:00:00 [facility] HIB 4 Dose Schedule 2004-01-21 Completed Unive rsity of 00:00:00 [facility] MMR 2004-01-21 Completed [facility] of 00:00:00 [facility] Polio (IPV/OPV) 2004-01-21 Completed [facility]it y of 00:00:00 [facility] Varicella 2003-11-08 Completed [facility] of (varivax)(chicken 00:00:00 [place] [facility] DTAP 2003-11-08 Completed [facility] 00:00:00 [facility] Polio (IPV/OPV) 2003-11-08 Completed Universit y of 00:00:00 [facility] MMR 2003-11-08 Completed [facility] 00:00:00 [facility] Varicella 2003-11-08 Completed [facility] of (varivax)(chicken 00:00:00 [place] [facility] DTAP 2003-11-08 Completed [facility] 00:00:00 [facility] Polio (IPV/OPV) 2003-11-08 Completed [facility]it [facility] of 00:00:00 [facility] MMR 2003-11-08 Completed [facility] 00:00:00 [facility] Varicella 2003-11-08 Completed [facility] of (varivax)(chicken 00:00:00 [place] [facility] DTAP 2003-11-08 Completed [facility] 00:00:00 [facility] Polio (IPV/OPV) 2003-11-08 Completed Universit [facility] of 00:00:00 [facility] MMR 2003-11-08 Completed [facility] of 00:00:00 [facility] Varicella 2003-11-08 Completed [facility] of (varivax)(chicken 00:00:00 [place] [facility] DTAP 2003-11-08 Completed [facility] 00:00:00 [facility] Polio (IPV/OPV) 2003-11-08 Completed Universit y of 00:00:00 [facility] MMR 2003-11-08 Completed [facility] of 00:00:00 [facility] Varicella 2003-11-08 Completed [facility] of (varivax)(chicken 00:00:00 [place] [facility] DTAP 2003-11-08 Completed [facility] 00:00:00 [facility] Polio (IPV/OPV) 2003-11-08 Completed Universit y of 00:00:00 [facility] MMR 2003-11-08 Completed [facility] 00:00:00 [facility] Varicella 2003-11-08 Completed [facility] of (varivax)(chicken 00:00:00 [place] [facility]ox[facility] DTAP 2003-11-08 Completed [facility] of 00:00:00 [facility] Polio (IPV/OPV) 2003-11-08 Completed Universit y of 00:00:00 [facility] MMR 2003-11-08 Completed [facility] 00:00:00 [facility] Varicella 2003-11-08 Completed [facility] of (varivax)(chicken 00:00:00 [place] [facility] DTAP 2003-11-08 Completed [facility] 00:00:00 [facility] Polio (IPV/OPV) 2003-11-08 Completed [facility]it y of 00:00:00 [facility] MMR 2003-11-08 Completed [facility] 00:00:00 [facility] Varicella 2003-11-08 Completed [facility] of (varivax)(chicken 00:00:00 [place] [facility] DTAP 2003-11-08 Completed [facility] of 00:00:00 [facility] Polio (IPV/OPV) 2003-11-08 Completed Universit y of 00:00:00 [facility] MMR 2003-11-08 Completed [facility] 00:00:00 [facility] Varicella 2003-11-08 Completed [facility] of (varivax)(chicken 00:00:00 [place] [facility] DTAP 2003-11-08 Completed [facility] 00:00:00 [facility] Polio (IPV/OPV) 2003-11-08 Completed Universit y of 00:00:00 [facility] MMR 2003-11-08 Completed [facility] of 00:00:00 [facility] Varicella 2003-11-08 Completed [facility] of (varivax)(chicken 00:00:00 [place] [facility] DTAP 2003-11-08 Completed [facility] of 00:00:00 [facility] Polio (IPV/OPV) 2003-11-08 Completed Universit y of 00:00:00 [facility] MMR 2003-11-08 Completed [facility] 00:00:00 [facility] Varicella 2003-11-08 Completed [facility] of (varivax)(chicken 00:00:00 [place] [facility] pox) [facility] DTAP 2003-11-08 Completed [facility] of 00:00:00 [facility] Polio (IPV/OPV) 2003-11-08 Completed Universit y of 00:00:00 [facility] MMR 2003-11-08 Completed [facility] of 00:00:00 [facility] Varicella 2003-11-08 Completed [facility] of (varivax)(chicken 00:00:00 [place] [facility]ox[facility] DTAP 2003-11-08 Completed [facility] 00:00:00 [facility] Polio (IPV/OPV) 2003-11-08 Completed Universit y of 00:00:00 [facility] MMR 2003-11-08 Completed [facility] 00:00:00 [facility] Varicella 2003-11-08 Completed [facility] of (varivax)(chicken 00:00:00 [place] [facility] DTAP 2003-11-08 Completed [facility] 00:00:00 [facility] Polio (IPV/OPV) 2003-11-08 Completed Universit y of 00:00:00 [facility] MMR 2003-11-08 Completed [facility] 00:00:00 [facility] Varicella 2003-11-08 Completed [facility] of (varivax)(chicken 00:00:00 [place] [facility] DTAP 2003-11-08 Completed [facility] 00:00:00 [facility] Polio (IPV/OPV) 2003-11-08 Completed Universit y of 00:00:00 [facility] MMR 2003-11-08 Completed [facility] of 00:00:00 [facility] DTAP 2003-11-08 Completed [facility] of 00:00:00 [facility] Polio (IPV/OPV) 2003-11-08 Completed Universit y of 00:00:00 [facility] MMR 2003-11-08 Completed [facility] of 00:00:00 [facility] Varicella 2003-11-08 Completed [facility] (varivax)(chicken 00:00:00 [place] [facility] Varicella 2003-11-08 Completed [facility] (varivax)(chicken 00:00:00 [place] [facility] DTAP 2003-11-08 Completed [facility] 00:00:00 [facility] Polio (IPV/OPV) 2003-11-08 Completed Universit y of 00:00:00 [facility] MMR 2003-11-08 Completed [facility] of 00:00:00 [facility] Varicella 2003-11-08 Completed University of (varivax)(chicken 00:00:00 [facility] edical pox) Branch DTAP 2003-11-08 Completed [facility] of 00:00:00 [facility] Polio (IPV/OPV) 2003-11-08 Completed Universit y of 00:00:00 [facility] MMR 2003-11-08 Completed [facility] of 00:00:00 [facility] Varicella 2003-11-08 Completed [facility] of (varivax)(chicken 00:00:00 [place] [facility] DTAP 2003-11-08 Completed [facility] 00:00:00 [facility] Polio (IPV/OPV) 2003-11-08 Completed Universit y of 00:00:00 [facility] MMR 2003-11-08 Completed [facility] of 00:00:00 [facility] Varicella 2003-11-08 Completed [facility] of (varivax)(chicken 00:00:00 [place] [facility] DTAP 2003-11-08 Completed [facility] of 00:00:00 [facility] Polio (IPV/OPV) 2003-11-08 Completed Universit y of 00:00:00 [facility] MMR 2003-11-08 Completed [facility] of 00:00:00 [facility] Varicella 2003-11-08 Completed [facility] of (varivax)(chicken 00:00:00 [place] [facility]ox[facility] DTAP 2003-11-08 Completed [facility] of 00:00:00 [facility] Polio (IPV/OPV) 2003-11-08 Completed Universit y of 00:00:00 [facility] MMR 2003-11-08 Completed [facility] of 00:00:00 [facility] Varicella 2003-11-08 Completed [facility] of (varivax)(chicken 00:00:00 [place] [facility]ox[facility] DTAP 2003-11-08 Completed [facility] 00:00:00 [facility] Polio (IPV/OPV) 2003-11-08 Completed Universit y of 00:00:00 [facility] MMR 2003-11-08 Completed [facility] 00:00:00 [facility] Varicella 2003-11-08 Completed [facility] of (varivax)(chicken 00:00:00 [place] [facility]ox[facility] DTAP 2003-11-08 Completed [facility] 00:00:00 [facility] Polio (IPV/OPV) 2003-11-08 Completed Universit y of 00:00:00 [facility] MMR 2003-11-08 Completed [facility] 00:00:00 [facility] Varicella 2003-11-08 Completed [facility] (varivax)(chicken 00:00:00 [place] [facility] pox[facility] DTAP 2003-11-08 Completed [facility] 00:00:00 [facility] Polio (IPV/OPV) 2003-11-08 Completed Universit y of 00:00:00 [facility] MMR 2003-11-08 Completed [facility] of 00:00:00 [facility] Varicella 2003-11-08 Completed [facility] (varivax)(chicken 00:00:00 [place] [facility]ox[facility] DTAP 2003-11-08 Completed [facility] 00:00:00 [facility] Polio (IPV/OPV) 2003-11-08 Completed Universit y of 00:00:00 [facility] MMR 2003-11-08 Completed [facility] 00:00:00 [facility] Vital Signs Vital Name Observation Time Observation Value Comments Source Systolic blood 2022-02-28 20:14:00 118 mm[Hg] Univer sity of pressure [facility] Diastolic blood 2022-02-28 20:14:00 70 mm[Hg] Unive rsity of pressure [facility] Heart rate 2022-02-28 20:14:00 88 /min [facility] Body temperature 2022-02-28 20:14:00 36.78 Theodora [facility] rate 2022-02-28 20:14:00 17 /min [facility] Oxygen saturation in 2022-02-28 20:14:00 99 /min [facility] of Arterial blood by [facility] Pulse oximetry Branch Body height 2022-02-28 18:39:00 157.5 cm [facility] [place] [facility] Body weight 2022-02-28 18:39:00 51.211 kg [facility] [place] [facility] BMI 2022-02-28 18:39:00 20.65 kg/m2 [facility] [place] [facility] Systolic blood 2021-11-27 14:07:00 126 mm[Hg] Univer [facility]ity of pressure [facility] [place] [facility] Diastolic blood 2021-11-27 14:07:00 83 mm[Hg] Unive rsity of pressure [facility] [place] [facility] Heart rate 2021-11-27 14:07:00 112 /min [facility] [place] [facility] Body temperature 2021-11-27 14:07:00 36.78 Theodora [facility] ers[facility] [place] [facility] Respiratory rate 2021-11-27 14:07:00 18 /min Univ ers[facility] [place] [facility] Body height 2021-11-27 14:07:00 157.5 cm [facility] [place] [facility] Body weight 2021-11-27 14:07:00 49.896 kg [facility] [place] [facility] BMI 2021-11-27 14:07:00 20.12 kg/m2 [facility] [place] [facility] Oxygen saturation in 2021-11-27 14:07:00 100 /min [facility] of Arterial blood by [facility] Pulse oximetry Branch Systolic blood 2021-08-10 13:57:00 122 mm[Hg] Univer sity of pressure [facility] Diastolic blood 2021-08-10 13:57:00 91 mm[Hg] Unive rsity of pressure [facility] Heart rate 2021-08-10 13:57:00 78 /min [facility] [place] [facility] Body temperature 2021-08-10 13:57:00 36.44 Theodora [facility] [place] [facility] Respiratory rate 2021-08-10 13:57:00 14 /min [facility] [place] [facility] Body weight 2021-08-10 13:57:00 49.896 kg [facility] [place] [facility] BMI 2021-08-10 13:57:00 20.12 kg/m2 [facility] [place] [facility] Oxygen saturation in 2021-08-10 13:57:00 100 /min [facility] of Arterial blood by [facility] Pulse oximetry Branch Systolic blood 2021-03-07 18:19:00 107 mm[Hg] Univer sity of pressure [facility] Diastolic blood 2021-03-07 18:19:00 59 mm[Hg] Unive rsity of pressure [facility] Heart rate 2021-03-07 18:19:00 80 /min [facility] [place] [facility] Body height 2021-03-07 18:19:00 157.5 cm [facility] [place] [facility] Body weight 2021-03-07 18:19:00 46.131 kg [facility] [place] [facility] BMI 2021-03-07 18:19:00 18.60 kg/m2 [facility] [place] [facility] Systolic blood 2020-10-28 00:37:23 107 mm[Hg] Univer [facility]ity of pressure [facility] Diastolic blood 2020-10-28 00:37:23 51 mm[Hg] Unive rsity of pressure [facility] Heart rate 2020-10-28 00:37:23 98 /min [facility] [place] [facility] Body temperature 2020-10-28 00:37:23 36.67 Theodora [facility] [place] [facility] Respiratory rate 2020-10-28 00:37:23 18 /min Univ [facility] [place] [facility] Oxygen saturation in 2020-10-28 00:37:23 100 /min [facility] of Arterial blood by [facility] Pulse oximetry Branch Body height 2020-10-27 22:58:00 157.5 cm [facility] [place] [facility] Body weight 2020-10-27 22:58:00 45.36 kg [facility] [place] [facility] BMI 2020-10-27 22:58:00 18.29 kg/m2 [facility] [place] [facility] Systolic blood 2020-06-18 19:51:00 127 mm[Hg] Univer sity of pressure [facility] Diastolic blood 2020-06-18 19:51:00 74 mm[Hg] Unive rsity of pressure [facility] Heart rate 2020-06-18 19:51:00 77 /min [facility] [place] [facility] Respiratory rate 2020-06-18 19:51:00 20 /min Univ ers[facility] [place] [facility] Body weight 2020-06-18 19:51:00 46.993 kg [facility] [place] [facility] Systolic blood 2019-08-05 00:00:25 96 mm[Hg] Univer sity of pressure [facility] Diastolic blood 2019-08-05 00:00:25 43 mm[Hg] [facility] of pressure [place] [facility] [place] Heart rate 2019-08-05 00:00:25 90 /min Universi ty of [facility] Body temperature 2019-08-05 00:00:25 36.78 Theodora Univ ersity of [facility] Respiratory rate 2019-08-05 00:00:25 16 /min Univ ersity of [facility] Oxygen saturation in 2019-08-05 00:00:25 99 /min [facility] Arterial blood by [facility] Pulse oximetry Branch Body weight 2019-08-04 19:28:00 48.988 kg Universi ty of [facility] Systolic blood 2019-07-14 18:50:00 106 mm[Hg] Univer sity of pressure [facility] Diastolic blood 2019-07-14 18:50:00 72 mm[Hg] Unive rsity of pressure [facility] Heart rate 2019-07-14 18:50:00 68 /min [facility] [place] [facility] Body height 2019-07-14 18:50:00 157.5 cm [facility] [place] [facility] Body weight 2019-07-14 18:50:00 48.988 kg [facility] [place] [facility] BMI 2019-07-14 18:50:00 19.75 kg/m2 [facility] [place] [facility] Systolic blood 2019-07-11 18:08:00 116 mm[Hg] Univer sity of pressure [facility] Diastolic blood 2019-07-11 18:08:00 74 mm[Hg] Unive rsity of pressure [facility] Heart rate 2019-07-11 18:08:00 74 /min [facility] [place] [facility] Body height 2019-07-11 18:08:00 157.5 cm [facility] [place] [facility] Body weight 2019-07-11 18:08:00 48.988 kg [facility] [place] [facility] BMI 2019-07-11 18:08:00 19.75 kg/m2 [facility] [place] [facility] Procedures Procedure Date / Time Performing Clinician Source Performed POCT TEST 2022-02-28 19:26:00 Dellis, Patricia Gary [facility] TOTAL BETA HCG ASSAY 2022-02-28 19:02:00 [facility] 2022-02-28 19:02:00 Patricia Schaefer [facility] COVID-19 (ID NOW RAPID 2021-11-27 15:13:00 Jesús Velarde [facility] TESTING) Medical Branch ASSIGNMENT OF BENEFITS 2021-11-27 14:04:45 Doctor Unassigned, No [facility] CONSENT/REFUSAL FOR 2021-11-27 14:03:55 [facility] CONSENT/REFUSAL FOR 2021-08-10 13:53:36 [facility], [facility] ASSIGNMENT OF BENEFITS 2021-03-07 18:13:31 Doctor Unassigned, No [facility] XR CHEST 1 VW 2020-10-27 23:57:22 Lois Trujillo [facility] POCT TEST 2020-10-27 23:34:00 Lois Trujillo [facility] GALV/CLC ONLY - URINE 2020-10-27 23:33:00 Lois Trujillo [facility] DRUG (IMMUNOASSAY) - 4 Medical B ranch ER PANEL URINALYSIS 2020-10-27 23:33:00 Lois Trujillo [facility] TROPONIN I 2020-10-27 23:04:00 Lois Trujillo [facility] HEPATIC FUNCTION PANEL 2020-10-27 23:04:00 Lois Trujillo Un [facility] ([id number]) (ALB,T.PRO,BILI Medical Branch T,BU/BC,ALT,AST,ALK PHOS) BASIC METABOLIC PANEL 2020-10-27 23:04:00 Lois Trujillo [facility] (NA, K, CL, CO2, Medical Branch GLUCOSE, BUN, CREATININE, CA) ETHANOL 2020-10-27 23:04:00 Lois Trujillo [facility] CBC WITH DIFF 2020-10-27 23:04:00 Lois Trujillo [facility] CT ABDOMEN PELVIS W 2019-08-04 22:10:00 Oswald [facility] [place] CONTRAST [facility] LIPASE 2019-08-04 20:59:00 Aura Enriquez [facility] y [facility] COMP. METABOLIC PANEL 2019-08-04 20:59:00 Aura Enrqiuez [facility] ([id number]) [facility] CBC WITH DIFFERENTIAL 2019-08-04 20:59:00 Aura Enriquez Uni [facility] URINALYSIS 2019-08-04 20:59:00 Aura Enriquez [facility] y of [facility] LACTIC ACID WHOLE BLOOD 2019-08-04 20:59:00 [facility] 2019-08-04 20:52:00 Aura Enriquez [facility] CONSENT/REFUSAL FOR 2019-08-04 19:13:03 Doctor Unassigned, No Un [facility] DIAGNOSIS AND TREATMENT [facility] POCT TEST 2019-07-14 00:00:00 Sean Hancock [facility] ASSIGNMENT OF BENEFITS 2019-07-11 17:41:02 Doctor Unassigned, No [facility] Encounters Start End Encounter Admission Attending Care Care Encounter Source Date/Time Date/Time Type Type Clinicians Facility Department ID 2021-09-29 Emergency [facility] [id number] Univers 22:04:[address] [facility] 2021-09-27 Emergency [facility] [id number] [facility] 2022-11-06 Telephone Prisca Carreno [facility] [id number] Univers 00:00:00 00:00:00 HEALTH [id number] it y of SPECIALTY [id number] [place] [id number] [place] [address] Branch 2022-07-06 2022-07-06 Emergency EM JazzyKAREN louie TERS [id number] [facility] 06:02:00 11:14:[address] [place] [address] 2022-02-28 2022-02-28 Emergency X DELLIS, [facility] ERT [id number] Univers 13:41:00 15:16:00 PATRICIA [facility] 2022-02-28 2022-02-28 [facility] [id number] Univers 13:41:00 15:16:00 [facility] [id number] it y of [place] PREM [id number] [facility] [id number] [address] ([facility]) 2022-02-26 2022-02-26 Telephone [place], [facility]ERS[facility] [id number] Univers 00:00:00 00:00:00 [email or web address] 350.1.13.10 i ty of CLINICS 4.2.7.2.686 [facility] [phone] [address] 2021-11-27 2021-11-27 Emergency X [facility] ERT [id number] Univers 08:10:00 09:55:00 JESÚS [facility] 2021-11-27 2021-11-27 Emergency [facility] 1.2.840.114 [id number] Univers 08:10:00 09:55:[address] [facility] 350.1.13.10 it y of LEDC 4.2.7.2.[address] [place] [phone] ([facility]) 2021-08-10 2021-08-10 Emergency [facility] 1.2.840.114 [id number] Univers 08:58:00 09:51:00 Cindy Swartz 350.1.13.10 ity of [place] 4.2.7.2.[address] [place] [phone] 2021-03-19 2021-03-19 Telephone [place], [facility]ERS[facility] 1.2.840.11 [id number] Univers 00:00:00 00:00:00 [email or web address] 350.1.13.10 i ty of CLINICS 4.2.7.2.686 [facility] [id number] [address] 2021-03-07 2021-03-07 Office [place], [facility]ERS[facility] 1.2.840.114 [id number] Univers 13:13:43 13:41:30 Visit Sean MCMANUS 350.1.13.10 i [place] [id number] [address] 2021-03-07 2021-03-07 Outpatient R [facility] [id number] Univers 13:00:00 13:00:[address] [facility] 2021-03-07 2021-03-07 Orders Doctor JELENA 1.2.840.114 [id number] Univers 00:00:00 00:00:00 Only Unassigned, ZANE 350.1.13.10 ity of [facility] 4.2.7.2.686 [place] [phone] [place] [address] [place] 2020-10-27 2020-10-27 Emergency [facility] 1.2.840.114 [id number] Univers 16:57:00 18:51:00 [facility] 350.1.13.10 [place] [phone] [facility] [address] ([facility]) 2020-06-18 2020-06-18 Office [place], UNIVERSIT 1.2.840.114 [id number] Univers 14:39:30 14:54:30 Visit Sean MCMANUS 350.1.13.10 i [place] [phone] [address] 2020-06-18 2020-06-18 [facility] [id number] Univers 14:30:00 14:30:[address] [facility] 2020-06-18 2020-06-18 Patient [place], UN[facility]ERSIT 1.2.840.114 [id number] Univers 00:00:00 00:00:00 Secure Msg Sean Duarte [facility] 350.1.13.10 ity of [place] [phone] [address] 2019-12-19 2019-12-19 Patient [place], [facility]ERS[facility] 1.2.840.114 [id number] Univers 00:00:00 00:00:00 Secure Msg Sean MCMANUS 350.1.13.10 ity of CL[place]ICS [place] [id number] [place] [id number] [place] 2019-08-04 2019-08-04 Emergency [place], [facility] 1.2.444.675 [id number] Univers 14:29:39 19:31:00 [facility] 350.1.13.10 it [place] [facility] [phone] [address] ([facility]) 2019-07-14 2019-07-24 Office [facility] 1.2.840.114 [id number] Univers 13:28:27 11:58:56 Visit Sean MCMANUS 350.1.13.10 i ty of [place] [id number] [address] 2019-07-12 2019-07-12 Patient Doctor JELENA 1.2.840.114 [id number] Univers 00:00:00 00:00:00 Secure Msg Unassigned, ZANE 350.1.13.10 ity of [facility] 4.2.7.2.686 [place] [phone] [address] 2019-07-11 2019-07-11 Office [facility] 1.2.840.114 [id number] Univers 12:43:28 13:56:39 Visit Sean Duarte [facility] 350.1.13.10 i ty of [place] [id number] [address] 2019-07-11 2019-07-11 Orders Doctor JELENA 1.2.840.114 [id number] Univers 00:00:00 00:00:00 Only Unassigned, ZANE 350.1.13.10 ity of [facility] 4.2.7.2.686 [place] [phone] [address] Results Test Description Test Time Test [...] YEASTUBD) TRACE /HPF NONE DRUGS OF ABUSE [id number] 06:53:00 Test Item Value Reference Range Interpretation [...] OK? 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 at [facility] UA PH DIPSTIC POC (test 5 5.0-7.0 N code = PHUP) UA PROTEIN DIPSTICK POC 3+ NEGATIVE A (test code = DPROUP) UA UROBILINIOGEN QUAL 1+ 0.2-1.0 A (test code = UROQL) UA NITRITE DIPSTICK POC NEGATIVE Negative (test code = NITUP) UA LEUKOCYTE ESTERASE W TRACE NEGATIVE A REFLEX (test code = LEUUR) - XR ANKLE 3 + V [id number] 00:00:00 [facility] 2000 Sex: F FAX:Terrence Rodriguez DO [phone] [place]: St: REG FAX: Saul Chapman [phone] Name: LIZA SMITH [place] FSED : 2000 Age/S: 22/F Unit #: [id number] Loc: [place] Phys: Saul Chapman Acct: [id number] Dis Date: Status: REG ER PHONE #: Exam Date: 07/06/2022728 FAX #: Reason: left ankle pain/swelling EXAMS: CPT CODE: [id number] XR ANKLE 3 + V LT 86652 PROCEDURE INFORMATION: Exam: XR Left Ankle Exam [...] PAGE 1 Signed Report- CT C-SPINE W/O [id number] 00:00:00 [facility] : 2000 Sex: F Name: LIZA SMITH [place] FSED : 2000 Age/S: 22 / F Unit #: [id number] Loc: [place] Phys: Terrence Rodriguez DO Acct: [id number] Dis Date: Status: REG ER PHONE #: Exam Date: FAX #: Reason: Head trauma EXAMS: CPT CODE: [id number] CT C-SPINE W/O CONT 71878 PROCEDURE INFORMATION: Exam: CT Cervical Spine Without [...] PAGE 1 Signed Report- CT HEAD/BRAIN W/O [id number] 00:00[facility]00[facility] : 2000 Sex: F Name: LIZA SMITH FSED : 2000 Age/S: 22 / F Unit #: [id number] Loc: [place] MePhys: Terrence Rodriguez DO Acct: [id number] Dis Date: Status: REG ER PHONE #: Exam Date: FAX #: Reason: Head trauma EXAMS: CPT CODE: [id number] CT HEAD/BRAIN W/O CONT 82584 PROCEDURE INFORMATION: Exam: CT Head Without Contrast [...] S: 07/06/2022 (07) PAGE 1 Signed [facility]2022-[facility]-28 19:46:11 Test Item Value Reference Range Interpretation Comments BETA HCG (test <2.39 See_Comment [Automated m essage] code = The system [employer] 4301704137) generated this result transmit so reference range : Non- fe male and male patien ts: <5 mIU/mL. The reference range was not used to interpret this result as normal/abnormal . NELL (test code Gestational Age ? ? = NELL) ?Range (mIU/mL) 1-10 ?Weeks ?45-20581813-98 Weeks ?91699-28101645-88 Weeks ?7510-34834004-20 Weeks ?1531-898646 Biotin has been reported to cause a negative bias, interpret results relative to patient's use of biotin. [facility] [id number] 19:26:00 Test Item Value Reference Range Interpretation Comments POCT PREG (test code = 1605) NEGATIVE On board controls acceptable with C PRESENT Line (test code = 3574) Lab Interpretation (test code = Normal 24983-1) [facility] 1 [id number] 00:15:10CHEST X-RAY AP PORTABLE 10/27/2020 6:14 PM Ordering physician: LOIS TRUJILLO CLINICAL INFORMATION: ?Chest pain COMPARISON: None TECHNIQUE: ?single AP view of the chest was submitted. FINDINGS: ? The lung mathias are clear. ?No pleural effusions. ?No pneumothorax. ?Thecardiomediastinal silhouette iswithin normal limits. ?No acuteradiographic bony abnormalities. CONCLUSION: ? 1. ?No radiographic evidence to acute cardiopulmonary disease. RL: 7423 AFC: 23675 [facility], Radiant Results Inft User - 10/27/2020 6:16 PM CSTCHEST X-RAY AP [id number]/29/2020 6:14 PMOrdering physician: LOIS TRUJILLO CLINICAL INFORMATION: Chest painCOMPARISON: NoneTECHNIQUE: single AP view of the chest was submitted.FINDINGS: The lung mathias are clear. No pleural effusions. No pneumothorax. Thecardiomediastinal silhouette is within normal limits. No acuteradiographic bony abnormalities.CONCLUSION: 1. No radiographic evidence to acute cardiopulmonary disease.RL: 7423AFC: 62614Yepnooejrouhfl signed by Julio C Smith MD at 10/27/2020 6:15 PMUnFa[facility] HospitalDrug [facility] 2020-10-28 00:02:00 Test Item Value Reference Range Interpretation Comments AMPHET (test code = Negative Negative 5195740861) Cocaine Metabolite (test Negative Negative code = 2271162878) OPIATES (test code = Negative Negative 0782627094) THC (test code = Presumptive Positive Negative A 3111238177) NELL (test code = NELL) Urine Drug Cutoff Ranges Amphetamine: ? 1,000 ng/mLCocaine: ? 150 ng/mLOpiates: ? 300 ng/mLCannabinoids: ?50 ng/mL The results are to be used only for medical (i.e., treatment) purposes. Unconfirmed screening results must not be used for non-medical purposes (e.g., employment testing, legal testing). Lab Interpretation (test Abnormal code = 66960-1) [facility] CenterUrinalysis2020-11-29 23:45:00 Test Item Value Reference Range Interpretation Comments APPEARANCE (test code = Clear Clear 3946730643) COLOR (test code = Yellow Yellow 8652009366) PH (test code = 4.8-8.0 3988147576) SP GRAVITY (test code = 1.003-1.030 9908705401) GLU U QUAL (test code = Normal Normal 9006567597) BLOOD (test code = Negative Negative 1502237416) KETONES (test code = 5 mg/dL Negative A 1036834397) PROTEIN (test code = 30 mg/dL Negative A 2887-8) UROBILIN (test code = 4.0 mg/dL Normal A 8750757799) BILIRUBIN (test code = Negative Negative 0184301623) NITRITE (test code = Negative Negative 5271010941) LEUK DARCY (test code = 25/uL Negative A 5962003147) RBC/HPF (test code = See_Comment [Autom ated message] 6159884917) The system [employer] generated this result transmit so reference range : 0 - 3 HPF. The refe rence range was not u sed to interpret th is result as normal/abnormal . WBC/HPF (test code = See_Comment H [Autom ated message] 9366882790) The system [employer] generated this result transmit so reference range : 0 - 5 HPF. The refe rence range was not u sed to interpret th is result as normal/abnormal . BACTERIA (test code = Few Negative A 9138004668) MUCOUS (test code = Slight Negative LPF A 7327593876) SQ EPITH (test code = See_Comment H [Auto mated message] 6720143362) The system [employer] generated this result transmit so reference range : <=2 HPF. The refere nce range was not u sed to interpret th is result as normal/abnormal . HYAL CAST (test code = See_Comment [Aut omated message] 6159117301) The system [employer] generated this result transmit so reference range : <=2 LPF. The refere nce range was not u sed to interpret th is result as normal/abnormal . Lab Interpretation (test Abnormal code = 25697-4) [facility] CenterPO[facility] [id number] 23:34:00 Test Item Value Reference Range Interpretation Comments On board controls acceptable with negative C Line (test code = 3574) POCT PREG LOT # (test code = 3575) [id number] POCT PREG TEST DATE (test 04/28/2021 code = 3576) Lab Interpretation (test code = Normal 92268-4) [facility] CenterTroponin [id number] 23:31:00 Test Item Value Reference Range Interpretation Comments TROPONIN I (test 0.002 ng/mL See_Comment [Automated code = 4462210883) message] The system which generated this result [...] ? Lab Interpretation Normal (test code = 06007-0) [facility] CenterEthanol [id number] 23:21:00 Test Item Value Reference Range Interpretation Comments ALCOHOL (test code = <10 mg/dL 4975437337) NELL (test code = Toxic Greater than or NELL) equal to 80 mg/dL. NOTE: Whole blood values are approximately 10% to 15% lower than serum and plasma. [facility] CenterBab[facility] Metabolic Panel (NA, K, CL, CO2, GLUCOSE, BUN, CREATININE, CA)2020-10-27 23:20:00 Test Item Value Reference Range Interpretation Comments NA (test code = 139 mmol/L 135-145 4709331395) K (test code = 4.2 mmol/L 3.5-5 3302007280) CL (test code = 104 mmol/L 98-108 6996712238) CO2 TOTAL (test code = 26 mmol/L 23-31 0051475367) AGAP (test code = 2-16 3801446343) BUN (test code = 10 mg/dL 7-23 3904215978) GLUCOSE (test code = 93 mg/dL 70-110 5689460735) CREATININE (test code 0.66 mg/dL 0.5-1.04 = 8043056798) CALCIUM (test code = 9.7 mg/dL 8.6-10.6 3609389697) eGFR Calculation mL/min/1.73m2 (Non-) (test code = 4132489739) eGFR Calculation mL/min/1.73m2 () (test code = 6290618036) NELL (test code = NELL) Association of [...] or urine or abnormalities in imaging tests). [facility] CenterHepatic Function Panel (ALB, T.PRO, BILI T, BU/BC, ALT, AST, ALK PHOS)2020-10-27 23:20:00 Test Item Value Reference Range Interpretation Comments TOTAL BILI (test code = 1264201886) 1.0 mg/dL 0.1-1.1 BILI UNCON (test code = 7405322282) 0.7 mg/dL 0.1-1.1 BILI CONJ (test code = 8375500445) 0.0 mg/dL 0-0.3 T PROTEIN (test code = 8453588508) 7.4 g/dL 6.3-8.2 ALBUMIN (test code = 2105318697) 4.5 g/dL 3.5-5 ALK PHOS (test code = 3641410954) 75 U/L 34-122 ALTv (test code = 1742-6) 13 U/L 5-35 AST(SGOT) (test code = 1347394414) 26 U/L 13-40 Lab Interpretation (test code = Normal 42614-2) [facility] with [id number] 23:09:00 Test Item Value Reference Range Interpretation Comments WBC (test code = See_Comment [Automated 6614-2) message] The sy stem which generated this result transmitted reference range : 4.30 - 11.10 10*3/?L. The reference range was not used to interpret this result as normal/abnormal . RBC (test code = See_Comment [Automated 188-8) message] The sy stem which generated this [...] RDW-SD (test code = 40.7 fL 39-49.9 75048-0) RDW-CV (test code = 12.1 % 12-15.5 788-0) PLT (test code = See_Comment [Automated 777-3) message] The sy stem which generated this result transmitted reference range : 166 - 358 10*3/ ?L. The reference r matthew was not used to interpret this result as normal/abnormal . MPV (test code = 9.3 fL 9.5-12.9 L 31488-2) NRBC/100 WBC (test See_Comment [Automat ed code = 2985729190) message] The system which generated this result transmitted reference range : 0.0 - 10.0 /100 WBCs. The refer ence range was not u sed to interpret th is result as normal/abnormal . NRBC x10^3 (test code <0.01 See_Comment [Auto mated = 2533119800) message] The s ystem which generated this result transmitted reference range : 10*3/?L. The reference range was not used to interpret this result as normal/abnormal . GRAN MAT (NEUT) % 61.6 % (test code = 770-8) IMM GRAN % (test code 0.20 % = 6763392248) LYMPH % (test code = 30.9 % 736-9) MONO % (test code = 6.5 % 5905-5) EOS % (test code = 0.2 % 713-8) BASO % (test code = 0.6 % 706-2) GRAN MAT x10^3(ANC) 3.33 10*3/uL 1.88-7.09 (test code = 7502909464) IMM GRAN x10^3 (test <0.03 0-0.06 code = 2997040376) LYMPH x10^3 (test code 1.67 10*3/uL 1.32-3.29 = 731-0) MONO x10^3 (test code 0.35 10*3/uL 0.33-0.92 = 742-7) EOS x10^3 (test code = <0.03 0.03-0.39 L 711-2) BASO x10^3 (test code 0.03 10*3/uL 0.01-0.07 = 704-7) Lab Interpretation Abnormal (test code = 86118-0) [facility] WITH [id number] 21:35:00 Test Item Value Reference Range Interpretation Comments WBC (test code = See_Comment H [Automated 7890-2) message] The system which generated this result [...] RDW-SD (test code = 40.8 fL 39-49.9 55054-0) RDW-CV (test code = 12.3 % 12-15.5 788-0) PLT (test code = See_Comment [Automated 777-3) message] The system which generated this result transmit so reference range : 166 - 358 10*3/ ?L. The reference range was not u sed to interpret th is result as normal/abnormal . MPV (test code = 9.4 fL 9.5-12.9 L 15839-7) NRBC/100 WBC (test See_Comment [Automat ed code = 5603692644) message] The system which generated this result transmit so reference range : 0.0 - 10.0 /100 WBCs. The reference range was not used to interpret this result as normal/abnormal . NRBC x10^3 (test code <0.01 See_Comment [Auto mated = 0442321385) message] The system which generated this result transmit so reference range : 10*3/?L. The reference range was not used to interpret this result as normal/abnormal . GRAN MAT (NEUT) % 83.3 % (test code = 770-8) IMM GRAN % (test code 0.60 % = 4027913004) LYMPH % (test code = 6.6 % 736-9) MONO % (test code = 9.4 % 5905-5) EOS % (test code = 0.0 % 713-8) BASO % (test code = 0.1 % 706-2) GRAN MAT x10^3(ANC) 17.29 10*3/uL 1.88-7.09 H (test code = 1802340142) IMM GRAN x10^3 (test 0.12 10*3/uL 0-0.06 H code = 2367325896) LYMPH x10^3 (test code 1.36 10*3/uL 1.32-3.29 = 731-0) MONO x10^3 (test code 1.95 10*3/uL 0.33-0.92 H = 742-7) EOS x10^3 (test code = <0.03 0.03-0.39 L 711-2) BASO x10^3 (test code 0.03 10*3/uL 0.01-0.07 = 704-7) Lab Interpretation Abnormal (test code = 56380-6) [facility] CenterURINALYSIS2019-09-06 21:33:00 Test Item Value Reference Range Interpretation Comments APPEARANCE (test code = Cloudy Clear A 1744687281) COLOR (test code = Yellow Yellow 0408648657) PH (test code = 4.8-8.0 4620694717) SP GRAVITY (test code = 1.003-1.030 9284651984) GLU U QUAL (test code = Normal Normal 4658449821) BLOOD (test code = 2+ Negative A 4201753752) KETONES (test code = 20 mg/dL Negative A 7586775271) PROTEIN (test code = 30 mg/dL Negative A 2887-8) UROBILIN (test code = Normal Normal 9309691799) BILIRUBIN (test code = Negative Negative 3586587840) NITRITE (test code = Positive Negative A 9915250879) LEUK DARCY (test code = 500/uL Negative A 6097020343) RBC/HPF (test code = See_Comment H [Autom ated message] 3422564290) The system [employer] generated this result transmitted ref erence range: 0 - 3 HP F. The reference range was not used to int erpret this result as normal/abnormal . WBC/HPF (test code = >182 See_Comment H [Autom ated message] 7434972428) The system [employer] generated this result transmitted ref erence range: 0 - 5 HP F. The reference range was not used to int erpret this result as normal/abnormal . BACTERIA (test code = Few Negative A 2580915127) MUCOUS (test code = Slight Negative LPF A 3195062349) AMORPHOUS (test code = Rare Rare HPF 1953990458) SQ EPITH (test code = See_Comment H [Auto mated message] 5238186181) The system [employer] generated this result transmitted ref erence range: <=2 HPF. The reference range was not used to int erpret this result as normal/abnormal . WBC CLUMPS (test code = See_Comment H [Au tomated message] 8185842837) The system [employer] generated this result transmitted ref erence range: <=1 HPF. The reference range was not used to int erpret this result as normal/abnormal . Lab Interpretation (test Abnormal code = 16070-4) [facility]. METABOLIC PANEL (33675)2019-08-04 21:26:00 Test Item Value Reference Range Interpretation Comments NA (test code = 135 mmol/L 135-145 3920020996) K (test code = 3.4 mmol/L 3.5-5 L Slight 2611181285) hemolysis CL (test code = 97 mmol/L 98-108 L 4283224224) CO2 TOTAL (test code 23 mmol/L 23-31 = 1249879101) AGAP (test code = 2-16 0778936717) BUN (test code = 9 mg/dL 7-23 Slight 8756214789) hemolysis GLUCOSE (test code = 103 mg/dL 70-110 6309344785) CREATININE (test code 0.77 mg/dL 0.5-1.04 = 0326261190) TOTAL BILI (test code 1.2 mg/dL 0.1-1.1 H = 6819853405) CALCIUM (test code = 9.7 mg/dL 8.6-10.6 5642860974) T PROTEIN (test code 8.1 g/dL 6.3-8.2 = 8856266667) ALBUMIN (test code = 4.5 g/dL 3.5-5 5217452221) ALK PHOS (test code = 100 U/L 34-122 Slight 7810136552) hemolysis ALT(SGPT) (test code 29 U/L 9-51 Slight = 3418395535) hemolysis AST(SGOT) (test code 30 U/L 13-40 Slight = 4581621356) hemolysis eGFR Calculation mL/min/1.73m2 (Non-) (test code = 8261822477) eGFR Calculation mL/min/1.73m2 () (test code = 0266144059) NELL (test code = NELL) Association of [...] tests). Lab Interpretation Abnormal (test code = 48577-9) [facility] CenterLIPASE2019-09-[facility] 21:26:00 Test Item Value Reference Range Interpretation Comments LIPASE (test code = 5610207669) 24 U/L 0-220 Lab Interpretation (test code = Normal 49251-0) [facility] CenterLactic Acid Whole [id number] 21:08:00 Test Item Value Reference Range Interpretation Comments LACTIC ACID (test code = 1.24 mmol/L 0.5-2.2 0089344608) Lab Interpretation (test code = Normal 93442-3) [facility] [id number] 20:52:00 Test Item Value Reference Range Interpretation Comments POCT PREG (test code = 1605) Negative On board controls acceptable with C Yes Line (test code = 3574) POCT PREG LOT # (test code = 3575) POCT PREG TEST DATE (test code = 3576) Lab Interpretation (test code = Normal 86615-4) [facility] [id number] 19:33:00 Test Item Value Reference Range Interpretation Comments POCT PREG (test code = 1605) Negative On board controls acceptable with C Yes Line (test code = 3574) POCT PREG LOT # (test code = 3575) POCT PREG TEST DATE (test code = 3576) [facility] [id number] 19:33:00 Test Item Value Reference Range Interpretation Comments POCT PREG (test code = 1605) Negative On board controls acceptable with C Yes Line (test code = 3574) POCT PREG LOT # (test code = 3575) POCT PREG TEST DATE (test code = 3576) [facility] [id number] 19:33:00 Test Item Value Reference Range Interpretation Comments POCT PREG (test code = 1605) Negative On board controls acceptable with C Yes Line (test code = 3574) POCT PREG LOT # (test code = 3575) POCT PREG TEST DATE (test code = 3576) [facility] [id number] 19:33:00 Test Item Value Reference Range Interpretation Comments POCT PREG (test code = 1605) Negative On board controls acceptable with C Yes Line (test code = 3574) POCT PREG LOT # (test code = 3575) POCT PREG TEST DATE (test code = 3576) [facility]
[2022-12-04] MEDS ORDERED: TDAP (DIPHTH,PERTUSS(ACELL),TET VAC) 0.5 ML VIAL IMVAC ONE (18:31)
[2022-12-04 18:32] LABS: Absolute Lymphocytes (CBC) 1.1 K/uL (0.7-4.9); Lymphocytes % 14.1 % (15.3-44.8); MCV 91.9 fL (80-100); MPV 7.5 fL (7.6-11.3); RBC Red Blood Cell Count 4.68 M/uL (3.86-4.86)
[2022-12-04] MEDS ORDERED: levETIRAcetam 1,000 MG in NA CHLORIDE 0.9% 100 ML IV ONE (18:45)
[2022-12-04] MEDS ORDERED: ONDANSETRON 4 MG/2 ML VIAL ONE (18:50)
[2022-12-04] MEDS ORDERED: MORPHINE 4 MG/ML SYR ONE (18:50)
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
[2022-12-04] MEDS ORDERED: LIDOCAINE 1% 20 ML MDV ONE (20:09)
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
[2022-12-04 21:28] VITALS: TEMP 98
[2022-12-04 21:31] VITALS: BP 106/68; O2SAT 98
== END 2022-12-04 20:56 | disposition home or self-care (01) ==
LOC: ER 17:54
PROC: 0HQNXZZ Repair Left Foot Skin, External Approach (ICD-10-PCS; principal; 2022-12-04)
PROC: 0HQCXZZ Repair Left Upper Arm Skin, External Approach (ICD-10-PCS; 2022-12-04)
DX: S41.112A Laceration without foreign body of left upper arm, initial encounter (principal); S91.312A Laceration without foreign body, left foot, initial encounter; T14.8XXA Other injury of unspecified body region, initial encounter; R56.9 Unspecified convulsions; Z91.14 Patient's other noncompliance with medication regimen; V48.1XXA Car passenger injured in noncollision transport accident in nontraffic accident, initial encounter; Z72.0 Tobacco use
CPT/HCPCS: 96365; 85025; 80048; 36415; 86900; 86850; 84703; 86901; 70450; 72125; 71260; 74177; 73630 ×2; 73080; 73030; 73110; 96375; 96372; 99285; 12002; Q9967; J1953; J2405

== ENCOUNTER 2022-12-19 12:25 | Emergency (ER) | payer BC ==
--- OUTSIDE RECORDS SUMMARY | 2022-12-19 12:47 | XMS REPORT | Continuity of Care Document ---
:2000 Author Organization [facility] t Address [address] [place] [address] Care Team Providers Name Role Phone Pcp, [...] SEAN HANCOCK Attending Clinician Unavailable Doctor Unassigned, [place] Attending Clinician Unavailable Lois Melara Attending Clinician Oswald Tee Attending Clinician Physician, No Primary or Family Admitting Clinician Unavaila ble Payers Payer Name Policy Type Policy Number Effective Date Expiration Date S vipul [facility] [id number] 2020 00:00:00 [employer] [facility] C[facility] [id number] 2016 00:00:00 Problems Condition Condition Condition Status Onset Resolution Last Treating Co mments Source Name Details Category Date Date Treatment Clinician Date Hepatitis Hepatitis Disease Active Overview: Univers C antibody C antibody 8- Formattin ity of test test 00:00: g of this [place] positive positive 00 note Medica l might [...] ity o f carrier carrier 00:00: of [facility] state 00 delivery Medical has not Branch [...] Active Univers from from 7-22 ity of [place] 00:00: [place] no history no history 00 Me dical known known Branch Allergies, Adverse Reactions, Alerts Allergy Allergy Status Severity Reaction(s) Onset Inactive Treating Comm ents Source Name Type Date Date Clinician No Known DA Active U 2005-11 [facility] Contrast - Clear Allergie 00:00: Liang s 00 [facility] No Known DA Active U 2005-11 [facility] Drug 12-09 Clear Allergie 00:00: Liang s 00 [facility] No Known DA Active U 2005-11 [facility] Food 12-09 Clear Allergie 00:00: Liang s 00 [facility] No Known DA Active U 2005-11 [facility] Other 12-09 Clear Allergie 00:00: Liang s 00 [facility] NO KNOWN Drug Active Univers ALLERGIE Class ity of S [facility] Social History Social Habit Start Date Stop Date Quantity Comments Source Exposure to Not sure [facility] SARS-CoV-2 [facility] (event) [place] Alcohol intake 2022-02-28 2022-02-28 0 /d University 00:00:00 00:00:00 [facility] Tobacco use and 2012-06-16 2012-06-16 Smokeless tobacco Un iversity of exposure 00:00:00 00:00:00 non-user [facility] Sex Assigned At [birth year] Universit y of 00:00:00 00:00:00 [facility] Smoking Status Start Date Stop Date Source Never smoked tobacco [facility] Medications Ordered Filled Start Stop Current Ordering Indication Dosage Frequency Signature Comments Components Source Medication Medication Date Date Medication? Clinician (SIG) Name Name phenazopyri Yes [id number] 200mg Take 1 Univers dine 200 mg 4-02 tablet by ity of tablet 00:00: mouth 3 00 (three) Medical times Branch daily. ibuprofen Yes [id number] 400mg Take 2 Univers (MOTRIN IB) 4-02 tablets by it y of 200 mg 00:00: mouth [place] tablet 00 every 8 Medical (eight) Branch hours as needed for Pain (scale 1-3) for up to 30 doses. phenazopyri Yes [id number] 200mg Take 1 Univers dine 200 mg 4-02 tablet by ity of tablet 00:00: mouth 3 00 (three) Medical times Branch daily. ibuprofen Yes [id number] 400mg Take 2 Univers (MOTRIN IB) 4-02 tablets by it y of 200 mg 00:00: mouth [place] tablet 00 every 8 Medical (eight) Branch hours as needed for Pain (scale 1-3) for up to 30 doses. phenazopyri Yes [id number] 200mg Take 1 Univers dine 200 mg 4-02 tablet by ity of tablet 00:00: mouth 3 [place] 00 (three) Medical times Branch daily. ibuprofen Yes [id number] 400mg Take 2 Univers (MOTRIN IB) 4-02 tablets by it y of 200 mg 00:00: mouth [place] tablet 00 every 8 Medical (eight) Branch hours as needed for Pain (scale 1-3) for up to 30 doses. cephALEXin 2021- No [id number] 500mg Take 1 Univers (KEFLEX) 4-02 -13 [...] Medical Eli Branch 11/27/21 at 1015, Routine
geology faculty member approving Restricted medication : JESÚS VELARDE erythromyci Yes [id number] .5[in_u Place 0.5 Univers n 5 mg/gram 9 [id number] s] Inches in i ty of (0.5 %) 00:00: right eye [place] ophthalmic 00 at Medical ointment bedtime. Branch Continue until you follow up with eye doctor. erythromyci Yes [id number] .5[in_u Place 0.5 Univers n 5 mg/gram 912 [id number] s] Inches in i ty of (0.5 %) 00:00: right eye [place] ophthalmic 00 at Medical ointment bedtime. Branch Continue until you follow up with eye doctor. erythromyci Yes [id number] .5[in_u Place 0.5 Univers n 5 mg/gram 912 [id number] s] Inches in i ty of (0.5 %) 00:00: right eye [place] ophthalmic 00 at Medical ointment bedtime. Branch Continue until you follow up with eye doctor. erythromyci Yes [id number] .5[in_u Place 0.5 Univers n 5 mg/gram 9-12 [id number] s] Inches in i ty of (0.5 %) 00:00: right eye [place] ophthalmic 00 at Medical ointment bedtime. Branch Continue until you follow up with eye doctor. erythromyci Yes [id number] .5[in_u Place 0.5 Univers n 5 mg/gram 9-12 [id number] s] Inches in i ty of (0.5 %) 00:00: right eye [place] ophthalmic 00 at Medical ointment bedtime. Branch Continue until you follow up with eye doctor. erythromyci Yes [id number] .5[in_u Place 0.5 Univers n 5 mg/gram 9-12 [id number] s] Inches in i ty of (0.5 %) 00:00: right eye [place] ophthalmic 00 at Medical ointment bedtime. Branch Continue until you follow up with eye doctor. erythromyci Yes [id number] .5[in_u Place 0.5 Univers n 5 mg/gram 9-12 [id number] s] Inches in i ty of (0.5 %) 00:00: right eye [place] ophthalmic 00 at Medical ointment bedtime. Branch Continue until you follow up with eye doctor. cefTRIAXone 2019-11- No 1000mg 1,000 mg, Univers (ROCEPHIN) 12-28 11-30 IV ity of 1,000 mg in 01:00: 00:27 [place], [place] NaCl 0.9% 00 :00 ONCE, 1 Medical (NS) 50 mL dose, [facility] MINI-BAG 10/27/20 at 1900, 50 mL
Reas on for Anti-Infec tive: Documented Infection< br>Documen so Infection Site: Urine
D uration of Therapy: 7 days ciprofloxac 2019-11 2020- No [id number] 500mg Take 1 Univers in HCl 500 12-27 12-10 tablet by ity of mg tablet 00:00: 05:59 [place] 2 [place] :[place] (two) Medical times Branch daily for 10 days. cefTRIAXone 2019-0 2019- No 1000mg 1,000 mg, Univers (ROCEPHIN) 08-04 IV ity of 1,000 mg in 23:15: 23:27 [place], [place] NaCl 0.9% 00 :00 ONCE, 1 Medical [...] dose, Fri Branch 08/04/19 at 1700, Routine
geology faculty member approving Restricted medication : OSWALD [...] 08/04/19 at 1615, STAT ondansetron 2019-0 Yes [id number] 4mg Take 1 Univers (ZOFRAN 9-06 tablet by ity of ODT) 4 mg 00:00: mouth [place] disintegrat 00 every 8 Medic al ing tablet (eight) Branch hours as needed for Nausea and Vomiting (N/V). ibuprofen 2019-0 Yes [id number] 600mg Take 1 U nivers 600 mg 9-06 tablet by ity of tablet 00:00: mouth [place] 00 every 6 Medical (six) Branch hours as needed for Pain (scale 1-3). ondansetron 2019-0 Yes [id number] 4mg Take 1 Univers (ZOFRAN 9-06 tablet by ity of ODT) 4 mg 00:00: mouth [place] disintegrat 00 every 8 Medic al ing tablet (eight) Branch hours as needed for Nausea and Vomiting (N/V). ibuprofen 2019-0 Yes [id number] 600mg Take 1 U nivers 600 mg 9-06 tablet by ity of tablet 00:00: mouth [place] 00 every 6 Medical (six) Branch hours as needed for Pain (scale 1-3). ondansetron 2019-0 Yes [id number] 4mg Take 1 Univers (ZOFRAN 9-06 tablet by ity of ODT) 4 mg 00:00: mouth [place] disintegrat 00 every 8 Medic al ing tablet (eight) Branch hours as needed for Nausea and Vomiting (N/V). ibuprofen 2019-0 Yes [id number] 600mg Take 1 U nivers 600 mg 9-06 tablet by ity of tablet 00:00: mouth [place] 00 every 6 Medical (six) Branch hours as needed for Pain (scale 1-3). ondansetron 2019-0 Yes [id number] 4mg Take 1 Univers (ZOFRAN 9-06 tablet by ity of ODT) 4 mg 00:00: mouth [place] disintegrat 00 every 8 Medic al ing tablet (eight) Branch hours as needed for Nausea and Vomiting (N/V). ibuprofen 2019-0 Yes [id number] 600mg Take 1 U nivers 600 mg 9-06 tablet by ity of tablet 00:00: mouth [place] 00 every 6 Medical (six) Branch hours as needed for Pain (scale 1-3). ondansetron Yes [id number] 4mg Take 1 Univers (ZOFRAN 08-04 tablet by ity of ODT) 4 mg 00:00: mouth [place] disintegrat 00 every 8 Medic al ing tablet (eight) Branch hours as needed for Nausea and Vomiting (N/V). ibuprofen Yes [id number] 600mg Take 1 U nivers 600 mg - tablet by ity of tablet 00:00: mouth [place] 00 every 6 Medical (six) Branch hours as needed for Pain (scale 1-3). ondansetron 2019- No [id number] 4mg Take 1 Univers (ZOFRAN 08-04 tablet by ity of ODT) 4 mg 00:00: 00:00 mouth [place] disintegrat 00 :00 every 8 Medic al ing tablet (eight) Branch hours as needed for Nausea and Vomiting (N/V). ibuprofen 2019- No [id number] 600mg Take 1 Univers 600 mg 08-04 tablet by ity of tablet 00:00: 00:00 mouth [place] 00 :00 every 6 Medical (six) Branch hours as needed for Pain (scale 1-3). cefpodoxime 2018- No [id number] 100mg Take 1 Univers 100 mg 08-04 tablet by ity of tablet 00:00: 04:59 mouth 2 [place] 00 :00 (two) Medical times Branch daily for 7 days. levonorgest 2019- No 1{devic Un kritsopher rel 07-14 e} ity of (MIRENA) 20:30: 19:27 [place] IUD 1 00 :00 Oil Treater Branch ibuprofen 2019- No 600mg Univer s [...] as IUD 1 00 :00 1 dose, Oil Treater [facility] 07/14/19 at 1530, Routine levonorgest 2018- 2019- No 1{devic Un kristopher rel 07-1416 e} ity of (MIRENA) 20:30: 19:27 [place] IUD 1 00 :00 Oil Treater Branch ibuprofen 2019- No 600mg Univer s (IBU) 07-14 ity of tablet 600 20:30: 19:26 [place] mg 00 :00 Medical Branch ibuprofen 2018- No 600mg 600 mg, Uni vers (IBU) 07-14 Oral, ity of tablet 600 20:30: 19:26 ONCE, 1 Dilan as mg 00 :00 dose, [facility] 07/14/19 at Branch 1530, Routine levonorgest 2019- No 1{devic 1 Device, Univers rel 07-14 e} Intrauteri ity of (MIRENA) 20:30: 19:27 ne, ONCE, Dilan as IUD 1 00 :00 1 dose, Oil Treater [facility] 07/14/19 at 1530, Routine levonorgest 2019- No 1{devic Un kristopher rel 07-14 e} ity of (MIRENA) 20:30: 19:27 [place] IUD 1 00 :00 Oil Treater Branch ibuprofen 2018- No 600mg Univer s (IBU) 07-14 ity of tablet 600 20:30: 19:26 [place] mg 00 :00 Medical Branch ibuprofen 2018- 2019- No 600mg 600 mg, Uni vers (IBU) 07-14 Oral, ity of tablet 600 20:30: 19:26 ONCE, 1 Dilan as mg 00 :00 dose, [facility] 07/14/19 at Branch 1530, Routine levonorgest 2018- 2019- No 1{devic 1 Device, Univers rel 07-1416 e} Intrauteri ity of (MIRENA) 20:30: 19:27 ne, ONCE, Dilan as IUD 1 00 :00 1 dose, Oil Treater Fri Branch 07/14/19 at 1530, Routine levonorgest 2019- No 1{devic Un kristopher rel 07-14 e} ity of (MIRENA) 20:30: 19:27 [place] IUD 1 00 :00 Oil Treater Branch ibuprofen 2018- No 600mg Univer s [...] as IUD 1 00 :00 1 dose, Oil Treater Fri Branch 07/14/19 at 1530, Routine metroNIDAZO 2019- No [id number] 500mg Take 1 Univers LE (FLAGYL) 07-1424 tablet by it y of 500 mg 00:00: 04:59 mouth 2 [place] tablet 00 :00 (two) Medical times [place] daily for 7 days. metroNIDAZO 2019- No [id number] 500mg Take 1 Univers LE (FLAGYL) 07-1424 tablet by it y of 500 mg 00:00: 04:59 mouth 2 [place] tablet 00 :00 (two) Medical times [place] daily for 7 days. metroNIDAZO 2019- No [id number] 500mg Take 1 Univers LE (FLAGYL) 07-14-24 tablet by it y of 500 mg 00:00: 04:59 mouth 2 [place] tablet 00 :00 (two) Medical times [place] daily for 7 days. metroNIDAZO 2019- No [id number] 500mg Take 1 Univers LE (FLAGYL) 07-14 08-24 tablet by it y of 500 mg 00:00: 04:59 mouth 2 [place] tablet 00 :00 (two) Medical times [place] daily for 7 days. No known No Univers medications ity of [facility] No known No Univers medications ity of [facility] Branch No known No Univers medications ity of [facility] No known No Univers medications ity of [facility] No known No Univers medications ity of [facility] Branch No known No Univers medications ity of [facility] Branch No known No Univers medications ity of [facility] No known No Univers medications ity of [facility] Immunizations Ordered Immunization Filled Immunization Date Status Commen ts Source Name Name [facility] 2018-06-27 Completed University of 00:00:00 [facility] Branch HPV9 2018-06-27 Completed University of 00:00:00 [facility] Branch HPV9 2018-06-27 Completed University of 00:00:00 [facility] Branch HPV9 2018-06-27 Completed University of 00:00:00 [facility] Branch HPV9 2018-06-27 Completed University of 00:00:00 [facility] Branch HPV9 2018-06-27 Completed University of 00:00:00 [facility] Branch HPV9 2018-06-27 Completed University of 00:00:00 [facility] Branch HPV9 2018-06-27 Completed University of 00:00:00 [facility] Branch HPV9 2018-06-27 Completed University of 00:00:00 [facility] Branch HPV9 2018-06-27 Completed University of 00:00:00 [facility] Branch HPV9 2018-06-27 Completed University of 00:00:00 [facility] Branch HPV9 2018-06-27 Completed University of 00:00:00 [facility] Branch HPV9 2018-06-27 Completed University of 00:00:00 [facility] Branch HPV9 2018-06-27 Completed University of 00:00:00 [facility] Branch HPV9 2018-06-27 Completed University of 00:00:00 [facility] Branch HPV9 2018-06-27 Completed University of 00:00:00 [facility] Branch HPV9 2018-06-27 Completed University of 00:00:00 [facility] Branch HPV9 2018-06-27 Completed University of 00:00:00 [facility] Branch HPV9 2018-06-27 Completed University of 00:00:00 [facility] HPV9 2018-06-27 Completed University of 00:00:00 [facility] HPV9 2018-06-27 Completed University of 00:00:00 [facility] Branch HPV9 2018-06-27 Completed University of 00:00:00 [facility] Branch HPV9 2018-06-27 Completed University of 00:00:00 [place] [facility] HPV9 2018-06-27 Completed University of 00:00:00 [place] [facility] HPV9 2018-06-27 Completed University of 00:00:00 [place] [facility] HPV9 2018-02-11 Completed University of 00:00:00 [place] [facility] Meningococcal B, OMV 2018-02-11 Completed Univ ersity of 00:00:00 [place] [facility] HPV9 2018-02-11 Completed University of 00:00:00 [place] [facility] Meningococcal B, OMV 2018-02-11 Completed Univ ersity of 00:00:00 [place] [facility] HPV9 2018-02-11 Completed University of 00:00:00 [place] [facility] Meningococcal B, OMV 2018-02-11 Completed Univ ersity of 00:00:00 [place] [facility] HPV9 2018-02-11 Completed University of 00:00:00 [place] [facility] Meningococcal B, OMV 2018-02-11 Completed Univ ersity of 00:00:00 [place] [facility] HPV9 2018-02-11 Completed University of 00:00:00 [place] [facility] Meningococcal B, OMV 2018-02-11 Completed Univ ersity of 00:00:00 [place] [facility] HPV9 2018-02-11 Completed University of 00:00:00 [place] [facility] Meningococcal B, OMV 2018-02-11 Completed Univ ersity of 00:00:00 [place] [facility] HPV9 2018-02-11 Completed University of 00:00:00 [place] [facility] Meningococcal B, OMV 2018-02-11 Completed Univ ersity of 00:00:00 [place] [facility] HPV9 2018-02-11 Completed University of 00:00:00 [place] [facility] Meningococcal B, OMV 2018-02-11 Completed Univ ersity of 00:00:00 [place] [facility] HPV9 2018-02-11 Completed University of 00:00:00 [place] [facility] Meningococcal B, OMV 2018-02-11 Completed Univ ersity of 00:00:00 [place] [facility] HPV9 2018-02-11 Completed University of 00:00:00 [place] [facility] Meningococcal B, OMV 2018-02-11 Completed Univ ersity of 00:00:00 [place] [facility] HPV9 2018-02-11 Completed University of [...] Branch HPV9 2018-02-11 Completed University of 00:00:00 [place] [facility] Meningococcal B, OMV 2018-02-11 Completed Univ ersity of 00:00:00 [place] [facility] HPV9 2018-02-11 Completed University of 00:00:00 [place] [facility] Meningococcal B, OMV 2018-02-11 Completed Univ ersity of 00:00:00 [place] [facility] HPV9 2018-02-11 Completed University of 00:00:00 [place] [facility] Meningococcal B, OMV 2018-02-11 Completed Univ ersity of 00:00:00 [place] [facility] HPV9 2018-02-11 Completed University of 00:00:00 [place] [facility] Meningococcal B, OMV 2018-02-11 Completed Univ ersity of 00:00:00 [facility] Branch HPV9 2018-02-11 Completed University of 00:00:00 [place] [facility] Meningococcal B, OMV 2018-02-11 Completed Univ ersity of 00:00:00 [place] [facility] HPV9 2018-02-11 Completed University of 00:00:00 [place] [facility] Meningococcal B, OMV 2018-02-11 Completed Univ ersity of 00:00:00 [place] [facility] HPV9 2018-02-11 Completed University of 00:00:00 [place] [facility] Meningococcal B, OMV 2018-02-11 Completed Univ ersity of 00:00:00 [place] [facility] HPV9 2018-02-11 Completed University of 00:00:00 [place] [facility] Meningococcal B, OMV 2018-02-11 Completed Univ ersity of 00:00:00 [place] [facility] HPV9 2018-02-11 Completed University of 00:00:00 [facility] Branch Meningococcal B, OMV 2018-02-11 Completed Univ ersity of 00:00:00 [facility] Branch HPV9 2018-02-11 Completed University of 00:00:00 [facility] Branch Meningococcal B, OMV 2018-02-11 Completed Univ ersity of 00:00:00 [facility] Meningococcal 2017-06-10 Completed University of Polysaccharide 00:00:00 [place] Medi andrew (groups A, C, Y and Branc h W-135) conjugate vaccine (MCV4P) Meningococcal B, OMV 2017-06-10 Completed Univ ersity of 00:00:00 [facility] Branch HPV9 2017-06-10 Completed University of 00:00:00 [facility] Branch Meningococcal 2017-06-10 Completed University of Polysaccharide 00:00:00 [place] Medi andrew (groups A, C, Y and Branc h W-135) conjugate vaccine (MCV4P) Meningococcal B, OMV 2017-06-10 Completed Univ ersity of 00:00:00 [facility] Branch HPV9 2017-06-10 Completed University of 00:00:00 [facility] Branch Meningococcal 2017-06-10 Completed University of Polysaccharide 00:00:00 [place] Medi andrew (groups A, C, Y and Branc h W-135) conjugate vaccine (MCV4P) Meningococcal B, OMV 2017-06-10 Completed Univ ersity of 00:00:00 [facility] HPV9 2017-06-10 Completed University of 00:00:00 [facility] Branch Meningococcal 2017-06-10 Completed University of Polysaccharide 00:00:00 [place] Medi andrew (groups A, C, Y and Branc h W-135) conjugate vaccine (MCV4P) Meningococcal B, OMV 2017-06-10 Completed Univ ersity of 00:00:00 [facility] Branch HPV9 2017-06-10 Completed University of 00:00:00 [facility] Branch Meningococcal 2017-06-10 Completed University of Polysaccharide 00:00:00 [place] Medi andrew (groups A, C, Y and Branc h W-135) conjugate vaccine (MCV4P) Meningococcal B, OMV 2017-06-10 Completed Univ ersity of 00:00:00 [facility] Branch HPV9 2017-06-10 Completed University of 00:00:00 [facility] Branch Meningococcal 2017-06-10 Completed University of Polysaccharide 00:00:00 [place] Medi andrew (groups A, C, Y and Branc h W-135) conjugate vaccine (MCV4P) Meningococcal B, OMV 2017-06-10 Completed Univ ersity of 00:00:00 [facility] Branch HPV9 2017-06-10 Completed University of 00:00:00 [facility] Meningococcal 2017-06-10 Completed University of Polysaccharide 00:00:00 [place] Medi andrew (groups A, C, Y and Branc h W-135) conjugate vaccine (MCV4P) Meningococcal B, OMV 2017-06-10 Completed Univ ersity of 00:00:00 [facility] Branch HPV9 2017-06-10 Completed University of 00:00:00 [facility] Meningococcal 2017-06-10 Completed University of Polysaccharide 00:00:00 [place] Medi andrew (groups A, C, Y and Branc h W-135) conjugate vaccine (MCV4P) Meningococcal B, OMV 2017-06-10 Completed Univ ersity of 00:00:00 [facility] HPV9 2017-06-10 Completed University of 00:00:00 [facility] Meningococcal 2017-06-10 Completed University of Polysaccharide 00:00:00 [place] Medi andrew (groups A, C, Y and Branc h W-135) conjugate vaccine (MCV4P) Meningococcal B, OMV 2017-06-10 Completed Univ ersity of 00:00:00 [facility] HPV9 2017-06-10 Completed University of 00:00:00 [facility] Meningococcal 2017-06-10 Completed University of Polysaccharide 00:00:00 [place] Medi andrew (groups A, C, Y and Branc h W-135) conjugate vaccine (MCV4P) Meningococcal B, OMV 2017-06-10 Completed Univ ersity of 00:00:00 [facility] HPV9 2017-06-10 Completed University of 00:00:00 [facility] Meningococcal 2017-06-10 Completed University of Polysaccharide 00:00:00 [place] Medi andrew (groups A, C, Y and Branc h W-135) conjugate vaccine (MCV4P) Meningococcal B, OMV 2017-06-10 Completed Univ ersity of 00:00:00 [facility] HPV9 2017-06-10 Completed University of 00:00:00 [facility] Meningococcal 2017-06-10 Completed University of Polysaccharide 00:00:00 [place] Medi andrew (groups A, C, Y and Branc h W-135) conjugate vaccine (MCV4P) Meningococcal B, OMV 2017-06-10 Completed Univ ersity of 00:00:00 [facility] HPV9 2017-06-10 Completed University of 00:00:00 [facility] Meningococcal 2017-06-10 Completed University of Polysaccharide 00:00:00 [place] Medi andrew (groups A, C, Y and Branc h W-135) conjugate vaccine (MCV4P) Meningococcal B, OMV 2017-06-10 Completed Univ ersity of 00:00:00 [facility] Branch HPV9 2017-06-10 Completed University of 00:00:00 [facility] Meningococcal 2017-06-10 Completed University of Polysaccharide 00:00:00 [place] Medi andrew (groups A, C, Y and Branc h W-135) conjugate vaccine (MCV4P) Meningococcal B, OMV 2017-06-10 Completed Univ ersity of 00:00:00 [facility] HPV9 2017-06-10 Completed University of 00:00:00 [facility] Meningococcal 2017-06-10 Completed University of Polysaccharide 00:00:00 [place] Medi andrew (groups A, C, Y and Branc h W-135) conjugate vaccine (MCV4P) Meningococcal B, OMV 2017-06-10 Completed Univ ersity of 00:00:00 [facility] HPV9 2017-06-10 Completed University of 00:00:00 [facility] Meningococcal 2017-06-10 Completed University of Polysaccharide 00:00:00 [place] Medi andrew (groups A, C, Y and Branc h W-135) conjugate vaccine (MCV4P) Meningococcal B, OMV 2017-06-10 Completed Univ ersity of 00:00:00 [facility] HPV9 2017-06-10 Completed University of 00:00:00 [facility] Meningococcal 2017-06-10 Completed University of Polysaccharide 00:00:00 [place] Medi andrew (groups A, C, Y and Branc h W-135) conjugate vaccine (MCV4P) Meningococcal B, OMV 2017-06-10 Completed Univ ersity of 00:00:00 [facility] HPV9 2017-06-10 Completed University of 00:00:00 [facility] Meningococcal 2017-06-10 Completed University of Polysaccharide 00:00:00 [place] Medi andrew (groups A, C, Y and Branc h W-135) conjugate vaccine (MCV4P) Meningococcal B, OMV 2017-06-10 Completed Univ ersity of 00:00:00 [facility] HPV9 2017-06-10 Completed University of 00:00:00 [facility] Meningococcal 2017-06-10 Completed University of Polysaccharide 00:00:00 [place] Medi andrew (groups A, C, Y and Branc h W-135) conjugate vaccine (MCV4P) Meningococcal B, OMV 2017-06-10 Completed Univ ersity of 00:00:00 [facility] Branch HPV9 2017-06-10 Completed University of 00:00:00 [facility] Meningococcal 2017-06-10 Completed [facility] Polysaccharide 00:00:00 [place] [facility] (groups A, C, Y and Branc h W-135) conjugate vaccine (MCV4P) Meningococcal B, OMV 2017-06-10 Completed [facility] ers[facility] 00:00:00 [facility] HPV9 2017-06-10 Completed [facility] 00:00:00 [facility] Meningococcal 2017-06-10 Completed [facility] Polysaccharide 00:00:00 [place] [facility] (groups A, C, Y and Branc h W-135) conjugate vaccine (MCV4P) Meningococcal B, OMV 2017-06-10 Completed [facility] ers[facility] 00:00:00 [facility] HPV9 2017-06-10 Completed [facility] 00:00:00 [facility] Meningococcal 2017-06-10 Completed [facility] Polysaccharide 00:00:00 [place] [facility] (groups A, C, Y and Branc h W-135) conjugate vaccine (MCV4P) Meningococcal B, OMV 2017-06-10 Completed [facility] ers[facility] 00:00:00 [facility] HPV9 2017-06-10 Completed [facility] 00:00:00 [facility] Meningococcal 2017-06-10 Completed [facility] Polysaccharide 00:00:00 [place] [facility] (groups A, C, Y and Branc h W-135) conjugate vaccine (MCV4P) Meningococcal B, OMV 2017-06-10 Completed [facility] ers[facility] 00:00:00 [facility] HPV9 2017-06-10 Completed [facility] 00:00:00 [facility] Meningococcal 2017-06-10 Completed [facility] Polysaccharide 00:00:00 [place] [facility] (groups A, C, Y and Branc h W-135) conjugate vaccine (MCV4P) Meningococcal B, OMV 2017-06-10 Completed [facility] ersity of 00:00:00 [facility] HPV9 2017-06-10 Completed [facility] 00:00:00 [facility] Meningococcal 2017-06-10 Completed [facility] Polysaccharide 00:00:00 [facility] (groups A, C, Y and Branc h W-135) conjugate vaccine (MCV4P) Meningococcal B, OMV 2017-06-10 Completed Univ ersity of 00:00:00 [facility] HPV9 2017-06-10 Completed [facility] 00:00:00 [facility] HEPATITIS A 2013-03-29 Completed [facility] 00:00:00 [facility] HEPATITIS A 2013-03-29 Completed [facility] 00:00:00 [facility] HEPATITIS A 2013-03-29 Completed [facility] 00:00:00 [facility] HEPATITIS A 2013-03-29 Completed [facility] 00:00:00 [facility] HEPATITIS A 2013-03-29 Completed [facility] 00:00:00 [facility] HEPATITIS A 2013-03-29 Completed [facility] 00:00:00 [facility] HEPATITIS A 2013-03-29 Completed [facility] 00:00:00 [facility] HEPATITIS A 2013-03-29 Completed [facility] 00:00:00 [facility] HEPATITIS A 2013-03-29 Completed [facility] 00:00:00 [facility] HEPATITIS A 2013-03-29 Completed [facility] 00:00:00 [facility] HEPATITIS A 2013-03-29 Completed [facility] 00:00:00 [facility] HEPATITIS A 2013-03-29 Completed [facility] 00:00:00 [facility] HEPATITIS A 2013-03-29 Completed [facility] 00:00:00 [facility] HEPATITIS A 2013-03-29 Completed [facility] 00:00:00 [facility] HEPATITIS A 2013-03-29 Completed [facility] 00:00:00 [facility] HEPATITIS A 2013-03-29 Completed [facility] 00:00:00 [facility] HEPATITIS A 2013-03-29 Completed [facility] 00:00:00 [facility] HEPATITIS A 2013-03-29 Completed [facility] 00:00:00 [facility] HEPATITIS A 2013-03-29 Completed [facility] 00:00:00 [facility] HEPATITIS A 2013-03-29 Completed [facility] 00:00:00 [facility] HEPATITIS A 2013-03-29 Completed [facility] 00:00:00 [facility] HEPATITIS A 2013-03-29 Completed [facility] 00:00:00 [facility] HEPATITIS A 2013-03-29 Completed [facility] 00:00:00 [facility] HEPATITIS A 2013-03-29 Completed [facility] 00:00:00 [facility] HEPATITIS A 2013-03-29 Completed [facility] 00:00:00 [facility] Tdap 2012-06-16 Completed [facility] 00:00:00 [facility] Meningococcal 2012-06-16 Completed [facility] Polysaccharide 00:00:00 [place] [facility] (groups A, C, Y and Branc h W-135) conjugate vaccine (MCV4P) Varicella 2012-06-16 Completed [facility] (varivax)(chicken 00:00:00 [place] [facility]) [facility] HEPATITIS A 2012-06-16 Completed [facility] 00:00:00 [facility] Tdap 2012-06-16 Completed [facility] 00:00:00 [facility] Meningococcal 2012-06-16 Completed [facility] Polysaccharide 00:00:00 [place] [facility] (groups A, C, Y and Branc h W-135) conjugate vaccine (MCV4P) Varicella 2012-06-16 Completed [facility] (varivax)(chicken 00:00:00 [place] [facility] pox) [facility] HEPATITIS A 2012-06-16 Completed [facility] 00:00:00 [facility] Tdap 2012-06-16 Completed [facility] 00:00:00 [facility] Meningococcal 2012-06-16 Completed [facility] Polysaccharide 00:00:00 [place] [facility] (groups A, C, Y and Branc h W-135) conjugate vaccine (MCV4P) Varicella 2012-06-16 Completed [facility] (varivax)(chicken 00:00:00 [place] [facility] pox) [facility] HEPATITIS A 2012-06-16 Completed [facility] 00:00:00 [facility] Tdap 2012-06-16 Completed [facility] 00:00:00 [facility] Meningococcal 2012-06-16 Completed [facility] Polysaccharide 00:00:00 [place] [facility] (groups A, C, Y and Branc h W-135) conjugate vaccine (MCV4P) Varicella 2012-06-16 Completed [facility] (varivax)(chicken 00:00:00 [place] [facility] pox) [facility] HEPATITIS A 2012-06-16 Completed [facility] 00:00:00 [facility] Tdap 2012-06-16 Completed [facility] 00:00:00 [facility] Meningococcal 2012-06-16 Completed [facility] Polysaccharide 00:00:00 [place] [facility] (groups A, C, Y and Branc h W-135) conjugate vaccine (MCV4P) Varicella 2012-06-16 Completed [facility] (varivax)(chicken 00:00:00 [place] [facility] pox) [facility] HEPATITIS A 2012-06-16 Completed [facility] 00:00:00 [facility] Tdap 2012-06-16 Completed [facility] 00:00:00 [facility] Meningococcal 2012-06-16 Completed [facility] Polysaccharide 00:00:00 [place] [facility] (groups A, C, Y and Branc h W-135) conjugate vaccine (MCV4P) Varicella 2012-06-16 Completed [facility] (varivax)(chicken 00:00:00 [place] [facility] pox) [facility] HEPATITIS A 2012-06-16 Completed [facility] 00:00:00 [facility] Tdap 2012-06-16 Completed [facility] 00:00:00 [facility] Meningococcal 2012-06-16 Completed [facility] Polysaccharide 00:00:00 [place] [facility] (groups A, C, Y and Branc h W-135) conjugate vaccine (MCV4P) Varicella 2012-06-16 Completed [facility] (varivax)(chicken 00:00:00 [place] [facility] pox) [facility] HEPATITIS A 2012-06-16 Completed [facility] 00:00:00 [facility] Tdap 2012-06-16 Completed [facility] 00:00:00 [facility] Meningococcal 2012-06-16 Completed [facility] Polysaccharide 00:00:00 [place] [facility] (groups A, C, Y and Branc h W-135) conjugate vaccine (MCV4P) Varicella 2012-06-16 Completed [facility] (varivax)(chicken 00:00:00 [place] [facility] pox) [facility] HEPATITIS A 2012-06-16 Completed [facility] 00:00:00 [facility] TDAP 2012-06-16 Completed [facility] 00:00:00 [facility] Meningococcal 2012-06-16 Completed [facility] Polysaccharide 00:00:00 [place] [facility] (groups A, C, Y and Branc h W-135) conjugate vaccine (MCV4P) Varicella 2012-06-16 Completed [facility] (varivax)(chicken 00:00:00 [place] [facility] pox) [facility] HEPATITIS A 2012-06-16 Completed [facility] 00:00:00 [facility] TDAP 2012-06-16 Completed [facility] 00:00:00 [facility] Meningococcal 2012-06-16 Completed [facility] Polysaccharide 00:00:00 [place] [facility] (groups A, C, Y and Branc h W-135) conjugate vaccine (MCV4P) Varicella 2012-06-16 Completed [facility] (varivax)(chicken 00:00:00 [place] [facility] pox[facility] HEPATITIS A 2012-06-16 Completed [facility] 00:00:00 [facility] TDAP 2012-06-16 Completed [facility] 00:00:00 [facility] Meningococcal 2012-06-16 Completed [facility] Polysaccharide 00:00:00 [place] [facility] (groups A, C, Y and Branc h W-135) conjugate vaccine (MCV4P) Varicella 2012-06-16 Completed [facility] (varivax)(chicken 00:00:00 [place] [facility] pox) [facility] HEPATITIS A 2012-06-16 Completed [facility] 00:00:00 [facility] TDAP 2012-06-16 Completed [facility] 00:00:00 [facility] Meningococcal 2012-06-16 Completed [facility] Polysaccharide 00:00:00 [place] [facility] (groups A, C, Y and Branc h W-135) conjugate vaccine (MCV4P) Varicella 2012-06-16 Completed [facility] (varivax)(chicken 00:00:00 [place] [facility] pox) [facility] HEPATITIS A 2012-06-16 Completed [facility] 00:00:00 [facility] TDAP 2012-06-16 Completed [facility] 00:00:00 [facility] Meningococcal 2012-06-16 Completed [facility] Polysaccharide 00:00:00 [place] [facility] (groups A, C, Y and Branc h W-135) conjugate vaccine (MCV4P) Varicella 2012-06-16 Completed [facility] (varivax)(chicken 00:00:00 [place] [facility] pox[facility] HEPATITIS A 2012-06-16 Completed [facility] 00:00:00 [facility] TDAP 2012-06-16 Completed [facility] 00:00:00 [facility] Meningococcal 2012-06-16 Completed [facility] Polysaccharide 00:00:00 [place] [facility] (groups A, C, Y and Branc h W-135) conjugate vaccine (MCV4P) Varicella 2012-06-16 Completed [facility] (varivax)(chicken 00:00:00 [place] [facility] pox) [facility] HEPATITIS A 2012-06-16 Completed [facility] 00:00:00 [facility] TDAP 2012-06-16 Completed [facility] 00:00:00 [facility] Meningococcal 2012-06-16 Completed [facility] Polysaccharide 00:00:00 [place] [facility] (groups A, C, Y and Branc h W-135) conjugate vaccine (MCV4P) Varicella 2012-06-16 Completed [facility] (varivax)(chicken 00:00:00 [place] [facility] pox) [facility] HEPATITIS A 2012-06-16 Completed [facility] 00:00:00 [facility] TDAP 2012-06-16 Completed [facility] 00:00:00 [facility] Meningococcal 2012-06-16 Completed [facility] Polysaccharide 00:00:00 [place] [facility] (groups A, C, Y and Branc h W-135) conjugate vaccine (MCV4P) Varicella 2012-06-16 Completed [facility] (varivax)(chicken 00:00:00 [place] [facility] pox) [facility] HEPATITIS A 2012-06-16 Completed [facility] 00:00:00 [facility] TDAP 2012-06-16 Completed [facility] 00:00:00 [facility] Meningococcal 2012-06-16 Completed [facility] Polysaccharide 00:00:00 [place] [facility] (groups A, C, Y and Branc h W-135) conjugate vaccine (MCV4P) Varicella 2012-06-16 Completed [facility] (varivax)(chicken 00:00:00 [place] [facility] pox) [facility] HEPATITIS A 2012-06-16 Completed [facility] 00:00:00 [facility] TDAP 2012-06-16 Completed [facility] 00:00:00 [facility] Meningococcal 2012-06-16 Completed [facility] Polysaccharide 00:00:00 [place] [facility] (groups A, C, Y and Branc h W-135) conjugate vaccine (MCV4P) Varicella 2012-06-16 Completed [facility] (varivax)(chicken 00:00:00 [place] [facility] pox) [facility] HEPATITIS A 2012-06-16 Completed [facility] 00:00:00 [facility] TDAP 2012-06-16 Completed [facility] 00:00:00 [facility] Meningococcal 2012-06-16 Completed [facility] Polysaccharide 00:00:00 [place] [facility] (groups A, C, Y and Branc h W-135) conjugate vaccine (MCV4P) Varicella 2012-06-16 Completed [facility] (varivax)(chicken 00:00:00 [place] [facility] pox) [facility] HEPATITIS A 2012-06-16 Completed [facility] 00:00:00 [facility] TDAP 2012-06-16 Completed [facility] 00:00:00 [facility] Meningococcal 2012-06-16 Completed [facility] Polysaccharide 00:00:00 [place] [facility] (groups A, C, Y and Branc h W-135) conjugate vaccine (MCV4P) Varicella 2012-06-16 Completed [facility] (varivax)(chicken 00:00:00 [place] [facility] pox) [facility] HEPATITIS A 2012-06-16 Completed [facility] 00:00:00 [facility] TDAP 2012-06-16 Completed [facility] 00:00:00 [facility] Meningococcal 2012-06-16 Completed [facility] Polysaccharide 00:00:00 [place] [facility] (groups A, C, Y and Branc h W-135) conjugate vaccine (MCV4P) Varicella 2012-06-16 Completed [facility] (varivax)(chicken 00:00:00 [place] [facility] pox) [facility] HEPATITIS A 2012-06-16 Completed [facility] 00:00:00 [facility] TDAP 2012-06-16 Completed [facility] 00:00:00 [facility] Meningococcal 2012-06-16 Completed [facility] Polysaccharide 00:00:00 [place] [facility] (groups A, C, Y and Branc h W-135) conjugate vaccine (MCV4P) Varicella 2012-06-16 Completed [facility] (varivax)(chicken 00:00:00 [place] [facility] pox) [facility] HEPATITIS A 2012-06-16 Completed [facility] 00:00:00 [facility] TDAP 2012-06-16 Completed [facility] 00:00:00 [facility] Meningococcal 2012-06-16 Completed [facility] Polysaccharide 00:00:00 [place] [facility] (groups A, C, Y and Branc h W-135) conjugate vaccine (MCV4P) Varicella 2012-06-16 Completed [facility] (varivax)(chicken 00:00:00 [place] [facility] pox) [facility] HEPATITIS A 2012-06-16 Completed [facility] 00:00:00 [facility] TDAP 2012-06-16 Completed [facility] 00:00:00 [facility] Meningococcal 2012-06-16 Completed [facility] Polysaccharide 00:00:00 [place] [facility] (groups A, C, Y and Branc h W-135) conjugate vaccine (MCV4P) Varicella 2012-06-16 Completed [facility] (varivax)(chicken 00:00:00 [place] [facility] Tdap 2012-06-16 Completed [facility] 00:00:00 [facility] HEPATITIS A 2012-06-16 Completed [facility] 00:00:00 [facility] Meningococcal 2012-06-16 Completed [facility] Polysaccharide 00:00:00 [place] [facility] (groups A, C, Y and Branc h W-135) conjugate vaccine (MCV4P) Varicella 2012-06-16 Completed [facility] (varivax)(chicken 00:00:00 [place] [facility] pox[facility] HEPATITIS A 2012-06-16 Completed [facility] 00:00:00 [facility] DTAP 2005-09-28 Completed [facility] 00:00:00 [facility] DTAP 2005-09-28 Completed [facility] 00:00:00 [facility] DTAP 2005-09-28 Completed [facility] 00:00:00 [facility] DTAP 2005-09-28 Completed [facility] 00:00:00 [facility] DTAP 2005-09-28 Completed [facility] 00:00:00 [facility] DTAP 2005-09-28 Completed [facility] 00:00:00 [facility] DTAP 2005-09-28 Completed [facility] 00:00:00 [facility] DTAP 2005-09-28 Completed [facility] 00:00:00 [facility] DTAP 2005-09-28 Completed [facility] 00:00:00 [facility] DTAP 2005-09-28 Completed [facility] 00:00:00 [facility] DTAP 2005-09-28 Completed [facility] 00:00:00 [facility] DTAP 2005-09-28 Completed [facility] 00:00:00 [facility] DTAP 2005-09-28 Completed [facility] 00:00:00 [facility] DTAP 2005-09-28 Completed [facility] 00:00:00 [facility] DTAP 2005-09-28 Completed [facility] 00:00:00 [facility] DTAP 2005-09-28 Completed [facility] 00:00:00 [facility] DTAP 2005-09-28 Completed [facility] 00:00:00 [facility] DTAP 2005-09-28 Completed [facility] 00:00: [facility] DTAP 2005-09-28 Completed [facility] 00:00: [facility] DTAP 2005-09-28 Completed [facility] 00:00: [facility] DTAP 2005-09-28 Completed [facility] 00:00: [facility] DTAP 2005-09-28 Completed [facility] 00:00:00 [facility] DTAP 2005-09-28 Completed [facility] 00:00:00 [facility] DTAP 2005-09-28 Completed [facility] 00:00: [facility] DTAP 2005-09-28 Completed [facility] [...] 2004-07-08 Completed Unive rsity of Dosage 00:00:00 [facility] Hep B, Adol or Pedi 2004-07-08 Completed [facility]ive rsity of Dosage 00:00:00 [facility] Hep B, Adol or Pedi 2004-07-08 Completed Unive rsity of Dosage 00:00:00 [facility] Hep B, Adol or Pedi 2004-07-08 Completed Unive rsity of Dosage 00:00:00 [facility] Hep B, Adol or Pedi 2004-07-08 Completed Unive rsity of Dosage 00:00:00 [facility] Hep B, Adol or Pedi 2004-07-08 Completed Unive rsity of Dosage 00:00:00 [facility] DTAP 2004-05-28 Completed [facility] 00:00:00 [facility] Polio (IPV/OPV) 2004-05-28 Completed Univers[facility] y [facility] 00:00:00 [facility] DTAP 2004-05-28 Completed [facility] 00:00:00 [facility] Polio (IPV/OPV) 2004-05-28 Completed Universit y [facility] 00:00:00 [facility] DTAP 2004-05-28 Completed [facility] 00:00:00 [facility] Polio (IPV/OPV) 2004-05-28 Completed Universit y [facility] 00:00:00 [facility] DTAP 2004-05-28 Completed [facility] 00:00:00 [facility] Polio (IPV/OPV) 2004-05-28 Completed Universit y of 00:00:00 [facility] DTAP 2004-05-28 Completed [facility] 00:00:00 [facility] Polio (IPV/OPV) 2004-05-28 Completed Universit y of 00:00:00 [facility] DTAP 2004-05-28 Completed [facility] 00:00:00 [facility] Polio (IPV/OPV) 2004-05-28 Completed Universit y of 00:00:00 [facility] DTAP 2004-05-28 Completed [facility] 00:00:00 [facility] Polio (IPV/OPV) 2004-05-28 Completed Universit y of 00:00:00 [facility] DTAP 2004-05-28 Completed [facility] 00:00:00 [facility] Polio (IPV/OPV) 2004-05-28 Completed Universit y of 00:00:00 [facility] DTAP 2004-05-28 Completed [facility] 00:00:00 [facility] DTAP 2004-05-28 Completed [facility] 00:00:00 [facility] Polio (IPV/OPV) 2004-05-28 Com[facility] 00:00:00 [facility] Polio (IPV/OPV) 2004-05-28 Completed Universit y of 00:00:00 [facility] Polio (IPV/OPV) 2004-05-28 Completed [facility]it y of 00:00:00 [facility] DTAP 2004-05-28 Completed [facility] 00:00:00 [facility] Polio (IPV/OPV) 2004-05-28 Completed [facility] 00:00:00 [facility] Polio (IPV/OPV) 2004-05-28 Completed [facility] y of 00:00:00 [facility] DTAP 2004-05-28 Completed [facility] 00:00:00 [facility] Polio (IPV/OPV) 2004-05-28 Completed [facility] 00:00:00 [facility] Polio (IPV/OPV) 2004-05-28 Completed [facility] 2004[facility] Com[facility] 00:00:00 [facility] Polio (IPV/OPV) 2004-05-28 Completed [facility] y [facility] 00:00:00 [facility] DTAP 2004-05-28 Completed [facility] 00:00:00 [facility] Polio (IPV/OPV) 2004-05-28 Completed [facility] y [facility] 00:00:00 [facility] DTAP 2004-05-28 Completed [facility] 00:00:00 [facility] Polio (IPV/OPV) 2004-05-28 Completed [facility] 00:00:00 [facility] Polio (IPV/OPV) 2004-05-28 Completed [facility] 00:00:00 [facility] DTAP 2004-05-28 Completed [facility] 00:00:00 [facility] Polio (IPV/OPV) 2004-05-28 Completed [facility] y [facility] 00:00:00 [facility] DTAP 2004-05-28 Completed [facility] 00:00:00 [facility] DTAP 2004-05-28 Completed [facility] 00:00:00 [facility] Polio (IPV/OPV) 2004-05-28 Completed [facility] y [facility] 00:00:00 [facility] Polio (IPV/OPV) 2004-05-28 Completed [facility] 00:00:00 [facility] DTAP 2004-05-28 Completed [facility] 00:00:00 [facility] Polio (IPV/OPV) 2004-05-28 Completed [facility] y [facility] 00:00:00 [facility] DTAP 2004-05-28 Completed [facility] 00:00:00 [facility] Polio (IPV/OPV) 2004-05-28 Completed [facility] 00:00:00 [facility] DTAP 2004-01-21 Completed [facility] 00:00:00 [facility] HIB 4 Dose Schedule 2004-01-21 Completed Unive rsity of 00:00:00 [facility] MMR 2004-01-21 Completed [facility] 00:00:00 [facility] Polio (IPV/OPV) 2004-01-21 Completed [facility] 00:00:00 [facility] DTAP 2004-01-21 Completed [facility] 00:00:00 [facility] HIB 4 Dose Schedule 2004-01-21 Completed Unive rsity of 00:00:00 [facility] MMR 2004-01-21 Completed [facility] 00:00:00 [facility] Polio (IPV/OPV) 2004-01-21 Completed [facility] 00:00:00 [facility] DTAP 2004-01-21 Completed [facility] 00:00:00 [facility] HIB 4 Dose Schedule 2004-01-21 Completed Unive rsity of 00:00:00 [facility] MMR 2004-01-21 Completed [facility] 00:00:00 [facility] Polio (IPV/OPV) 2004-01-21 Completed [facility] 00:00:00 [facility] DTAP 2004-01-21 Completed [facility] 00:00:00 [facility] HIB 4 Dose Schedule 2004-01-21 Completed Unive rsity of 00:00:00 [facility] MMR 2004-01-21 Completed [facility] 00:00:00 [facility] Polio (IPV/OPV) 2004-01-21 Completed Universit y of 00:00:00 [facility] DTAP 2004-01-21 Completed [facility] 00:00:00 [facility] HIB 4 Dose Schedule 2004-01-21 Completed Unive rsity of 00:00:00 [facility] MMR 2004-01-21 Completed [facility] 00:00:00 [facility] Polio (IPV/OPV) 2004-01-21 Completed [facility]it y [facility] 00:00:00 [facility] DTAP 2004-01-21 Completed [facility] of 00:00:00 [facility] HIB 4 Dose Schedule 2004-01-21 Completed Unive rsity of 00:00:00 [facility] MMR 2004-01-21 Completed [facility] of 00:00:00 [facility] Polio (IPV/OPV) 2004-01-21 Completed [facility]it [facility] 00:00:00 [facility] DTAP 2004-01-21 Completed [facility] of 00:00:00 [facility] HIB 4 Dose Schedule 2004-01-21 Completed Unive rsity of 00:00:00 [facility] MMR 2004-01-21 Completed [facility] 00:00:00 [facility] Polio (IPV/OPV) 2004-01-21 Completed [facility] 00:00:00 [facility] DTAP 2004-01-21 Completed [facility] 00:00:00 [facility] HIB 4 Dose Schedule 2004-01-21 Completed Unive rsity of 00:00:00 [facility] MMR 2004-01-21 Completed [facility] 00:00:00 [facility] Polio (IPV/OPV) 2004-01-21 Completed [facility] 00:00:00 [facility] DTAP 2004-01-21 Completed [facility] 00:00:00 [facility] DTAP 2004-01-21 Completed [facility] of 00:00:00 [facility] HIB 4 Dose Schedule 2004-01-21 Completed [facility]ive rsity of 00:00:00 [facility] MMR 2004-01-21 Completed [facility] 00:00:00 [facility] Polio (IPV/OPV) 2004-01-21 Completed [facility] 00:00:00 [facility] HIB 4 Dose Schedule 2004-01-21 Completed [facility]ive rsity of 00:00:00 [facility] MMR 2004-01-21 Completed [facility] 00:00:00 [facility] DTAP 2004-01-21 Completed [facility] 00:00:00 [facility] HIB 4 Dose Schedule 2004-01-21 Completed Unive rsity of 00:00:00 [facility] MMR 2004-01-21 Completed [facility] 00:00:00 [facility] Polio (IPV/OPV) 2004-01-21 Completed [facility] 00:00:00 [facility] Polio (IPV/OPV) 2004-01-21 Completed [facility] 00:00:00 [facility] DTAP 2004-01-21 Completed [facility] 00:00:00 [facility] HIB 4 Dose Schedule 2004-01-21 Completed [facility]ive rsity of 00:00:00 [facility] MMR 2004-01-21 Completed [facility] 00:00:00 [facility] Polio (IPV/OPV) 2004-01-21 Completed [facility] 00:00:00 [facility] DTAP 2004-01-21 Completed [facility] 00:00:00 [facility] HIB 4 Dose Schedule 2004-01-21 Completed [facility]ive rsity of 00:00:00 [facility] MMR 2004-01-21 Completed [facility] of 00:00:00 [facility] Polio (IPV/OPV) 2004-01-21 Completed [facility] 00:00:00 [facility] DTAP 2004-01-21 Completed [facility] 00:00:00 [facility] HIB 4 Dose Schedule 2004-01-21 Completed Unive rsity of 00:00:00 [facility] MMR 2004-01-21 Completed [facility] 00:00:00 [facility] Polio (IPV/OPV) 2004-01-21 Completed [facility] 00:00:00 [facility] DTAP 2004-01-21 Completed [facility] 00:00:00 [facility] HIB 4 Dose Schedule 2004-01-21 Completed [facility]ive rsity of 00:00:00 [facility] MMR 2004-01-21 Completed [facility] 00:00:00 [facility] Polio (IPV/OPV) 2004-01-21 Completed [facility]it y [facility] 00:00:00 [facility] DTAP 2004-01-21 Completed [facility] 00:00:00 [facility] HIB 4 Dose Schedule 2004-01-21 Completed [facility]ive rsity of 00:00:00 [facility] MMR 2004-01-21 Completed [facility] 00:00:00 [facility] Polio (IPV/OPV) 2004-01-21 Completed [facility] 00:00:00 [facility] DTAP 2004-01-21 Completed [facility] 00:00:00 [facility] HIB 4 Dose Schedule 2004-01-21 Completed [facility]ive rsity of 00:00:00 [facility] MMR 2004-01-21 Completed [facility] of 00:00:00 [facility] Polio (IPV/OPV) 2004-01-21 Completed [facility] 00:00:00 [facility] DTAP 2004-01-21 Completed [facility] 00:00:00 [facility] HIB 4 Dose Schedule 2004-01-21 Completed [facility]ive rsity of 00:00:00 [facility] MMR 2004-01-21 Completed [facility] 00:00:00 [facility] Polio (IPV/OPV) 2004-01-21 Completed [facility] 00:00:00 [facility] DTAP 2004-01-21 Completed [facility] 00:00:00 [facility] HIB 4 Dose Schedule 2004-01-21 Completed [facility]ive rsity of 00:00:00 [facility] MMR 2004-01-21 Completed [facility] 00:00:00 [facility] Polio (IPV/OPV) 2004-01-21 Completed [facility] 00:00:00 [facility] DTAP 2004-01-21 Completed [facility] 00:00:00 [facility] HIB 4 Dose Schedule 2004-01-21 Completed [facility]ive rsity of 00:00:00 [facility] MMR 2004-01-21 Completed [facility] 00:00:00 [facility] Polio (IPV/OPV) 2004-01-21 Completed [facility] 00:00:00 [facility] DTAP 2004-01-21 Completed [facility] 00:00:00 [facility] HIB 4 Dose Schedule 2004-01-21 Completed [facility]ive rsity of 00:00:00 [facility] DTAP 2004-01-21 Completed [facility] 00:00:00 [facility] HIB 4 Dose Schedule 2004-01-21 Completed [facility]ive rsity of 00:00:00 [facility] MMR 2004-01-21 Completed [facility] 00:00:00 [facility] Polio (IPV/OPV) 2004-01-21 Completed [facility] 00:00:00 [facility] MMR 2004-01-21 Completed [facility] 00:00:00 [facility] Polio (IPV/OPV) 2004-01-21 Completed [facility]it y [facility] 00:00:00 [facility] DTAP 2004-01-21 Completed [facility] 00:00:00 [facility] HIB 4 Dose Schedule 2004-01-21 Completed [facility]ive rsity of 00:00:00 [facility] MMR 2004-01-21 Completed [facility] 00:00:00 [facility] Polio (IPV/OPV) 2004-01-21 Completed [facility] 00:00:00 [facility] DTAP 2004-01-21 Completed [facility] 00:00:00 [facility] HIB 4 Dose Schedule 2004-01-21 Completed [facility]ive rsity of 00:00:00 [facility] MMR 2004-01-21 Completed [facility] 00:00:00 [facility] Polio (IPV/OPV) 2004-01-21 Completed [facility] 00:00:00 [facility] Varicella 2003-11-08 Completed [facility] of (varivax)(chicken 00:00:00 [place] [facility] DTAP 2003-11-08 Completed [facility] 00:00:00 [facility] Polio (IPV/OPV) 2003-11-08 Completed [facility] 00:00:00 [facility] MMR 2003-11-08 Completed [facility] 00:00:00 [facility] Varicella 2003-11-08 Completed [facility] (varivax)(chicken 00:00:00 [place] [facility] DTAP 2003-11-08 Completed [facility] 00:00:00 [facility] Polio (IPV/OPV) 2003-11-08 Completed [facility] 00:00:00 [facility] MMR 2003-11-08 Completed [facility] 00:00:00 [facility] Varicella 2003-11-08 Completed [facility] (varivax)(chicken 00:00:00 [place] [facility] DTAP 2003-11-08 Completed [facility] 00:00:00 [facility] Polio (IPV/OPV) 2003-11-08 Completed [facility] 00:00:00 [facility] MMR 2003-11-08 Completed [facility] 00:00:00 [facility] Varicella 2003-11-08 Completed [facility] (varivax)(chicken 00:00:00 [place] [facility] DTAP 2003-11-08 Completed [facility] 00:00:00 [facility] Polio (IPV/OPV) 2003-11-08 Completed [facility] 00:00:00 [facility] MMR 2003-11-08 Completed [facility] 00:00:00 [facility] Varicella 2003-11-08 Completed [facility] (varivax)(chicken 00:00:00 [place] [facility] DTAP 2003-11-08 Completed [facility] 00:00:00 [facility] Polio (IPV/OPV) 2003-11-08 Completed [facility] 00:00:00 [facility] MMR 2003-11-08 Completed [facility] 00:00:00 [facility] Varicella 2003-11-08 Completed [facility] (varivax)(chicken 00:00:00 [place] [facility] DTAP 2003-11-08 Completed [facility] 00:00:00 [facility] Polio (IPV/OPV) 2003-11-08 Completed [facility] 00:00:00 [facility] MMR 2003-11-08 Completed [facility] 00:00:00 [facility] Varicella 2003-11-08 Completed [facility] (varivax)(chicken 00:00:00 [place] [facility] DTAP 2003-11-08 Completed [facility] 00:00:00 [facility] Polio (IPV/OPV) 2003-11-08 Completed [facility] 00:00:00 [facility] MMR 2003-11-08 Completed [facility] 00:00:00 [facility] Varicella 2003-11-08 Completed [facility] (varivax)(chicken 00:00:00 [place] [facility] DTAP 2003-11-08 Completed [facility] 00:00:00 [facility] Polio (IPV/OPV) 2003-11-08 Completed [facility] 00:00:00 [facility] MMR 2003-11-08 Completed [facility] 00:00:00 [facility] Varicella 2003-11-08 Completed [facility] (varivax)(chicken 00:00:00 [place] [facility] DTAP 2003-11-08 Completed [facility] 00:00:00 [facility] Polio (IPV/OPV) 2003-11-08 Completed [facility] of 00:00:00 [facility] MMR 2003-11-08 Completed [facility] 00:00:00 [facility] Varicella 2003-11-08 Completed [facility] (varivax)(chicken 00:00:00 [place] [facility]ox[facility] DTAP 2003-11-08 Completed [facility] 00:00:00 [facility] Polio (IPV/OPV) 2003-11-08 Completed [facility] 00:00:00 [facility] MMR 2003-11-08 Completed [facility] 00:00:00 [facility] Varicella 2003-11-08 Completed [facility] (varivax)(chicken 00:00:00 [place] [facility]ox[facility] DTAP 2003-11-08 Completed [facility] 00:00:00 [facility] Polio (IPV/OPV) 2003-11-08 Completed [facility] 00:00:00 [facility] MMR 2003-11-08 Completed [facility] 00:00:00 [facility] Varicella 2003-11-08 Completed [facility] (varivax)(chicken 00:00:00 [place] [facility] DTAP 2003-11-08 Completed [facility] 00:00:00 [facility] Polio (IPV/OPV) 2003-11-08 Completed [facility] 00:00:00 [facility] MMR 2003-11-08 Completed [facility] 00:00:00 [facility] Varicella 2003-11-08 Completed [facility] (varivax)(chicken 00:00:00 [place] [facility] DTAP 2003-11-08 Completed [facility] 00:00:00 [facility] Polio (IPV/OPV) 2003-11-08 Completed [facility] 00:00:00 [facility] MMR 2003-11-08 Completed [facility] 00:00:00 [facility] Varicella 2003-11-08 Completed [facility] (varivax)(chicken 00:00:00 [place] [facility] DTAP 2003-11-08 Completed [facility] 00:00:00 [facility] Polio (IPV/OPV) 2003-11-08 Completed [facility] of 00:00:00 [facility] MMR 2003-11-08 Completed [facility] 00:00:00 [facility] DTAP 2003-11-08 Completed [facility] 00:00:00 [facility] Polio (IPV/OPV) 2003-11-08 Completed [facility]it [facility] of 00:00:00 [facility] MMR 2003-11-08 Completed [facility] 00:00:00 [facility] Varicella 2003-11-08 Completed [facility] (varivax)(chicken 00:00:00 [place] [facility] Varicella 2003-11-08 Completed [facility] (varivax)(chicken 00:00:00 [place] [facility] DTAP 2003-11-08 Completed [facility] 00:00:00 [facility] Polio (IPV/OPV) 2003-11-08 Completed [facility]it [facility] of 00:00:00 [facility] MMR 2003-11-08 Completed [facility] of 00:00:00 [facility] Varicella 2003-11-08 Completed [facility] of (varivax)(chicken 00:00:00 [facility] edical pox) Branch DTAP 2003-11-08 Completed [facility] of 00:00:00 [facility] Polio (IPV/OPV) 2003-11-08 Completed [facility]it [facility] of 00:00:00 [facility] MMR 2003-11-08 Completed [facility] 00:00:00 [facility] Varicella 2003-11-08 Completed [facility] (varivax)(chicken 00:00:00 [place] [facility] DTAP 2003-11-08 Completed [facility] 00:00:00 [facility] Polio (IPV/OPV) 2003-11-08 Completed [facility] of 00:00:00 [facility] MMR 2003-11-08 Completed [facility] 00:00:00 [facility] Varicella 2003-11-08 Completed [facility] (varivax)(chicken 00:00:00 [place] [facility] DTAP 2003-11-08 Completed [facility] 00:00:00 [facility] Polio (IPV/OPV) 2003-11-08 Completed [facility] of 00:00:00 [facility] MMR 2003-11-08 Completed [facility] 00:00:00 [facility] Varicella 2003-11-08 Completed [facility] (varivax)(chicken 00:00:00 [place] [facility]ox[facility] DTAP 2003-11-08 Completed [facility] 00:00:00 [facility] Polio (IPV/OPV) 2003-11-08 Completed [facility] of 00:00:00 [facility] MMR 2003-11-08 Completed [facility] 00:00:00 [facility] Varicella 2003-11-08 Completed [facility] (varivax)(chicken 00:00:00 [place] [facility] DTAP 2003-11-08 Completed [facility] 00:00:00 [facility] Polio (IPV/OPV) 2003-11-08 Completed [facility] 00:00:00 [facility] MMR 2003-11-08 Completed [facility] 00:00:00 [facility] Varicella 2003-11-08 Completed [facility] (varivax)(chicken 00:00:00 [place] [facility] DTAP 2003-11-08 Completed [facility] 00:00:00 [facility] Polio (IPV/OPV) 2003-11-08 Completed [facility] 00:00:00 [facility] MMR 2003-11-08 Completed [facility] 00:00:00 [facility] Varicella 2003-11-08 Completed [facility] (varivax)(chicken 00:00:00 [place] [facility] DTAP 2003-11-08 Completed [facility] 00:00:00 [facility] Polio (IPV/OPV) 2003-11-08 Completed [facility] of 00:00:00 [facility] MMR 2003-11-08 Completed [facility] 00:00:00 [facility] Varicella 2003-11-08 Completed [facility] (varivax)(chicken 00:00:00 [place] [facility] pox) [facility] DTAP 2003-11-08 Completed [facility] 00:00:00 [facility] Polio (IPV/OPV) 2003-11-08 Completed [facility] 00:00:00 [facility] MMR 2003-11-08 Completed [facility] 00:00:00 [facility] Vital Signs Vital Name Observation Time Observation Value Comments Source Systolic blood 2022-02-28 20:14:00 118 mm[Hg] Univer [facility]ity of pressure [facility] Diastolic blood 2022-02-28 20:14:00 70 mm[Hg] Unive rsity of pressure [facility] Heart rate 2022-02-28 20:14:00 88 /min [facility] Body temperature 2022-02-28 20:14:00 36.78 Theodora [facility] rate 2022-02-28 20:14:00 17 /min [facility] Oxygen saturation in 2022-02-28 20:14:00 99 /min [facility] of Arterial blood by [facility] Pulse oximetry Branch Body height 2022-02-28 18:39:00 157.5 cm [facility] [place] [facility] Body weight 2022-02-28 18:39:00 51.211 kg [facility] [place] [facility] BMI 2022-02-28 18:39:00 20.65 kg/m2 [facility] [place] [facility] Systolic blood 2021-11-27 14:07:00 126 mm[Hg] [facility]iver [facility] of pressure [facility] Diastolic blood 2021-11-27 14:07:00 83 mm[Hg] [facility]ive [facility] of pressure [facility] Heart rate 2021-11-27 14:07:00 112 /min [facility] [place] [facility] Body temperature 2021-11-27 14:07:00 36.78 Theodora [facility] [place] [facility] Respiratory rate 2021-11-27 14:07:00 18 /min [facility] [place] [facility] Body height 2021-11-27 14:07:00 157.5 cm [facility] Body weight 2021-11-27 14:07:00 49.896 kg [facility] [place] [facility] BMI 2021-11-27 14:07:00 20.12 kg/m2 [facility] Oxygen saturation in 2021-11-27 14:07:00 100 /min [facility] Arterial blood by [facility] Pulse oximetry Branch Systolic blood 2021-08-10 13:57:00 122 mm[Hg] [facility]iver [facility] of pressure [facility] Diastolic blood 2021-08-10 13:57:00 91 mm[Hg] [facility]ive rs[facility] of pressure [facility] Heart rate 2021-08-10 13:57:00 78 /min [facility] Body temperature 2021-08-10 13:57:00 36.44 Theodora [facility] Respiratory rate 2021-08-10 13:57:00 14 /min [facility] Body weight 2021-08-10 13:57:00 49.896 kg [facility] [place] [facility] BMI 2021-08-10 13:57:00 20.12 kg/m2 [facility] [place] [facility] Oxygen saturation in 2021-08-10 13:57:00 100 /min [facility] Arterial blood by [facility] Pulse oximetry Branch Systolic blood 2021-03-07 18:19:00 107 mm[Hg] [facility]iver [facility] of pressure [facility] Diastolic blood 2021-03-07 18:19:00 59 mm[Hg] [facility]ive [facility] of pressure [facility] Heart rate 2021-03-07 18:19:00 80 /min [facility] [place] [facility] Body height 2021-03-07 18:19:00 157.5 cm [facility] Body weight 2021-03-07 18:19:00 46.131 kg [facility] [place] [facility] BMI 2021-03-07 18:19:00 18.60 kg/m2 [facility] [place] [facility] Systolic blood 2020-10-28 00:37:23 107 mm[Hg] [facility] pressure [facility] Diastolic blood 2020-10-28 00:37:23 51 mm[Hg] [facility] pressure [facility] Heart rate 2020-10-28 00:37:23 98 /min [facility] Body temperature 2020-10-28 00:37:23 36.67 Theodora [facility] [place] [facility] Respiratory rate 2020-10-28 00:37:23 18 /min [facility] [place] [facility] Oxygen saturation in 2020-10-28 00:37:23 100 /min [facility] Arterial blood by [facility] Pulse oximetry Branch Body height 2020-10-27 22:58:00 157.5 cm [facility] [place] [facility] Body weight 2020-10-27 22:58:00 45.36 kg [facility] BMI 2020-10-27 22:58:00 18.29 kg/m2 [facility] Systolic blood 2020-06-18 19:51:00 127 mm[Hg] [facility] Diastolic blood 2020-06-18 19:51:00 74 mm[Hg] [facility] Heart rate 2020-06-18 19:51:00 77 /min [facility] Respiratory rate 2020-06-18 19:51:00 20 /min [facility] Body weight 2020-06-18 19:51:00 46.993 kg [facility] Systolic blood 2019-08-05 00:00:25 96 mm[Hg] [facility] pressure [facility] Diastolic blood 2019-08-05 00:00:25 43 mm[Hg] [facility] of pressure [facility] Heart rate 2019-08-05 00:00:25 90 /min [facility] Body temperature 2019-08-05 00:00:25 36.78 Theodora [facility] of [facility] Respiratory rate 2019-08-05 00:00:25 16 /min Univ ersity of [facility] Oxygen saturation in 2019-08-05 00:00:25 99 /min [facility] Arterial blood by [facility] Pulse oximetry Branch Body weight 2019-08-04 19:28:00 48.988 kg [facility]i [facility] of [facility] Systolic blood 2019-07-14 18:50:00 106 mm[Hg] Univer sity of pressure [facility] Diastolic blood 2019-07-14 18:50:00 72 mm[Hg] Unive rsity of pressure [facility] Heart rate 2019-07-14 18:50:00 68 /min [facility] Body height 2019-07-14 18:50:00 157.5 cm [facility] Body weight 2019-07-14 18:50:00 48.988 kg [facility] [place] [facility] BMI 2019-07-14 18:50:00 19.75 kg/m2 [facility] Systolic blood 2019-07-11 18:08:00 116 mm[Hg] Univer sity of pressure [facility] Diastolic blood 2019-07-11 18:08:00 74 mm[Hg] Unive rsity of pressure [facility] Heart rate 2019-07-11 18:08:00 74 /min [facility] [place] [facility] Body height 2019-07-11 18:08:00 157.5 cm [facility] Body weight 2019-07-11 18:08:00 48.988 kg [facility] BMI 2019-07-11 18:08:00 19.75 kg/m2 [facility] Procedures Procedure Date / Time Performing Clinician Source Performed POCT TEST 2022-02-28 19:26:00 Dellis, Patricia [facility] TOTAL BETA HCG ASSAY 2022-02-28 19:02:00 [facility] 2022-02-28 19:02:00 Patricia Schaefer [facility] COVID-19 (ID NOW RAPID 2021-11-27 15:13:00 Jesús Velarde [facility] TESTING) Medical Branch ASSIGNMENT OF BENEFITS 2021-11-27 14:04:45 Doctor Unassigned, No [facility] CONSENT/REFUSAL FOR 2021-11-27 14:03:55 [facility] CONSENT/REFUSAL FOR 2021-08-10 13:53:36 [facility] ASSIGNMENT OF BENEFITS 2021-03-07 18:13:31 Doctor Unassigned, No [facility] XR CHEST 1 VW 2020-10-27 23:57:22 Lois [facility] POCT TEST 2020-10-27 23:34:[address] [facility] GALV/CLC ONLY - URINE 2020-10-27 23:33:00 Lois Trujillo [facility] DRUG (IMMUNOASSAY) - [facility] PANEL URINALYSIS 2020-10-27 23:33:00 Lois Trujillo [facility] TROPONIN I 2020-10-27 23:04:00 Lois Trujillo [facility] acute hospital HEPATIC FUNCTION PANEL 2020-10-27 23:04:00 Lois Trujillo Un [facility] ([id number]) (ALB,T.PRO,BILI Medical Branch T,BU/BC,ALT,AST,ALK PHOS) BASIC METABOLIC PANEL 2020-10-27 23:04:00 Lois Trujillo [facility] (NA, K, CL, CO2, Medical Branch GLUCOSE, BUN, CREATININE, CA) ETHANOL 2020-10-27 23:04:00 Lois Trujillo [facility] CBC WITH DIFF 2020-10-27 23:04:00 Lois Trujillo [facility] CT ABDOMEN PELVIS W 2019-08-04 22:10:00 Oswald Joe [facility] [place] CONTRAST [facility] Branch LIPASE 2019-08-04 20:59:00 Aura Enriquez [facility] COMP. METABOLIC PANEL 2019-08-04 20:59:00 Aura Enriquez [facility] ([id number]) [facility] CBC WITH DIFFERENTIAL 2019-08-04 20:59:00 Aura Enriquez Uni [facility] URINALYSIS 2019-08-04 20:59:00 Aura Enriquez [facility] LACTIC ACID WHOLE BLOOD 2019-08-04 20:59:00 [facility] 2019-08-04 20:52:[address] [facility] CONSENT/REFUSAL FOR 2019-08-04 19:13:03 Doctor Unassigned, No Un [facility] DIAGNOSIS AND TREATMENT [facility] POCT TEST 2019-07-14 00:00:00 Sean [facility] ASSIGNMENT OF BENEFITS 2019-07-11 17:41:02 Doctor Unassigned, No [facility] Encounters Start End Encounter Admission Attending Care Care Encounter Source Date/Time Date/Time Type Type Clinicians Facility Department ID 2021-09-29 Emergency [facility] [id number] Univers 22:04:14 ity [facility] 2021-09-27 Emergency [facility] [id number] [facility] 2022-11-06 Telephone Prisca Carreno [facility] 1.2.840.114 [id number] Univers 00:00:00 00:00:00 HEALTH 350.1.13.10 it y of SPECIALTY 4.2.7.2.686 [place] [id number] [place] [address] Branch 2022-07-06 2022-07-06 Emergency EM JazzyKAREN louie TERS [id number] [facility] 06:02:00 11:14:[address] [place] [address] 2022-02-28 2022-02-28 Emergency X DELLIS, [facility] ERT [id number] Univers 13:41:00 15:16:00 PATRICIA [facility] 2022-02-28 2022-02-28 [facility] [id number] Univers 13:41:00 15:16:00 [facility] 350.1.13.10 it y of [place] PREM 4.2.7.2.686 [facility] [phone] [address] ([facility]) 2022-02-26 2022-02-26 Telephone [place], UNIVERSIT 1.2.840.11 [id number] Univers 00:00:00 00:00:00 [employer] 350.1.13.10 i ty of CLINICS 4.2.7.2.686 [facility] [id number] [address] 2021-11-27 2021-11-27 Emergency [facility] [id number] Univers 08:10:00 09:55:00 JESÚS [facility] 2021-11-27 2021-11-27 Emergency [facility] 1.2.840.114 [id number] Univers 08:10:00 09:55:00 [facility] 350.1.13.10 it y of LEDC 4.2.7.2.[address] [place] [phone] ([facility]) 2021-08-10 2021-08-10 Emergency [facility] 1.2.840.114 [id number] Univers 08:58:00 09:51:00 Cindy Swartz 350.1.13.10 ity of [place] 4.2.7.2.[address] [place] [phone] 2021-03-19 2021-03-19 Telephone [place], UNIVERSIT 1.2.840.11 [id number] Univers 00:00:00 00:00:00 [employer] 350.1.13.10 i ty of CLINICS 4.2.7.2.686 [facility] [id number] [address] 2021-03-07 2021-03-07 Office [place], UNIVERSIT 1.2.840.114 [id number] Univers 13:13:43 13:41:30 Visit Sean MCMANUS 350.1.13.10 i ty [place] [id number] [address] 2021-03-07 2021-03-07 Outpatient R [facility] [id number] Univers 13:00:00 13:00:00 SEAN joe [facility] 2021-03-07 2021-03-07 Orders Doctor JELENA 1.2.840.114 [id number] Univers 00:00:00 00:00:00 Only Unassigned, ZANE 350.1.13.10 ity of [place] [facility] 4.2.7.2.686 Dilan [place] [phone] [place] [address] Branch 2020-10-27 2020-10-27 Emergency [facility] 1.2.840.114 [id number] Univers 16:57:00 18:51:00 [facility] 350.1.13.10 i ty [place].2.[place] [phone] [facility] 014 Branch ([facility]) 2020-06-18 2020-06-18 Office [place], UNIVERSIT 1.2.840.114 [id number] Univers 14:39:30 14:54:30 Visit Sean MCMANUS 350.1.13.10 i ty [place] [id number] [address] 2020-06-18 2020-06-18 Outpatient [facility] [id number] Univers 14:30:00 14:30:00 SEAN joe [facility] 2020-06-18 2020-06-18 Patient [place], UN[facility] 1.2.840.114 [id number] Univers 00:00:00 00:00:00 Secure Msg Sean Duarte HEALTH 350.1.13.10 ity [place] [id number] [address] 2019-12-19 2019-12-19 Patient [place], [facility]ERS[facility] 1.2.840.114 [id number] Univers 00:00:00 00:00:00 Secure Msg Sean MCMANUS 350.1.13.10 ity of CL[place]ICS 4[place] [id number] [place] [address]16905 [place] 2019-08-04 2019-08-04 Emergency Burns, [facility] 1.2.242.847 [id number] Univers 14:29:39 19:31:00 [facility] 350.1.13.10 it y [place].[address] [place] [facility] [phone] [address] ([facility]) 2019-07-14 2019-07-24 Office [facility] 1.2.840.114 [id number] Univers 13:28:27 11:58:56 Visit Sean MCMANUS 350.1.13.10 i ty [place] CL[place] [id number] [address] 2019-07-12 2019-07-12 Patient Doctor JELENA 1.2.840.114 [id number] Univers 00:00:00 00:00:00 Secure Msg Unassigned, ZANE 350.1.13.10 ity of [place] [facility] 4.2.7.2.686 [place] [id number] [address] 2019-07-11 2019-07-11 Office [facility] 1.2.840.114 [id number] Univers 12:43:28 13:56:39 Visit Sean Duarte [facility] 350.1.13.10 i ty of CL[place] [id number] [address] 2019-07-11 2019-07-11 Orders Doctor JELENA 1.2.840.114 [id number] Univers 00:00:00 00:00:00 Only Unassigned, ZANE 350.1.13.10 ity of [place] [facility] 4.2.7.2.686 [place] [phone] [address] Results Test Description Test Time Test [...] YEASTUBD) TRACE /HPF NONE DRUGS OF ABUSE [id number] 06:53:00 Test Item Value Reference Range Interpretation [...] OK? 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 [facility] UA PH DIPSTIC POC (test 5 5.0-7.0 N code = PHUP) UA PROTEIN DIPSTICK POC 3+ NEGATIVE A (test code = DPROUP) UA UROBILINIOGEN QUAL 1+ 0.2-1.0 A (test code = UROQL) UA NITRITE DIPSTICK POC NEGATIVE Negative (test code = NITUP) UA LEUKOCYTE ESTERASE W TRACE NEGATIVE A REFLEX (test code = LEUUR) - XR ANKLE 3 + V [id number] 00:00:00 [facility] 2000 Sex: F FAX:Terrence Rodriguez DO [phone] [place]: St: REG FAX: Saul Chapman [phone] Name: LIZA SMITH [place] FSED : 2000 Age/S: 22/F Unit #: [id number] Loc: [place], [place] Phys: Saul Chapman Acct: [id number] Dis Date: Status: REG ER PHONE #: Exam Date: 07/06/2022728 FAX #: Reason: left ankle pain/swelling EXAMS: CPT CODE: [id number] XR ANKLE 3 + [place] LT [address] PROCEDURE INFORMATION: Exam: XR Left Ankle Exam [...] PAGE 1 Signed Report- CT C-SPINE W/O [id number] 00:00:00 [facility] : 2000 Sex: F Name: LIZA SMITH [place] [facility] : 2000 Age/S: 22 / F Unit #: [id number] Loc: [place], [place] Phys: Terrence Rodriguez DO Acct: [id number] Dis Date: Status: REG ER PHONE #: Exam Date: FAX #: Reason: Head trauma EXAMS: CPT CODE: [id number] CT C-SPINE W/O CONT 29936 PROCEDURE INFORMATION: Exam: CT Cervical Spine Without [...] PAGE 1 Signed Report- CT HEAD/BRAIN W/O [id number] 00:00:00[facility] : 2000 Sex: F Name: LIZA SMITH [place] : 2000 Age/S: 22 / F Unit #: [id number] Loc: [place] SdPhys: Terrence Rodriguez DO Acct: [id number] Dis Date: Status: REG ER PHONE #: Exam Date: FAX #: Reason: Head trauma EXAMS: CPT CODE: [id number] CT HEAD/BRAIN W/O CONT 19419 PROCEDURE INFORMATION: Exam: CT Head Without Contrast [...] [Automated m essage] code = The system [employer] [id number]) generated this result transmit so reference range : Non- fe male and male patien ts: <5 mIU/mL. The reference range was not used to interpret this result as normal/abnormal . NELL (test code Gestational Age ? ? = NELL) ?Range (mIU/mL) 1-10 ?Weeks ?58-03765506-14 Weeks ?46515-39005170-29 Weeks ?3424-10658503-09 Weeks ?1531-242076 Biotin has been reported to cause a negative bias, interpret results relative to patient's use of biotin. [facility] [id number] 19:26:00 Test Item Value Reference Range Interpretation Comments POCT PREG (test code = 1605) NEGATIVE On board controls acceptable with C PRESENT Line (test code = 3574) Lab Interpretation (test code = Normal 17570-2) [facility] 1 [id number] 00:15:10CHEST X-RAY AP PORTABLE 10/27/2020 6:14 PM Ordering physician: LOIS TRUJILLO CLINICAL INFORMATION: ?Chest pain COMPARISON: None TECHNIQUE: ?single AP view of the chest was submitted. FINDINGS: ? The lung mathias are clear. ?No pleural effusions. ?No pneumothorax. ?Thecardiomediastinal silhouette iswithin normal limits. ?No acuteradiographic bony abnormalities. CONCLUSION: ? 1. ?No radiographic evidence to acute cardiopulmonary disease. RL: 7423 AFC: 24224 [facility], Radiant Results Inft User - 10/27/2020 6:16 PM CSTCHEST X-RAY AP QPSDZCIU12/29/2020 6:14 PMOrdering physician: LOIS TRUJILLO CLINICAL INFORMATION: Chest painCOMPARISON: NoneTECHNIQUE: single AP view of the chest was submitted.FINDINGS: The lung mathias are clear. No pleural effusions. No pneumothorax. Thecardiomediastinal silhouette is within normal limits. No acuteradiographic bony abnormalities.CONCLUSION: 1. No radiographic evidence to acute cardiopulmonary disease.RL: 7423AFC: 38184Vemooyfotuszix signed by Julio C Smith MD at 10/27/2020 6:15 PMUnLubbock Heart & Surgical HospitalDrug Screen ER 2020-10-28 00:02:00 Test Item Value Reference Range Interpretation Comments AMPHET (test code = Negative Negative 9873775235) Cocaine Metabolite (test Negative Negative code = 3455015946) OPIATES (test code = Negative Negative 9713480282) THC (test code = Presumptive Positive Negative A 1496417414) NELL (test code = NELL) Urine Drug Cutoff Ranges Amphetamine: ? 1,000 ng/mLCocaine: ? 150 ng/mLOpiates: ? 300 ng/mLCannabinoids: ?50 ng/mL The results are to be used only for medical (i.e., treatment) purposes. Unconfirmed screening results must not be used for non-medical purposes (e.g., employment testing, legal testing). Lab Interpretation (test Abnormal code = 49281-2) [facility] HospitalUrinalysis2020-11-29 23:45:00 Test Item Value Reference Range Interpretation Comments APPEARANCE (test code = Clear Clear 9621908074) COLOR (test code = Yellow Yellow 8638807153) PH (test code = 4.8-8.0 4407248122) SP GRAVITY (test code = 1.003-1.030 2536680245) GLU U QUAL (test code = Normal Normal 0409044252) BLOOD (test code = Negative Negative 0258343432) KETONES (test code = 5 mg/dL Negative A 9851841610) PROTEIN (test code = 30 mg/dL Negative A 2887-8) UROBILIN (test code = 4.0 mg/dL Normal A 8738982974) BILIRUBIN (test code = Negative Negative 1491157178) NITRITE (test code = Negative Negative 3349172640) LEUK DARCY (test code = 25/uL Negative A 6612990798) RBC/HPF (test code = See_Comment [Autom ated message] 9548647587) The system [employer] generated this result transmit so reference range : 0 - 3 HPF. The refe rence range was not u sed to interpret th is result as normal/abnormal . WBC/HPF (test code = See_Comment H [Autom ated message] 0747171159) The system [employer] generated this result transmit so reference range : 0 - 5 HPF. The refe rence range was not u sed to interpret th is result as normal/abnormal . BACTERIA (test code = Few Negative A 1123610248) MUCOUS (test code = Slight Negative LPF A 0013734165) SQ EPITH (test code = See_Comment H [Auto mated message] 2109262897) The system [employer] generated this result transmit so reference range : <=2 HPF. The refere nce range was not u sed to interpret th is result as normal/abnormal . HYAL CAST (test code = See_Comment [Aut omated message] 7571392297) The system [employer] generated this result transmit so reference range : <=2 LPF. The refere nce range was not u sed to interpret th is result as normal/abnormal . Lab Interpretation (test Abnormal code = 81727-0) [facility] HospitalPOCT [id number] 23:34:00 Test Item Value Reference Range Interpretation Comments On board controls acceptable with negative C Line (test code = 3574) POCT PREG LOT # (test code = 3575) [id number] POCT PREG TEST DATE (test 04/28/2021 code = 3576) Lab Interpretation (test code = Normal 05565-4) [facility] HospitalTroponin [id number] 23:31:00 Test Item Value Reference Range Interpretation Comments TROPONIN I (test 0.002 ng/mL See_Comment [Automated code = 5013707646) message] The system which generated this result [...] ? Lab Interpretation Normal (test code = 75002-8) [facility] HospitalEthanol [id number] 23:21:00 Test Item Value Reference Range Interpretation Comments ALCOHOL (test code = <10 mg/dL 0678974260) NELL (test code = Toxic Greater than or NELL) equal to 80 mg/dL. NOTE: Whole blood values are approximately 10% to 15% lower than serum and plasma. [facility] Metabolic Panel (NA, K, CL, CO2, GLUCOSE, BUN, CREATININE, CA)2020-10-27 23:20:00 Test Item Value Reference Range Interpretation Comments NA (test code = 139 mmol/L 135-145 7512691278) K (test code = 4.2 mmol/L 3.5-5 6543334899) CL (test code = 104 mmol/L 98-108 4012564311) CO2 TOTAL (test code = 26 mmol/L 23-31 3598845563) AGAP (test code = 2-16 2016241720) BUN (test code = 10 mg/dL 7-23 0918463174) GLUCOSE (test code = 93 mg/dL 70-110 9970230939) CREATININE (test code 0.66 mg/dL 0.5-1.04 = 3109017903) CALCIUM (test code = 9.7 mg/dL 8.6-10.6 7456735494) eGFR Calculation mL/min/1.73m2 (Non-) (test code = 9785690649) eGFR Calculation mL/min/1.73m2 () (test code = 1619422136) NELL (test code = NELL) Association of [...] or urine or abnormalities in imaging tests). [facility] HospitalHepatic Function Panel (ALB, T.PRO, BILI T, BU/BC, ALT, AST, ALK PHOS)2020-10-27 23:20:00 Test Item Value Reference Range Interpretation Comments TOTAL BILI (test code = 6113970365) 1.0 mg/dL 0.1-1.1 BILI UNCON (test code = 5404210172) 0.7 mg/dL 0.1-1.1 BILI CONJ (test code = 7528933522) 0.0 mg/dL 0-0.3 T PROTEIN (test code = 3310174279) 7.4 g/dL 6.3-8.2 ALBUMIN (test code = 4339396551) 4.5 g/dL 3.5-5 ALK PHOS (test code = 7224113708) 75 U/L 34-122 ALTv (test code = 1742-6) 13 U/L 5-35 AST(SGOT) (test code = 8985830446) 26 U/L 13-40 Lab Interpretation (test code = Normal 96037-0) [facility] with [id number] 23:09:00 Test Item Value Reference Range Interpretation Comments WBC (test code = See_Comment [Automated 5748-2) message] The sy stem which generated this result transmitted reference range : 4.30 - 11.10 10*3/?L. The reference range was not used to interpret this result as normal/abnormal . RBC (test code = See_Comment [Automated 740-8) message] The sy stem which generated this [...] RDW-SD (test code = 40.7 fL 39-49.9 80706-0) RDW-CV (test code = 12.1 % 12-15.5 788-0) PLT (test code = See_Comment [Automated 777-3) message] The sy stem which generated this result transmitted reference range : 166 - 358 10*3/ ?L. The reference r matthew was not used to interpret this result as normal/abnormal . MPV (test code = 9.3 fL 9.5-12.9 L 55117-1) NRBC/100 WBC (test See_Comment [Automat ed code = 6205688591) message] The system which generated this result transmitted reference range : 0.0 - 10.0 /100 WBCs. The refer ence range was not u sed to interpret th is result as normal/abnormal . NRBC x10^3 (test code <0.01 See_Comment [Auto mated = 3112781704) message] The s ystem which generated this result transmitted reference range : 10*3/?L. The reference range was not used to interpret this result as normal/abnormal . GRAN MAT (NEUT) % 61.6 % (test code = 770-8) IMM GRAN % (test code 0.20 % = 7578762009) LYMPH % (test code = 30.9 % 736-9) MONO % (test code = 6.5 % 5905-5) EOS % (test code = 0.2 % 713-8) BASO % (test code = 0.6 % 706-2) GRAN MAT x10^3(ANC) 3.33 10*3/uL 1.88-7.09 (test code = 9664347270) IMM GRAN x10^3 (test <0.03 0-0.06 code = 5277854664) LYMPH x10^3 (test code 1.67 10*3/uL 1.32-3.29 = 731-0) MONO x10^3 (test code 0.35 10*3/uL 0.33-0.92 = 742-7) EOS x10^3 (test code = <0.03 0.03-0.39 L 711-2) BASO x10^3 (test code 0.03 10*3/uL 0.01-0.07 = 704-7) Lab Interpretation Abnormal (test code = 27130-7) [facility] WITH [id number] 21:35:00 Test Item Value Reference Range Interpretation Comments WBC (test code = See_Comment H [Automated 4690-2) message] The system which generated this result [...] RDW-SD (test code = 40.8 fL 39-49.9 61872-4) RDW-CV (test code = 12.3 % 12-15.5 788-0) PLT (test code = See_Comment [Automated 777-3) message] The system which generated this result transmit so reference range : 166 - 358 10*3/ ?L. The reference range was not u sed to interpret th is result as normal/abnormal . MPV (test code = 9.4 fL 9.5-12.9 L 49134-4) NRBC/100 WBC (test See_Comment [Automat ed code = 3029786638) message] The system which generated this result transmit so reference range : 0.0 - 10.0 /100 WBCs. The reference range was not used to interpret this result as normal/abnormal . NRBC x10^3 (test code <0.01 See_Comment [Auto mated = 0779952117) message] The system which generated this result transmit so reference range : 10*3/?L. The reference range was not used to interpret this result as normal/abnormal . GRAN MAT (NEUT) % 83.3 % (test code = 770-8) IMM GRAN % (test code 0.60 % = 2801639291) LYMPH % (test code = 6.6 % 736-9) MONO % (test code = 9.4 % 5905-5) EOS % (test code = 0.0 % 713-8) BASO % (test code = 0.1 % 706-2) GRAN MAT x10^3(ANC) 17.29 10*3/uL 1.88-7.09 H (test code = 5577803073) IMM GRAN x10^3 (test 0.12 10*3/uL 0-0.06 H code = 1292139619) LYMPH x10^3 (test code 1.36 10*3/uL 1.32-3.29 = 731-0) MONO x10^3 (test code 1.95 10*3/uL 0.33-0.92 H = 742-7) EOS x10^3 (test code = <0.03 0.03-0.39 L 711-2) BASO x10^3 (test code 0.03 10*3/uL 0.01-0.07 = 704-7) Lab Interpretation Abnormal (test code = 85016-9) [facility] HospitalURINALYSIS2019-09-06 21:33:00 Test Item Value Reference Range Interpretation Comments APPEARANCE (test code = Cloudy Clear A 4965815023) COLOR (test code = Yellow Yellow 7709501829) PH (test code = 4.8-8.0 7057709089) SP GRAVITY (test code = 1.003-1.030 0332518991) GLU U QUAL (test code = Normal Normal 5879215205) BLOOD (test code = 2+ Negative A 9827405520) KETONES (test code = 20 mg/dL Negative A 6510490094) PROTEIN (test code = 30 mg/dL Negative A 2887-8) UROBILIN (test code = Normal Normal 7514849753) BILIRUBIN (test code = Negative Negative 6089410709) NITRITE (test code = Positive Negative A 2948058837) LEUK DARCY (test code = 500/uL Negative A 1350059953) RBC/HPF (test code = See_Comment H [Autom ated message] 7168168489) The system [employer] generated this result transmitted ref erence range: 0 - 3 HP F. The reference range was not used to int erpret this result as normal/abnormal . WBC/HPF (test code = >182 See_Comment H [Autom ated message] 2139030289) The system [employer] generated this result transmitted ref erence range: 0 - 5 HP F. The reference range was not used to int erpret this result as normal/abnormal . BACTERIA (test code = Few Negative A 4167737504) MUCOUS (test code = Slight Negative LPF A 0661001056) AMORPHOUS (test code = Rare Rare HPF 9860169432) SQ EPITH (test code = See_Comment H [Auto mated message] 8332894720) The system [employer] generated this result transmitted ref erence range: <=2 HPF. The reference range was not used to int erpret this result as normal/abnormal . WBC CLUMPS (test code = See_Comment H [Au tomated message] 9126837664) The system [employer] generated this result transmitted ref erence range: <=1 HPF. The reference range was not used to int erpret this result as normal/abnormal . Lab Interpretation (test Abnormal code = 41826-1) [facility]. METABOLIC PANEL (40743)2019-08-04 21:26:00 Test Item Value Reference Range Interpretation Comments NA (test code = 135 mmol/L 135-145 4617134663) K (test code = 3.4 mmol/L 3.5-5 L Slight 3559325769) hemolysis CL (test code = 97 mmol/L 98-108 L 6887258786) CO2 TOTAL (test code 23 mmol/L 23-31 = 0360830268) AGAP (test code = 2-16 9652033244) BUN (test code = 9 mg/dL 7-23 Slight 0189379183) hemolysis GLUCOSE (test code = 103 mg/dL 70-110 3157772562) CREATININE (test code 0.77 mg/dL 0.5-1.04 = 8422298026) TOTAL BILI (test code 1.2 mg/dL 0.1-1.1 H = 2898127103) CALCIUM (test code = 9.7 mg/dL 8.6-10.6 3634342185) T PROTEIN (test code 8.1 g/dL 6.3-8.2 = 9641103708) ALBUMIN (test code = 4.5 g/dL 3.5-5 3811875139) ALK PHOS (test code = 100 U/L 34-122 Slight 5823421874) hemolysis ALT(SGPT) (test code 29 U/L 9-51 Slight = 0279150281) hemolysis AST(SGOT) (test code 30 U/L 13-40 Slight = 3999004648) hemolysis eGFR Calculation mL/min/1.73m2 (Non-) (test code = 9552599584) eGFR Calculation mL/min/1.73m2 () (test code = 2690228457) NELL (test code = NELL) Association of [...] tests). Lab Interpretation Abnormal (test code = 08390-8) [facility] HospitalLIPASE2019-09-06 21:26:00 Test Item Value Reference Range Interpretation Comments LIPASE (test code = 3177056036) 24 U/L 0-220 Lab Interpretation (test code = Normal 50629-8) [facility] HospitalLactic Acid Whole [id number] 21:08:00 Test Item Value Reference Range Interpretation Comments LACTIC ACID (test code = 1.24 mmol/L 0.5-2.2 6188830589) Lab Interpretation (test code = Normal 02669-9) [facility] [id number] 20:52:00 Test Item Value Reference Range Interpretation Comments POCT PREG (test code = 1605) Negative On board controls acceptable with C Yes Line (test code = 3574) POCT PREG LOT # (test code = 3575) POCT PREG TEST DATE (test code = 3576) Lab Interpretation (test code = Normal 59335-6) [facility] [id number] 19:33:00 Test Item Value Reference Range Interpretation Comments POCT PREG (test code = 1605) Negative On board controls acceptable with C Yes Line (test code = 3574) POCT PREG LOT # (test code = 3575) POCT PREG TEST DATE (test code = 3576) [facility] [id number] 19:33:00 Test Item Value Reference Range Interpretation Comments POCT PREG (test code = 1605) Negative On board controls acceptable with C Yes Line (test code = 3574) POCT PREG LOT # (test code = 3575) POCT PREG TEST DATE (test code = 3576) [facility] [id number] 19:33:00 Test Item Value Reference Range Interpretation Comments POCT PREG (test code = 1605) Negative On board controls acceptable with C Yes Line (test code = 3574) POCT PREG LOT # (test code = 3575) POCT PREG TEST DATE (test code = 3576) [facility] [id number] 19:33:00 Test Item Value Reference Range Interpretation Comments POCT PREG (test code = 1605) Negative On board controls acceptable with C Yes Line (test code = 3574) POCT PREG LOT # (test code = 3575) POCT PREG TEST DATE (test code = 3576) [facility]
--- NOTE | 2022-12-19 14:08 | RAD REPORT ---
EXAM DESCRIPTION: RAD - Elbow Left 3 View - 12/19/2022 1:59 pm CLINICAL HISTORY: Pain COMPARISON: 12/04/2022 FINDINGS/IMPRESSION: No acute fracture. No malalignment. No significant focal degenerative changes.
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
--- NOTE | 2022-12-19 14:57 | ER ---
Nurse's Notes [facility] Name: Rupa Smith Age: 22 yrs Sex: Female : 2000 Arrival Date: 12/19/2022 Time: 12:31 Bed IW1 Private MD: Diagnosis: Infected hematoma, hematoma, contusion Presentation: 12/19 13:03 Chief complaint: Patient states: Sutures to left elbow and left lateral foot placed \R\2 jl7 weeks ago. Coronavirus screen: At this time, the client does not indicate any symptoms associated with coronavirus-19. Ebola Screen: No symptoms or risks identified at this time. Initial Sepsis Screen: Does the patient meet any 2 criteria? No. Patient's initial sepsis screen is negative. Does the patient have a suspected source of infection? No. Patient's initial sepsis screen is negative. Risk Assessment: Do you want to hurt yourself or someone else? Patient reports no desire to harm self or others. Onset of symptoms was November 2022. 13:03 Method Of Arrival: Ambulatory jl7 13:03 Acuity: SANCHO 4 jl7 Triage Assessment: 13:05 General: Appears in no apparent distress. uncomfortable, Behavior is calm, cooperative, jl7 appropriate for age. Pain: Complains of pain in left elbow Pain currently is 5 out of 10 on a pain scale. 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 - Social history:: Smoking status: Patient reports the use of cigarette tobacco products, cigars. - Family history:: not pertinent. - Hospitalizations: : No recent hospitalization is reported. Screenin:15 [facility] ED Fall Risk Assessment (Adult) History of falling in the last 3 months, jl7 including since admission No falls in past 3 months (0 pts). Abuse screen: Denies threats or abuse. Denies injuries from another. Nutritional screening: No deficits noted. Tuberculosis screening: No symptoms or risk factors identified. Vital Signs: 13:03 BP 120 / 61; Pulse 78; Resp 17; Temp 98.2; Pulse Ox 100% ; Weight 49.9 kg; Height 5 ft. jl7 2 in. (157.48 cm); Pain 5/10; 15:15 BP 120 / 60; Pulse 75; Resp 15; Pulse Ox 100% ; jl7 13:03 Body Mass Index 20.12 (49.90 kg, 157.48 cm) jl7 ED Course: 12:31 Patient arrived in ED. am2 12:40 Jamarcus Giron MD is Attending Physician. rn 13:05 Triage completed. jl7 13:05 Arm band placed on right wrist. jl7 13:19 Ramu Rudd PA is PHCP. cp 14:01 XRAY Elbow LEFT 3 view In Process Unspecified. EDMS 15:15 Patient has correct armband on for positive identification. jl7 15:15 Suture removal. Patient did not have IV access during this emergency room visit. jl7 16:27 Derik Dunn, RN is Primary Nurse. jl7 Administered Medications: No medications were administered Medication: 15:15 VIS not applicable for this client. jl7 Outcome: 14:56 Discharge ordered by . rn 15:15 Discharged to home ambulatory. jl7 15:15 Condition: stable 15:15 Discharge instructions given to patient, Instructed on discharge instructions, follow up and referral plans. medication usage, Demonstrated understanding of instructions, follow-up care, medications, Prescriptions given X 1. 16:29 Patient left the ED. jl7 Signatures: Dispatcher [employer] EDMS Jamarcus Giron MD MD rn Page, Corey, PA PA cp Leal, Jahala, RN RN jl7 Kadie Bobby am2
[2022-12-19 17:04] VITALS: TEMP 98.2; O2SAT 100
[2022-12-19 17:08] VITALS: BP 120/60
== END 2022-12-19 16:29 | disposition home or self-care (01) ==
LOC: ER 12:25
DX: S50.02XA Contusion of left elbow, initial encounter (principal); F17.290 Nicotine dependence, other tobacco product, uncomplicated
CPT/HCPCS: 99283

== ENCOUNTER 2023-01-14 15:34 | Emergency (ER) | payer BC ==
--- OUTSIDE RECORDS SUMMARY | 2023-01-14 15:41 | XMS REPORT | Continuity of Care Document ---
:2000 Author Organization [facility] t Address [address] [place] [address] Care Team Providers Name Role Phone Pcp, Patient Does Not Have A Primary Care Physician [phone] Prisca Carreno MD Attending Clinician Saul Chapman Attending Clinician Unavailable PATRICIA SCHAEFER Attending Clinician Unavailable Patricia Schaefer MD Attending Clinician Sean Hancock MD Attending Clinician JESÚS VELARDE Attending Clinician Unavailable Jesús Vealrde MD Attending Clinician Cindy Hammond DO Attending Clinician SEAN HANCOCK Attending Clinician Unavailable Doctor Unassigned, [place] Attending Clinician Unavailable Lois Melara Attending Clinician Oswald Tee Attending Clinician Physician, No Primary or Family Admitting Clinician Unavaila ble Payers Payer Name Policy Type Policy Number Effective Date Expiration Date S vipul MCKEON [facility] [id number] 2020 00:00:00 [employer] [facility] CARE [id number] 2016 00:00:00 Problems Condition Condition Condition Status Onset Resolution Last Treating Co mments Source Name Details Category Date Date Treatment Clinician Date Hepatitis Hepatitis Disease Active Overview: Univers C antibody C antibody 8- Formattin ity of test test 00:00: g of this [place] positive positive 00 note Medica l might [...] ity o f carrier carrier 00:00: of [facility] [place] [facility] state 00 delivery Medical has not Branch [...] Active Univers from from 7-22 ity of [place] - [place] - 00:00: [place] no history no history 00 Me dical known known Branch Allergies, Adverse Reactions, Alerts Allergy Allergy Status Severity Reaction(s) Onset Inactive Treating Comm ents Source Name Type Date Date Clinician No Known DA Active U 2005-11 [facility] Contrast - Clear Allergie 00:00: Liang s 00 [facility] No Known DA Active U 2005-11 [facility] Drug 12-09 Clear Allergie 00:00: Liang s 00 [facility] No Known DA Active U 2005-11 [facility] Food 12-09 Clear Allergie 00:00: Liang s 00 [facility] No Known DA Active U 2005-11 [facility] Other 12-09 Clear Allergie 00:00: Liang s 00 [facility] NO KNOWN Drug Active Univers ALLERGIE Class ity of S [facility] Social History Social Habit Start Date Stop Date Quantity Comments Source Exposure to Not sure [facility] SARS-CoV-2 [facility] [place] (event) [place] Alcohol intake 2022-02-28 2022-02-28 0 /d University 00:00:00 00:00:00 [facility] Tobacco use and 2012-06-16 2012-06-16 Smokeless tobacco Un iversity of exposure 00:00:00 00:00:00 non-user [facility] Sex Assigned At [birth year] Universit y of 00:00:00 00:00:00 [facility] Smoking Status Start Date Stop Date Source Never smoked tobacco [facility] Medications Ordered Filled Start Stop Current Ordering Indication Dosage Frequency Signature Comments Components Source Medication Medication Date Date Medication? Clinician (SIG) Name Name phenazopyri Yes [id number] 200mg Take 1 Univers dine 200 mg 4-02 tablet by ity of tablet 00:00: mouth 3 00 (three) Medical times Branch daily. ibuprofen Yes [id number] 400mg Take 2 Univers (MOTRIN IB) 4-02 tablets by it y of 200 mg 00:00: mouth [place] tablet 00 every 8 Medical (eight) Branch hours as needed for Pain (scale 1-3) for up to 30 doses. phenazopyri Yes [id number] 200mg Take 1 Univers dine 200 mg 4-02 tablet by ity of tablet 00:00: mouth 3 00 (three) Medical times Branch daily. ibuprofen Yes [id number] 400mg Take 2 Univers (MOTRIN IB) 4-02 tablets by it y of 200 mg 00:00: mouth [place] tablet 00 every 8 Medical (eight) Branch hours as needed for Pain (scale 1-3) for up to 30 doses. phenazopyri Yes [id number] 200mg Take 1 Univers dine 200 mg 4-02 tablet by ity of tablet 00:00: mouth 3 [place] 00 (three) Medical times Branch daily. ibuprofen Yes [id number] 400mg Take 2 Univers (MOTRIN IB) 4-02 tablets by it y of 200 mg 00:00: mouth [place] tablet 00 every 8 Medical (eight) Branch hours as needed for Pain (scale 1-3) for up to 30 doses. cephALEXin 2021- No [id number] 500mg Take 1 Univers (KEFLEX) 4-02 -13 [...] Medical Eli Branch 11/27/21 at 1015, Routine
membership director approving Restricted medication : JESÚS VELARDE erythromyci Yes [id number] .5[in_u Place 0.5 Univers n 5 mg/gram 9 [id number] s] Inches in i ty of (0.5 %) 00:00: right eye [place] ophthalmic 00 at Medical ointment bedtime. Branch Continue until you follow up with eye doctor. erythromyci Yes [id number] .5[in_u Place 0.5 Univers n 5 mg/gram 912 [id number] s] Inches in i ty of (0.5 %) 00:00: right eye [place] ophthalmic 00 at Medical ointment bedtime. Branch Continue until you follow up with eye doctor. erythromyci Yes [id number] .5[in_u Place 0.5 Univers n 5 mg/gram 912 [id number] s] Inches in i ty of (0.5 %) 00:00: right eye [place] ophthalmic 00 at Medical ointment bedtime. Branch Continue until you follow up with eye doctor. erythromyci Yes [id number] .5[in_u Place 0.5 Univers n 5 mg/gram 9-12 011080 s] Inches in i ty of (0.5 %) 00:00: right eye [place] ophthalmic 00 at Medical ointment bedtime. Branch Continue until you follow up with eye doctor. erythromyci Yes [id number] .5[in_u Place 0.5 Univers n 5 mg/gram 9-12 [id number] s] Inches in i ty of (0.5 %) 00:00: right eye [place] ophthalmic 00 at Medical ointment bedtime. Branch Continue until you follow up with eye doctor. erythromyci Yes [id number] .5[in_u Place 0.5 Univers n 5 mg/gram 9-12 [id number] s] Inches in i ty of (0.5 %) 00:00: right eye [place] ophthalmic 00 at Medical ointment bedtime. Branch Continue until you follow up with eye doctor. erythromyci Yes [id number] .5[in_u Place 0.5 Univers n 5 mg/gram 9-12 [id number] s] Inches in i ty of (0.5 %) 00:00: right eye [place] ophthalmic 00 at Medical ointment bedtime. Branch Continue until you follow up with eye doctor. cefTRIAXone 2019-11- No 1000mg 1,000 mg, Univers (ROCEPHIN) 12-28 11-30 IV ity of 1,000 mg in 01:00: 00:27 [place], [place] NaCl 0.9% 00 :00 ONCE, 1 Medical (NS) 50 mL dose, [facility] MINI-BAG 10/27/20 at 1900, 50 mL
Reas on for Anti-Infec tive: Documented Infection< br>Documen so Infection Site: Urine
D uration of Therapy: 7 days ciprofloxac 2019-11 2020- No [id number] 500mg Take 1 Univers in HCl 500 12-27 12-10 tablet by ity of mg tablet 00:00: 05:59 [place] 2 [place] :[place] (two) Medical times Branch daily for 10 days. cefTRIAXone 2019-0 2019- No 1000mg 1,000 mg, Univers (ROCEPHIN) 08-04 IV ity of 1,000 mg in 23:15: 23:27 [place], [place] NaCl 0.9% 00 :00 ONCE, 1 Medical [...] dose, Fri Branch 08/04/19 at 1700, Routine
membership director approving Restricted medication : OSWALD JOE acetaminoph [...] 08/04/19 at 1615, STAT ondansetron 2019-0 Yes [id number] 4mg Take 1 Univers (ZOFRAN 9-06 tablet by ity of ODT) 4 mg 00:00: mouth [place] disintegrat 00 every 8 Medic al ing tablet (eight) Branch hours as needed for Nausea and Vomiting (N/V). ibuprofen 2019-0 Yes [id number] 600mg Take 1 U nivers 600 mg 9-06 tablet by ity of tablet 00:00: mouth [place] 00 every 6 Medical (six) Branch hours as needed for Pain (scale 1-3). ondansetron 2019-0 Yes [id number] 4mg Take 1 Univers (ZOFRAN 9-06 tablet by ity of ODT) 4 mg 00:00: mouth [place] disintegrat 00 every 8 Medic al ing tablet (eight) Branch hours as needed for Nausea and Vomiting (N/V). ibuprofen 2019-0 Yes [id number] 600mg Take 1 U nivers 600 mg 9-06 tablet by ity of tablet 00:00: mouth [place] 00 every 6 Medical (six) Branch hours as needed for Pain (scale 1-3). ondansetron 2019-0 Yes [id number] 4mg Take 1 Univers (ZOFRAN 9-06 tablet by ity of ODT) 4 mg 00:00: mouth [place] disintegrat 00 every 8 Medic al ing tablet (eight) Branch hours as needed for Nausea and Vomiting (N/V). ibuprofen 2019-0 Yes [id number] 600mg Take 1 U nivers 600 mg 9-06 tablet by ity of tablet 00:00: mouth [place] 00 every 6 Medical (six) Branch hours as needed for Pain (scale 1-3). ondansetron 2019-0 Yes [id number] 4mg Take 1 Univers (ZOFRAN 9-06 tablet by ity of ODT) 4 mg 00:00: mouth [place] disintegrat 00 every 8 Medic al ing tablet (eight) Branch hours as needed for Nausea and Vomiting (N/V). ibuprofen 2019-0 Yes [id number] 600mg Take 1 U nivers 600 mg 9-06 tablet by ity of tablet 00:00: mouth [place] 00 every 6 Medical (six) Branch hours as needed for Pain (scale 1-3). ondansetron Yes [id number] 4mg Take 1 Univers (ZOFRAN 08-04 tablet by ity of ODT) 4 mg 00:00: mouth [place] disintegrat 00 every 8 Medic al ing tablet (eight) Branch hours as needed for Nausea and Vomiting (N/V). ibuprofen Yes [id number] 600mg Take 1 U nivers 600 mg - tablet by ity of tablet 00:00: mouth [place] 00 every 6 Medical (six) Branch hours as needed for Pain (scale 1-3). ondansetron 2019- No [id number] 4mg Take 1 Univers (ZOFRAN 08-04 tablet by ity of ODT) 4 mg 00:00: 00:00 mouth [place] disintegrat 00 :00 every 8 Medic al ing tablet (eight) Branch hours as needed for Nausea and Vomiting (N/V). ibuprofen 2019- No [id number] 600mg Take 1 Univers 600 mg 08-04 tablet by ity of tablet 00:00: 00:00 mouth [place] 00 :00 every 6 Medical (six) Branch hours as needed for Pain (scale 1-3). cefpodoxime 2018- No [id number] 100mg Take 1 Univers 100 mg 08-04 tablet by ity of tablet 00:00: 04:59 mouth 2 [place] 00 :00 (two) Medical times Branch daily for 7 days. levonorgest 2019- No 1{devic Un kristopher rel 07-14 e} ity of (MIRENA) 20:30: 19:27 [place] IUD 1 00 :00 Teaching Assistant Branch ibuprofen 2019- No 600mg Univer s [...] as IUD 1 00 :00 1 dose, Teaching Assistant [facility] 07/14/19 at 1530, Routine levonorgest 2018- 2019- No 1{devic Un kristopher rel 07-1416 e} ity of (MIRENA) 20:30: 19:27 [place] IUD 1 00 :00 Teaching Assistant Branch ibuprofen 2019- No 600mg Univer s (IBU) 07-14 ity of tablet 600 20:30: 19:26 [place] mg 00 :00 Medical Branch ibuprofen 2018- No 600mg 600 mg, Uni vers (IBU) 07-14 Oral, ity of tablet 600 20:30: 19:26 ONCE, 1 [place]an as mg 00 :00 dose, [facility] 07/14/19 at Branch 1530, Routine levonorgest 2019- No 1{devic 1 Device, Univers rel 07-14 e} Intrauteri ity of (MIRENA) 20:30: 19:27 ne, ONCE, Dilan as IUD 1 00 :00 1 dose, Teaching Assistant [facility] 07/14/19 at 1530, Routine levonorgest 2019- No 1{devic Un kristopher rel 07-14 e} ity of (MIRENA) 20:30: 19:27 [place] IUD 1 00 :00 Teaching Assistant Branch ibuprofen 2018- No 600mg Univer s (IBU) 07-14 ity of tablet 600 20:30: 19:26 [place] mg 00 :00 Medical Branch ibuprofen 2018- 2019- No 600mg 600 mg, Uni vers (IBU) 07-14 Oral, ity of tablet 600 20:30: 19:26 ONCE, 1 Dilan as mg 00 :00 dose, [facility] 07/14/19 at Branch 1530, Routine levonorgest 2018- 2019- No 1{devic 1 Device, Univers rel 07-1416 e} Intrauteri ity of (MIRENA) 20:30: 19:27 ne, ONCE, Dilan as IUD 1 00 :00 1 dose, Teaching Assistant Fri Branch 07/14/19 at 1530, Routine levonorgest 2019- No 1{devic Un kristopher rel 07-14 e} ity of (MIRENA) 20:30: 19:27 [place] IUD 1 00 :00 Teaching Assistant Branch ibuprofen 2018- No 600mg Univer s [...] as IUD 1 00 :00 1 dose, Teaching Assistant Fri Branch 07/14/19 at 1530, Routine metroNIDAZO 2019- No [id number] 500mg Take 1 Univers LE (FLAGYL) 07-1424 tablet by it y of 500 mg 00:00: 04:59 mouth 2 [place] tablet 00 :00 (two) Medical times [place] daily for 7 days. metroNIDAZO 2019- No [id number] 500mg Take 1 Univers LE (FLAGYL) 07-1424 tablet by it y of 500 mg 00:00: 04:59 mouth 2 [place] tablet 00 :00 (two) Medical times [place] daily for 7 days. metroNIDAZO 2019- No [id number] 500mg Take 1 Univers LE (FLAGYL) 07-14-24 tablet by it y of 500 mg 00:00: 04:59 mouth 2 [place] tablet 00 :00 (two) Medical times [place] daily for 7 days. metroNIDAZO 2019- No [id number] 500mg Take 1 Univers LE (FLAGYL) 07-14 08-24 tablet by it y of 500 mg 00:00: 04:59 mouth 2 [place] tablet 00 :00 (two) Medical times [place] daily for 7 days. No known No Univers medications ity of [facility] No known No Univers medications ity of [facility] [place] Branch No known No Univers medications ity of [facility] No known No Univers medications ity of [facility] No known No Univers medications ity of [facility] [place] Branch No known No Univers medications ity of [facility] [place] Branch No known No Univers medications ity of [facility] No known No Univers medications ity of [facility] Immunizations Ordered Immunization Filled Immunization Date Status Commen ts Source Name Name [facility] 2018-06-27 Completed University of 00:00:00 [facility] [place] Branch HPV9 2018-06-27 Completed University of 00:00:00 [facility] [place] Branch HPV9 2018-06-27 Completed University of 00:00:00 [facility] [place] Branch HPV9 2018-06-27 Completed University of 00:00:00 [facility] [place] Branch HPV9 2018-06-27 Completed University of 00:00:00 [facility] [place] Branch HPV9 2018-06-27 Completed University of 00:00:00 [facility] [place] Branch HPV9 2018-06-27 Completed University of 00:00:00 [facility] [place] Branch HPV9 2018-06-27 Completed University of 00:00:00 [facility] [place] Branch HPV9 2018-06-27 Completed University of 00:00:00 [facility] [place] Branch HPV9 2018-06-27 Completed University of 00:00:00 [facility] [place] Branch HPV9 2018-06-27 Completed University of 00:00:00 [facility] [place] Branch HPV9 2018-06-27 Completed University of 00:00:00 [facility] [place] Branch HPV9 2018-06-27 Completed University of 00:00:00 [facility] [place] Branch HPV9 2018-06-27 Completed University of 00:00:00 [facility] [place] Branch HPV9 2018-06-27 Completed University of 00:00:00 [facility] [place] Branch HPV9 2018-06-27 Completed University of 00:00:00 [facility] [place] Branch HPV9 2018-06-27 Completed University of 00:00:00 [facility] [place] Branch HPV9 2018-06-27 Completed University of 00:00:00 [facility] [place] Branch HPV9 2018-06-27 Completed University of 00:00:00 [facility] [place] Branch HPV9 2018-06-27 Completed University of 00:00:00 [facility] [place] Branch HPV9 2018-06-27 Completed University of 00:00:00 [facility] [place] Branch HPV9 2018-06-27 Completed University of 00:00:00 [facility] [place] Branch HPV9 2018-06-27 Completed University of 00:00:00 [place] [facility] HPV9 2018-06-27 Completed University of 00:00:00 [place] [facility] HPV9 2018-06-27 Completed University of 00:00:00 [place] [facility] HPV9 2018-02-11 Completed University of 00:00:00 [place] [facility] Meningococcal B, OMV 2018-02-11 Completed Univ ersity of 00:00:00 [place] [facility] HPV9 2018-02-11 Completed University of 00:00:00 [place] [facility] Meningococcal B, OMV 2018-02-11 Completed Univ ersity of 00:00:00 [place] [facility] HPV9 2018-02-11 Completed University of 00:00:00 [place] [facility] Meningococcal B, OMV 2018-02-11 Completed Univ ersity of 00:00:00 [place] [facility] HPV9 2018-02-11 Completed University of 00:00:00 [place] [facility] Meningococcal B, OMV 2018-02-11 Completed Univ ersity of 00:00:00 [place] [facility] HPV9 2018-02-11 Completed University of 00:00:00 [place] [facility] Meningococcal B, OMV 2018-02-11 Completed Univ ersity of 00:00:00 [place] [facility] HPV9 2018-02-11 Completed University of 00:00:00 [place] [facility] Meningococcal B, OMV 2018-02-11 Completed Univ ersity of 00:00:00 [place] [facility] HPV9 2018-02-11 Completed University of 00:00:00 [place] [facility] Meningococcal B, OMV 2018-02-11 Completed Univ ersity of 00:00:00 [place] [facility] HPV9 2018-02-11 Completed University of 00:00:00 [place] [facility] Meningococcal B, OMV 2018-02-11 Completed Univ ersity of 00:00:00 [place] [facility] HPV9 2018-02-11 Completed University of 00:00:00 [place] [facility] Meningococcal B, OMV 2018-02-11 Completed Univ ersity of 00:00:00 [place] [facility] HPV9 2018-02-11 Completed University of 00:00:00 [place] [facility] Meningococcal B, OMV 2018-02-11 Completed Univ ersity of 00:00:00 [place] [facility] HPV9 2018-02-11 Completed University of [...] Branch HPV9 2018-02-11 Completed University of 00:00:00 [place] [facility] Meningococcal B, OMV 2018-02-11 Completed Univ ersity of 00:00:00 [place] [facility] HPV9 2018-02-11 Completed University of 00:00:00 [place] [facility] Meningococcal B, OMV 2018-02-11 Completed Univ ersity of 00:00:00 [place] [facility] HPV9 2018-02-11 Completed University of 00:00:00 [place] [facility] Meningococcal B, OMV 2018-02-11 Completed Univ ersity of 00:00:00 [place] [facility] HPV9 2018-02-11 Completed University of 00:00:00 [place] [facility] Meningococcal B, OMV 2018-02-11 Completed Univ ersity of 00:00:00 [facility] [place] Branch HPV9 2018-02-11 Completed University of 00:00:00 [place] [facility] Meningococcal B, OMV 2018-02-11 Completed Univ ersity of 00:00:00 [place] [facility] HPV9 2018-02-11 Completed University of 00:00:00 [place] [facility] Meningococcal B, OMV 2018-02-11 Completed Univ ersity of 00:00:00 [place] [facility] HPV9 2018-02-11 Completed University of 00:00:00 [place] [facility] Meningococcal B, OMV 2018-02-11 Completed Univ ersity of 00:00:00 [place] [facility] HPV9 2018-02-11 Completed University of 00:00:00 [place] [facility] Meningococcal B, OMV 2018-02-11 Completed Univ ersity of 00:00:00 [place] [facility] HPV9 2018-02-11 Completed University of 00:00:00 [facility] [place] Branch Meningococcal B, OMV 2018-02-11 Completed Univ ersity of 00:00:00 [facility] [place] Branch HPV9 2018-02-11 Completed University of 00:00:00 [facility] [place] Branch Meningococcal B, OMV 2018-02-11 Completed Univ ersity of 00:00:00 [facility] Meningococcal 2017-06-10 Completed University of Polysaccharide 00:00:00 [place] Medi andrew (groups A, C, Y and Branc h W-135) conjugate vaccine (MCV4P) Meningococcal B, OMV 2017-06-10 Completed Univ ersity of 00:00:00 [facility] [place] Branch HPV9 2017-06-10 Completed University of 00:00:00 [facility] [place] Branch Meningococcal 2017-06-10 Completed University of Polysaccharide 00:00:00 [place] Medi andrew (groups A, C, Y and Branc h W-135) conjugate vaccine (MCV4P) Meningococcal B, OMV 2017-06-10 Completed Univ ersity of 00:00:00 [facility] [place] Branch HPV9 2017-06-10 Completed University of 00:00:00 [facility] [place] Branch Meningococcal 2017-06-10 Completed University of Polysaccharide 00:00:00 [place] Medi andrew (groups A, C, Y and Branc h W-135) conjugate vaccine (MCV4P) Meningococcal B, OMV 2017-06-10 Completed Univ ersity of 00:00:00 [facility] HPV9 2017-06-10 Completed University of 00:00:00 [facility] [place] Branch Meningococcal 2017-06-10 Completed University of Polysaccharide 00:00:00 [place] Medi andrew (groups A, C, Y and Branc h W-135) conjugate vaccine (MCV4P) Meningococcal B, OMV 2017-06-10 Completed Univ ersity of 00:00:00 [facility] [place] Branch HPV9 2017-06-10 Completed University of 00:00:00 [facility] [place] Branch Meningococcal 2017-06-10 Completed University of Polysaccharide 00:00:00 [place] Medi andrew (groups A, C, Y and Branc h W-135) conjugate vaccine (MCV4P) Meningococcal B, OMV 2017-06-10 Completed Univ ersity of 00:00:00 [facility] [place] Branch HPV9 2017-06-10 Completed University of 00:00:00 [facility] [place] Branch Meningococcal 2017-06-10 Completed University of Polysaccharide 00:00:00 [place] Medi andrew (groups A, C, Y and Branc h W-135) conjugate vaccine (MCV4P) Meningococcal B, OMV 2017-06-10 Completed Univ ersity of 00:00:00 [facility] [place] Branch HPV9 2017-06-10 Completed University of 00:00:00 [facility] Meningococcal 2017-06-10 Completed University of Polysaccharide 00:00:00 [place] Medi andrew (groups A, C, Y and Branc h W-135) conjugate vaccine (MCV4P) Meningococcal B, OMV 2017-06-10 Completed Univ ersity of 00:00:00 [facility] [place] Branch HPV9 2017-06-10 Completed University of 00:00:00 [facility] Meningococcal 2017-06-10 Completed University of Polysaccharide 00:00:00 [place] Medi andrew (groups A, C, Y and Branc h W-135) conjugate vaccine (MCV4P) Meningococcal B, OMV 2017-06-10 Completed Univ ersity of 00:00:00 [facility] HPV9 2017-06-10 Completed University of 00:00:00 [facility] Meningococcal 2017-06-10 Completed University of Polysaccharide 00:00:00 [place] Medi andrew (groups A, C, Y and Branc h W-135) conjugate vaccine (MCV4P) Meningococcal B, OMV 2017-06-10 Completed Univ ersity of 00:00:00 [facility] HPV9 2017-06-10 Completed University of 00:00:00 [facility] Meningococcal 2017-06-10 Completed University of Polysaccharide 00:00:00 [place] Medi andrew (groups A, C, Y and Branc h W-135) conjugate vaccine (MCV4P) Meningococcal B, OMV 2017-06-10 Completed Univ ersity of 00:00:00 [facility] HPV9 2017-06-10 Completed University of 00:00:00 [facility] Meningococcal 2017-06-10 Completed University of Polysaccharide 00:00:00 [place] Medi andrew (groups A, C, Y and Branc h W-135) conjugate vaccine (MCV4P) Meningococcal B, OMV 2017-06-10 Completed Univ ersity of 00:00:00 [facility] HPV9 2017-06-10 Completed University of 00:00:00 [facility] Meningococcal 2017-06-10 Completed University of Polysaccharide 00:00:00 [place] Medi andrew (groups A, C, Y and Branc h W-135) conjugate vaccine (MCV4P) Meningococcal B, OMV 2017-06-10 Completed Univ ersity of 00:00:00 [facility] HPV9 2017-06-10 Completed University of 00:00:00 [facility] Meningococcal 2017-06-10 Completed University of Polysaccharide 00:00:00 [place] Medi andrew (groups A, C, Y and Branc h W-135) conjugate vaccine (MCV4P) Meningococcal B, OMV 2017-06-10 Completed Univ ersity of 00:00:00 [facility] [place] Branch HPV9 2017-06-10 Completed University of 00:00:00 [facility] Meningococcal 2017-06-10 Completed University of Polysaccharide 00:00:00 [place] Medi andrew (groups A, C, Y and Branc h W-135) conjugate vaccine (MCV4P) Meningococcal B, OMV 2017-06-10 Completed Univ ersity of 00:00:00 [facility] HPV9 2017-06-10 Completed University of 00:00:00 [facility] Meningococcal 2017-06-10 Completed University of Polysaccharide 00:00:00 [place] Medi andrew (groups A, C, Y and Branc h W-135) conjugate vaccine (MCV4P) Meningococcal B, OMV 2017-06-10 Completed Univ ersity of 00:00:00 [facility] [facility] HPV9 2017-06-10 Completed [facility] 00:00:00 [facility] Meningococcal 2017-06-10 Completed [facility] Polysaccharide 00:00:00 [place] [facility] (groups A, C, Y and Branc h W-135) conjugate vaccine (MCV4P) Meningococcal B, OMV 2017-06-10 Completed [facility] ersity of 00:00:00 [facility] HPV9 2017-06-10 Completed [facility] 00:00:00 [facility] Meningococcal 2017-06-10 Completed [facility] Polysaccharide 00:00:00 [place] [facility] (groups A, C, Y and Branc h W-135) conjugate vaccine (MCV4P) Meningococcal B, OMV 2017-06-10 Completed [facility] ersity of 00:00:00 [facility] HPV9 2017-06-10 Completed [facility] 00:00:00 [facility] Meningococcal 2017-06-10 Completed [facility] Polysaccharide 00:00:00 [place] [facility] (groups A, C, Y and Branc h W-135) conjugate vaccine (MCV4P) Meningococcal B, OMV 2017-06-10 Completed [facility] ersity of 00:00:00 [facility] HPV9 2017-06-10 Completed [facility] 00:00:00 [facility] Meningococcal 2017-06-10 Completed [facility] Polysaccharide 00:00:00 [place] [facility] (groups A, C, Y and Branc h W-135) conjugate vaccine (MCV4P) Meningococcal B, OMV 2017-06-10 Completed [facility] ers[facility] of 00:00:00 [facility] HPV9 2017-06-10 Completed [facility] 00:00:00 [facility] Meningococcal 2017-06-10 Completed [facility] Polysaccharide 00:00:00 [place] [facility] (groups A, C, Y and Branc h W-135) conjugate vaccine (MCV4P) Meningococcal B, OMV 2017-06-10 Completed [facility] ersity of 00:00:00 [facility] HPV9 2017-06-10 Completed [facility] 00:00:00 [facility] Meningococcal 2017-06-10 Completed [facility] Polysaccharide 00:00:00 [place] [facility] (groups A, C, Y and Branc h W-135) conjugate vaccine (MCV4P) Meningococcal B, OMV 2017-06-10 Completed Univ ersity of 00:00:00 [facility] HPV9 2017-06-10 Completed [facility] 00:00:00 [facility] Meningococcal 2017-06-10 Completed [facility] Polysaccharide 00:00:00 [place] [facility] (groups A, C, Y and Branc h W-135) conjugate vaccine (MCV4P) Meningococcal B, OMV 2017-06-10 Completed [facility] ersity of 00:00:00 [facility] HPV9 2017-06-10 Completed [facility] 00:00:00 [facility] Meningococcal 2017-06-10 Completed [facility] Polysaccharide 00:00:00 [place] [facility] (groups A, C, Y and Branc h W-135) conjugate vaccine (MCV4P) Meningococcal B, OMV 2017-06-10 Completed [facility] ersity of 00:00:00 [facility] HPV9 2017-06-10 Completed [facility] 00:00:00 [facility] Meningococcal 2017-06-10 Completed [facility] Polysaccharide 00:00:00 [place] [facility] (groups A, C, Y and Branc h W-135) conjugate vaccine (MCV4P) Meningococcal B, OMV 2017-06-10 Completed Univ ersity of 00:00:00 [facility] HPV9 2017-06-10 Completed [facility] 00:00:00 [facility] Meningococcal 2017-06-10 Completed [facility] of Polysaccharide 00:00:00 [facility] (groups A, C, Y and Branc h W-135) conjugate vaccine (MCV4P) Meningococcal B, OMV 2017-06-10 Completed Univ ersity of 00:00:00 [facility] HPV9 2017-06-10 Completed [facility] 00:00:00 [facility] HEPATITIS A 2013-03-29 Completed [facility] 00:00:00 [facility] HEPATITIS A 2013-03-29 Completed [facility] 00:00:00 [facility] HEPATITIS A 2013-03-29 Completed [facility] 00:00:00 [facility] HEPATITIS A 2013-03-29 Completed [facility] 00:00:00 [facility] HEPATITIS A 2013-03-29 Completed [facility] 00:00:00 [facility] HEPATITIS A 2013-03-29 Completed [facility] 00:00:00 [facility] HEPATITIS A 2013-03-29 Completed [facility] 00:00:00 [facility] HEPATITIS A 2013-03-29 Completed [facility] 00:00:00 [facility] HEPATITIS A 2013-03-29 Completed [facility] 00:00:00 [facility] HEPATITIS A 2013-03-29 Completed [facility] 00:00:00 [facility] HEPATITIS A 2013-03-29 Completed [facility] 00:00:00 [facility] HEPATITIS A 2013-03-29 Completed [facility] 00:00:00 [facility] HEPATITIS A 2013-03-29 Completed [facility] 00:00:00 [facility] HEPATITIS A 2013-03-29 Completed [facility] 00:00:00 [facility] HEPATITIS A 2013-03-29 Completed [facility] 00:00:00 [facility] HEPATITIS A 2013-03-29 Completed [facility] 00:00:00 [facility] HEPATITIS A 2013-03-29 Completed [facility] 00:00:00 [facility] HEPATITIS A 2013-03-29 Completed [facility] 00:00:00 [facility] HEPATITIS A 2013-03-29 Completed [facility] 00:00:00 [facility] HEPATITIS A 2013-03-29 Completed [facility] 00:00:00 [facility] HEPATITIS A 2013-03-29 Completed [facility] 00:00:00 [facility] HEPATITIS A 2013-03-29 Completed [facility] 00:00:00 [facility] HEPATITIS A 2013-03-29 Completed [facility] 00:00:00 [facility] HEPATITIS A 2013-03-29 Completed [facility] 00:00:00 [facility] HEPATITIS A 2013-03-29 Completed [facility] 00:00:00 [facility] Tdap 2012-06-16 Completed [facility] 00:00:00 [facility] Meningococcal 2012-06-16 Completed [facility] Polysaccharide 00:00:00 [place] [facility] (groups A, C, Y and Branc h W-135) conjugate vaccine (MCV4P) Varicella 2012-06-16 Completed [facility] (varivax)(chicken 00:00:00 [place] [facility] HEPATITIS A 2012-06-16 Completed [facility] 00:00:00 [facility] Tdap 2012-06-16 Completed [facility] 00:00:00 [facility] Meningococcal 2012-06-16 Completed [facility] Polysaccharide 00:00:00 [place] [facility] (groups A, C, Y and Branc h W-135) conjugate vaccine (MCV4P) Varicella 2012-06-16 Completed [facility] (varivax)(chicken 00:00:00 [place] [facility] HEPATITIS A 2012-06-16 Completed [facility] 00:00:00 [facility] Tdap 2012-06-16 Completed [facility] 00:00:00 [facility] Meningococcal 2012-06-16 Completed [facility] Polysaccharide 00:00:00 [place] [facility] (groups A, C, Y and Branc h W-135) conjugate vaccine (MCV4P) Varicella 2012-06-16 Completed [facility] (varivax)(chicken 00:00:00 [place] [facility]) [facility] HEPATITIS A 2012-06-16 Completed [facility] 00:00:00 [facility] Tdap 2012-06-16 Completed [facility] 00:00:00 [facility] Meningococcal 2012-06-16 Completed [facility] Polysaccharide 00:00:00 [place] [facility] (groups A, C, Y and Branc h W-135) conjugate vaccine (MCV4P) Varicella 2012-06-16 Completed [facility] (varivax)(chicken 00:00:00 [place] [facility] HEPATITIS A 2012-06-16 Completed [facility] 00:00:00 [facility] Tdap 2012-06-16 Completed [facility] 00:00:00 [facility] Meningococcal 2012-06-16 Completed [facility] Polysaccharide 00:00:00 [place] [facility] (groups A, C, Y and Branc h W-135) conjugate vaccine (MCV4P) Varicella 2012-06-16 Completed [facility] (varivax)(chicken 00:00:00 [place] [facility] pox) [facility] HEPATITIS A 2012-06-16 Completed [facility] 00:00:00 [facility] Tdap 2012-06-16 Completed [facility] 00:00:00 [facility] Meningococcal 2012-06-16 Completed [facility] Polysaccharide 00:00:00 [place] [facility] (groups A, C, Y and Branc h W-135) conjugate vaccine (MCV4P) Varicella 2012-06-16 Completed [facility] (varivax)(chicken 00:00:00 [place] [facility]ox) [facility] HEPATITIS A 2012-06-16 Completed [facility] 00:00:00 [facility] Tdap 2012-06-16 Completed [facility] 00:00:00 [facility] Meningococcal 2012-06-16 Completed [facility] Polysaccharide 00:00:00 [place] [facility] (groups A, C, Y and Branc h W-135) conjugate vaccine (MCV4P) Varicella 2012-06-16 Completed [facility] (varivax)(chicken 00:00:00 [place] [facility]ox) [facility] HEPATITIS A 2012-06-16 Completed [facility] 00:00:00 [facility] Tdap 2012-06-16 Completed [facility] 00:00:00 [facility] Meningococcal 2012-06-16 Completed [facility] Polysaccharide 00:00:00 [place] [facility] (groups A, C, Y and Branc h W-135) conjugate vaccine (MCV4P) Varicella 2012-06-16 Completed [facility] (varivax)(chicken 00:00:00 [place] [facility]ox[facility] HEPATITIS A 2012-06-16 Completed [facility] 00:00:00 [facility] TDAP 2012-06-16 Completed [facility] 00:00:00 [facility] Meningococcal 2012-06-16 Completed [facility] Polysaccharide 00:00:00 [place] [facility] (groups A, C, Y and Branc h W-135) conjugate vaccine (MCV4P) Varicella 2012-06-16 Completed [facility] (varivax)(chicken 00:00:00 [place] [facility]ox) [facility] HEPATITIS A 2012-06-16 Completed [facility] 00:00:00 [facility] TDAP 2012-06-16 Completed [facility] 00:00:00 [facility] Meningococcal 2012-06-16 Completed [facility] Polysaccharide 00:00:00 [place] [facility] (groups A, C, Y and Branc h W-135) conjugate vaccine (MCV4P) Varicella 2012-06-16 Completed [facility] (varivax)(chicken 00:00:00 [place] [facility] pox) [facility] HEPATITIS A 2012-06-16 Completed [facility] 00:00:00 [facility] TDAP 2012-06-16 Completed [facility] 00:00:00 [facility] Meningococcal 2012-06-16 Completed [facility] Polysaccharide 00:00:00 [place] [facility] (groups A, C, Y and Branc h W-135) conjugate vaccine (MCV4P) Varicella 2012-06-16 Completed [facility] (varivax)(chicken 00:00:00 [place] [facility] pox) [facility] HEPATITIS A 2012-06-16 Completed [facility] 00:00:00 [facility] TDAP 2012-06-16 Completed [facility] 00:00:00 [facility] Meningococcal 2012-06-16 Completed [facility] Polysaccharide 00:00:00 [place] [facility] (groups A, C, Y and Branc h W-135) conjugate vaccine (MCV4P) Varicella 2012-06-16 Completed [facility] (varivax)(chicken 00:00:00 [place] [facility] HEPATITIS A 2012-06-16 Completed [facility] 00:00:00 [facility] TDAP 2012-06-16 Completed [facility] 00:00:00 [facility] Meningococcal 2012-06-16 Completed [facility] Polysaccharide 00:00:00 [place] [facility] (groups A, C, Y and Branc h W-135) conjugate vaccine (MCV4P) Varicella 2012-06-16 Completed [facility] (varivax)(chicken 00:00:00 [place] [facility] pox) [facility] HEPATITIS A 2012-06-16 Completed [facility] 00:00:00 [facility] TDAP 2012-06-16 Completed [facility] 00:00:00 [facility] Meningococcal 2012-06-16 Completed [facility] Polysaccharide 00:00:00 [place] [facility] (groups A, C, Y and Branc h W-135) conjugate vaccine (MCV4P) Varicella 2012-06-16 Completed [facility] (varivax)(chicken 00:00:00 [place] [facility]ox[facility] HEPATITIS A 2012-06-16 Completed [facility] 00:00:00 [facility] TDAP 2012-06-16 Completed [facility] 00:00:00 [facility] Meningococcal 2012-06-16 Completed [facility] Polysaccharide 00:00:00 [place] [facility] (groups A, C, Y and Branc h W-135) conjugate vaccine (MCV4P) Varicella 2012-06-16 Completed [facility] (varivax)(chicken 00:00:00 [place] [facility] pox) [facility] HEPATITIS A 2012-06-16 Completed [facility] 00:00:00 [facility] TDAP 2012-06-16 Completed [facility] 00:00:00 [facility] Meningococcal 2012-06-16 Completed [facility] Polysaccharide 00:00:00 [place] [facility] (groups A, C, Y and Branc h W-135) conjugate vaccine (MCV4P) Varicella 2012-06-16 Completed [facility] (varivax)(chicken 00:00:00 [place] [facility] pox[facility] HEPATITIS A 2012-06-16 Completed [facility] 00:00:00 [facility] TDAP 2012-06-16 Completed [facility] 00:00:00 [facility] Meningococcal 2012-06-16 Completed [facility] Polysaccharide 00:00:00 [place] [facility] (groups A, C, Y and Branc h W-135) conjugate vaccine (MCV4P) Varicella 2012-06-16 Completed [facility] (varivax)(chicken 00:00:00 [place] [facility] pox[facility] HEPATITIS A 2012-06-16 Completed [facility] 00:00:00 [facility] TDAP 2012-06-16 Completed [facility] 00:00:00 [facility] Meningococcal 2012-06-16 Completed [facility] Polysaccharide 00:00:00 [place] [facility] (groups A, C, Y and Branc h W-135) conjugate vaccine (MCV4P) Varicella 2012-06-16 Completed [facility] (varivax)(chicken 00:00:00 [place] [facility] pox) [facility] HEPATITIS A 2012-06-16 Completed [facility] 00:00:00 [facility] TDAP 2012-06-16 Completed [facility] 00:00:00 [facility] Meningococcal 2012-06-16 Completed [facility] Polysaccharide 00:00:00 [place] [facility] (groups A, C, Y and Branc h W-135) conjugate vaccine (MCV4P) Varicella 2012-06-16 Completed [facility] (varivax)(chicken 00:00:00 [place] [facility] pox) [facility] HEPATITIS A 2012-06-16 Completed [facility] 00:00:00 [facility] TDAP 2012-06-16 Completed [facility] 00:00:00 [facility] Meningococcal 2012-06-16 Completed [facility] Polysaccharide 00:00:00 [place] [facility] (groups A, C, Y and Branc h W-135) conjugate vaccine (MCV4P) Varicella 2012-06-16 Completed [facility] (varivax)(chicken 00:00:00 [place] [facility] pox) [facility] HEPATITIS A 2012-06-16 Completed [facility] 00:00:00 [facility] TDAP 2012-06-16 Completed [facility] 00:00:00 [facility] Meningococcal 2012-06-16 Completed [facility] Polysaccharide 00:00:00 [place] [facility] (groups A, C, Y and Branc h W-135) conjugate vaccine (MCV4P) Varicella 2012-06-16 Completed [facility] (varivax)(chicken 00:00:00 [place] [facility] pox) [facility] HEPATITIS A 2012-06-16 Completed [facility] 00:00:00 [facility] TDAP 2012-06-16 Completed [facility] 00:00:00 [facility] Meningococcal 2012-06-16 Completed [facility] Polysaccharide 00:00:00 [place] [facility] (groups A, C, Y and Branc h W-135) conjugate vaccine (MCV4P) Varicella 2012-06-16 Completed [facility] (varivax)(chicken 00:00:00 [place] [facility] pox) [facility] HEPATITIS A 2012-06-16 Completed [facility] 00:00:00 [facility] TDAP 2012-06-16 Completed [facility] 00:00:00 [facility] Meningococcal 2012-06-16 Completed [facility] Polysaccharide 00:00:00 [place] [facility] (groups A, C, Y and Branc h W-135) conjugate vaccine (MCV4P) Varicella 2012-06-16 Completed [facility] (varivax)(chicken 00:00:00 [place] [facility] pox) [facility] HEPATITIS A 2012-06-16 Completed [facility] 00:00:00 [facility] TDAP 2012-06-16 Completed [facility] 00:00:00 [facility] Meningococcal 2012-06-16 Completed [facility] Polysaccharide 00:00:00 [place] [facility] (groups A, C, Y and Branc h W-135) conjugate vaccine (MCV4P) Varicella 2012-06-16 Completed [facility] (varivax)(chicken 00:00:00 [place] [facility] pox[facility] Tdap 2012-06-16 Completed [facility] 00:00:00 [facility] HEPATITIS A 2012-06-16 Completed [facility] 00:00:00 [facility] Meningococcal 2012-06-16 Completed [facility] Polysaccharide 00:00:00 [place] [facility] (groups A, C, Y and Branc h W-135) conjugate vaccine (MCV4P) Varicella 2012-06-16 Completed [facility] (varivax)(chicken 00:00:00 [place] [facility] pox[facility] HEPATITIS A 2012-06-16 Completed [facility] 00:00:00 [facility] DTAP 2005-09-28 Completed [facility] 00:00:00 [facility] DTAP 2005-09-28 Completed [facility] 00:00:00 [facility] DTAP 2005-09-28 Completed [facility] 00:00:00 [facility] DTAP 2005-09-28 Completed [facility] 00:00:00 [facility] DTAP 2005-09-28 Completed [facility] 00:00:00 [facility] DTAP 2005-09-28 Completed [facility] 00:00:00 [facility] DTAP 2005-09-28 Completed [facility] 00:00:00 [facility] DTAP 2005-09-28 Completed [facility] 00:00:00 [facility] DTAP 2005-09-28 Completed [facility] 00:00:00 [facility] DTAP 2005-09-28 Completed [facility] 00:00:00 [facility] DTAP 2005-09-28 Completed [facility] 00:00:00 [facility] DTAP 2005-09-28 Completed [facility] 00:00:00 [facility] DTAP 2005-09-28 Completed [facility] 00:00:00 [facility] DTAP 2005-09-28 Completed [facility] 00:00:00 [facility] DTAP 2005-09-28 Completed [facility] 00:00:00 [facility] DTAP 2005-09-28 Completed [facility] 00:00:00 [facility] DTAP 2005-09-28 Completed [facility] 00:00:00 [facility] DTAP 2005-09-28 Completed [facility] 00:00: [facility] DTAP 2005-09-28 Completed [facility] 00:00: [facility] DTAP 2005-09-28 Completed [facility] 00:00: [facility] DTAP 2005-09-28 Completed [facility] 00:00: [facility] DTAP 2005-09-28 Completed [facility] 00:00:00 [facility] DTAP 2005-09-28 Completed [facility] 00:00:00 [facility] DTAP 2005-09-28 Completed [facility] 00:00: [facility] DTAP 2005-09-28 Completed [facility] [...] 2004-07-08 Completed Unive rsity of Dosage 00:00:00 [facility] Hep B, Adol or Pedi 2004-07-08 Completed [facility]ive rsity of Dosage 00:00:00 [facility] Hep B, Adol or Pedi 2004-07-08 Completed [facility]ive rsity of Dosage 00:00:00 [facility] Hep B, Adol or Pedi 2004-07-08 Completed Unive rsity of Dosage 00:00:00 [facility] Hep B, Adol or Pedi 2004-07-08 Completed Unive rsity of Dosage 00:00:00 [facility] Hep B, Adol or Pedi 2004-07-08 Completed Unive rsity of Dosage 00:00:00 [facility] DTAP 2004-05-28 Completed [facility] 00:00:00 [facility] Polio (IPV/OPV) 2004-05-28 Completed [facility] 00:00:00 [facility] DTAP 2004-05-28 Completed [facility] 00:00:00 [facility] Polio (IPV/OPV) 2004-05-28 Completed [facility] 00:00:00 [facility] DTAP 2004-05-28 Completed [facility] 00:00:00 [facility] Polio (IPV/OPV) 2004-05-28 Completed [facility]it y [facility] 00:00:00 [facility] DTAP 2004-05-28 Completed [facility] 00:00:00 [facility] Polio (IPV/OPV) 2004-05-28 Completed [facility] 00:00:00 [facility] DTAP 2004-05-28 Completed [facility] 00:00:00 [facility] Polio (IPV/OPV) 2004-05-28 Completed [facility] 00:00:00 [facility] DTAP 2004-05-28 Completed [facility] 00:00:00 [facility] Polio (IPV/OPV) 2004-05-28 Completed [facility]it y [facility] 00:00:00 [facility] DTAP 2004-05-28 Completed [facility] 00:00:00 [facility] Polio (IPV/OPV) 2004-05-28 Completed [facility] y [facility] 00:00:00 [facility] DTAP 2004-05-28 Completed [facility] 00:00:00 [facility] Polio (IPV/OPV) 2004-05-28 Completed [facility]it y [facility] 00:00:00 [facility] DTAP 2004-05-28 Completed [facility] 00:00:00 [facility] DTAP 2004-05-28 Completed [facility] 00:00:00 [facility] Polio (IPV/OPV) 2004-05-28 [facility]00 [facility] Polio (IPV/OPV) 2004-05-28 Completed [facility] 00:00:00 [facility] Polio (IPV/OPV) 2004-05-28 Completed [facility] y [facility] 00:00:00 [facility] DTAP 2004-05-28 Completed [facility] 00:00:00 [facility] Polio (IPV/OPV) 2004-05-28 [facility] 00:[facility]:00 [facility] Polio (IPV/OPV) 2004-05-28 Completed [facility] 00:00:00 [facility] DTAP 2004-05-28 Completed [facility] 00:00:00 [facility] Polio (IPV/OPV) 2004-05-28 Com[facility] 00:00:00 [facility] Polio (IPV/OPV) 2004-05-28 Com[facility] 00:00:00 [facility] Polio (IPV/OPV) 2004-05-28 Completed [facility] 00:00:00 [facility] DTAP 2004-05-28 Completed [facility] 00:00:00 [facility] Polio (IPV/OPV) 2004-05-28 Completed [facility] 00:00:00 [facility] DTAP 2004-05-28 Completed [facility] 00:00:00 [facility] Polio (IPV/OPV) 2004-05-28 Com[facility] 00:00:00 [facility] Polio (IPV/OPV) 2004-05-28 Completed [facility] 00:00:00 [facility] DTAP 2004-05-28 Completed [facility] 00:00:00 [facility] Polio (IPV/OPV) 2004-05-28 Completed [facility] 00:00:00 [facility] DTAP 2004-05-28 Completed [facility] 00:00:00 [facility] DTAP 2004-05-28 Completed [facility] 00:00:00 [facility] Polio (IPV/OPV) 2004-05-28 Completed [facility] 00:00:00 [facility] Polio (IPV/OPV) 2004-05-28 Completed [facility] 00:00:00 [facility] DTAP 2004-05-28 Completed [facility] 00:00:00 [facility] Polio (IPV/OPV) 2004-05-28 Completed [facility] 00:00:00 [facility] DTAP 2004-05-28 Completed [facility] 00:00:00 [facility] Polio (IPV/OPV) 2004-05-28 Completed [facility] 00:00:00 [facility] DTAP 2004-01-21 Completed [facility] 00:00:00 [facility] HIB 4 Dose Schedule 2004-01-21 Completed [facility] rsity of 00:00:00 [facility] MMR 2004-01-21 Completed [facility] 00:00:00 [facility] Polio (IPV/OPV) 2004-01-21 Completed [facility] 00:00:00 [facility] DTAP 2004-01-21 Completed [facility] 00:00:00 [facility] HIB 4 Dose Schedule 2004-01-21 Completed [facility]ive rsity of 00:00:00 [facility] MMR 2004-01-21 Completed [facility] 00:00:00 [facility] Polio (IPV/OPV) 2004-01-21 Completed [facility] 00:00:00 [facility] DTAP 2004-01-21 Completed [facility] 00:00:00 [facility] HIB 4 Dose Schedule 2004-01-21 Completed [facility]ity of 00:00:00 [facility] MMR 2004-01-21 Completed University of 00:00:00 [facility] Polio (IPV/OPV) 2004-01-21 Completed [facility]it y [facility] 00:00:00 [facility] DTAP 2004-01-21 Completed University of 00:00:00 [facility] HIB 4 Dose Schedule 2004-01-21 Completed [facility]ive rsity of 00:00:00 [facility] MMR 2004-01-21 Completed University of 00:00:00 [facility] Polio (IPV/OPV) 2004-01-21 Completed [facility] y [facility] 00:00:00 [facility] DTAP 2004-01-21 Completed University of 00:00:00 [facility] HIB 4 Dose Schedule 2004-01-21 Completed Unive rsity of 00:00:00 [facility] MMR 2004-01-21 Completed University of 00:00:00 [facility] Polio (IPV/OPV) 2004-01-21 Completed [facility]it y [facility] 00:00:00 [facility] DTAP 2004-01-21 Completed [facility] of 00:00:00 [facility] HIB 4 Dose Schedule 2004-01-21 Completed Unive rsity of 00:00:00 [facility] MMR 2004-01-21 Completed University of 00:00:00 [facility] Polio (IPV/OPV) 2004-01-21 Completed [facility]it [facility] 00:00:00 [facility] DTAP 2004-01-21 Completed [facility] of 00:00:00 [facility] HIB 4 Dose Schedule 2004-01-21 Completed [facility]ive rsity of 00:00:00 [facility] MMR 2004-01-21 Completed [facility] of 00:00:00 [facility] Polio (IPV/OPV) 2004-01-21 Completed [facility] 00:00:00 [facility] DTAP 2004-01-21 Completed [facility] of 00:00:00 [facility] HIB 4 Dose Schedule 2004-01-21 Completed [facility]ive rsity of 00:00:00 [facility] MMR 2004-01-21 Completed University of 00:00:00 [facility] Polio (IPV/OPV) 2004-01-21 Completed [facility] 00:00:00 [facility] DTAP 2004-01-21 Completed [facility] of 00:00:00 [facility] DTAP 2004-01-21 Completed [facility] of 00:00:00 [facility] HIB 4 Dose Schedule 2004-01-21 Completed [facility]ive rsity of 00:00:00 [facility] MMR 2004-01-21 Completed [facility] of 00:00:00 [facility] Polio (IPV/OPV) 2004-01-21 Completed [facility] 00:00:00 [facility] HIB 4 Dose Schedule 2004-01-21 Completed [facility]ive rsity of 00:00:00 [facility] MMR 2004-01-21 Completed University of 00:00:00 [facility] DTAP 2004-01-21 Completed [facility] of 00:00:00 [facility] HIB 4 Dose Schedule 2004-01-21 Completed [facility]ive rsity of 00:00:00 [facility] MMR 2004-01-21 Completed [facility] of 00:00:00 [facility] Polio (IPV/OPV) 2004-01-21 Completed [facility] 00:00:00 [facility] Polio (IPV/OPV) 2004-01-21 Completed [facility] 00:00:00 [facility] DTAP 2004-01-21 Completed [facility] of 00:00:00 [facility] HIB 4 Dose Schedule 2004-01-21 Completed [facility] rsity of 00:00:00 [facility] MMR 2004-01-21 Completed [facility] of 00:00:00 [facility] Polio (IPV/OPV) 2004-01-21 Completed [facility] 00:00:00 [facility] DTAP 2004-01-21 Completed [facility] of 00:00:00 [facility] HIB 4 Dose Schedule 2004-01-21 Completed [facility] rsity of 00:00:00 [facility] MMR 2004-01-21 Completed [facility] of 00:00:00 [facility] Polio (IPV/OPV) 2004-01-21 Completed [facility] 00:00:00 [facility] DTAP 2004-01-21 Completed [facility] of 00:00:00 [facility] HIB 4 Dose Schedule 2004-01-21 Completed [facility] rsity of 00:00:00 [facility] MMR 2004-01-21 Completed [facility] of 00:00:00 [facility] Polio (IPV/OPV) 2004-01-21 Completed [facility] 00:00:00 [facility] DTAP 2004-01-21 Completed [facility] of 00:00:00 [facility] HIB 4 Dose Schedule 2004-01-21 Completed [facility] rsity of 00:00:00 [facility] MMR 2004-01-21 Completed [facility] of 00:00:00 [facility] Polio (IPV/OPV) 2004-01-21 Completed [facility] 00:00:00 [facility] DTAP 2004-01-21 Completed University of 00:00:00 [facility] HIB 4 Dose Schedule 2004-01-21 Completed [facility]ive rsity of 00:00:00 [facility] MMR 2004-01-21 Completed [facility] of 00:00:00 [facility] Polio (IPV/OPV) 2004-01-21 Completed [facility] 00:00:00 [facility] DTAP 2004-01-21 Completed [facility] of 00:00:00 [facility] HIB 4 Dose Schedule 2004-01-21 Completed [facility] rsity of 00:00:00 [facility] MMR 2004-01-21 Completed [facility] of 00:00:00 [facility] Polio (IPV/OPV) 2004-01-21 Completed [facility] 00:00:00 [facility] DTAP 2004-01-21 Completed [facility] of 00:00:00 [facility] HIB 4 Dose Schedule 2004-01-21 Completed [facility] rsity of 00:00:00 [facility] MMR 2004-01-21 Completed [facility] of 00:00:00 [facility] Polio (IPV/OPV) 2004-01-21 Completed [facility] 00:00:00 [facility] DTAP 2004-01-21 Completed [facility] of 00:00:00 [facility] HIB 4 Dose Schedule 2004-01-21 Completed [facility] rsity of 00:00:00 [facility] MMR 2004-01-21 Completed [facility] of 00:00:00 [facility] Polio (IPV/OPV) 2004-01-21 Completed [facility] 00:00:00 [facility] DTAP 2004-01-21 Completed [facility] of 00:00:00 [facility] HIB 4 Dose Schedule 2004-01-21 Completed [facility] rs[facility] of 00:00:00 [facility] MMR 2004-01-21 Completed [facility] of 00:00:00 [facility] Polio (IPV/OPV) 2004-01-21 Completed [facility] 00:00:00 [facility] DTAP 2004-01-21 Completed [facility] of 00:00:00 [facility] HIB 4 Dose Schedule 2004-01-21 Completed [facility] rsity of 00:00:00 [facility] DTAP 2004-01-21 Completed [facility] of 00:00:00 [facility] HIB 4 Dose Schedule 2004-01-21 Completed [facility]ive rsity of 00:00:00 [facility] MMR 2004-01-21 Completed [facility] of 00:00:00 [facility] Polio (IPV/OPV) 2004-01-21 Completed [facility] 00:00:00 [facility] MMR 2004-01-21 Completed [facility] of 00:00:00 [facility] Polio (IPV/OPV) 2004-01-21 Completed [facility] 00:00:00 [facility] DTAP 2004-01-21 Completed [facility] of 00:00:00 [facility] HIB 4 Dose Schedule 2004-01-21 Completed [facility] rsity of 00:00:00 [facility] MMR 2004-01-21 Completed [facility] of 00:00:00 [facility] Polio (IPV/OPV) 2004-01-21 Completed [facility] 00:00:00 [facility] DTAP 2004-01-21 Completed [facility] of 00:00:00 [facility] HIB 4 Dose Schedule 2004-01-21 Completed [facility] rsity of 00:00:00 [facility] MMR 2004-01-21 Completed [facility] of 00:00:00 [facility] Polio (IPV/OPV) 2004-01-21 Completed [facility] 00:00:00 [facility] Varicella 2003-11-08 Completed [facility] of (varivax)(chicken 00:00:00 [place] [facility] DTAP 2003-11-08 Completed [facility] of 00:00:00 [facility] Polio (IPV/OPV) 2003-11-08 Completed [facility] 00:00:00 [facility] MMR 2003-11-08 Completed [facility] 00:00:00 [facility] Varicella 2003-11-08 Completed [facility] of (varivax)(chicken 00:00:00 [place] [facility] DTAP 2003-11-08 Completed [facility] of 00:00:00 [facility] Polio (IPV/OPV) 2003-11-08 Completed [facility] 00:00:00 [facility] MMR 2003-11-08 Completed [facility] 00:00:00 [facility] Varicella 2003-11-08 Completed [facility] of (varivax)(chicken 00:00:00 [place] [facility] DTAP 2003-11-08 Completed [facility] of 00:00:00 [facility] Polio (IPV/OPV) 2003-11-08 Completed [facility] 00:00:00 [facility] MMR 2003-11-08 Completed [facility] 00:00:00 [facility] Varicella 2003-11-08 Completed [facility] of (varivax)(chicken 00:00:00 [place] [facility] DTAP 2003-11-08 Completed [facility] of 00:00:00 [facility] Polio (IPV/OPV) 2003-11-08 Completed [facility] 00:00:00 [facility] MMR 2003-11-08 Completed [facility] of 00:00:00 [facility] Varicella 2003-11-08 Completed [facility] of (varivax)(chicken 00:00:00 [place] [facility] DTAP 2003-11-08 Completed [facility] of 00:00:00 [facility] Polio (IPV/OPV) 2003-11-08 Completed [facility] 00:00:00 [facility] MMR 2003-11-08 Completed [facility] 00:00:00 [facility] Varicella 2003-11-08 Completed [facility] of (varivax)(chicken 00:00:00 [place] [facility] DTAP 2003-11-08 Completed [facility] of 00:00:00 [facility] Polio (IPV/OPV) 2003-11-08 Completed [facility] 00:00:00 [facility] MMR 2003-11-08 Completed [facility] 00:00:00 [facility] Varicella 2003-11-08 Completed [facility] of (varivax)(chicken 00:00:00 [place] [facility] DTAP 2003-11-08 Completed [facility] of 00:00:00 [facility] Polio (IPV/OPV) 2003-11-08 Completed [facility] 00:00:00 [facility] MMR 2003-11-08 Completed [facility] 00:00:00 [facility] Varicella 2003-11-08 Completed [facility] (varivax)(chicken 00:00:00 [place] [facility] DTAP 2003-11-08 Completed [facility] of 00:00:00 [facility] Polio (IPV/OPV) 2003-11-08 Completed [facility] of 00:00:00 [facility] MMR 2003-11-08 Completed [facility] 00:00:00 [facility] Varicella 2003-11-08 Completed [facility] of (varivax)(chicken 00:00:00 [place] [facility] DTAP 2003-11-08 Completed [facility] of 00:00:00 [facility] Polio (IPV/OPV) 2003-11-08 Completed [facility] 00:00:00 [facility] MMR 2003-11-08 Completed [facility] of 00:00:00 [facility] Varicella 2003-11-08 Completed [facility] of (varivax)(chicken 00:00:00 [place] [facility] DTAP 2003-11-08 Completed [facility] of 00:00:00 [facility] Polio (IPV/OPV) 2003-11-08 Completed [facility] 00:00:00 [facility] MMR 2003-11-08 Completed [facility] 00:00:00 [facility] Varicella 2003-11-08 Completed [facility] of (varivax)(chicken 00:00:00 [place] [facility] pox[facility] DTAP 2003-11-08 Completed [facility] of 00:00:00 [facility] Polio (IPV/OPV) 2003-11-08 Completed [facility] 00:00:00 [facility] MMR 2003-11-08 Completed [facility] 00:00:00 [facility] Varicella 2003-11-08 Completed [facility] (varivax)(chicken 00:00:00 [place] [facility] DTAP 2003-11-08 Completed [facility] 00:00:00 [facility] Polio (IPV/OPV) 2003-11-08 Completed [facility] 00:00:00 [facility] MMR 2003-11-08 Completed [facility] 00:00:00 [facility] Varicella 2003-11-08 Completed [facility] (varivax)(chicken 00:00:00 [place] [facility] DTAP 2003-11-08 Completed [facility] of 00:00:00 [facility] Polio (IPV/OPV) 2003-11-08 Completed [facility] 00:00:00 [facility] MMR 2003-11-08 Completed [facility] 00:00:00 [facility] Varicella 2003-11-08 Completed [facility] (varivax)(chicken 00:00:00 [place] [facility] DTAP 2003-11-08 Completed [facility] of 00:00:00 [facility] Polio (IPV/OPV) 2003-11-08 Completed [facility] 00:00:00 [facility] MMR 2003-11-08 Completed [facility] 00:00:00 [facility] DTAP 2003-11-08 Completed University of 00:00:00 [facility] Polio (IPV/OPV) 2003-11-08 Completed [facility] 00:00:00 [facility] MMR 2003-11-08 Completed [facility] of 00:00:00 [facility] Varicella 2003-11-08 Completed [facility] (varivax)(chicken 00:00:00 [place] [facility] Varicella 2003-11-08 Completed [facility] (varivax)(chicken 00:00:00 [place] [facility] DTAP 2003-11-08 Completed [facility] 00:00:00 [facility] Polio (IPV/OPV) 2003-11-08 Completed [facility] 00:00:00 [facility] MMR 2003-11-08 Completed University of 00:00:00 [facility] Varicella 2003-11-08 Completed University of (varivax)(chicken 00:00:00 [facility] edical pox) Branch DTAP 2003-11-08 Completed University of 00:00:00 [facility] Polio (IPV/OPV) 2003-11-08 Completed [facility] of 00:00:00 [facility] MMR 2003-11-08 Completed [facility] of 00:00:00 [facility] Varicella 2003-11-08 Completed [facility] (varivax)(chicken 00:00:00 [place] [facility] DTAP 2003-11-08 Completed [facility] of 00:00:00 [facility] Polio (IPV/OPV) 2003-11-08 Completed [facility] 00:00:00 [facility] MMR 2003-11-08 Completed [facility] of 00:00:00 [facility] Varicella 2003-11-08 Completed [facility] of (varivax)(chicken 00:00:00 [place] [facility] DTAP 2003-11-08 Completed [facility] of 00:00:00 [facility] Polio (IPV/OPV) 2003-11-08 Completed [facility]it [facility] of 00:00:00 [facility] MMR 2003-11-08 Completed [facility] of 00:00:00 [facility] Varicella 2003-11-08 Completed [facility] of (varivax)(chicken 00:00:00 [place] [facility] DTAP 2003-11-08 Completed [facility] of 00:00:00 [facility] Polio (IPV/OPV) 2003-11-08 Completed [facility]it y of 00:00:00 [facility] MMR 2003-11-08 Completed [facility] of 00:00:00 [facility] Varicella 2003-11-08 Completed [facility] (varivax)(chicken 00:00:00 [place] [facility] DTAP 2003-11-08 Completed [facility] of 00:00:00 [facility] Polio (IPV/OPV) 2003-11-08 Completed [facility] of 00:00:00 [facility] MMR 2003-11-08 Completed [facility] 00:00:00 [facility] Varicella 2003-11-08 Completed [facility] (varivax)(chicken 00:00:00 [place] [facility]ox[facility] DTAP 2003-11-08 Completed [facility] of 00:00:00 [facility] Polio (IPV/OPV) 2003-11-08 Completed [facility] of 00:00:00 [facility] MMR 2003-11-08 Completed [facility] 00:00:00 [facility] Varicella 2003-11-08 Completed [facility] (varivax)(chicken 00:00:00 [place] [facility] DTAP 2003-11-08 Completed [facility] of 00:00:00 [facility] Polio (IPV/OPV) 2003-11-08 Completed [facility] of 00:00:00 [facility] MMR 2003-11-08 Completed [facility] 00:00:00 [facility] Varicella 2003-11-08 Completed [facility] (varivax)(chicken 00:00:00 [place] [facility]ox[facility] DTAP 2003-11-08 Completed [facility] of 00:00:00 [facility] Polio (IPV/OPV) 2003-11-08 Completed [facility]it [facility] of 00:00:00 [facility] MMR 2003-11-08 Completed [facility] 00:00:00 [facility] Vital Signs Vital Name Observation Time Observation Value Comments Source Systolic blood 2022-02-28 20:14:00 118 mm[Hg] Univer [facility]ity of pressure [facility] Diastolic blood 2022-02-28 20:14:00 70 mm[Hg] Unive rsity of pressure [facility] Heart rate 2022-02-28 20:14:00 88 /min [facility] Body temperature 2022-02-28 20:14:00 36.78 [facility] 2022-02-28 20:14:00 17 /min [facility] Oxygen saturation in 2022-02-28 20:14:00 99 /min [facility] of Arterial blood by [facility] oxim[facility] Body height 2022-02-28 18:39:00 157.5 cm [facility] Body weight 2022-02-28 18:39:00 51.211 kg [facility] BMI 2022-02-28 18:39:00 20.65 kg/m2 [facility] Systolic blood 2021-11-27 14:07:00 126 mm[Hg] Univer [facility]ity of pressure [facility] Diastolic blood 2021-11-27 14:07:00 83 mm[Hg] Unive rsity of pressure [facility] Heart rate 2021-11-27 14:07:00 112 /min [facility] Body temperature 2021-11-27 14:07:00 36.78 Theodora [facility] Respiratory rate 2021-11-27 14:07:00 18 /min [facility] Body height 2021-11-27 14:07:00 157.5 cm [facility] Body weight 2021-11-27 14:07:00 49.896 kg [facility] BMI 2021-11-27 14:07:00 20.12 kg/m2 [facility] Oxygen saturation in 2021-11-27 14:07:00 100 /min [facility] Arterial blood by [facility] Systolic blood 2021-08-10 13:57:00 122 mm[Hg] Univer [facility]ity of pressure [facility] Diastolic blood 2021-08-10 13:57:00 91 mm[Hg] Unive rsity of pressure [facility] Heart rate 2021-08-10 13:57:00 78 /min [facility] Body temperature 2021-08-10 13:57:00 36.44 Theodora [facility] Respiratory rate 2021-08-10 13:57:00 14 /min [facility] Body weight 2021-08-10 13:57:00 49.896 kg [facility] BMI 2021-08-10 13:57:00 20.12 kg/m2 [facility] Oxygen saturation in 2021-08-10 13:57:00 100 /min [facility] Arterial blood by [facility] Systolic blood 2021-03-07 18:19:00 107 mm[Hg] Univer [facility]ity of pressure [facility] Diastolic blood 2021-03-07 18:19:00 59 mm[Hg] Unive rsity of pressure [facility] Heart rate 2021-03-07 18:19:00 80 /min [facility] Body height 2021-03-07 18:19:00 157.5 cm [facility] Body weight 2021-03-07 18:19:00 46.131 kg [facility] BMI 2021-03-07 18:19:00 18.60 kg/m2 [facility] Systolic blood 2020-10-28 00:37:23 107 mm[Hg] [facility]iver [facility]ity of pressure [facility] Diastolic blood 2020-10-28 00:37:23 51 mm[Hg] [facility]ive rsity of pressure [facility] Heart rate 2020-10-28 00:37:23 98 /min [facility] Body temperature 2020-10-28 00:37:23 36.67 Theodora [facility] Respiratory rate 2020-10-28 00:37:23 18 /min [facility] Oxygen saturation in 2020-10-28 00:37:23 100 /min [facility] Arterial blood by [facility] Body height 2020-10-27 22:58:00 157.5 cm [facility] Body weight 2020-10-27 22:58:00 45.36 kg [facility] BMI 2020-10-27 22:58:00 18.29 kg/m2 [facility] Systolic blood 2020-06-18 19:51:00 127 mm[Hg] [facility] pressure [facility] Diastolic blood 2020-06-18 19:51:00 74 mm[Hg] [facility]ive rs[facility] of pressure [facility] Heart rate 2020-06-18 19:51:00 77 /min [facility] Respiratory rate 2020-06-18 19:51:00 20 /min [facility] Body weight 2020-06-18 19:51:00 46.993 kg [facility] Systolic blood 2019-08-05 00:00:25 96 mm[Hg] [facility] pressure [facility] Diastolic blood 2019-08-05 00:00:25 43 mm[Hg] [facility] [place] Heart rate 2019-08-05 00:00:25 90 /min [facility] Body temperature 2019-08-05 00:00:25 36.78 Theodora Univ ers[facility] of [facility] Respiratory rate 2019-08-05 00:00:25 16 /min Univ ersity of [facility] Oxygen saturation in 2019-08-05 00:00:25 99 /min [facility] Arterial blood by [facility] Body weight 2019-08-04 19:28:00 48.988 kg [facility]i [facility] Systolic blood 2019-07-14 18:50:00 106 mm[Hg] Univer [facility]ity of pressure [facility] Diastolic blood 2019-07-14 18:50:00 72 mm[Hg] Unive rsity of pressure [facility] Heart rate 2019-07-14 18:50:00 68 /min [facility] Body height 2019-07-14 18:50:00 157.5 cm [facility] Body weight 2019-07-14 18:50:00 48.988 kg [facility] BMI 2019-07-14 18:50:00 19.75 kg/m2 [facility] Systolic blood 2019-07-11 18:08:00 116 mm[Hg] Univer sity of pressure [facility] Diastolic blood 2019-07-11 18:08:00 74 mm[Hg] Unive rsity of pressure [facility] Heart rate 2019-07-11 18:08:00 74 /min [facility] Body height 2019-07-11 18:08:00 157.5 cm [facility] Body weight 2019-07-11 18:08:00 48.988 kg [facility] BMI 2019-07-11 18:08:00 19.75 kg/m2 [facility] Procedures Procedure Date / Time Performing Clinician Source Performed POCT TEST 2022-02-28 19:26:00 Dellis, Patricia Gary [facility] TOTAL BETA HCG ASSAY 2022-02-28 19:02:00 [facility] 2022-02-28 19:02:00 Patricia Schaefer [facility] COVID-19 (ID NOW RAPID 2021-11-27 15:13:00 Jesús Velarde [facility] TESTING) Medical Branch ASSIGNMENT OF BENEFITS 2021-11-27 14:04:45 Doctor Unassigned, No [facility] CONSENT/REFUSAL FOR 2021-11-27 14:03:55 [facility] CONSENT/REFUSAL FOR 2021-08-10 13:53:36 [facility] ASSIGNMENT OF BENEFITS 2021-03-07 18:13:31 Doctor Unassigned, No [facility] XR CHEST 1 VW 2020-10-27 23:57:22 Lois [facility] POCT TEST 2020-10-27 23:34:00 Lois Trujillo [facility] GALV/CLC ONLY - URINE 2020-10-27 23:33:00 Lois Trujillo [facility] (IMMUNOASSAY) - [facility] ER PANEL URINALYSIS 2020-10-27 23:33:00 Lois [facility] TROPONIN I 2020-10-27 23:04:00 Lois [facility] HEPATIC FUNCTION PANEL 2020-10-27 23:04:00 Lois Trujillo Un [facility] ([id number]) (ALB,T.PRO,BILI Medical Branch T,BU/BC,ALT,AST,ALK PHOS) BASIC METABOLIC PANEL 2020-10-27 23:04:00 Lois Trujillo [facility] (NA, K, CL, CO2, Medical Branch GLUCOSE, BUN, CREATININE, CA) ETHANOL 2020-10-27 23:04:00 Lois [facility] CBC WITH DIFF 2020-10-27 23:04:00 Lois [facility] CT ABDOMEN PELVIS W 2019-08-04 22:10:00 Oswald Joe ty of [place] CONTRAST [facility] LIPASE 2019-08-04 20:59:00 Aura Enriquez [facility] y [facility] COMP. METABOLIC PANEL 2019-08-04 20:59:00 Aura Enriquez [facility] ([id number]) [facility] CBC WITH DIFFERENTIAL 2019-08-04 20:59:00 Aura Enriquez [facility] URINALYSIS 2019-08-04 20:59:00 Aura Enriquez [facility] y of [facility] LACTIC ACID WHOLE BLOOD 2019-08-04 20:59:00 [facility] 2019-08-04 20:52:00 Aura Enriquez [facility] CONSENT/REFUSAL FOR 2019-08-04 19:13:03 Doctor Unassigned, No Un [facility] DIAGNOSIS AND TREATMENT [facility] POCT TEST 2019-07-14 00:00:00 Sean Hancock [facility] ASSIGNMENT OF BENEFITS 2019-07-11 17:41:02 Doctor Unassigned, No [facility] Encounters Start End Encounter Admission Attending Care Care Encounter Source Date/Time Date/Time Type Type Clinicians Facility Department ID 2021-09-29 Emergency [facility] [id number] Univers 22:04:[address] [facility] 2021-09-27 Emergency [facility] [id number] [facility] 2022-11-06 2022-11-06 Telephone Prisca Carreno [facility] 1.2.840.114 [id number] Univers 00:00:00 00:00:00 HEALTH 350.1.13.10 it y of SPECIALTY 4.2.7.2.686 [place] [id number] [place] [address] Branch 2022-07-06 2022-07-06 Emergency EM JazzyKAREN louie TERS [id number] [facility] 06:02:00 11:14:[address] [place] [address] 2022-02-28 2022-02-28 Emergency X DELLIS, [facility] ERT [id number] Univers 13:41:00 15:16:00 PATRICIA [facility] 2022-02-28 2022-02-[address] [facility] [id number] Univers 13:41:00 15:16:00 [facility] 350.1.13.10 it y of [place] PREM 4.2.7.2.686 [facility] [phone] [address] ([facility]) 2022-02-26 2022-02-26 Telephone [place], UNIVERSIT 1.2.840.11 [id number] Univers 00:00:00 00:00:00 [employer] 350.1.13.10 i ty of CLINICS 4.2.7.2.686 [facility] [id number] [address] 2021-11-27 2021-11-[address] [facility] ERT [id number] Univers 08:10:00 09:55:00 JESÚS [facility] 2021-11-27 2021-11-[address] [facility] 1.2.840.114 [id number] Univers 08:10:00 09:55:00 [facility] 350.1.13.10 it y of [place] 4.2.7.2[address] [place] [id number] ([facility]) 2021-08-10 2021-08-[address] [facility] 1.2.840.114 [id number] Univers 08:58:00 09:51:00 Cindy Swartz 350.1.13.10 ity of [place] 4.2.7.2.[address] [place] [phone] 2021-03-19 2021-03-19 Telephone Hancock, UNIVERSIT 1.2.840.11 [id number] Univers 00:00:00 00:00:00 [employer] 350.1.13.10 i ty of CLINICS 4.2.7.2.686 [facility] [id number] [address] 2021-03-07 2021-03-07 Office Hancock, UNIVERSIT 1.2.840.114 [id number] Univers 13:13:43 13:41:30 Visit Sean MCMANUS 350.1.13.10 i [id number] [address] 2021-03-07 2021-03-07 Outpatient R [facility] [id number] Univers 13:00:00 13:00:[address] [facility] 2021-03-07 2021-03-07 Orders Doctor JELENA 1.2.840.114 [id number] Univers 00:00:00 00:00:00 Only Unassigned, ZANE 350.1.13.10 ity of [place] [facility] 4.2.7.2.686 Dilan as [id number] [place] [address] Branch 2020-10-27 2020-10-27 Emergency [facility] 1.2.840.114 [id number] Univers 16:57:00 18:51:00 [facility] 350.1.13.10 i ty [place] [id number] [facility] 0[address] ([facility]) 2020-06-18 2020-06-18 Office Hancock, UNIVERSIT 1.2.840.114 [id number] Univers 14:39:30 14:54:30 Visit Sean MCMANUS 350.1.13.10 i [place] [id number] [address] 2020-06-18 2020-06-18 [facility] [id number] Univers 14:30:00 14:30:[address] [facility] 2020-06-18 2020-06-18 Patient [place], UNIVERSIT 1.2.840.114 [id number] Univers 00:00:00 00:00:00 Secure Msg Sean Duarte HEALTH 350.1.13.10 it[id number] [address] 2019-12-19 2019-12-19 Patient [place], UNIVERSIT 1.2.840.114 [id number] Univers 00:00:00 00:00:00 Secure Msg Sean MCMANUS 350.1.13.10 ity of CL[place] [id number] [place] [address] [place] 2019-08-04 2019-08-04 Emergency [place], [facility] 1.2.141.249 [id number] Univers 14:29:39 19:31:00 [facility] 350.1.13.10 it y [place] [facility] [id number] [address] ([facility]) 2019-07-14 2019-07-24 Office [facility] 1.2.840.114 [id number] Univers 13:28:27 11:58:56 Visit Sean MCMANUS 350.1.13.10 i [place] [id number] [address] 2019-07-12 2019-07-12 Patient Doctor JELENA 1.2.840.114 [id number] Univers 00:00:00 00:00:00 Secure Msg Unassigned, ZANE 350.1.13.10 ity of [place] [facility] 4.2.7.2.686 Dilan as [id number] [address] 2019-07-11 2019-07-11 Office [facility] 1.2.840.114 [id number] Univers 12:43:28 13:56:39 Visit Sean Duarte [facility] 350.1.13.10 i ty of [place] [id number] [address] 2019-07-11 2019-07-11 Orders Doctor JELENA 1.2.840.114 [id number] Univers 00:00:00 00:00:00 Only Unassigned, ZANE 350.1.13.10 ity of [place] [facility] 4.2.7.2.686 [place] [id number] [address] Results Test Description Test Time Test [...] YEASTUBD) TRACE /HPF NONE DRUGS OF ABUSE [id number] 06:53:00 Test Item Value Reference Range Interpretation [...] OK? 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 [facility] UA [...] LEUUR) - XR ANKLE 3 + V [id number] 00:00:00 [facility] LIZA SMITH : 2000 Sex: F FAX:Terrence Rodriguez DO [phone] [place]: St: REG FAX: Saul Chapman [phone] Name: LIZA SMITH [place] : 2000 Age/S: 22/F Unit #: [id number] Loc: [place] Phys: Saul Chapman Acct: [id number] Dis Date: Status: REG ER PHONE #: Exam Date: 07/06/2022728 FAX #: Reason: left ankle pain/swelling EXAMS: CPT CODE: [id number] XR ANKLE 3 + V LT 45088 PROCEDURE INFORMATION: Exam: XR Left Ankle Exam [...] PAGE 1 Signed Report- CT C-SPINE W/O [id number] 00:00:00 [facility] LIZA SMITH : 2000 Sex: F Name: LIZA SMITH [place] : 2000 Age/S: 22 / F Unit #: [id number] Loc: [place], [place] Phys: Terrenec Rodriguez DO Acct: [id number] Dis Date: Status: REG ER PHONE #: Exam Date: FAX #: Reason: Head trauma EXAMS: CPT CODE: [id number] CT C-SPINE W/O CONT 34225 PROCEDURE INFORMATION: Exam: CT Cervical Spine Without [...] PAGE 1 Signed Report- CT HEAD/BRAIN W/O [id number] 00:00:00[facility]: LIZA SMITH : 2000 Sex: F Name: LIZA SMITH FSED : 2000 Age/S: 22 / F Unit #: [id number] Loc: [place] ArPhys: Terrence Rodriguez DO Acct: [id number] Dis Date: Status: REG ER PHONE #: Exam Date: FAX #: Reason: Head trauma EXAMS: CPT CODE: [id number] CT HEAD/BRAIN W/O CONT 30844 PROCEDURE INFORMATION: Exam: CT Head Without Contrast [...] S: 07/06/2022 (07) PAGE 1 Signed ReportT[facility]2022-02-28 19:46:11 Test Item Value Reference Range Interpretation Comments BETA HCG (test <2.39 See_Comment [Automated m essage] code = The system Spo[employer] 8783885246) generated this result transmit so reference range : Non- fe male and male patien ts: <5 mIU/mL. The reference range was not used to interpret this result as normal/abnormal . NELL (test code Gestational Age ? ? = NELL) ?Range (mIU/mL) 1-10 ?Weeks ?84-78600562-73 Weeks ?39206-38006481-56 Weeks ?2559-03699668-56 Weeks ?1531-339246 Biotin has been reported to cause a negative bias, interpret results relative to patient's use of biotin. [facility] [id number] 19:26:00 Test Item Value Reference Range Interpretation Comments POCT PREG (test code = 1605) NEGATIVE On board controls acceptable with C PRESENT Line (test code = 3574) Lab Interpretation (test code = Normal 97274-2) [facility] 1 [id number] 00:15:10CHEST X-RAY AP PORTABLE 10/27/2020 6:14 PM Ordering physician: LOIS TRUJILLO CLINICAL INFORMATION: ?Chest pain COMPARISON: None TECHNIQUE: ?single AP view of the chest was submitted. FINDINGS: ? The lung mathias are clear. ?No pleural effusions. ?No pneumothorax. ?Thecardiomediastinal silhouette iswithin normal limits. ?No acuteradiographic bony abnormalities. CONCLUSION: ? 1. ?No radiographic evidence to acute cardiopulmonary disease. RL: 7423 AFC: 41574 [facility], Radiant Results Inft User - 10/27/2020 6:16 PM CSTCHEST X-RAY AP SAJIXMDF50/29/2020 6:14 PMOrdering physician: LOIS TRUJILLO CLINICAL INFORMATION: Chest painCOMPARISON: NoneTECHNIQUE: single AP view of the chest was submitted.FINDINGS: The lung mathias are clear. No pleural effusions. No pneumothorax. Thecardiomediastinal silhouette is within normal limits. No acuteradiographic bony abnormalities.CONCLUSION: 1. No radiographic evidence to acute cardiopulmonary disease.RL: 7423AFC: 97129Qfrblkqppemlrw signed by Julio C Smith MD at 10/27/2020 6:15 PMUnTexas Health [facility] HospitalDrug Screen ER 2020-10-28 00:02:00 Test Item Value Reference Range Interpretation Comments AMPHET (test code = Negative Negative 9809927492) Cocaine Metabolite (test Negative Negative code = 1425424900) OPIATES (test code = Negative Negative 1637559681) THC (test code = Presumptive Positive Negative A 2771201365) NELL (test code = NELL) Urine Drug Cutoff Ranges Amphetamine: ? 1,000 ng/mLCocaine: ? 150 ng/mLOpiates: ? 300 ng/mLCannabinoids: ?50 ng/mL The results are to be used only for medical (i.e., treatment) purposes. Unconfirmed screening results must not be used for non-medical purposes (e.g., employment testing, legal testing). Lab Interpretation (test Abnormal code = 01186-5) [facility] HospitalUrinalysis2020-11-29 23:45:00 Test Item Value Reference Range Interpretation Comments APPEARANCE (test code = Clear Clear 9098131066) COLOR (test code = Yellow Yellow 2876800834) PH (test code = 4.8-8.0 7982133724) SP GRAVITY (test code = 1.003-1.030 0966477554) GLU U QUAL (test code = Normal Normal 2951432721) BLOOD (test code = Negative Negative 5303336998) KETONES (test code = 5 mg/dL Negative A 4039083797) PROTEIN (test code = 30 mg/dL Negative A 2887-8) UROBILIN (test code = 4.0 mg/dL Normal A 9926053600) BILIRUBIN (test code = Negative Negative 3359665208) NITRITE (test code = Negative Negative 4820474187) LEUK DARCY (test code = 25/uL Negative A 9974231451) RBC/HPF (test code = See_Comment [Autom ated message] 1386177496) The system Sp[employer]ate generated this result transmit so reference range : 0 - 3 HPF. The refe rence range was not u sed to interpret th is result as normal/abnormal . WBC/HPF (test code = See_Comment H [Autom ated message] 1948836521) The system [employer] generated this result transmit so reference range : 0 - 5 HPF. The refe rence range was not u sed to interpret th is result as normal/abnormal . BACTERIA (test code = Few Negative A 8288155178) MUCOUS (test code = Slight Negative LPF A 7569956731) SQ EPITH (test code = See_Comment H [Auto mated message] 1316280208) The system [employer] generated this result transmit so reference range : <=2 HPF. The refere nce range was not u sed to interpret th is result as normal/abnormal . HYAL CAST (test code = See_Comment [Aut omated message] 9398447939) The system [employer] generated this result transmit so reference range : <=2 LPF. The refere nce range was not u sed to interpret th is result as normal/abnormal . Lab Interpretation (test Abnormal code = 11381-8) [facility] HospitalPO[facility] [id number] 23:34:00 Test Item Value Reference Range Interpretation Comments On board controls acceptable with negative C Line (test code = 3574) POCT PREG LOT # (test code = 3575) [id number] POCT PREG TEST DATE (test 04/28/2021 code = 3576) Lab Interpretation (test code = Normal 11875-5) [facility] HospitalTroponin [id number] 23:31:00 Test Item Value Reference Range Interpretation Comments TROPONIN I (test 0.002 ng/mL See_Comment [Automated code = 0715713652) message] The system which generated this result [...] ? Lab Interpretation Normal (test code = 89162-8) [facility] HospitalEthanol [id number] 23:21:00 Test Item Value Reference Range Interpretation Comments ALCOHOL (test code = <10 mg/dL 9010963302) NELL (test code = Toxic Greater than or NELL) equal to 80 mg/dL. NOTE: Whole blood values are approximately 10% to 15% lower than serum and plasma. [facility] HospitalBari[facility] Metabolic Panel (NA, K, CL, CO2, GLUCOSE, BUN, CREATININE, CA)2020-10-27 23:20:00 Test Item Value Reference Range Interpretation Comments NA (test code = 139 mmol/L 135-145 2111619580) K (test code = 4.2 mmol/L 3.5-5 2098205398) CL (test code = 104 mmol/L 98-108 1919152156) CO2 TOTAL (test code = 26 mmol/L 23-31 6429796586) AGAP (test code = 2-16 5043667328) BUN (test code = 10 mg/dL 7-23 8801040035) GLUCOSE (test code = 93 mg/dL 70-110 8068359940) CREATININE (test code 0.66 mg/dL 0.5-1.04 = 3681137196) CALCIUM (test code = 9.7 mg/dL 8.6-10.6 0707390415) eGFR Calculation mL/min/1.73m2 (Non-) (test code = 9745418182) eGFR Calculation mL/min/1.73m2 () (test code = 1772930275) NELL (test code = NELL) Association of [...] or urine or abnormalities in imaging tests). [facility] HospitalHepatic Function Panel (ALB, T.PRO, BILI T, BU/BC, ALT, AST, ALK PHOS)2020-10-27 23:20:00 Test Item Value Reference Range Interpretation Comments TOTAL BILI (test code = 7304191983) 1.0 mg/dL 0.1-1.1 BILI UNCON (test code = 8090204350) 0.7 mg/dL 0.1-1.1 BILI CONJ (test code = 4285919188) 0.0 mg/dL 0-0.3 T PROTEIN (test code = 6067018792) 7.4 g/dL 6.3-8.2 ALBUMIN (test code = 0419990883) 4.5 g/dL 3.5-5 ALK PHOS (test code = 3670960817) 75 U/L 34-122 ALTv (test code = 1742-6) 13 U/L 5-35 AST(SGOT) (test code = 8638379296) 26 U/L 13-40 Lab Interpretation (test code = Normal 41120-3) [facility] with [id number] 23:09:00 Test Item Value Reference Range Interpretation Comments WBC (test code = See_Comment [Automated 6340-2) message] The sy stem which generated this result transmitted reference range : 4.30 - 11.10 10*3/?L. The reference range was not used to interpret this result as normal/abnormal . RBC (test code = See_Comment [Automated 069-8) message] The sy stem which generated this [...] RDW-SD (test code = 40.7 fL 39-49.9 40217-2) RDW-CV (test code = 12.1 % 12-15.5 788-0) PLT (test code = See_Comment [Automated 777-3) message] The sy stem which generated this result transmitted reference range : 166 - 358 10*3/ ?L. The reference r matthew was not used to interpret this result as normal/abnormal . MPV (test code = 9.3 fL 9.5-12.9 L 94686-0) NRBC/100 WBC (test See_Comment [Automat ed code = 4440796897) message] The system which generated this result transmitted reference range : 0.0 - 10.0 /100 WBCs. The refer ence range was not u sed to interpret th is result as normal/abnormal . NRBC x10^3 (test code <0.01 See_Comment [Auto mated = 9282989303) message] The s ystem which generated this result transmitted reference range : 10*3/?L. The reference range was not used to interpret this result as normal/abnormal . GRAN MAT (NEUT) % 61.6 % (test code = 770-8) IMM GRAN % (test code 0.20 % = 1654347273) LYMPH % (test code = 30.9 % 736-9) MONO % (test code = 6.5 % 5905-5) EOS % (test code = 0.2 % 713-8) BASO % (test code = 0.6 % 706-2) GRAN MAT x10^3(ANC) 3.33 10*3/uL 1.88-7.09 (test code = 8680010270) IMM GRAN x10^3 (test <0.03 0-0.06 code = 2167117637) LYMPH x10^3 (test code 1.67 10*3/uL 1.32-3.29 = 731-0) MONO x10^3 (test code 0.35 10*3/uL 0.33-0.92 = 742-7) EOS x10^3 (test code = <0.03 0.03-0.39 L 711-2) BASO x10^3 (test code 0.03 10*3/uL 0.01-0.07 = 704-7) Lab Interpretation Abnormal (test code = 78231-1) [facility] WITH [id number] 21:35:00 Test Item Value Reference Range Interpretation Comments WBC (test code = See_Comment H [Automated 0890-2) message] The system which generated this result [...] RDW-SD (test code = 40.8 fL 39-49.9 56303-0) RDW-CV (test code = 12.3 % 12-15.5 788-0) PLT (test code = See_Comment [Automated 777-3) message] The system which generated this result transmit so reference range : 166 - 358 10*3/ ?L. The reference range was not u sed to interpret th is result as normal/abnormal . MPV (test code = 9.4 fL 9.5-12.9 L 65570-8) NRBC/100 WBC (test See_Comment [Automat ed code = 5848233692) message] The system which generated this result transmit so reference range : 0.0 - 10.0 /100 WBCs. The reference range was not used to interpret this result as normal/abnormal . NRBC x10^3 (test code <0.01 See_Comment [Auto mated = 2801322405) message] The system which generated this result transmit so reference range : 10*3/?L. The reference range was not used to interpret this result as normal/abnormal . GRAN MAT (NEUT) % 83.3 % (test code = 770-8) IMM GRAN % (test code 0.60 % = 1207430566) LYMPH % (test code = 6.6 % 736-9) MONO % (test code = 9.4 % 5905-5) EOS % (test code = 0.0 % 713-8) BASO % (test code = 0.1 % 706-2) GRAN MAT x10^3(ANC) 17.29 10*3/uL 1.88-7.09 H (test code = 9290035843) IMM GRAN x10^3 (test 0.12 10*3/uL 0-0.06 H code = 9968098930) LYMPH x10^3 (test code 1.36 10*3/uL 1.32-3.29 = 731-0) MONO x10^3 (test code 1.95 10*3/uL 0.33-0.92 H = 742-7) EOS x10^3 (test code = <0.03 0.03-0.39 L 711-2) BASO x10^3 (test code 0.03 10*3/uL 0.01-0.07 = 704-7) Lab Interpretation Abnormal (test code = 46795-5) [facility] HospitalUR[facility]IS2019-09-06 21:33:00 Test Item Value Reference Range Interpretation Comments APPEARANCE (test code = Cloudy Clear A 1594023289) COLOR (test code = Yellow Yellow 5706280409) PH (test code = 4.8-8.0 7424969124) SP GRAVITY (test code = 1.003-1.030 9439259663) GLU U QUAL (test code = Normal Normal 4969661480) BLOOD (test code = 2+ Negative A 3852695896) KETONES (test code = 20 mg/dL Negative A 4663168198) PROTEIN (test code = 30 mg/dL Negative A 2887-8) UROBILIN (test code = Normal Normal 6502836093) BILIRUBIN (test code = Negative Negative 3254953003) NITRITE (test code = Positive Negative A 9576353478) LEUK DARCY (test code = 500/uL Negative A 9808851372) RBC/HPF (test code = See_Comment H [Autom ated message] 0656214995) The system Spo[employer]ate generated this result transmitted ref erence range: 0 - 3 HP F. The reference range was not used to int erpret this result as normal/abnormal . WBC/HPF (test code = >182 See_Comment H [Autom ated message] 0924016962) The system Sp[employer] generated this result transmitted ref erence range: 0 - 5 HP F. The reference range was not used to int erpret this result as normal/abnormal . BACTERIA (test code = Few Negative A 7813734665) MUCOUS (test code = Slight Negative LPF A 9268911903) AMORPHOUS (test code = Rare Rare HPF 6476829586) SQ EPITH (test code = See_Comment H [Auto mated message] 6792071906) The system Sp[employer] generated this result transmitted ref erence range: <=2 HPF. The reference range was not used to int erpret this result as normal/abnormal . WBC CLUMPS (test code = See_Comment H [Au tomated message] 3052418948) The system Sp[employer] generated this result transmitted ref erence range: <=1 HPF. The reference range was not used to int erpret this result as normal/abnormal . Lab Interpretation (test Abnormal code = 17903-6) [facility]. METABOLIC PANEL (32904)2019-08-04 21:26:00 Test Item Value Reference Range Interpretation Comments NA (test code = 135 mmol/L 135-145 1164018394) K (test code = 3.4 mmol/L 3.5-5 L Slight 5854704194) hemolysis CL (test code = 97 mmol/L 98-108 L 5517523249) CO2 TOTAL (test code 23 mmol/L 23-31 = 0195867533) AGAP (test code = 2-16 6156244798) BUN (test code = 9 mg/dL 7-23 Slight 4572792946) hemolysis GLUCOSE (test code = 103 mg/dL 70-110 2499081929) CREATININE (test code 0.77 mg/dL 0.5-1.04 = 7394129816) TOTAL BILI (test code 1.2 mg/dL 0.1-1.1 H = 3911275999) CALCIUM (test code = 9.7 mg/dL 8.6-10.6 2583205338) T PROTEIN (test code 8.1 g/dL 6.3-8.2 = 3776116455) ALBUMIN (test code = 4.5 g/dL 3.5-5 6729085854) ALK PHOS (test code = 100 U/L 34-122 Slight 1905068634) hemolysis ALT(SGPT) (test code 29 U/L 9-51 Slight = 8467835613) hemolysis AST(SGOT) (test code 30 U/L 13-40 Slight = 0875591005) hemolysis eGFR Calculation mL/min/1.73m2 (Non-) (test code = 6784791212) eGFR Calculation mL/min/1.73m2 () (test code = 4822738752) NELL (test code = NELL) Association of [...] tests). Lab Interpretation Abnormal (test code = 56820-3) [facility]2019-[facility] 21:26:00 Test Item Value Reference Range Interpretation Comments LIPASE (test code = 3323825920) 24 U/L 0-220 Lab Interpretation (test code = Normal 95263-5) [facility] HospitalLactic Acid Whole [id number] 21:08:00 Test Item Value Reference Range Interpretation Comments LACTIC ACID (test code = 1.24 mmol/L 0.5-2.2 9852528702) Lab Interpretation (test code = Normal 57981-8) [facility] [id number] 20:52:00 Test Item Value Reference Range Interpretation Comments POCT PREG (test code = 1605) Negative On board controls acceptable with C Yes Line (test code = 3574) POCT PREG LOT # (test code = 3575) POCT PREG TEST DATE (test code = 3576) Lab Interpretation (test code = Normal 14001-7) [facility] [id number] 19:33:00 Test Item Value Reference Range Interpretation Comments POCT PREG (test code = 1605) Negative On board controls acceptable with C Yes Line (test code = 3574) POCT PREG LOT # (test code = 3575) POCT PREG TEST DATE (test code = 3576) [facility] [id number] 19:33:00 Test Item Value Reference Range Interpretation Comments POCT PREG (test code = 1605) Negative On board controls acceptable with C Yes Line (test code = 3574) POCT PREG LOT # (test code = 3575) POCT PREG TEST DATE (test code = 3576) [facility] [id number] 19:33:00 Test Item Value Reference Range Interpretation Comments POCT PREG (test code = 1605) Negative On board controls acceptable with C Yes Line (test code = 3574) POCT PREG LOT # (test code = 3575) POCT PREG TEST DATE (test code = 3576) [facility] [id number] 19:33:00 Test Item Value Reference Range Interpretation Comments POCT PREG (test code = 1605) Negative On board controls acceptable with C Yes Line (test code = 3574) POCT PREG LOT # (test code = 3575) POCT PREG TEST DATE (test code = 3576) [facility]
--- NOTE | 2023-01-14 16:13 | ER ---
Nurse's Notes [facility] Name: Rupa Smith Age: 22 yrs Sex: Female : 2000 Arrival Date: 01/14/2023 Time: 15:37 Bed IW1 Private MD: Diagnosis: Other seizures;Encounter for issue of repeat prescription Presentation: 01/14 16:04 Chief complaint: Patient states: Out of Keppra, no PCP. Coronavirus screen: At this jl7 time, the client does not indicate any symptoms associated with coronavirus-19. Ebola Screen: No symptoms or risks identified at this time. Initial Sepsis Screen: Does the patient meet any 2 criteria? No. Patient's initial sepsis screen is negative. Does the patient have a suspected source of infection? No. Patient's initial sepsis screen is negative. Risk Assessment: Do you want to hurt yourself or someone else? Patient reports no desire to harm self or others. Onset of symptoms is unknown. 16:04 Method Of Arrival: Ambulatory jl7 16:04 Acuity: SANCHO 4 jl7 Triage Assessment: 16:05 General: Appears in no apparent distress. uncomfortable, Behavior is calm, cooperative, jl7 appropriate for age. Pain: Denies pain. 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 - Social history:: Smoking status: Patient reports the use of cigarette tobacco products, cigars. Vital Signs: 16:04 BP 118 / 75; Pulse 72; Resp 17; Temp 97.9; Pulse Ox 100% ; Weight 49.9 kg; Height 5 ft. jl7 2 in. (157.48 cm); Pain 0/10; 16:04 Body Mass Index 20.12 (49.90 kg, 157.48 cm) jl7 ED Course: 15:37 Patient arrived in ED. rg4 15:50 Ramu Rudd PA is PHCP. cp 15:50 Lianna Lea MD is Attending Physician. cp 16:05 Triage completed. jl7 16:05 Arm band placed on right wrist. jl7 16:11 Skip Huynh MD is Referral Physician. cp 16:27 No provider procedures requiring assistance completed. Patient did not have IV access jl7 during this emergency room visit. Administered Medications: No medications were administered Outcome: 16:12 Discharge ordered by MD. cp 16:27 Discharged to home ambulatory. jl7 16:27 Condition: stable 16:27 Discharge instructions given to patient, Instructed on discharge instructions, follow up and referral plans. medication usage, Demonstrated understanding of instructions, follow-up care, medications, Prescriptions given X 1. 16:27 Patient left the ED. jl7 Signatures: Ramu Rudd PA PA cp Garcia, Rubi rg4 Derik Dunn RN RN jl7
--- NOTE | 2023-01-14 16:13 | EDPHYS ---
Physician Documentation [facility] Name: Rupa Smith Age: 22 yrs Sex: Female : 2000 Arrival Date: 01/14/2023 Time: 15:37 Bed IW1 Private MD: ED Physician Lianna Lea HPI: 01/14 16:00 This 22 yrs old Female presents to ER via Unassigned with complaints of Medication cp Refill. 16:00 The patient presents to the emergency department requesting refill(s) for: Keppra. The cp patient chronically suffers from seizures. Patient reports taking last dose last night. 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 - Social history:: Smoking status: Patient reports the use of cigarette tobacco products, cigars. ROS: 16:05 Constitutional: Negative for body aches, chills, fever, poor PO intake. cp 16:05 Cardiovascular: Negative for chest pain, palpitations. 16:05 Respiratory: Negative for cough, shortness of breath, wheezing. 16:05 Abdomen/GI: Negative for abdominal pain, nausea, vomiting, and diarrhea. 16:05 Neuro: Positive for history of seizure disorder. 16:05 All other systems are negative. Exam: 16:07 Head/Face: Normocephalic, atraumatic. cp 16:07 Constitutional: The patient appears in no acute distress, alert, awake, non-toxic, well developed, well nourished. 16:07 Eyes: Periorbital structures: appear normal, Conjunctiva: normal, no exudate, no injection, Sclera: no appreciated abnormality, Lids and lashes: appear normal, bilaterally. 16:07 ENT: External ear(s): are unremarkable, Nose: is normal, Mouth: is normal, Posterior pharynx: is normal, airway is patent. 16:07 Chest/axilla: Inspection: normal. 16:07 Cardiovascular: Rate: normal, Rhythm: regular. 16:07 Respiratory: the patient does not display signs of respiratory distress, Respirations: normal, no use of accessory muscles, no retractions, Breath sounds: are clear throughout, no decreased breath sounds, no stridor, no wheezing. 16:07 Abdomen/GI: Exam negative for discomfort, distension, guarding, Inspection: abdomen appears normal. 16:07 Neuro: Orientation: to person, place \T\ time. Mentation: is normal, Cerebellar function: is grossly normal, Motor: moves all fours, strength is normal, Sensation: is normal. Vital Signs: 16:04 BP 118 / 75; Pulse 72; Resp 17; Temp 97.9; Pulse Ox 100% ; Weight 49.9 kg; Height 5 ft. jl7 2 in. (157.48 cm); Pain 0/10; 16:04 Body Mass Index 20.12 (49.90 kg, 157.48 cm) jl7 MDM: 16:12 Patient medically screened. cp 16:12 Data reviewed: vital signs, nurses notes. cp 16:12 I considered the following discharge prescriptions or medication management in the cp emergency department seizure medication. Care significantly affected by the following chronic conditions: seizure disorder. Care significantly affected by the following Social Determinants of Health: lack of neurologist, lack of family physician. Counseling: I had a detailed discussion with the patient and/or guardian regarding: the historical points, exam findings, and any diagnostic results supporting the discharge/admit diagnosis, the need for outpatient follow up, for definitive care, a family practitioner, a neurologist, to return to the emergency department if symptoms worsen or persist or if there are any questions or concerns that arise at home. Administered Medications: No medications were administered Disposition Summary: 01/14/23 16:12 Discharge Ordered Location: Home cp Problem: chronic cp Symptoms: are unchanged cp Condition: Stable cp Diagnosis - Other seizures cp - Encounter for issue of repeat prescription cp Followup: cp - With: Skip Huynh MD - When: 1 week - Reason: Recheck today's complaints Discharge Instructions: - Medicine Refill at the Emergency Department cp - Seizure, Adult cp - Discharge Summary Sheet jl7 Forms: - Medication Reconciliation Form cp - Thank You Letter cp - Antibiotic Education cp - Prescription Opioid Use cp Prescriptions: - Keppra 500 mg Oral Tablet - take 1 tablet by ORAL route every 12 hours; 60 tablet; Refills: 0, Product cp Selection Permitted Signatures: Page, Ramu, Derik Chaudhary cp, RN RN jl7
[2023-01-14 16:39] VITALS: BP 118/75; TEMP 97.9; O2SAT 100
== END 2023-01-14 16:27 | disposition home or self-care (01) ==
LOC: ER 15:34
DX: G40.89 Other seizures (principal); Z76.0 Encounter for issue of repeat prescription; F17.290 Nicotine dependence, other tobacco product, uncomplicated
CPT/HCPCS: 99282